=== PATIENT | male | born 1950 | race Caucasian/White ===

== ENCOUNTER 2023-07-16 09:09 | Outpatient (OUT) | payer MEDICARE, SELFPAY ==
--- NOTE | 2023-07-16 09:18 | XR_ITS ---
[address] [address] Patient Name: MOISES CRAIN MRN: [id number] date: 1950 Sex: M Assigned Patient Location: RAD Current Patient Location: [facility] Accession/Order Number: [id number] Exam Date: 07/16/2023 09:28 Report Date: 07/16/2023 09:46 At the request of: DIONISIO DUARTE Procedure: XR chest 2V EXAMINATION: XR chest 2V HISTORY: Exposure To Asbestos Z77.090 COMPARISON: 01/12/2022 TECHNIQUE: PA and lateral FINDINGS: LUNGS: No significant pulmonary parenchymal abnormalities. VASCULATURE: No increased pulmonary vasculature. PLEURA: No pneumothorax, effusion, or pleural thickening. CARDIAC: No cardiomegaly or cardiac silhouette abnormality. MEDIASTINUM: No visible mass or adenopathy. Aortic atherosclerosis BONES: No fracture or visible bone lesion. Degenerative spondylosis OTHER: Negative. XR/XR chest 2V IMPRESSION: No acute cardiopulmonary process Electronically authenticated by: ZANE HARP Date: 07/16/2023 09:46
== END 2023-07-16 09:10 | disposition home or self-care (01) ==
LOC: RAD 09:14
PROVIDERS: PCP Family Medicine; Visit Provider Internal Medicine
DX: Z77.090 Contact with and (suspected) exposure to asbestos (principal)
CPT/HCPCS: 71046

== ENCOUNTER 2024-08-10 07:06 | Outpatient (OUT) | payer MEDICARE, SELFPAY ==
--- OUTSIDE RECORDS SUMMARY | 2023-11-07 04:30 | XMS_ITS | Encounter Summary ---
Author Name [facility] Address [address] [place] [address] Care Team Providers Care Catering Server Name Role Phone MARI BOYD Primary Care Provider Unavailabl e Insurance Providers: All historical and current Section Date Range: From patient's date of to the date document was created. This section includes the names of all active insurance providers for the patient. Insurance Provider Type of Coverage Plan Name Start of Policy Coverage End of Policy Coverage Group Number Member ID Insurance Provider's Telephone Number Policy Gutierrez's Name Patient's Relationship to Policy Gutierrez [employer] [facility] ([facility]) MEDICARE ADVANTAGE [facility] ([facility]) Mar 03, 2017 [id number] HADDOX,RI CHARD PATIENT MEDICARE ([facility]) MEDICARE () PART A Dec 01, 2013 PART A [id number] HADDOX,RI CHARD PATIENT MEDICARE ([facility]) MEDICARE () PART B Dec 01, 2013 PART B [id number] [phone] HADDOX,RI CHARD PATIENT MEDICARE ([facility]) MEDICARE () PART A Dec 01, 2013 PART A [id number] [phone] HADDOX,RI CHARD PATIENT MEDICARE ([facility]) MEDICARE () PART B Dec 01, 2013 PART B [id number] HADDOX,RI CHARD PATIENT MEDICARE PART D (WNR) MEDICARE ([place]) PART D Mar 03, 2023 PART D [id number] [phone] CHARLIE CRAIN PATIENT [facility] (WNR) MEDICARE ADVANTAGE [facility] (WNR) Mar 03, 2023 [id number] [phone] CHARLIE CRAIN PATIENT Selected Encounter This section includes the information on record at [place] for the Encounter. Date/Time Encounter Type Encounter Description Reason Provider Source Nov 07, 2023 08:30 AM OFFICE O/P NEW LOW 30 MIN GENERAL INTERNAL MEDICINE ICD-10-CM E11.9 Type 2 diabetes mellitus without complications ASHLEY MYERS Jared Encounter Template Text not used by [place] Assessments - Encounter Diagnoses This section includes the primary and secondary diagnoses documented for the Encounter. Date/Time Primary/Secondary Diagnosis Diagnosis Name Provider Source Nov 07, 2023 09:10 AM PRIMARY Type 2 diabetes mellitus without complications ASHLEY MYERS [place] Plan of Treatment: Future Appointments (+ 6 months) and Future Tests (+/- 45 days) The Plan of Treatment section includes future care activities for the patient from all [place] treatmentfacilities. This section includes future appointments and future orders which are active, pending or scheduled. Future Appointments This section includes appointments that were scheduled to occur 6 months from the date of the Encounter, up to a maximum of 20 appointments. The data comes from all [place] treatment facilities. Appointment Date/Time Appointment Type Appointme nt Facility Name Nov 13, 2023 08:30 AM AMBULATORY - MEDICINE [facility] Lab Results: +/- 30 days of the encounter This section includes the Chemistry and Hematology Lab Results on record with [place] for the patient. Radiology Reports and Pathology Reports are provided separately, in subsequent sections. Lab Results This section contains the Chemistry/Hematology Results that were resulted 30 days before or 30 daysafter the date of the Encounter. Date/Time Source Result Type Result - Unit Interpretation Reference Range Specimen Type Comment Nov 11, 2023 08:05 AM [facility] HGB A1C (with eAG) BLOOD Specimen Type: BLOOD No comment entered. Ordering Provider: MARI BOYD DO Report Released Date/Time: May 14, 2023 08:31 AM Reporting Lab: [facility] [address] [facility] [place] [facility] [address] Performing Lab: [id number] [facility] [address] HGB A1C 8.1 H 4.0-6.0 ESTIMATE AVG GLUCOSE 186 mg/dL Nov 11, 2023 08:05 AM [facility] COMPREHENSIVE METABOLIC PANEL BLOOD Specimen Type: BLOOD No comment entered. Ordering Provider: MARI BOYD DO Report Released Date/Time: May 14, 2023 08:31 AM Reporting Lab: [address] [facility] [address] Performing Lab: [address] [facility] [address] CREATININE 1.2 mg/dL 0.6-1.3 UREA NITROGEN 18 mg/dL 7-25 GLUCOSE 187 mg/dL H 74-109 SODIUM 132 mmol/L L 136-145 POTASSIUM 4.4 mmol/L 3.5-5.1 CHLORIDE 96 mmol/L L 98-107 CO2 32 mmol/L H 21-31 CALCIUM 9.0 mg/dL 8.6-10.3 PROTEIN,TOTAL 6.0 g/dL L 6.4-8.9 ALBUMIN 4.1 g/dL 3.5-5.7 TOT. BILIRUBIN 0.9 mg/dL 0.3-1.0 ALKALINE PHOSPHATASE 77 U/L 34-104 SGOT(AST) 18 U/L 13-39 SGPT(ALT) 27 U/L 7-52 EGFR 63 mL/min/{1.73_m2} Nov 11, 2023 08:05 AM [facility] CBC WITH DIFFERENTIAL BLOOD Specimen Type: BLOOD No comment entered. Ordering Provider: MARI BOYD DO Report Released Date/Time: Nov 11, 2023 08:32 AM Reporting Lab: [address] [facility] [address] Performing Lab: [address] [facility] [address] WBC 9.93 10*3/uL 4.00-11.00 RBC 4.14 10*6/uL 4.10-5.80 HGB 12.9 g/dL 12.1-17.2 HCT 37.9 L 38.0-51.0 MCV 91.5 fL 80.0-100.0 MCH 31.2 pg 26.0-32.0 MCHC 34.0 g/dL 32.0-37.5 PLATELET 270 10*3/uL 130-400 MPV 9.5 fL 8.9-12.7 LYMPH, ABSOLUTE AUTOMATED 2.34 10*3/uL 1 .00-3.00 MONOS % AUTOMATED 10.6 MONOS, ABSOLUTE AUTOMATED 1.05 10*3/uL H 0 .30-0.90 LYMPH % AUTOMATED 23.6 BASO, ABSOLUTE AUTOMATED 0.08 10*3/uL 0. 00-0.20 EOSINO, ABSOLUTE AUTOMATED 0.37 10*3/uL 0.00-0.50 NEUTRO % AUTOMATED 60.5 EOSIN % AUTOMATED 3.7 BASO % AUTOMATED 0.8 NEUTROPHIL, ABSOLUTE AUTOMATED 6.01 10*3/uL 2.00-7.00 RDW-CV 12.3 11.5-14.5 IMMATURE GRANULOCYTE, PERCENT AUTOMATED 0.8 H 0.0-0.5 NRBC% 0.0 NRBC# <0.01 10*3/uL 0.000-0.012 Vital Signs: All taken on the encounter date This section contains inpatient and outpatient Vital Signs collected on the date of the Encounter. Date/Time Temperature Pulse Blood Pressure Respiratory Rate SP02 Pain Height Weight Body Mass Index Source Nov 07, 2023 08:48 AM 97.6 57 148/65 18 99 0 [place] Encounter Notes: All associated encounter notes This section contains the clinical notes associated to the Encounter. Date/Time Encounter Note(s) Provider Source Nov 07, 2023 08:56 AM PRIMARY CARE NOTE: LOCAL TITLE: PRIMARY CARE URGENT VISIT STANDARD TITLE: PRIMARY CARE NOTE DATE OF NOTE: NOV 07, 2023@08:56 ENTRY DATE: NOV 07, 2023@08:56:20 AUTHOR: ASHLEY MYERS EXP COSIGNER: URGENCY: STATUS: COMPLETED Reason for visit:73 yold male from [place] visiting family in [place] presents needing a few days of Metformin 1000mg BID until he goes home. He denies recent illnesses, pain, other cocnerns. Remote smoker. Occasional alcohol. Exercises daily. Problem List - Active - DM, HTN, CAD, COPD Active Outpatient Medications (including Supplies): Pending Outpatient Medications Status = 1) METFORMIN HCL 1000MG TAB TAKE ONE TABLET BY MOUTH PENDING TWICE A DAY DATE/TIME TEMP PULSE RESP BP PAIN WEIGHT 11/07/23 @ 0848 97.6 57 18 148/65 0 EXAM GEN:pleasant male in no distress HEENT:conj pink, no icterus HEART:RRR LUNGS:CTA EXT:neg edema NEURO:AAOx3 A/P:73 yold male travelling , hx of DM, needs Metformin until he gets home -Metformin prescribed condition-stable Return PRN OUTpatient I have compared the patient's current medications with those listed in CPRS. CPRS' Active and non-VA medication list completely and accurately reflects the patient's current medications. Were medications delivered, introduced, stopped or changed during today's visit? Yes A medication list that accurately reflects, to the best of my knowledge, what the patient is taking, and will be taking, was reviewed and discussed with the patient/caregiver; the patient/caregiver acknowledged understanding of and was provided the reconciled medication list. /edilberto/ Dr. ASHLEY MYERS [facility] Signed: 11/07/2023 09:11 ASHLEY MYERS [place] Nov 07, 2023 08:48 AM PRIMARY CARE [facility] [place] NOTE: LOCAL TITLE: [facility] SYMPTOM TRIAGE NOTE STANDARD TITLE: PRIMARY CARE TRIAGE NOTE DATE OF NOTE: NOV 07, 2023@08:48 ENTRY DATE: NOV 07, 2023@08:48:42 AUTHOR: KEM NUNEZ EXP COSIGNER: URGENCY: STATUS: COMPLETED [facility] SYMPTOM TRIAGE NOTE Confirm patients ID with and last 4: Yes Visit type: In Person Chief complaint (patients own words): I'm here visiting and I ran out of my metformin. states that he takes metformin 1000 mg bid. He will be in town until friday. VS 97.6 57 18 148/65 99% room air Physician Notified: Yes Name of Physician: Dr Myers /edilberto/ KEM NUNEZ RN, BSN Staff Nurse Signed: 11/07/2023 08:51 KEM NUNEZ
--- OUTSIDE RECORDS SUMMARY | 2023-11-13 04:30 | XMS_ITS | Encounter Summary ---
Author Name [facility] ([place] Address [address] [place] [address] Care Team Providers Care Elementary Educator Name Role Phone MARI BOYD Primary Care [...] Name Patient's Relationship to Policy Gutierrez AETNA [facility] ([facility]) MEDICARE ADVANTAGE [facility] ([facility]) Mar 03, 2017 [id number] HADDOX,RI CHARD PATIENT MEDICARE ([facility]) MEDICARE () PART A Dec 01, 2013 PART A [id number] HADDOX,RI CHARD PATIENT MEDICARE (WN) MEDICARE () PART B Dec 01, 2013 PART B [id number] [phone] HADDOX,RI CHARD PATIENT MEDICARE (WN) MEDICARE (M) PART A Dec 01, 2013 PART A [id number] HADDOX,RI CHARD PATIENT MEDICARE (WN) MEDICARE (M) PART B Dec 01, 2013 PART B [id number] HADDOX,RI CHARD PATIENT MEDICARE PART D (WNR) MEDICARE (M) PART D Mar 03, 2023 PART D [id number] [phone] CHARLIE CRAIN PATIENT [facility] (WNR) MEDICARE ADVANTAGE MCR (WNR) Mar 03, 2023 [id number] [phone] CHARLIE CRAIN PATIENT Selected Encounter This section includes the information on record at [place] for the Encounter. Date/Time Encounter Type Encounter Description Reason Provider Source Nov 13, 2023 08:30 AM OFFICE O/P EST HI 40 MIN PRIMARY CARE/MEDICINE ICD-10-CM I10 Essential (primary) hypertension SIDIQ,MARI Y DO IHE Encounter Template Text not used by [place] Assessments - Encounter Diagnoses This section includes the primary and secondary diagnoses documented for the Encounter. Date/Time Primary/Secondary Diagnosis Diagnosis Name Provider Source Nov 13, 2023 09:01 AM PRIMARY Essential (primary) hypertension SIDIQ,MARI Y DO [facility] Nov 13, 2023 09:01 AM SECONDARY Athscl heart disease of [place] coronary artery w/o ang pctrs SIDIQ,MARI Y DO [facility] Nov 13, 2023 09:01 AM SECONDARY Hyperlipidemia, unspecified SIDIQ,MARI Y DO [facility] Nov 13, 2023 09:01 AM SECONDARY Type 2 diabetes mellitus without complications SIDIQ,MARI Y DO [facility] Nov 13, 2023 09:01 AM SECONDARY Unspecified atrial fibrillation SIDIQ,MARI Y DO [facility] Lab Results: +/- 30 days of the encounter This section includes the Chemistry and Hematology Lab Results on record with [place] for the patient. Radiology Reports and Pathology Reports are provided separately, in subsequent sections. Lab Results This section contains the Chemistry/Hematology Results that were resulted 30 days before or 30 daysafter the date of the Encounter. Date/Time Source Result Type Result - Unit Interpretation Reference Range Specimen Type Comment Nov 11, 2023 08:05 AM [facility] HGB A1C (with eAG) BLOOD Specimen Type: BLOOD No comment entered. Ordering Provider: MARI BOYD DO Report Released Date/Time: May 14, 2023 08:31 AM Reporting Lab: [facility] [address] [facility] [address] Performing Lab: [address] [facility] [address] HGB A1C 8.1 H 4.0-6.0 ESTIMATE AVG GLUCOSE 186 mg/dL Nov 11, 2023 08:05 AM [facility] COMPREHENSIVE METABOLIC PANEL BLOOD Specimen Type: BLOOD No comment entered. Ordering Provider: MARI BOYD DO Report Released Date/Time: May 14, 2023 08:31 AM Reporting Lab: [address] [facility] [address] Performing Lab: [address] [facility] [address] CREATININE 1.2 mg/dL 0.6-1.3 UREA NITROGEN 18 [...] 63 mL/min/{1.73_m2} Nov 11, 2023 08:05 AM [facility] CBC WITH DIFFERENTIAL BLOOD Specimen Type: BLOOD No comment entered. Ordering Provider: MARI BOYD DO Report Released Date/Time: Nov 11, 2023 08:32 AM Reporting Lab: [address] [facility] [address] Performing Lab: [address] [facility] [address] WBC 9.93 10*3/uL 4.00-11.00 RBC 4.14 10*6/uL [...] Height Weight Body Mass Index Source Nov 13, 2023 08:36 AM 0 [facility] Nov 13, 2023 08:34 AM 97.7 61 136/61 16 97 205.25 31 [facility] Social History: Smoking Status (Most current) and Tobacco Use (All prior to encounter date) This section includes the most current, and the historical, smoking and tobacco- related health factors from the [place] facility where the Encounter took place. Current Smoking Status This section includes the most current smoking, or tobacco-related health factor, from the [place] facility where the Encounter took place. Date/Time Current Smoking Status Comment Facil ity May 14, 2023 08:00 AM VA-TOBACCO FORMER USER [facility] Tobacco Use History This section includes a history of the smoking, or tobacco-related health factors, that were collected on or before the date of the Encounter. The data comes from the [place] facility where the Encounter took place. Date/Time Smoking Status/Tobacco Use Comment F acility May 14, 2023 08:00 AM [place]-TOBACCO QUIT 15 YRS OR MORE [facility] May 07, 2022 09:00 AM VA-TOBACCO FORMER USER [facility] May 07, 2022 09:00 AM VA-TOBACCO QUIT 15 YRS OR MORE [facility] Dec 05, 2020 08:30 AM VA-TOBACCO NEVER USED [facility] Jun 16, 2018 08:31 AM VA-TOBACCO FORMER USER [facility] Jun 16, 2018 08:31 AM VA-TOBACCO QUIT 15 YRS OR MORE [facility] Sep 01, 2017 08:09 AM QUIT TOBACCO >12 MO [facility] Jun 16, 2017 09:36 AM VA-TOBACCO FORMER USER [facility] Jun 16, 2017 09:36 AM VA-TOBACCO QUIT 15 YRS OR MORE [facility] Apr 30, 2017 08:32 AM QUIT TOBACCO >12 MO [facility] Oct 28, 2016 07:51 AM QUIT TOBACCO >12 MO [facility] Apr 29, 2016 08:34 AM QUIT TOBACCO >12 MO [facility] Oct 26, 2015 09:15 AM QUIT TOBACCO >12 MO [facility] Apr 19, 2015 08:53 AM QUIT TOBACCO >12 MO [facility] Oct 31, 2014 09:41 AM QUIT TOBACCO >12 MO [facility] May 07, 2014 08:38 AM QUIT TOBACCO >12 MO [facility] Oct 07, 2013 03:05 PM QUIT TOBACCO >12 MO [facility] Dec 15, 2012 10:48 AM QUIT TOBACCO >12 MO [facility] Encounter Notes: All associated encounter notes This section contains the clinical notes associated to the Encounter. Date/Time Encounter Note(s) Provider Source Nov 13, 2023 08:35 AM PRIMARY CARE NURSI NG NOTE: LOCAL TITLE: PRIMARY CARE PREVENTIVE HEALTH STANDARD TITLE: PRIMARY CARE NURSING NOTE DATE OF NOTE: NOV 13, 2023@08:35 ENTRY DATE: NOV 13, 2023@08:35:46 AUTHOR: PATRICK SORENSON EXP COSIGNER: URGENCY: STATUS: COMPLETED S: Vet in clinic for Primary Care Appointment. O: V/S entered P: To see the Provider N-Pain Screen: Are you currently experiencing pain? No: Pain Score: 0 Suicide Screen: C-SSRS Screening [place] Suicide Severity Rating Scale (C-SSRS) screener 1. Over the past month, have you wished you were or wished you could go to sleep and not wake up? No 2. Over the past month, have you had any actual thoughts of killing yourself? No 3. Over the past month, have you been thinking about how you might do this? Response not required due to responses to other questions. 4. Over the past month, have you had these thoughts and had some intention of acting on them? Response not required due to responses to other questions. 5. Over the past month, have you started to work out or worked out the details of how to kill yourself? Response not required due to responses to other questions. 6. If yes, at any time in the past month did you intend to carry out this plan? Response not required due to responses to other questions. 7. In your lifetime, have you ever done anything, started to do anything, or prepared to do anything to end your life (for example, collected pills, obtained a gun, gave away valuables, went to the roof but didn't jump)? No 8. If YES, was this within the past 3 months? Response not required due to responses to other questions. N-MEDICATION RECONCILIATION: Review of medications and allergies at the time of this encounter included: Local and remote allergies, active and pending prescriptions dispensed from this [place] (local) and dispensed from another [place] or [facility] facility (remote) as well as local inpatient and clinic medications (IMOs), locally documented non-VA medications and local prescriptions that have or been discontinued in the past 90 days. If a category is not listed below, it means there were no known relevant local and/or remote medications and/or allergies. The patient/family member received an updated list of current medications. Local & Remote Allergies: LISINOPRIL Active Outpatient Medications (including Supplies): ALBUTEROL 90MCG (CFC-F) 200D ORAL INHL INHALE 2 PUFFS BY ACTIVE INHALATION FOUR TIMES A DAY NEEDED FOR SHORTNESS OF BREATH AMLODIPINE BESYLATE 10MG TAB TAKE ONE TABLET BY MOUTH ONCE ACTIVE (S) DAILY FOR BLOOD PRESSURE APIXABAN 5MG TAB TAKE ONE TABLET BY MOUTH TWICE A DAY FOR ACTIVE STROKE PREVENTION ATORVASTATIN CALCIUM 80MG TAB TAKE ONE TABLET BY MOUTH ACTIVE (S) EVERY DAY FOR CHOLESTEROL - CALL YOUR PROVIDER IF YOU HAVE UNEXPLAINED MUSCLE PAIN, TENDERNESS OR WEAKNESS. LOSARTAN 100MG TAB TAKE ONE TABLET BY MOUTH EVERY DAY FOR ACTIVE (S) BLOOD PRESSURE METFORMIN HCL 1000MG TAB TAKE ONE TABLET BY MOUTH TWICE ACTIVE (S) DAILY, WITH MEALS FOR DIABETES FOR DIABETES DOSE CHANGE METOPROLOL TARTRATE 50MG TAB TAKE ONE TABLET BY MOUTH ACTIVE TWICE A DAY FOR BLOOD PRESSURE Non-VA MULTIVITAMINS/MINERALS TAB MOUTH ACTIVE N-Education Assessment: Patients preferred language for discussing healthcare: Language: Senegalese READINESS TO LEARN ASSESSMENT Readiness good Level of Understanding: Good N-Advance Directive: Patient's advance directive status: Patient has an advance directive - NOT in the [place] electronic medical record. Patient was instructed to bring a copy to social work when returning to the [place]. /edilberto/ PATRICK SORENSON AVIATION SAFETY TECHNICIAN Signed: 11/13/2023 08:36 PATRICK SORENSON [facility] Nov 13, 2023 08:29 AM PRIMARY CARE OUTPA TAVIA NOTE: LOCAL TITLE: PRIMARY CARE STANDARD TITLE: PRIMARY CARE OUTPATIENT NOTE DATE OF NOTE: NOV 13, 2023@08:29 ENTRY DATE: NOV 13, 2023@08:29:56 AUTHOR: MARI BOYD DO EXP COSIGNER: URGENCY: STATUS: COMPLETED CC:Follow up HPI: 73 yo here for 6 m follow up. He completed labs and recent hga1c is back up over 8. Since last appt, he has had some changes with local pcp. He switched pcp again who left. He is going to see a new pcp in [place]. He reports main care at [place] and local pcp is a back up He reports he was doing some work on his roof and had exacerbation in his breathing/copd. He has been on oral steroid x 9 d and will finish today. It has affected his glucose which has been running 130s-150s last week He was covid negative Local pcp DR Karlos Miller, now changing to pcp in [place] [facility]. ) every 6m Pt sees DR Vang ENT at [place], [place] prn visits Pt sees optometry/optho [facility] in [facility] annually.- Due July 2023 Pt had macular surgery in [place] in apr 2022. Pt uses eye drops/ prescription. DR Espinal/DR Jacquelyn martini in [place] for copd/rohan- annually Gen surgery=- [place] for colonoscopy Pt sleeps 630pm sal with cpap and wakes 1130pm later. He goes to [employer] almost every day to work out ROS: Gen: No f/c CV: NO CP, Palpitations Pulm: No SOB, Cough, wheeze GI:No N/V/D/C, no Gerd, No black/bloody bms : No dysuria, No hematuria MSK:No new back pain Neuro:No GUILLAUME, no weakness PMH: htn dm2 copd cad sleep apnea meningioma RLS- on clonozapam PSHX: Sinus and septal surgery in mar 2022 Social HX: Currently lives with Tobacco: age [age], smoked 3-4 cig a day Alcohol use: every few mos MJ/Drug Use: Denies hx:[employer] [id number], Ao exposure Occupation:information technology director at [employer] Family HX: Mom in 57yo, unknown cause didn't se dr much Dad around age 86yo Brother esophagus cancer, his son also of esophagus cancer Allergies: Lisinopril-cough PE: VSD - Last Set Vitals Date Vital Measurement Qualifiers 11/13/2023 08:36 Pain 0 11/13/2023 08:34 Temp F (C) 97.7 (36.5) Pulse 61 Respir 16 BP 136/61 Wt lbs (kg)[BMI] 205.25 (93.10)[31*]Actual, Standing Weight POx (L/Min)(%) 97 05/14/2023 08:10 Ht in (cm) 68 (172.72) Estimated 11/10/2015 08:56 C/G in (cm) 17 (43.18) Neck Gen: NAD, A and O x 3, cooperative with interview and exam HEENT:NC/AT, PERRL CV: RRR, S1S2 Pulm: CTAB,NO wheezing, rhonchi or rales ABD:Soft, Nt/ND, no palpable organomegaly EXT: No c/c, No edema Neuro: CN II-XII grossly intact, normal gait MSK:No gross deformities of spine Skin:no rash Psych:appropriate Labs and Studies: COMPREHENSIVE METABOLIC PANEL; BLOOD Neo. Date: 11/11/23 08:05 05/05/23 08:13 Test Name Result Result Units Range GLUCOSE 187 H 153 H mg/dL 74 - 109 UREA NITROGEN 18 24 mg/dL 7 - 25 CREATININE 1.2 1.38 H mg/dL 0.57 - 1.25 SODIUM 132 L 138 mmol/L 136 - 145 POTASSIUM 4.4 4.7 mmol/L 3.5 - 5.1 CHLORIDE 96 L 102 mmol/L 98 - 107 CO2 32 H 24 mmol/L 21 - 31 CALCIUM 9.0 10.1 mg/dL 8.6 - 10.3 PROTEIN,TOTAL 6.0 L 6.7 g/dl 6.4 - 8.9 ALBUMIN 4.1 4.3 g/dL 3.5 - 5.7 TOT. BILIRUBIN 0.9 0.8 mg/dL 0.3 - 1.0 ALKALINE PHOSPH 77 86 U/L 34 - 104 SGOT(AST) 18 22 U/L 13 - 39 SGPT(ALT) 27 28 U/L 7 - 52 EGFR 63 54 - TSH: 1.8886 (05/05/23 08:13) Creatinine: 1.2 (11/11/23 08:05) Collection DT Spec HGB A1C 11/11/2023 08:05 BLOOD 8.1 H 05/05/2023 08:13 BLOOD 7.6 H Collection DT Spec calcLDL HDL CHOL TRIG 05/05/2023 08:13 BLOOD 51 52 127 118 PSA 1.111 (05/05/23 08:13) CBC WITH DIFFERENTIAL; BLOOD Neo. Date: 11/11/23 08:05 / 00:00 Test Name Result Result Units Range WBC 9.93 K/mcL 4.0 - 11.0 RBC 4.14 M/mcL 4.1 - 5.8 HGB 12.9 g/dl 12.1 - 17.2 HCT 37.9 L % 38 - 51 MCV 91.5 fl 80 - 100 MCH 31.2 pg 26 - 32 MCHC 34.0 g/dl 32.0 - 37.5 PLATELET 270 K/mcL 130 - 400 MPV 9.5 fL 8.9 - 12.7 LYMPH, ABSOLUTE 2.34 K/mcL 1.0 - 3.0 NEUTROPHIL, ABS 6.01 K/mcL 2.0 - 7.0 EOSINO, ABSOLUT 0.37 K/mcL 0.0 - 0.5 BASO, ABSOLUTE 0.08 K/mcL 0.0 - 0.2 LYMPH % AUTOMAT 23.6 % - MONOS % AUTOMAT 10.6 % - MONOS, ABSOLUTE 1.05 H K/mcL 0.3 - 0.9 NEUTRO % AUTOMA 60.5 % - EOSIN % AUTOMAT 3.7 % - BASO % AUTOMATE 0.8 % - RDW-CV 12.3 % 11.5 - 14.5 IMMATURE GRANUL 0.8 H % 0.0 - 0.5 NRBC% 0.0 % 0 - 0.2 NRBC# <0.01 K/mcL 0 - 0.012 Vitamin D: Collection DT Specimen Test Name Result Units Ref Range 05/02/2022 07:33 BLOOD Vitamin D,Total 47.8 ng/mL 30.0 - 80.0 LAbs reviewed and d/w pt. He was given a copy to share with new local pcp A/P: - CAD- Pt on statin, but off asa since jan 2022. -Afib- Stable. COnt eliquis 5mg bid and metoprolol tartrate 50mg bid. - DM2- Improvingon metformin 1000mg bid. Given higher readingfs will start jardiance 12.5mg today. Will have rncm call in 2 weeks to assess response - Htn- controlled on losartan/ metoprolol. - LE edema- Re measure for compression stockings refill - CRC screening- due 2023, last was 2018 and was reported normal. Pt to self refer to [place] in next few mo and use civilian insurance If well, rtc in 6 mo, and prn Total time spent face to face and in chart review and documentation for this visit: 40m P-MEDICATION RECONCILIATION: Review of medications with the patient at the time of this encounter included: Patient local and remote allergies, active and pending prescriptions dispensed from [facility] (local) and dispensed from another [place] or [facility] facility (remote) as well as local inpatient and clinic medications (IMOs), locally documented non-VA medications and local prescriptions that have or been discontinued in the past 90 days. With the exception of allergies, if a category is not listed below, it means there were no relevant medications for the patient. The patient /family member received an updated list of current medications. Patient verbalized understanding. Local & Remote Allergies: LISINOPRIL Active Outpatient Medications (including Supplies): ALBUTEROL 90MCG (CFC-F) 200D ORAL INHL INHALE 2 PUFFS BY ACTIVE INHALATION FOUR TIMES A DAY NEEDED FOR SHORTNESS OF BREATH AMLODIPINE BESYLATE 10MG TAB TAKE ONE TABLET BY MOUTH ONCE ACTIVE (S) DAILY FOR BLOOD PRESSURE APIXABAN 5MG TAB TAKE ONE TABLET BY MOUTH TWICE A DAY FOR ACTIVE STROKE PREVENTION ATORVASTATIN CALCIUM 80MG TAB TAKE ONE TABLET BY MOUTH ACTIVE (S) EVERY DAY FOR CHOLESTEROL - CALL YOUR PROVIDER IF YOU HAVE UNEXPLAINED MUSCLE PAIN, TENDERNESS OR WEAKNESS. EMPAGLIFLOZIN 25MG TAB TAKE ONE-HALF TABLET BY MOUTH ONCE PENDING DAILY LOSARTAN 100MG TAB TAKE ONE TABLET BY MOUTH EVERY DAY FOR ACTIVE (S) BLOOD PRESSURE METFORMIN HCL 1000MG TAB TAKE ONE TABLET BY MOUTH TWICE ACTIVE (S) DAILY, WITH MEALS FOR DIABETES FOR DIABETES DOSE CHANGE METOPROLOL TARTRATE 50MG TAB TAKE ONE TABLET BY MOUTH ACTIVE TWICE A DAY FOR BLOOD PRESSURE METOPROLOL TARTRATE 50MG TAB TAKE ONE TABLET BY MOUTH PENDING TWICE A DAY FOR BLOOD PRESSURE Non-VA MULTIVITAMINS/MINERALS TAB MOUTH ACTIVE /edilberto/ MARI Y OLIVER DO Attending PhysicianThompson-[facility] Signed: 11/13/2023 09:01 MARI BOYD DO [facility]
--- OUTSIDE RECORDS SUMMARY | 2024-02-04 08:45 | XMS_ITS ---
Author Organization [facility] in [place] Address [address] [place] [address] Care Team Providers Care Robotic Toy Inventor Name Role Phone Matti Gomez MD Primary Care Provider Unavailab romaine Norberto Espinal Unavailable [phone] REASON FOR VISIT [facility] RX Encounters Encounter Location Date Provider Diagnosis [facility] [place] [address] [place] [address] 02/04/2024 Norberto Espinal Plan Of Treatment Next Appt Details Provider Name:Norbertorebecca Nuñez, 07/12/2025 08:30:00 AM, [address] [place], [address], Progress Notes * Singh CRAIN NDOB: [birth year] (73 yo M)Acc No.[id number]:02/04/2024 Patient: Tara Singh MALDONADO :1950 A ge:73 Y S ex:Male Address:[address] [place] [address] [place] [address] * true * Date: Generated for Printi ng/Faxing/eTransmitting on: 08/10/2024 07:09 AM EDT
--- OUTSIDE RECORDS SUMMARY | 2024-05-14 04:00 | XMS_ITS | Encounter Summary ---
Author Name [facility] (ID) [facility] Address [address] [place] [address] Care Team Providers Care Hi Ranger Operator Name Role Phone BELEN BOYD Primary Care Provider Unavailabl e Insurance [...] Name Patient's Relationship to Policy Gutierrez AETNA [facility] ([place] MEDICARE ADVANTAGE [facility] [place] Mar 03, 2017 [id number] HADDOX,RI CHARD PATIENT MEDICARE ([place]) MEDICARE () PART A Dec 01, 2013 PART A [id number] HADDOX,RI CHARD PATIENT MEDICARE ([place]) MEDICARE () PART B Dec 01, 2013 PART B [id number] [phone] HADDOX,RI CHARD PATIENT MEDICARE ([place]) MEDICARE (M) PART A Dec 01, 2013 PART A [id number] HADDOX,RI CHARD PATIENT MEDICARE ([place]) MEDICARE () PART B Dec 01, 2013 PART B [id number] HADDOX,RI CHARD PATIENT MEDICARE PART D ([place]) MEDICARE ([place]) PART D Mar 03, 2023 PART D [id number] [phone] CHARLIE CRAIN PATIENT [facility] ([place]) MEDICARE ADVANTAGE [facility] ([place]) Mar 03, 2023 [id number] [phone] CHARLIE CRAIN PATIENT Selected Encounter This section includes the information on record at ID for the Encounter. Date/Time Encounter Type Encounter Description Reason Provider Source May 14, 2024 08:00 AM OFFICE O/P EST MOD 30 MIN PRIMARY CARE/MEDICINE ICD-10-CM E11.9 Type 2 diabetes mellitus without complications SIDIQ,BELEN Y DO IHE Encounter Template Text not used by ID Assessments - Encounter Diagnoses This section includes the primary and secondary diagnoses documented for the Encounter. Date/Time Primary/Secondary Diagnosis Diagnosis Name Provider Source May 14, 2024 01:40 PM PRIMARY Type 2 diabetes mellitus without complications SIDIQ,BELEN Y DO [facility] May 14, 2024 01:40 PM SECONDARY Chronic obstructive pulmonary disease, unspecified SIDIQ,BELEN Y DO [facility] May 14, 2024 01:40 PM SECONDARY jail (current) use of anticoagulants SIDIQ,BELEN Y DO [facility] May 14, 2024 01:40 PM SECONDARY Unspecified atrial fibrillation SIDIQ,BELEN Y DO [facility] Plan of Treatment: Future Appointments (+ 6 months) and Future Tests (+/- 45 days) The Plan of Treatment section includes future care activities for the patient from all ID treatmentfacilities. This section includes future appointments and future orders which are active, pending or scheduled. Future Appointments This section includes appointments that were scheduled to occur 6 months from the date of the Encounter, up to a maximum of 20 appointments. The data comes from all ID treatment facilities. Appointment Date/Time Appointment Type Appointme nt Facility Name May 31, 2024 10:30 AM AMBULATORY - NONE [facility] Jun 16, 2024 09:00 AM AMBULATORY - NONE [facility] July 05, 2024 01:30 PM AMBULATORY - NONE [facility] Nov 12, 2024 08:00 AM AMBULATORY - MEDICINE [facility] Lab Results: +/- 30 days of the encounter This section includes the Chemistry and Hematology Lab Results on record with ID for the patient. Radiology Reports and Pathology Reports are provided separately, in subsequent sections. Lab Results This section contains the Chemistry/Hematology Results that were resulted 30 days before or 30 daysafter the date of the Encounter. Date/Time Source Result Type Result - Unit Interpretation Reference Range Specimen Type Comment May 14, 2024 08:50 AM [facility] MICROALBUMIN URINE PANEL,RANDOM URINE,RA NDOM Specimen Type: URINE,RANDOM Comment: R-Unable to calculate MALB/CREA result Ordering Provider: BELEN BOYD DO Report Released Date/Time: May 13, 2024 03:59 PM Reporting Lab: [place] [id number] Performing Lab: [address] CREATININE 34 mg/dL MICROALBUMIN,RANDOM <0.7 mg/dL MICRO/CREAT RATIO comment mg/g May 14, 2024 08:44 AM [facility] TSH BLOOD Specimen Type: BLOOD No comment entered. Ordering Provider: BELEN BOYD DO Report Released Date/Time: May 13, 2024 03:59 PM Reporting Lab: [address] [address] Performing Lab: [address] TSH 1.793 u[IU]/mL 0.45-5.33 May 14, 2024 08:44 AM [facility] HGB A1C (with eAG) BLOOD Specimen Ty pe: BLOOD No comment entered. Ordering Provider: BELEN BOYD DO Report Released Date/Time: May 13, 2024 03:59 PM Reporting Lab: [facility] [address] [facility] [address] Performing Lab: [facility] [address] [facility] [address] HGB A1C 7.0 H 4.0-6.0 ESTIMATE AVG GLUCOSE 154 mg/dL May 14, 2024 08:44 AM [facility] LIPID PROFILE BLOO D Specimen Type: BLOOD No comment entered. Ordering Provider: BELEN BOYD DO Report Released Date/Time: May 13, 2024 03:59 PM Reporting Lab: [id number] [facility] [address] Performing Lab: [address] [facility] [address] CHOLESTEROL 112 mg/dL <200 TRIGLYCERIDE 110 mg/dL HDL CHOLESTEROL 53 mg/dL LDL CHOLESTEROL,calc 37 mg/dL <130 May 14, 2024 08:44 AM [facility] BASIC METABOLIC PANEL BLOOD Specimen Type: BLOOD No comment entered. Ordering Provider: BELEN BOYD DO Report Released Date/Time: May 13, 2024 03:59 PM Reporting Lab: [address] [facility] [address] Performing Lab: [address] [facility] [address] CREATININE 1.3 mg/dL 0.6-1.3 UREA NITROGEN 23 mg/dL 7-25 GLUCOSE 128 mg/dL H 74-109 SODIUM 136 mmol/L 136-145 POTASSIUM 4.4 mmol/L 3.5-5.1 CHLORIDE 103 mmol/L 98-107 CO2 27 mmol/L 21-31 CALCIUM 9.5 mg/dL 8.6-10.3 ANION GAP 6 mmol/L 4-12 EGFR 57 mL/min/{1.73_m2} May 14, 2024 08:44 AM [facility] CBC W/O DIFF. BLOO D Specimen Type: BLOOD No comment entered. Ordering Provider: BELEN BOYD DO Report Released Date/Time: May 13, 2024 03:59 PM Reporting Lab: [address] [facility] [address] Performing Lab: [address] [facility] [address] WBC 8.58 10*3/uL 4.00-11.00 RBC 4.47 10*6/uL 4.10-5.80 HGB 13.7 g/dL 12.1-17.2 HCT 41.6 38.0-51.0 MCV 93.1 fL 80.0-100.0 MCH 30.6 pg 26.0-32.0 MCHC 32.9 g/dL 32.0-37.5 PLATELET 221 10*3/uL 130-400 MPV 9.2 fL 8.9-12.7 RDW-CV 12.7 11.5-14.5 Vital Signs: All taken on the encounter date This section contains inpatient and outpatient Vital Signs collected on the date of the Encounter. Date/Time Temperature Pulse Blood Pressure Respiratory Rate SP02 Pain Height Weight Body Mass Index Source May 14, 2024 08:01 AM 97.5 52 136/63 97 68 205.03 31 [facility] May 14, 2024 07:57 AM 7 [facility] Social History: Smoking Status (Most current) and Tobacco Use (All prior to encounter date) This section includes the most current, and the historical, smoking and tobacco- related health factors from the ID facility where the Encounter took place. Current Smoking Status This section includes the most current smoking, or tobacco-related health factor, from the ID facility where the Encounter took place. Date/Time Current Smoking Status Comment Facil ity May 14, 2024 08:00 AM VA-TOBACCO USE FORMER CIGARETTES [facility] Tobacco Use History This section includes a history of the smoking, or tobacco-related health factors, that were collected on or before the date of the Encounter. The data comes from the ID facility where the Encounter took place. Date/Time Smoking Status/Tobacco Use Comment F acility May 14, 2024 08:00 AM VA-TOBACCO USE FORMER CIGARETTES [facility] May 14, 2023 08:00 AM VA-TOBACCO FORMER USER [facility] May 14, 2023 08:00 AM VA-TOBACCO QUIT 15 YRS OR MORE [facility] May 07, 2022 09:00 AM VA-TOBACCO FORMER USER [facility] May 07, 2022 09:00 AM VA-TOBACCO QUIT 15 YRS OR MORE [facility] Dec 05, 2020 08:30 AM VA-TOBACCO NEVER USED [facility] Jun 16, 2018 08:31 AM VA-TOBACCO FORMER USER [facility] Jun 16, 2018 08:31 AM VA-TOBACCO QUIT 15 YRS OR MORE [facility] Sep 01, 2017 08:09 AM QUIT TOBACCO >12 MO [facility] Jun 16, 2017 09:36 AM VA-TOBACCO FORMER USER [facility] Jun 16, 2017 09:36 AM VA-TOBACCO QUIT 15 YRS OR MORE [facility] Apr 30, 2017 08:32 AM QUIT TOBACCO >12 MO [facility] Oct 28, 2016 07:51 AM QUIT TOBACCO >12 MO [facility] Apr 29, 2016 08:34 AM QUIT TOBACCO >12 MO [facility] Oct 26, 2015 09:15 AM QUIT TOBACCO >12 MO [facility] Apr 19, 2015 08:53 AM QUIT TOBACCO >12 MO [facility] Oct 31, 2014 09:41 AM QUIT TOBACCO >12 MO [facility] May 07, 2014 08:38 AM QUIT TOBACCO >12 MO [facility] Oct 07, 2013 03:05 PM QUIT TOBACCO >12 MO [facility] Dec 15, 2012 10:48 AM QUIT TOBACCO >12 MO [facility] Encounter Notes: All associated encounter notes This section contains the clinical notes associated to the Encounter. Date/Time Encounter Note(s) Provider Source May 14, 2024 01:44 PM ADDENDUM: LOCAL TITLE: Addendum STANDARD TITLE: ADDENDUM DATE OF NOTE: MAY 14, 2024@13:44:38 ENTRY DATE: MAY 14, 2024@13:44:39 AUTHOR: BELEN BOYD DO EXP COSIGNER: URGENCY: STATUS: COMPLETED Can you let pt know his lab results. His hga1c is much better, so i would recommend keeping jardiance at same dose. I sent him lab reuslts letter. Thank you /luis BOYD DO Attending PhysicianThompson-[facility] Signed: 05/14/2024 13:45 Receipt Acknowledged By: 05/14/2024 13:56 /edilberto/ GIFTY CRUZ REGISTERED NURSE --- Original Document --- 05/14/24 PRIMARY CARE: CC:Follow up HPI: 74 yo here for 6 m follow up. He is doing well. He feels his bs are responding well to meds. His home bs are 115-130s. He [place] colog[place] [address] Gomez and due rpt in 2026. He is taking copd inhaler rx from ID pharmacy but requested by his local pulm. [facility] ) every 6m Pt sees DR Vang ENT at [place], [place] prn visits Pt sees optometry/optho SVS in [facility] annually.- Due July 2023 Pt had macular surgery in [place] in apr 2022. Pt uses eye drops/ prescription. DR Espinal/DR Valladares pulm in [place] for copd/rohan- annually Gen surgery- [place] for colonoscopy Pt sleeps 630pm sal with [...] cad sleep apnea meningioma RLS- on clonozapam ckd3a PSHX: Sinus and septal surgery in mar 2022 Social HX: Currently lives with Tobacco: age [age], smoked 3-4 cig a day Alcohol use: every few mos MJ/Drug Use: Denies hx:[employer] [id number], Ao exposure Occupation:polysomnography tech at [employer] Family HX: Mom in 57yo, unknown cause didn't se dr savi Dad around age 86yo Brother esophagus cancer, his son also of esophagus cancer Allergies: Lisinopril-cough PE: VSD - Last Set Vitals Date Vital Measurement Qualifiers 05/14/2024 08:01 Temp F (C) 97.5 (36.4) Pulse 52 BP 136/63 Ht in (cm) 68 (172.72) Estimated Wt lbs (kg)[BMI] 205.03 (93.00)[31*]Actual, Standing Weight POx (L/Min)(%) 97 Room Air 05/14/2024 07:57 Pain 7 11/13/2023 08:34 Respir 16 11/10/2015 08:56 C/G in (cm) 17 (43.18) [...] WITH DIFFERENTIAL; BLOOD Neo. Date: 11/11/23 08:05 99/99/99 00:00 Test Name Result Result Units Range [...] and metoprolol tartrate 50mg bid. - DM2- Improving on metformin 1000mg bid and jardiance 12.5mg. If hga1c still high, could increase to 25mg/d - Htn- controlled on losartan/ metoprolol. - LE edema- Cont compression stockings when traveling - CRC screening- reports did cologuard with local pcp in 2023 If well, rtc in 6 mo, and prn Total time spent face to face and in chart review and documentation for this visit: 40m P-MEDICATION RECONCILIATION: Review of medications with the patient at the time of this encounter included: Patient local and remote allergies, active and pending prescriptions dispensed from this ID (local) and dispensed from another ID or [facility] facility (remote) as well as local inpatient [...] ONE TABLET BY MOUTH TWICE A DAY ACTIVE Indication: FOR STROKE PREVENTION ATORVASTATIN CALCIUM 80MG TAB TAKE ONE TABLET BY MOUTH ACTIVE EVERY DAY FOR CHOLESTEROL - CALL YOUR PROVIDER IF YOU HAVE UNEXPLAINED MUSCLE PAIN, TENDERNESS OR WEAKNESS. LIDOCAINE 5% OINT APPLY THIN FILM TO SKIN ONCE DAILY ACTIVE NEEDED Indication: FOR PAIN LOSARTAN 100MG TAB TAKE ONE TABLET BY MOUTH EVERY DAY FOR ACTIVE (S) BLOOD PRESSURE METFORMIN HCL 1000MG TAB TAKE ONE TABLET BY MOUTH TWICE ACTIVE DAILY, WITH MEALS DOSE CHANGE Indication: FOR DIABETES METOPROLOL TARTRATE 50MG TAB TAKE ONE TABLET BY MOUTH ACTIVE TWICE A DAY FOR BLOOD PRESSURE OLODATEROL/TIOTROP 2.5MCG/ACTUAT 60D INH INHALE 2 PUFFS BY ACTIVE (S) INHALATION ONCE DAILY Indication: FOR COPD Non-VA MULTIVITAMINS/MINERALS TAB MOUTH ACTIVE 10 Total Medications Avg Risk Colorectal Cancer Screen: AVERAGE RISK colorectal cancer screening is due based on information available to this clinical reminder Patient has arranged or is choosing to arrange this care independent of and without assistance from this ID. Comment: Reports cologuard neg in 2023 /edilberto/ BELEN BOYD DO Attending PhysicianThompson-[facility] Signed: 05/14/2024 13:40 [facility] May 14, 2024 01:41 PM EDUCATION NOTE: LOCAL TITLE: PATIENT LETTER (MAILED TO PATIENT) STANDARD TITLE: EDUCATION NOTE DATE OF NOTE: MAY 14, 2024@13:41 ENTRY DATE: MAY 14, 2024@13:41:10 AUTHOR: BELEN BOYD DO EXP COSIGNER: URGENCY: STATUS: COMPLETED [facility] [address] [place], [place] [address] MAY 14, 2024 [address] [place], [place] [address] Dear Mr. Singh Crain , High cholesterol and triglycerides (lipids) are risk factors for heart disease. HDL is the good cholesterol and should ideally be greater than 40. LDL is the bad cholesterol and your level should be less than 100. CHOL: 112 (05/14/24 08:44) HDL: 53 (05/14/24 08:44) TRI (05/14/24 08:44) calcLDL: 37 (05/14/24 08:44) You have achieved the goals we set for you. ~~~~~~~~~~~~~~~~~~~~~~~~~~~ ~~~~~~~~~~~~~~~~~~~~~~~~~~~ ~~~~~~~~~~~~~~~~~ Hemoglobin A1C gives us information about your diabetes (sugar or glucose) control over the past 3 months. Your target is to keep your A1C below 7.5. HGB A1C: 7.0 (05/14/24 08:44) You have achieved the goals we set for you. I recommend we continue your current diabetic meds. ~~~~~~~~~~~~~~~~~~~~~~~~~~~ ~~~~~~~~~~~~~~~~~~~~~~~~~~~ ~~~~~~~~~~~~~~~~~ These are tests for kidney function, electrolytes, and liver health. COMPREHENSIVE METABOLIC PANEL; BLOOD Neo. Date: 05/14/24 08:44 11/11/23 08:05 Test Name Result Result Units Range GLUCOSE 128 H 187 H mg/dL 74 - 109 UREA NITROGEN 23 18 mg/dL 7 - 25 CREATININE 1.3 1.2 mg/dL 0.57 - 1.25 SODIUM 136 132 L mmol/L 136 - 145 POTASSIUM 4.4 4.4 mmol/L 3.5 - 5.1 CHLORIDE 103 96 L mmol/L 98 - 107 CO2 27 32 H mmol/L 21 - 31 CALCIUM 9.5 9.0 mg/dL 8.6 - 10.3 PROTEIN,TOTAL 6.0 L g/dl 6.4 - 8.9 ALBUMIN 4.1 g/dL 3.5 - 5.7 TOT. BILIRUBIN 0.9 mg/dL 0.3 - 1.0 ALKALINE PHOSPH 77 U/L 34 - 104 SGOT(AST) 18 U/L 13 - 39 SGPT(ALT) 27 U/L 7 - 52 EGFR 57 63 - eGFR (mL/min/1.73 m2) CKD stage Interpretation >=90 G1 Normal 60-89 G2 Mild decrease 45-59 G3A Mild to moderate decrease 30-44 G3B Moderate to severe decrease 15-29 G4 Severe decrease <15 G5 Kidney failure The lab listed above is as expected. ~~~~~~~~~~~~~~~~~~~~~~~~~~~ ~~~~~~~~~~~~~~~~~~~~~~~~~~~ ~~~~~~~~~~~~~~~~ TSH (Thyroid Stimulating Hormone) tests the function of your thyroid gland. TSH: 1.793 (05/14/24 08:44) I have reviewed the above lab results and they are normal. ~~~~~~~~~~~~~~~~~~~~~~~~~~~ ~~~~~~~~~~~~~~~~~~~~~~~~~~~ ~~~~~~~~~~~~~~~~~ A complete blood count test measures several components and features of your blood, including: - Red blood cells, which carry oxygen. - Platelets, which help with blood clotting. - White blood cells, which fight infection. - Hemoglobin, the oxygen-carrying protein in red blood cells. - Hematocrit, the proportion of red blood cells to the fluid Component, or plasma, in your blood. CBC RESULTS: CBC WITH DIFFERENTIAL; BLOOD Neo. Date: 05/14/24 08:44 11/11/23 08:05 Test Name Result Result Units Range WBC 8.58 9.93 K/mcL 4.0 - 11.0 RBC 4.47 4.14 M/mcL 4.1 - 5.8 HGB 13.7 12.9 g/dl 12.1 - 17.2 HCT 41.6 37.9 L % 38 - 51 MCV 93.1 91.5 fl 80 - 100 MCH 30.6 31.2 pg 26 - 32 MCHC 32.9 34.0 g/dl 32.0 - 37.5 PLATELET 221 270 K/mcL 130 - 400 MPV 9.2 9.5 fL 8.9 - 12.7 LYMPH, ABSOLUTE [...] BASO % AUTOMATE 0.8 % - RDW-CV 12.7 12.3 % 11.5 - 14.5 IMMATURE GRANUL 0.8 H % 0.0 - 0.5 NRBC% 0.0 % 0 - 0.2 NRBC# <0.01 K/mcL 0 - 0.012 I have reviewed the above lab results and they are normal. ~~~~~~~~~~~~~~~~~~~~~~~~~~~ ~~~~~~~~~~~~~~~~~~~~~~~~~~~ ~~~~~~~~~~~~~~~~~ A urine microalbumin test is a test to detect very small levels of a blood protein (albumin) in your urine. A microalbumin test is used to detect early signs of kidney damage in people who are at risk of developing kidney disease. Collection DT Specimen Test Name Result Units Ref Range 05/14/2024 08:50 URINE !! MICROALBUMIN,RAND <0.7 mg/dL CREATININE 34 mg/dL [506] MICROALBUMIN,RANDOM <0.7 mg/dL [506] MICRO/CREAT RATIO comment mg/g [506] I have reviewed the above lab results and they are normal. ~~~~~~~~~~~~~~~~~~~~~~~~~~~ ~~~~~~~~~~~~~~~~~~~~~~~~~~~ ~~~~~~~~~~~~~~~~~ Please contact me or my nurse if you have any questions or concerns. Sincerely, Dr. Belen BOYD DO Attending Physician, [facility]-BEL[facility] TERRELL DO [facility] May 14, 2024 08:07 AM PRIMARY CARE OUTPA TIENT NOTE: LOCAL TITLE: PRIMARY CARE STANDARD TITLE: PRIMARY CARE OUTPATIENT NOTE DATE OF NOTE: MAY 14, 2024@08:07 ENTRY DATE: MAY 14, 2024@08:07:48 AUTHOR: BELEN BOYD DO EXP COSIGNER: URGENCY: STATUS: COMPLETED PRIMARY CARE Has ADDENDA CC:Follow up HPI: 74 yo here for 6 m follow up. He is doing well. He feels his bs are responding well to meds. His home bs are 115-130s. He [place] [address] Gomez and due rpt in 2026. He is taking copd inhaler rx from [facility] pharmacy but requested by his local pulm. Local pcp Lev [facility]ahona/[facility]. ) every 6m Pt sees DR Vang ENT at [place] prn visits Pt sees optometry/optho SVS in [facility] annually.- Due July 2023 Pt had macular surgery in [place] in apr 2022. Pt uses eye drops/ prescription. 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 - DM2- Improving on metformin 1000mg bid and jardiance 12.5mg. If hga1c still high, could increase to 25mg/d - Htn- controlled on losartan/ metoprolol. - LE edema- Cont compression stockings when traveling - CRC screening- reports did cologuard with local pcp in 2023 If well, rtc in 6 mo, and prn Total time spent face to face and in chart review and documentation for this visit: 40m P-MEDICATION RECONCILIATION: Review of medications with the patient at the time of this encounter included: Patient local and remote allergies, active and pending prescriptions dispensed from this ID (local) and dispensed from another ID or [facility] facility (remote) as well as local inpatient [...] ONE TABLET BY MOUTH TWICE A DAY ACTIVE Indication: FOR STROKE PREVENTION ATORVASTATIN CALCIUM 80MG TAB TAKE ONE TABLET BY MOUTH ACTIVE EVERY DAY FOR CHOLESTEROL - CALL YOUR PROVIDER IF YOU HAVE UNEXPLAINED MUSCLE PAIN, TENDERNESS OR WEAKNESS. LIDOCAINE 5% OINT APPLY THIN FILM TO SKIN ONCE DAILY ACTIVE NEEDED Indication: FOR PAIN LOSARTAN 100MG TAB TAKE ONE TABLET BY MOUTH EVERY DAY FOR ACTIVE (S) BLOOD PRESSURE METFORMIN HCL 1000MG TAB TAKE ONE TABLET BY MOUTH TWICE ACTIVE DAILY, WITH MEALS DOSE CHANGE Indication: FOR DIABETES METOPROLOL TARTRATE 50MG TAB TAKE ONE TABLET BY MOUTH ACTIVE TWICE A DAY FOR BLOOD PRESSURE OLODATEROL/TIOTROP 2.5MCG/ACTUAT 60D INH INHALE 2 PUFFS BY ACTIVE (S) INHALATION ONCE DAILY Indication: FOR COPD Non-VA MULTIVITAMINS/MINERALS TAB MOUTH ACTIVE 10 Total Medications Avg Risk Colorectal Cancer Screen: AVERAGE RISK colorectal cancer screening is due based on information available to this clinical reminder Patient has arranged or is choosing to arrange this care independent of and without assistance from this ID. Comment: Reports cologuard neg in 2023 /luis BOYD DO Attending PhysicianTeresita Signed: 05/14/2024 13:40 05/14/2024 ADDENDUM STATUS: COMPLETED Can you let pt know his lab results. His hga1c is much better, so i would recommend keeping jardiance at same dose. I sent him lab reuslts letter. Thank you /luis BOYD DO Attending PhysicianTeresita Signed: 05/14/2024 13:45 Receipt Acknowledged By: * AWAITING SIGNATURE * GIFTY CRUZ NAZIA Y DO [facility] May 14, 2024 07:54 AM PRIMARY CARE PATTI CROOK NOTE: LOCAL TITLE: PRIMARY CARE PREVENTIVE HEALTH STANDARD TITLE: PRIMARY CARE NURSING NOTE DATE OF NOTE: MAY 14, 2024@07:54 ENTRY DATE: MAY 14, 2024@07:54:47 AUTHOR: LILA GARCIA EXP COSIGNER: URGENCY: STATUS: COMPLETED PRIMARY CARE PREVENTIVE HEALTH Has ADDENDA S: Chief Complaint/Reason for Appointment: In-person appointment with primary care provider. O: Vital Signs entered. P: To see a provider. N-Whole Health:What Matters Most: What matters most to you in your life right now? 's Response: my and kids Homelessness/Food Insecurity Screen: In the past 2 months, have you been living in stable housing that you own, rent, or stay in as part of a household? Yes - Living in stable housing. Are you worried or concerned that in the next 2 months you may NOT have stable housing that you own, rent, or stay in as part of a household? No - Not worried about housing near future The [place] reports the following: Within the past 12 months, you worried whether your food would run out before you got money to buy more. Never true Within the past 12 months, the food you bought just didn't last and you didn't have money to get more. Never true N-Pain Screen: Are you currently experiencing pain? Yes - DVPRS scale used to assess Location: knees,back,shoulders,neck Defense and Veterans Pain Rating Scale (DVPRS): Pain Score: 7 Patient's acceptable pain goal: Alcohol Use Screen (AUDIT-C): Alcohol Screen: SCREEN FOR ALCOHOL (AUDIT-C) An alcohol screening test (AUDIT-C) was negative (score=1). 1. How often did you have a drink containing alcohol in the past year? Consider a drink to be a 12 ounce can or bottle of regular beer, 8 ounces of malt liquor, a 5 ounce glass of table wine, or a 1.5 ounce shot of liquor (like scotch, gin, or vodka). Monthly or less 2. How many drinks containing alcohol did you have on a typical day when you were drinking in the past year? One or two drinks 3. How often did you have six or more drinks on one occasion in the past year? Never Depression Screening: Perform PHQ-2 A PHQ-2 screen was performed. The score was 0 which is a negative screen for depression. Over the past two weeks, how often have you been bothered by the following problems? 1. Little interest or pleasure in doing things Not at all 2. Feeling down, depressed, or hopeless Not at all N-MEDICATION RECONCILIATION: Review of medications and allergies at the time of this encounter included: Local and remote allergies, active and pending prescriptions dispensed from this ID (local) and dispensed from another ID or DoD facility (remote) as well as [...] ONE TABLET BY MOUTH TWICE A DAY ACTIVE Indication: FOR STROKE PREVENTION ATORVASTATIN CALCIUM 80MG TAB TAKE ONE TABLET BY MOUTH ACTIVE EVERY DAY FOR CHOLESTEROL - CALL YOUR PROVIDER IF YOU HAVE UNEXPLAINED MUSCLE PAIN, TENDERNESS OR WEAKNESS. LIDOCAINE 5% OINT APPLY THIN FILM TO SKIN ONCE DAILY ACTIVE NEEDED Indication: FOR PAIN LOSARTAN 100MG TAB TAKE ONE TABLET BY MOUTH EVERY DAY FOR ACTIVE (S) BLOOD PRESSURE METFORMIN HCL 1000MG TAB TAKE ONE TABLET BY MOUTH TWICE ACTIVE DAILY, WITH MEALS DOSE CHANGE Indication: FOR DIABETES METOPROLOL TARTRATE 50MG TAB TAKE ONE TABLET BY MOUTH ACTIVE TWICE A DAY FOR BLOOD PRESSURE OLODATEROL/TIOTROP 2.5MCG/ACTUAT 60D INH INHALE 2 PUFFS BY ACTIVE (S) INHALATION ONCE DAILY Indication: FOR COPD Non-VA MULTIVITAMINS/MINERALS TAB MOUTH ACTIVE 10 Total Medications N-Stress Discussed (VAAAHS): [place] DENIES experiencing substantial stress or worry in the past month. Tobacco Use Screening: The patient is a former cigarette smoker. The patient has never used other types of tobacco. N-FRAIL ELDERLY SCREEN (ACOVE): FALLS HISTORY: Has the patient fallen within the past 12 months? NO. FUNCTIONAL ASSESSMENT: Index of [place] in Activities of Daily Living ACTIVITIES: INDEPENDENCE (1 point) NO supervision, direction, or personal assistance. DEPENDENCE (0 points) WITH supervision, direction, personal assistance, OR total care. Points: 1 BATHING: (1 point) Baths self completely or needs help in bathing only a single a single part of the body such as the back, genital area or disabled extremity. (0 point) Needs help with bathing more than one part of the body, getting in or out of the tub or shower. Requires total bathing. Points: 1 DRESSING: (1 point) Gets clothes from closets and drawers and puts on clothes and outer garments complete with fasteners. May complete with fasteners. May have help tying shoes. (0 point) Needs help withdressing self or needs to be completely dressed. Points: 1 TRANSFERRING: (1 point) Moves in and out of bed or chair unassisted. Mechanical transferring aides are acceptable. (0 point) Needs help in moving from bed to chair or requires a complete transfer. Points: 1 TOILETING: (1 point) Goes to toilet, gets on and off, arranges clothes, cleans genital area without help. (0 point) Needs help transferring to the toilet, cleaning self or uses bedpan or commode. Points: 1 CONTINENCE: (1 point) Exercises complete self control over urination and defecation. (0 point) Is partially totally incontinent of bowel or bladder. Points: 1 Patient satisfied with current status FEEDING: (1 point) Gets food from plate into mouth without help Preparation of food may be done by another person. (0 point) Needs partial or total help with feeding or requires parenteral feeding. Points: 1 TOTAL POINTS: 6=High (patient independent) 0=Low (patient very dependent) 6 INSTRUMENTAL ACTIVITIES OF DAILY LIVING (IADL) SCALE (Rafaela) Ability to use telephone: 1 point - Operates telephone on own initiative; looks up and dials numbers, etc. Shoppin point - Takes care of all shopping needs independently Food preparation: 1 point - Plans, prepares, and serves adequate meals independently Housekeepin point - Maintains house alone or with occasional assistance (e.g., heavy work domestic help ) Laundry: 1 point - Does personal laundry completely Mode of transportation: 1 point - Travels independently on public transportation or drives own car Responsibility for own medications: 1 point - Is responsible for taking medication in correct dosages at correct time Ability to handle finances: 1 point - Manages financial matters independently (budgets, writes checks, pays rent and bills, goes to bank), collects and keeps track of income SCORING: The total score may range from 0 - 8. A lower score indicates a higher level of dependence. Total score: 8 points Click appropriate selection below: Patient does not require assistance. N-Education Assessment: Patients preferred language for discussing healthcare: Language: Turkish READINESS TO LEARN ASSESSMENT Readiness good Level of Understanding: Good Eye Care At-Risk Screen : Patient identified to be at risk for the following eye condition(s): DIABETIC RETINOPATHY: Diabetes Diagnosis Information: Encounter Diagnosis: 11/13/2023@08:30 E11.9 (ICD-10-CM) Type 2 Diabetes Mellitus without Complications rank: SECONDARY Prov. Narr. - Diabetes Mellitus Type 2 ([facility] [id number]) MACULAR DEGENERATION: Macular Degeneration Risk Factors Information: Reminder Term: VA-AMD RISK FACTORS Encounter Diagnosis: 11/13/2023@08:30 I25.10 (ICD-10-CM) Atherosclerotic Heart Disease of [place] Coronary Artery without Angina Pectoris rank: SECONDARY Prov. Narr. - Coronary artery disease ([facility] [id number]) Action: Patient has a future eye care appointment scheduled within the next 90 days. Date of Appointment: Upcoming appt in June and August N HEALTHY SKIN REMINDER: Do you use sunscreen when [id number]? YES. No further action. Do you check your skin regularly for new spots or changes in existing moles or lesions? YES. Do you require assistance to transfer or change position? NO. Are you confined to bed or a chair or are you a wheel-chair user? NO. Do you have any medical devices (e.g. artificial limb, braces, splint, oxygen tubing, Michael or Condom catheter, tracheostomy, feeding tube, etc)? NO. Do you have a current pressure injury or history of a pressure injury (i.e. [place]) that is NOT related to a medical assistant secretary? NO. N-Advance Directive: Patient's advance directive status: Patient has an advance directive - NOT in the ID electronic medical record. Patient was instructed to bring a copy to social work when returning to the ID. RHS Screen: RHS Screen Session Format: Face to Face Environmental Check Upon inquiry, the individual reports that the environment is safe to proceed. Informed Consent to Screen and Document The individual consents to proceed with screening. The individual consents to documentation of responses. PRIMARY SCREEN: In the past 12 months, how often did a current or former intimate partner (e.g., boyfriend, girlfriend, , , sexual partner): 1. Scream or curse at you Never 2. Insult or talk down to you Never 3. Threaten you with harm Never 4. Physically hurt you Never 5. Force or pressure you to have sexual contact against your will, or when you were unable to say no Never The HITS tool (items 1-4 above) is US copyright protected by Jorge A Bolivar MD, and the user has full rights to use it throughout the ID system. PRIMARY SCREEN RESULT: The Primary Screen is NEGATIVE. The individual answered never to all forms of IPV above (i.e., answered never to all 5 items) The individual accepts education and/or resources: No EDUCATION: The individual indicated readiness to learn. Education offered during this session as noted above. The individual indicated understanding by asking relevant questions and making appropriate comments. No barriers to learning were observed or identified. PAVE Foot Check: A complete foot check was completed at this encounter. VISUAL INSPECTION: Includes inspection for skin breaks, deformity, erythema, trauma, pallor on elevation, dependent rubor, nail deformities, extensive callus and pitting edema. Visual exam results: Normal PEDAL PULSES: Includes palpation of dorsalis and posterior tibial pulses and signs/symptoms of vascular compromise like pain, pallor, parasthesia or paralysis. Present (even if diminished) SENSORY CHECK: Includes 10 gram Monofilament ([place]-Neal) test of sensation. Intact (Greater than or equal to 80% of sites checked) Abnormal (Less than 80% of sites checked): Intact LOW-RISK: LOW RISK INFORMATION PROVIDED: 1. Advised patient not to walk barefoot. 2. Explained the importance of daily foot checks for changes. 3. Stressed the importance of daily foot hygiene, including bathing and complete drying. The patient verbalized understanding and was offered a detailed handout on diabetic foot care. /edilberto/ LILA GARCIA Licensed Practical Nurse Signed: 05/14/2024 08:04 05/14/2024 ADDENDUM STATUS: COMPLETED RSV Immunization: Record prior RSV Vaccine (historical) Patient received a prior dose of Pfizer RSV vaccine. Documented: RSV, BIVALENT, PROTEIN SUBUNIT RSVPREF, DILUENT RECONSTITUTED, 0.5 ML, PF Historical Date Administered: Nov 18, 2023 Information Source: FROM OTHER PROVIDER. MOBILITY DEVELOPER VERIFIED VACCINATION DATE WITH PHARMACIST AT [facility] IN [place], [place] /luis GARCIA Licensed Practical Nurse Signed: 05/14/2024 10:07 LILA GARCIA [facility]
--- OUTSIDE RECORDS SUMMARY | 2024-06-16 05:00 | XMS_ITS | Encounter Summary ---
Author Name [facility] Organization [facility] Address [address] [place] [address] Care Team Providers Care Prosthetic Aide Name Role Phone MARI BOYD Primary Care [...] Name Patient's Relationship to Policy Gutierrez AETNA [facility] ([facility]) MEDICARE ADVANTAGE [facility] ([facility]) Mar 03, 2017 [id number] [phone] HADDOX,RI CHARD PATIENT MEDICARE ([facility]) MEDICARE () PART A Dec 01, 2013 PART A [id number] [phone] HADDOX,RI CHARD PATIENT MEDICARE (WN) MEDICARE () PART B Dec 01, 2013 PART B [id number] HADDOX,RI CHARD PATIENT MEDICARE (WN) MEDICARE () PART A Dec 01, 2013 PART A [id number] HADDOX,RI CHARD PATIENT MEDICARE (WN) MEDICARE () PART B Dec 01, 2013 PART B [id number] [phone] HADDOX,RI CHARD PATIENT MEDICARE PART D (WNR) MEDICARE (M) PART D Mar 03, 2023 PART D [id number] [phone] CHARLIE CRAIN PATIENT [facility] (WNR) MEDICARE ADVANTAGE [facility] (WNR) Mar 03, 2023 [id number] [phone] CHARLIE CRAIN PATIENT Selected Encounter This section includes the information on record at [place] for the Encounter. Date/Time Encounter Type Encounter Description Reason Provider Source Jun 16, 2024 09:00 AM HEARING AID [facility] ICD-10-CM H90.5 Unspecified sensorineural hearing loss ISPHORDING,DELGADO URIARTE Encounter Template Text not used by [place] Assessments - Encounter Diagnoses This section includes the primary and secondary diagnoses documented for the Encounter. Date/Time Primary/Secondary Diagnosis Diagnosis Name Provider Source Jun 16, 2024 09:40 AM PRIMARY Unspecified sensorineural hearing loss NAVARRO MALIK [facility] Plan of Treatment: Future Appointments (+ 6 months) and Future Tests (+/- 45 days) The Plan of Treatment section includes future care activities for the patient from all [place] treatmentfacilities. This section includes future appointments and future orders which are active, pending or scheduled. Future Appointments This section includes appointments that were scheduled to occur 6 months from the date of the Encounter, up to a maximum of 20 appointments. The data comes from all [place] treatment facilities. Appointment Date/Time Appointment Type Appointme nt Facility Name July 05, 2024 01:30 PM AMBULATORY - NONE [facility] Nov 12, 2024 08:00 AM AMBULATORY - MEDICINE [facility] Social History: Smoking Status (Most current) and Tobacco Use (All prior to encounter date) This section includes the most current, and the historical, smoking and tobacco- related health factors from the [place] facility where the Encounter took place. Current Smoking Status This section includes the most current smoking, or tobacco-related health factor, from the [place] facility where the Encounter took place. Date/Time Current Smoking Status Comment Facil [facility] May 14, 2024 08:00 AM PR-TOBACCO USE FORMER CIGARETTES [facility] Tobacco Use History This section includes a history of the smoking, or tobacco-related health factors, that were collected on or before the date of the Encounter. The data comes from the [place] facility where the Encounter took place. Date/Time Smoking Status/Tobacco Use Comment F acility May 14, 2024 08:00 AM VA-TOBACCO USE FORMER CIGARETTES [facility] May 14, 2023 08:00 AM VA-TOBACCO FORMER USER [facility] May 14, 2023 08:00 AM VA-TOBACCO QUIT 15 YRS OR MORE [facility] May 07, 2022 09:00 AM VA-TOBACCO FORMER USER [facility] May 07, 2022 09:00 AM VA-TOBACCO QUIT 15 YRS OR MORE [facility] Dec 05, 2020 08:30 AM VA-TOBACCO NEVER USED [facility] Jun 16, 2018 08:31 AM VA-TOBACCO FORMER USER [facility] Jun 16, 2018 08:31 AM VA-TOBACCO QUIT 15 YRS OR MORE [facility] Sep 01, 2017 08:09 AM QUIT TOBACCO >12 MO [facility] Jun 16, 2017 09:36 AM VA-TOBACCO FORMER USER [facility] Jun 16, 2017 09:36 AM VA-TOBACCO QUIT 15 YRS OR MORE [facility] Apr 30, 2017 08:32 AM QUIT TOBACCO >12 MO [facility] Oct 28, 2016 07:51 AM QUIT TOBACCO >12 MO [facility] Apr 29, 2016 08:34 AM QUIT TOBACCO >12 MO [facility] Oct 26, 2015 09:15 AM QUIT TOBACCO >12 MO [facility] Apr 19, 2015 08:53 AM QUIT TOBACCO >12 MO [facility] Oct 31, 2014 09:41 AM QUIT TOBACCO >12 MO [facility] May 07, 2014 08:38 AM QUIT TOBACCO >12 MO [facility] Oct 07, 2013 03:05 PM QUIT TOBACCO >12 MO [facility] Dec 15, 2012 10:48 AM QUIT TOBACCO >12 MO [facility] Encounter Notes: All associated encounter notes This section contains the clinical notes associated to the Encounter. Date/Time Encounter Note(s) Provider Source Jun 16, 2024 08:41 AM AUDIOLOGY DIAGNOST IC STUDY NOTE: LOCAL TITLE: AUDIOLOGY ASSESSMENTS STANDARD TITLE: AUDIOLOGY DIAGNOSTIC STUDY NOTE DATE OF NOTE: JUN 16, 2024@08:41 ENTRY DATE: JUN 16, 2024@08:41:47 AUTHOR: ISPHORDING,RASTA EXP COSIGNER: URGENCY: STATUS: COMPLETED AUDIOLOGY ASSESSMENTS Has ADDENDA Audiologic Evaluation: 60 minutes Patient SC status: 100 DIABETES MELLITUS 20% SC INFLAMMATION OF EXTERNAL POPLITEAL NERVE 20% SC SCARS 0% SC LUMBOSACRAL OR CERVICAL STRAIN 40% SC INFLAMMATION OF EXTERNAL POPLITEAL NERVE 20% SC ECZEMA 0% SC IMPAIRED HEARING 10% SC PARALYSIS OF UPPER RADICULAR NERVE GROUP 40% SC 2ND DEGREE SPENCER 0% SC LIMITED MOTION OF WRIST 10% SC PARALYSIS OF UPPER RADICULAR NERVE GROUP 30% SC LUMBOSACRAL OR CERVICAL STRAIN 20% SC TINNITUS 10% SC ARTERIOSCLEROTIC HEART DISEASE 10% SC ARTHRITIS, DEGENERATIVE 40% SC Vet confirmed their identity by verifying: Last 4 of social security number Date of Hx: Mr. Singh Crain, 74 year old established patient was referred to the Audiology Clinic by [facility]. Vet's hearing was last evaluated on 12/07/2014 which revealed: AD: Severe through 6000Hz rising to moderately-severe SNHL. : Hearing within normal limits through 1500Hz sloping to moderately-severe SNHL. Vet was fit with Phonak Audeo V90 + CROS RICs on 03/07/2015. Vet reported a decrease in hearing abilities . Health is reportedly stable. Vet is interested in obtaining new hearing aids. Results: Otoscopy: Clear Canals AU. Tympanometry: CNT. Could not maintain seal. Speech testing: SRT: Word Recognition (CNC; CD): AD: 80dB 50dBEM AD: 8% @ 100dBHL 70dBEM : 25dB : 96% @ 65dBHL Pure Tone Testing indicates AD: Severe SNHL. : Hearing within normal limits through 1500Hz sloping to severe SNHL. Today's results are consistent with 12/07/2014 audiologic evaluation. Test reliability was: Good Comments: 1. IMPRESSION: AD: Severe SNHL. : Hearing within normal limits through 1500Hz sloping to severe SNHL. 2. HEARING AID RECOMMENDATIONS: The patient is a candidate for amplification. HAE completed today. Discussed appropriate styles of amplification and available devices. The is interested in rechargeable MILAN + CROS style hearing aids. Ordered Phonak Audeo I90-R () + CROS I-R (AD) RICs, 114/51, size #2 M receivers, medium open domes, champagne. Will make aids automatic at fitting. 3. PLAN: RTC for hearing aid fitting and orientation. Monitor PRN. /edilberto/ RASTA ISPHJAMES Stone Cleaner Signed: 06/16/2024 09:40 06/18/2024 ADDENDUM STATUS: COMPLETED Hearing aid order received in clinic and placed in [facility] audiologists cabinet. /edilberto/ JOSHUA OSCAR AUTOMOBILE SALES REPRESENTATIVE Signed: 06/18/2024 14:07 ISPHJAMES,RASTA VELAZQUEZ [facility]
--- OUTSIDE RECORDS SUMMARY | 2024-07-13 04:30 | XMS_ITS ---
Author Organization [facility] in [place] Address [address] [place] [address] Care Team Providers Care Kiln Cleaner Name Role Phone Jason SALEEM, Matti Primary Care Provider Jay gavin Norberto Espinal Unavailable [phone] Allergies No Known Allergies REASON FOR VISIT 1YEAR-PRAVIN Medications Medication SIG (Take, Route, Frequency, Duration) Notes Start Date End Date Status Ipratropium Edon 0.03 % 2 sprays in e ach nostril Nasally Twice a day for 90 days Active Eliquis 5 MG 1 tablet Orally Twic e a day Active Stiolto Respimat 2.5-2.5 MCG/ACT 2 puffs Inhalation Once a day for 90 days Active Atorvastatin Calcium 80 MG 1 tablet Oral ly Once a day Active amLODIPine Besylate 10 MG 1 tablet Orall y Once a day Active Albuterol Sulfate HFA 108 (90 Base) MCG/ACT 2 puffs as needed for SOB Inhalation every 4 hrs for 90 days Active Losartan Potassium 100 MG 1 tablet Orall y Once a day Active metFORMIN HCl 500 MG 1 tablet with a edwina l Orally Once a day Active Social History Tobacco Use: Social History Observation Description Date Details (start date - stop date) Former Smoker NA - NA Tobacco Control (Standard) Question Answer Notes Tobacco use: Former smoker How long has it been since y ou last smoked? Greater than 10 years Additional Findings: Tobacco non-user Ex -moderate cigarette smoker (10-19/day) Vital Signs Weight 204.4 lbs 07/13/2024 Height 67 in 07/13/2024 Blood pressure systolic 129 mm Hg 07/14/19 25 Blood pressure diastolic 72 mm Hg 025 Temperature 96.8 degrees Fahrenheit 07/14/19 25 Heart Rate 60 /min 07/13/2024 Respiratory Rate 18 /min 07/13/2024 BMI 32.01 kg/m2 07/13/2024 Oximetry 95 % 07/13/2024 Encounters Encounter Location Date Provider Diagnosis Pulmonary Medicine [place] [address] [place] [address] 07/13/2024 Norberto Espinal Chronic obstructive pulmonary disease J44.9 ; Obstructive sleep apnea G47.33 ; Allergic rhinitis J30.9 ; History of asbestos exposure Z77.090 ; RLS (restless legs syndrome) G25.81 ; Pulmonary embolism I26.99 ; Diabetes mellitus type 2, uncomplicated E11.9 and History of tobacco abuse Z87.891 Assessments Encounter Date Diagnosis (ICD Code) Assessment Notes Treatment Notes Treatment Clinical Notes Section Notes 07/13/2024 Chronic obstructive pulmonary disease (ICD-10 - J44.9) Prior treatment: Trelegy (dysphonia) > Stiolto [facility] since last visit February 2024, he states his breathing has been well-controlled without any exacerbations or any albuterol use. He denies any adverse effects. Continue Stiolto. 07/13/2024 Obstructive sleep apnea (ICD-10 - G47.33) Twop-qe-bxqs encounter performed with the patient to document continued need for PAP therapy. -Current DME: [facility] [place]; Initial AHI: 14.3 -Compliance was reviewed from 06/08/2024 - 07/07/2024 -Total days used: (100%) -Total of all days >4 hours of use: 30/ (100%) -Current model, mode, & pressure: AirCurve 10 VAuto BiPAP -Residual AHI: 1 -Air leak (95th percentile): 1.9L.min -Mask/harness fitting: Occasionally shift when sleeping, but otherwise no other complaints -Sleep quality: Occasionally gets up to cough -Daytime hypersomnolence: None -Recommendations: Continues to have superb compliance. Denies any issues with pressure. Suggested he look into his humidity and temperature settings to adjust down on both. Continue PAP @ HS & naps. -Note: This gtjb-mh-thni visit comes with my authorization that the patient's DME may request to renew, reorder, and/or replace tubing, supplies, mask, and/or PAP device (if applicable). 07/13/2024 Allergic rhinitis (ICD-10 - J30.9) Continues to state Atrovent nasal spray has controlled drainage. Denies any epistaxis. 07/13/2024 History of asbestos exposure (ICD-10 - Z77.090) Exposure to abestos wrapped pipes @ [facility]. Last CXR 07/16/2023 was unremarkable. He was supposed to get one for this year, but did not. He voiced he would like to wait until next year to get a F/U CXR. Rescheduled the CXR for July 2025. 07/13/2024 RLS (restless legs syndrome) (ICD-10 - G25.81) Controlled by drinking water. 07/13/2024 Pulmonary embolism (ICD-10 - I26.99) Diagnosed 01/31/2022, presumptive source was DVT, overall appears unprovoked. On Eliquis for afib. 07/13/2024 Diabetes mellitus type 2, uncomplicated (ICD-10 - E11.9) Steroids prescribed for this patient's underlying pulmonary disease can adversely affect blood glucose levels, inducing hyperglycemia and worsening underlying diabetes. The patient is encouraged to follow up with the primary care provider to create a plan to manage diabetes in this situation. 07/13/2024 History of tobacco abuse (ICD-10 - Z87.891) 15 pack-years, quit 1986 This patient does not meet current LDCT criteria (e.g. age, time from cessation, # pack-years). Plan Of Treatment Medication Medication Name Sig Start Date Stop Date Notes Ipratropium Edon 0.03 % 2 sprays in e ach nostril Nasally Twice a day for 90 days Stiolto Respimat 2.5-2.5 MCG/ACT 2 puffs Inhalation Once a day for 90 days Albuterol Sulfate HFA 108 (9 0 Base) MCG/ACT 2 puffs as needed for SOB Inhalation every 4 hrs for 90 days Treatment Notes Assessment Notes Chronic obstructive pulmonary disease Prior treatment: Trelegy (dysphonia) > Stiolto [facility] and since last visit February 2024, he states his breathing has been well-controlled without any exacerbations or any albuterol use. He denies any adverse effects. Continue Stiolto. Obstructive sleep apnea Gieb-xk-booo encounter performed with the patient to document continued need for PAP therapy. -Current DME: [facility] -PS11/16/2019; Initial AHI: 14.3 -Compliance was reviewed from 06/08/2024 - 07/07/2024 -Total days used: 30 (100%) -Total of all days >4 hours of use: 30/ (100%) -Current model, mode, & pressure: AirCurve 10 VAuto BiPAP -Residual AHI: 1 -Air leak (95th percentile): 1.9L.min -Mask/harness fitting: Occasionally shift when sleeping, but otherwise no other complaints -Sleep quality: Occasionally gets up to cough -Daytime hypersomnolence: None -Recommendations: Continues to have superb compliance. Denies any issues with pressure. Suggested he look into his humidity and temperature settings to adjust down on both. Continue PAP @ HS & naps. -Note: This utse-vo-wcsc visit comes with my authorization that the patient's DME may request to renew, reorder, and/or replace tubing, supplies, mask, and/or PAP device (if applicable). Allergic rhinitis Continues to state Atrovent nasal spray has controlled drainage. Denies any epistaxis. History of asbestos exposure Exposure to abestos wrapped pipes @ [facility]. Last CXR 07/16/2023 was unremarkable. He was supposed to get one for this year, but did not. He voiced he would like to wait until next year to get a F/U CXR. Rescheduled the CXR for July 2025. RLS (restless legs syndrome) Controlled by drinking water. Pulmonary embolism Diagnosed 01/31/2022, presumptive source was DVT, overall appears unprovoked. On Eliquis for afib. Diabetes mellitus type 2, uncomplicated Steroids prescribed for this patient's underlying pulmonary disease can adversely affect blood glucose levels, inducing hyperglycemia and worsening underlying diabetes. The patient is encouraged to follow up with the primary care provider to create a plan to manage diabetes in this situation. History of tobacco abuse This patient does not meet current LDCT criteria (e.g. age, time from cessation, # pack-years). Next Appt Details Follow Up: 1 Year, Reason: C OPD, PRAVIN Provider Name:Norberto Espinal, 07/12/2025 08:30:00 AM, [address] [place], [address], Procedure Notes * Category Sub-Category Detail Notes PFT Data: 03/19/2021-FEV1/F VC: 68%-FEV1: 76%-FVC: 82%-Bronchodilator response: None-RV: 105%-T%-DLCO: 59%-Flow-volume loop: Moderate rejkoqcbcrn69/21/2013-FEV1/FVC: 69%-FEV1: 70%-FVC: 76%-Bronchodilator response: Partial-RV: 103%-T%-DLCO: 50%-Flow-volume loop: Moderate obstruction Alpha-1 Antitrypsin Screening Date: 04/03/2021 Genotype: MM Progress Notes * JOESingh Haq NDOB: [birth year] (74 yo M)Acc No.[id number]:07/13/2024 Follow Up Patient: Singh GRISSOM Jeanette Provider: Jeanette Espinal DO :1950 A ge:74 Y S ex:Male Date:07/13/2024 Address:[address] [place], [place] [id number] Pcp:Matti Gomez MD Check In:08:08 AM ESTCheck O ut:08:54 AM EST Subjective: * Chief Complaints: * 1 YEAR-PRAVIN * HPI: G eneral: Patient states that his breathing has been doing great since last visit. He remains on Stiolto and voices excellent response to treatment. He has not required a nyalbuterol since last visit. He denies any adverse effects. No exacerbations of his breathing. Reviewed PAP compliance. Has superb compliance (100%) with residual AHI 1. Denies any issues with pressure. Rarely, the mask will shift on his face if his face/head moves when sleeping, but otherwise, has no issues with the mask fitting. Only issue is that he occasionally coughs during night. He also needs to refill his reservoir in the middle of the night every now and then. Suggested he check his humidity and temperature - discussed that he can manually adjust them. He said he would look into changing his settings. He states his RLS symptoms are controlled. Drinking a glass of water will resolve symptoms. MA Intake Comments:. Patient presents for a follow up for PRAVIN. DME: [facility]. Patient denies any complaints or concerns today. Patient reports great benefit from his PAP machine. Patient denies any issues with the machine or supplies. Patient is under the care of [facility] Cardiology. E pworth Sleepiness Scale: Street Sleepiness Scale C oscar of dozing while sitting and reading:?1 - Slight Chance C oscar of dozing while watching TV: 1 - Slight Chance C oscar of dozing while sitting in a public place: 0 - Never C oscar of dozing as a passenger in a car for an hour without a break: 0 - Never C oscar of dozing while lying down in the afternoon to rest: 1 - Slight Chance C oscar of dozing while sitting and talking to someone: 0 - Never C oscar of dozing while sitting quietly after lunch: 1 - Slight Chance C oscar of dozing in a stopped car for a few minutes in traffic: 0 - Never T OTAL SCORE: 4 * ROS: G eneral/Constitutional: Fever or sweats d enies. C hange of appetite d enies. C hills d enies. W eight Change d enies. H EENT: Dry mouth d enies. S ore throat d enies. N osebleed d enies. O ral Ulcers d enies. C ongestion a llergies. H oarseness r esolved. C ardiovascular: Tachycardia d enies. C hest pain d enies. P alpitations d enies. R espiratory: Pleurisy D enies. D yspnea r esolved with Stiolto. C ough r esolved with Stiolto. H emoptysis d enies. W heezing d enies. G astrointestinal: Acid Reflux/GERD/Heartburn d enies. D ysphagia d enies. M usculoskeletal: Arthralgias/joint pain D enies. S kin: Rash d enies. N eurologic: Seizures d enies. T remor d enies. H ematology: Abnormal Bleeding d enies. P sychiatric: Anxiety d enies. * Active Problem List J44.9 Chronic obstructive pulmonary disease Modified On:07/15/2022 Status:confirmed E11.9 Diabetes mellitus ty pe 2, uncomplicated Modified On:07/15/2022 Status:confirmed I26.99 Pulmonary embolism Modified On:07/16/2023 Status:confirmed I25.10 Coronary artery dise ase Modified On:07/15/2022 Status:confirmed G47.33 Obstructive sleep ap radha Modified On:07/15/2022 Status:confirmed J30.9 Allergic rhinitis Modified On:12/30/2023 Status:confirmed G25.81 RLS (restless legs s yndrome) Modified On:02/04/2024 Status:confirmed I48.91 Atrial fibrillation, unspecified Modified On:07/15/2022 Status:confirmed Z87.891 History of tobacco a buse Modified On:07/15/2022 Status:confirmed Z77.090 History of asbestos exposure Modified On:07/16/2023 Status:confirmed * Medical History: * Surgical History: t onsillectomy and adenoidectomy vasectomy rotator cuff tear repair Cardiac Catheterization 01/03/2011ethmoidectomy with turbinectomy 01/31/2022 * Hospitalization/Major Diagno stic Procedure: A [facility] [place] 01/31/2022 * Family History: N o Family History documented.. * Social History: T obacco Use: T obacco Control (Standard) T obacco use: F ormer smoker H ow long has it been since you last smoked??Greater than 10 years A dditional Findings: Tobacco non-user E x-moderate cigarette smoker (10-19/day) LM: Additional Tobacco Questions N umber of Years Pt Smoked: 1 5 ; Quit 1986 N umber of Packs per Day: 1 = 15 pack-year history When did you stop smokin. 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 Pets: dog. D rugs/Alcohol: D rugs H ave you used drugs other than those for medical reasons in the past 12 months? N o D oes the Patient have a History of Drug Abuse in the Past? N o Caffeine I ntake: n one Do you drink alcohol?: Yes, Socially. Do you smoke marijuana?: Denies. * Medications: T akingAlbuterol Sulfate HFA 108 (90 Base) MCG/ACT Aerosol Solution 2 puffs as needed for SOB Inhalation every 4 hrs amLODIPine Besylate 10 MG Tablet 1 tablet Orally Once a day Atorvastatin Calcium 80 MG Tablet 1 tablet Orally Once a day Eliquis(Apixaban) 5 MG Tablet 1 tablet Orally Twice a day Ipratropium Edon 0.03 % Solution 2 sprays in each nostril Nasally Twice a day Losartan Potassium 100 MG Tablet 1 tablet Orally Once a day metFORMIN HCl 500 MG Tablet 1 tablet with a meal Orally Once a day Stiolto Respimat(Tiotropium Edon-Olodaterol) 2.5-2.5 MCG/ACT Aerosol Solution 2 puffs Inhalation Once a day Medication List reviewed and reconciled with the patientTaking Albuterol Sulfate HFA 108 (90 Base) MCG/ACT Aerosol Solution 2 puffs as needed for SOB Inhalation every 4 hrs Taking amLODIPine Besylate 10 MG Tablet 1 tablet Orally Once a day Taking Atorvastatin Calcium 80 MG Tablet 1 tablet Orally Once a day Taking Eliquis(Apixaban) 5 MG Tablet 1 tablet Orally Twice a day Taking Ipratropium Edon 0.03 % Solution 2 sprays in each nostril Nasally Twice a day Taking Losartan Potassium 100 MG Tablet 1 tablet Orally Once a day Taking metFORMIN HCl 500 MG Tablet 1 tablet with a meal Orally Once a day Taking Stiolto Respimat(Tiotropium Edon-Olodaterol) 2.5-2.5 MCG/ACT Aerosol Solution 2 puffs Inhalation Once a day Medication List reviewed and reconciled with the patient * Allergies: N .K.D.A.no[Allergies Verified] Objective: * Vitals: W t:204.4lbs, Ht: 67 in, BP:sittin/72mm Hg, Temp:Forehead:96.8F, HR:60/min, RR:18/min, BMI:32.01Index, Oxygen sat %:Room Air:95%, Ht-cm: 170.18 cm, Wt-k.72 kg. * Examination: E xam: GENERAL APPEARANCE: A ppears stated age. Skin N ormal. Nose N iris septum straight. Mouth P ink and moist. Oropharynx/Tongue M allampati Class III. Macroglossia with tongue ridging. Trachea M idline. Chest N ormal. Respiratory B reath sounds are diminished but clear to auscultation. Auscultation N ormal breath sounds. Cardiac R egular rate and rhythm. Gastrointestinal N ormal. Vascular N o edema. Musculoskeletal N ormal posture. Neurological F ocal, intact. Psychiatric A lert and oriented x3. Mentation/Cognition N ormal. Assessment: * Assessment: 1. C hronic obstructive pulmonary disease - J44.9 (Primary) 2 . O bstructive sleep apnea - G47.33 3 . A llergic rhinitis - J30.9 4 . H istory of asbestos exposure - Z77.090 5 . R LS (restless legs syndrome) - G25.81 6. P ulmonary embolism - I26.99 7 . D iabetes mellitus type 2, uncomplicated - E11.9 8 . H istory of tobacco abuse - Z87.891 ?Notes :15 pack-years, quit 1986 Plan: * Treatment: 2. O bstructive sleep apnea Notes: Cowx-xt-wdyw encounter performed with the patient to document continued need for PAP therapy. -Current DME: [facility] -PS11/16/2019; Initial AHI: 14.3 -Compliance was reviewed from 06/08/2024 - 07/07/2024 -Total days used: 30 (100%) -Total of all days >4 hours of use: 30/30 (100%) -Current model, mode, & pressure: AirCurve 10 VAuto BiPAP -Residual AHI: 1 -Air leak (95th percentile): 1.9L.min -Mask/harness fitting: Occasionally shift when sleeping, but otherwise no other complaints -Sleep quality: Occasionally gets up to cough -Daytime hypersomnolence: None -Recommendations: Continues to have superb compliance. Denies any issues with pressure. Suggested he look into his humidity and temperature settings to adjust down on both. Continue PAP @ HS & naps. -Note: This ebxb-ap-miov visit comes with my authorization that the patient's DME may request to renew, reorder, and/or replace tubing, supplies, mask, and/or PAP device (if applicable). 3. A llergic rhinitis Refill Ipratropium Edon Solution, 0.03 %, 2 sprays in each nostril, Nasally, Twice a day, 90 days, 3 each, Refills 4. Notes: Continues to state Atrovent nasal spray has controlled drainage. Denies any epistaxis. 4. H istory of asbestos exposure Notes: Exposure to abestos wrapped pipes @ [facility]. Last CXR 07/16/2023 was unremarkable. He was supposed to get one for this year, but did not. He voiced he would like to wait until next year to get a F/U CXR. Rescheduled the CXR for July 2025. 5. R LS (restless legs syndrome) Notes: Controlled by drinking water. 6. P ulmonary embolism Notes: Diagnosed 01/31/2022, presumptive source was DVT, overall appears unprovoked. On Eliquis for afib.? 7. D iabetes mellitus type 2, uncomplicated Notes: Steroids prescribed for this patient's underlying pulmonary disease can adversely affect blood glucose levels, inducing hyperglycemia and worsening underlying diabetes. The patient is encouraged to follow up with the primary care provider to create a plan to manage diabetes in this situation. ? 8. H istory of tobacco abuse Notes: This patient does not meet current LDCT criteria (e.g. age, time from cessation, # pack-years).? * Procedures: A lpha-1 Antitrypsin: Screening Date: . Genotype: M M. P FT: Data: 03/19/2021-FEV1/FVC: 68%-FEV1: 76%-FVC: 82%-Bronchodilator response: None-RV: 105%-T%-DLCO: 59%-Flow-volume loop: Moderate obstruction 12/21/2012-FEV1/FVC: 69%-FEV1: 70%-FVC: 76%-Bronchodilator response: Partial-RV: 103%-T%-DLCO: 50%-Flow-volume loop: Moderate obstruction. ? * Procedure Codes: * Preventive Medicine: COVID Vaccination: H as patient had COVID Vaccination? COVID Vaccination Y es 05/13/2024 Immunization Status: P neumovacc 1 . I nfluenza 0 11/18/2023. Z ostivax 1 . Screenings/Counseling: F ALL RISK SCREENING Fall Risk Assessment: N o falls in the past year Are you afraid of falling? N o T OBACCO ACTION PLAN Patient counselled on the dangers of tobacco use and urged to quit. 0 07/13/2024 Former Educational materials on smoking cessation provided 0 07/13/2024 Former B IA ACTION PLAN Above Normal BMI Follow-up D ietary management education, guidance, and counseling * Follow Up: 1 Year (Reason: COPD, PRAVIN) * * Sign off status: Completed Visit Status: C HK (Check Out) true * Provider: Jeanette Espinal DO Date: 0 07/13/2024 Generated for Gabi cruz/Trini/eTransmitting on: 0 08/10/2024 07:09 AM EDT History and Physical Notes * HPI (History of Present Illness) Category Sub-Category Detail Notes Category Not es General Patient present s for a follow up for PRAVIN. DME: [facility]. Patient denies any complaints or concerns today. Patient reports great benefit from his PAP machine. Patient denies any issues with the machine or supplies. Patient is under the care of [facility] Cardiology. Street Sleepiness Scale Street Sleepiness Scale Chance of dozing while sitting and reading:: 1 - Slight Chance Chance of dozing while watching TV:: 1 - Slight Chance Chance of dozing while sitting in a publ ic place:: 0 - Never Chance of dozing as a passen elaine in a car for an hour without a break:: 0 - Never Chance of dozing while lying down in the afternoon to rest:: 1 - Slight Chance Chance of dozing while sitting and talki ng to someone:: 0 - Never Chance of dozing while sitting quietly a fter lunch:: 1 - Slight Chance Chance of dozing in a stopped car for a few minutes in traffic:: 0 - Never TOTAL SCORE:: 4 Examination Category Sub-Category Detail Notes Category Not es Exam GENERAL APPEARANCE: Appears stated age Skin Normal Nose Nasal septum straigh t Mouth [place] and moist Neck Trachea Midline Chest Normal Respiratory Breath sounds are di minished but clear to auscultation Auscultation Normal breath sounds Percussion Egophony Bronchophony Fremitus Whispered pectoriloquy Cardiac Regular rate and rhy thm Gastrointestinal Normal Vascular No edema Musculoskeletal Normal posture Neurological Focal, intact Psychiatric Alert and oriented x 3 Mentation/Cognition Normal Oropharynx/Tongue Mallampati Class III . Macroglossia with tongue ridging
--- OUTSIDE RECORDS SUMMARY | 2024-07-19 07:15 | XMS_ITS ---
Author Organization [facility] in [place] Address [address] [place] [address] Care Team Providers Care Shredding Machine Knife Changer Name Role Phone Matti Gomez MD Primary Care Provider Unavailab Norberto Ghotra Unavailable [phone] REASON FOR VISIT Appointment Encounters Encounter Location Date Provider Diagnosis Pul[facility] [address] [place] [address] 07/19/2024 Norbertorebecca Nuñez Plan Of Treatment Next Appt Details Provider Name:Norbertorebecca Nuñez, 07/12/2025 08:30:00 AM, [address] [place], [address], Progress Notes * Singh CRAIN NDOB: [birth year] (74 yo M)Acc No.[id number]:07/19/2024 Patient: Tara Singh MALDONADO :1950 A ge:74 Y S ex:Male Address:[address] [place] [address] [place] [address] * true * Date: Generated for Printi ng/Faxing/eTransmitting on: 0 08/10/2024 07:10 AM EDT
--- OUTSIDE RECORDS SUMMARY | 2024-07-29 04:00 | XMS_ITS | Encounter Summary ---
Author Name [facility] [place] Organization [facility] [place] Address [address] [place] [address] Care Team Providers Care Site Auditor Name Role Phone MARI BOYD Primary Care [...] Patient's Relationship to Policy Gutierrez AETNA [facility] ([facility]) MEDICARE ADVANTAGE [facility] ([facility]) Mar 03, 2017 [id number] [phone] HADDOX,RI CHARD PATIENT MEDICARE ([facility]) MEDICARE () PART A Dec 01, 2013 PART A [id number] [phone] HADDOX,RI CHARD PATIENT MEDICARE ([facility]) MEDICARE () PART B Dec 01, 2013 PART B [id number] [phone] HADDOX,RI CHARD PATIENT MEDICARE ([facility]) MEDICARE () PART A Dec 01, 2013 PART A [id number] HADDOX,RI CHARD PATIENT MEDICARE ([facility]) MEDICARE () PART B Dec 01, 2013 PART B [id number] HADDOX,RI CHARD PATIENT MEDICARE PART D (WNR) MEDICARE (M) PART D Mar 03, 2023 PART D [id number] [phone] CHARLIE CRAIN PATIENT [facility] (WNR) MEDICARE ADVANTAGE [facility] (WNR) Mar 03, 2023 [id number] [phone] CHARLIE CRAIN PATIENT Selected Encounter This section includes the information on record at [place] for the Encounter. Date/Time Encounter Type Encounter Description Reason Provider Source July 29, 2024 08:00 AM HEARING AID REPAIR/MODIFYIN G AUDIOLOGY ICD-10-CM Z46.1 Encounter for fitting and adjustment of hearing aid [place]O ERT IHE Encounter Template Text not used by [facility] Assessments - Encounter Diagnoses This section includes the primary and secondary diagnoses documented for the Encounter. Date/Time Primary/Secondary Diagnosis Diagnosis Name Provider Source July 29, 2024 08:16 AM PRIMARY Encounter for fitting and adjustment of hearing aid YOMI OSCAR [facility] Plan of Treatment: Future Appointments (+ 6 months) and Future Tests (+/- 45 days) The Plan of Treatment section includes future care activities for the patient from all [place] treatmentfacilities. This section includes future appointments and future orders which are active, pending or scheduled. Future Appointments This section includes appointments that were scheduled to occur 6 months from the date of the Encounter, up to a maximum of 20 appointments. The data comes from all [place] treatment facilities. Appointment Date/Time Appointment Type Appointme nt Facility Name Aug 16, 2024 08:00 AM AMBULATORY - NONE [facility] Nov 12, 2024 08:00 AM AMBULATORY - MEDICINE [facility] Social History: Smoking Status (Most current) and Tobacco Use (All prior to encounter date) This section includes the most current, and the historical, smoking and tobacco- related health factors from the [place] facility where the Encounter took place. Current Smoking Status This section includes the most current smoking, or tobacco-related health factor, from the [place] facility where the Encounter took place. Date/Time Current Smoking Status Comment Germán casianoy May 14, 2024 08:00 AM [place]-TOBACCO USE FORMER CIGARETTES [facility] Tobacco Use History This section includes a history of the smoking, or tobacco-related health factors, that were collected on or before the date of the Encounter. The data comes from the [place] facility where the Encounter took place. Date/Time Smoking Status/Tobacco Use Comment F acility May 14, 2024 08:00 AM VA-TOBACCO USE FORMER CIGARETTES [facility] May 14, 2023 08:00 AM VA-TOBACCO FORMER USER [facility] May 14, 2023 08:00 AM VA-TOBACCO QUIT 15 YRS OR MORE [facility] May 07, 2022 09:00 AM VA-TOBACCO FORMER USER [facility] May 07, 2022 09:00 AM VA-TOBACCO QUIT 15 YRS OR MORE [facility] Dec 05, 2020 08:30 AM VA-TOBACCO NEVER USED [facility] Jun 16, 2018 08:31 AM VA-TOBACCO FORMER USER [facility] Jun 16, 2018 08:31 AM VA-TOBACCO QUIT 15 YRS OR MORE [facility] Sep 01, 2017 08:09 AM QUIT TOBACCO >12 MO [facility] Jun 16, 2017 09:36 AM VA-TOBACCO FORMER USER [facility] Jun 16, 2017 09:36 AM VA-TOBACCO QUIT 15 YRS OR MORE [facility] Apr 30, 2017 08:32 AM QUIT TOBACCO >12 MO [facility] Oct 28, 2016 07:51 AM QUIT TOBACCO >12 MO [facility] Apr 29, 2016 08:34 AM QUIT TOBACCO >12 MO [facility] Oct 26, 2015 09:15 AM QUIT TOBACCO >12 MO [facility] Apr 19, 2015 08:53 AM QUIT TOBACCO >12 MO [facility] Oct 31, 2014 09:41 AM QUIT TOBACCO >12 MO [facility] May 07, 2014 08:38 AM QUIT TOBACCO >12 MO [facility] Oct 07, 2013 03:05 PM QUIT TOBACCO >12 MO [facility] Dec 15, 2012 10:48 AM QUIT TOBACCO >12 MO [facility] Encounter Notes: All associated encounter notes This section contains the clinical notes associated to the Encounter. Date/Time Encounter Note(s) Provider Source July 29, 2024 07:48 AM AUDIOLOGY DIAGNOST IC STUDY NOTE: LOCAL TITLE: AUDIOLOGY HEARING AID STANDARD TITLE: AUDIOLOGY DIAGNOSTIC STUDY NOTE DATE OF NOTE: JULY 29, 2024@07:48 ENTRY DATE: JULY 29, 2024@07:48:33 AUTHOR: JOSHUA OSCAR EXP COSIGNER: URGENCY: STATUS: COMPLETED Hearing Device Clinic Cath Lab Radiological Technologist: Phonak Model: : Audeo I90-R AD: CROS I-R Left SN: [id number] Right SN: [id number] SCHEDULED APPOINTMENT (Face to Face) Patient complaint: Director Operations worked for three days, then stopped functioning Initial visual inspection/listening check: -Chargers light in constantly red, GUILLAUME's are not charging -BOTH hearing aids are functional, listening check OK after charging Repair actions taken: -Cleaned and checked hearing aids -Replaced wax filters -Vacuumed microphone ports Comments: Gave [facility] a charging unit from clinic stock, and ordered a new one to replace it in [place] to be shipped to clinic After above actions taken: -Listening check OK, BOTH hearing aids functional -BOTH Functional hearing aids returned to the [facility] pleased with today's visit. Recommend return to clinic PRN. /edilberto/ JOSHUA OSCAR COLD REDUCTION ROLLER Signed: 07/29/2024 08:25 JOSHUA OSCAR [facility]
--- OUTSIDE RECORDS SUMMARY | 2024-07-30 12:00 | XMS_ITS | Encounter Summary ---
Author Organization [facility] Address [address] [facility] [place] [address] Care Team Providers Care Rough Rounder Name Role Phone Matti Gomez MD Primary Care Provider [phone] Reason for Visit * Reason Comments URI Encounter Details Date Type Department Care Team (Late st Contact Info) Description 07/30/2024 12:00 PM EDT Office Visit [facility] [address] [facility] [address] [place] [id number] Mel Thompson PA [address] [facility] [address] [place] [address] Acute bronchitis, unspecified organism (Primary Dx); Seasonal allergic rhinitis due to pollen Social History Tobacco Use Types Packs/Day Years Used Date Smoking Tobacco: Former Cigarettes Smokeless Tobacco: Never Alcohol Use Standard Drinks/Week Comments Yes 0 (1 standard drink = 0.6 oz pur e alcohol) caffeine: 1-2 cups per day AUDIT-C Answer Date Recorded Q1: How often do you have a drink containing alc ohol? Monthly or less 07/09/2023 Q2: How many drinks containi ng alcohol do you have on a typical day when you are drinking? 1 or 2 07/09/2023 Q3: How often do you have si x or more drinks on one occasion? Never 07/09/2023 PHQ-2 Answer Date Recorded Patient Health Questionnaire-2 Score 0 12/22/2023 Sex and Gender Information Value Date Recorded Sex Assigned at Not on file Legal Sex Male 6:36 PM EDT Gender Identity Not on file Sexual Orientation Not on file documented as of this encounter Last Filed Vital Signs Vital Sign Reading Time Taken Comments Blood Pressure 110/68 07/30/2024 11:51 AM EDT Pulse 67 07/30/2024 11:51 AM EDT Temperature 36.7 C (98.1 F) 07/30/2024 11:51 AM EDT Respiratory Rate - - Oxygen Saturation 97% 07/30/2024 11:51 AM EDT Inhaled Oxygen Concentration - - Weight 91.6 kg (202 lb) 07/30/2024 11:51 AM EDT Height 172.7 cm (5' 8 ) 07/30/2024 11:51 AM EDT Body Mass Index 30.71 07/30/2024 11:51 AM EDT documented in this encounter Progress Notes * JEREMIAH Barnes - 07/30/2024 12:00 PM EDT Images from the original note were not included. Subjective Patient ID: Singh Beryr is a 74 y.o. male who presents for URI. Last week this started when he first cut his grass Congestion, drainage, runny nose clear, coughing with occasional clear phlegm, starts in morning with a sore throat. Been using flonase, cough drops. Flonase is helping somewhat. Follows with Dr. Perales, Dr[facility] Espinal[facility] and [facility] URI This is a new problem. The current episode started 1 to 4 weeks ago. The problem has been unchanged. There has been no fever. Associated symptoms include congestion, coughing, rhinorrhea and a sore throat. Pertinent negatives include no ear pain, headaches, plugged ear sensation, sinus pain or wheezing. Current Outpatient Medications on File Prior to Visit Medication Sig Dispense Refill albuterol HFA 90 mcg/act inhaler INHALE 2 PUFFS BY INHALATION FOUR TIMES A DAY NEEDED FOR SHORTNESS OF BREATH amLODIPine (Norvasc) 10 MG tablet 1 (one) time each day at the same time. apixaban (Eliquis) 5 MG tablet Take 5 mg by mouth in the morning and 5 mg before bedtime. atorvastatin (Lipitor) 80 MG tablet 1 (one) time each day at the same time. budesonide-formoterol (Symbicort) 80-4.5 MCG/ACT inhaler Inhale 2 puffs in the morning and 2 puffs before bedtime. Rinse mouth with water after use to reduce aftertaste and incidence of candidiasis. Do not swallow.. empagliflozin (Jardiance) 25 MG Take 0.5 tablets by mouth Daily ipratropium (Atrovent) 0.03 % nasal spray 2 SPRAYS IN EACH NOSTRIL NASALLY TWICE A DAY 90 DAYS lidocaine (Xylocaine) 5 % ointment Apply topically losartan (Cozaar) 100 MG tablet 1 (one) time each day at the same time. metFORMIN, OSM, (Fortamet) 1000 MG 24 hr tablet Take 1,000 mg by mouth in the morning and 1,000 mg in the evening. Take with meals. metoprolol tartrate (Lopressor) 50 MG tablet every 12 (twelve) hours. tiotropium-olodaterol (Stiolto Respimat) 2.5-2.5 MCG/ACT aerosol solution inhaler 1 (one) time eachday at the same time No current facility-administered medications on file prior to visit. I have reviewed and reconciled the history and medication list with the patient today. Allergies Allergen Reactions Lisinopril Cough Octacosanol Unknown Social History Tobacco Use Smoking status: Former Types: Cigarettes Smokeless tobacco: Never Substance Use Topics Alcohol use: Yes Comment: caffeine: 1-2 cups per day Drug use: Never Family History Problem Relation Name Age of Onset Cancer Mother Esophageal cancer Father Cancer Sibling Past Medical History: Diagnosis Date ASHD (arteriosclerotic heart disease) ([facility]) Asthma, moderate persistent ([facility]/HCC) Atrial fibrillation ([facility]/HCC) Chronic sinusitis COPD (chronic obstructive pulmonary disease) ([facility]/HCC) Diabetes ([facility]/HCC) Disorder of prostate DNS (deviated nasal septum) Hyperlipidemia ([facility]/HCC) Hypertension ([facility]/HCC) PE (pulmonary thromboembolism) ([facility]) 01/2022 Sleep apnea Past Surgical History: Procedure Laterality Date BACK SURGERY CARDIAC CATHETERIZATION 2010 LUMBAR DISCECTOMY 2021 LUMBAR DISCECTOMY 2011 L4-5 SHOULDER ARTHROSCOPY Right 05/04/2015 DR COON SHOULDER ARTHROSCOPY Left 09/30/2019 DR COON SHOULDER SURGERY SINUS SURGERY 01/2022 Visit Vitals BP 110/68 Pulse 67 Temp 98.1 ??F Ht 5' 8 Wt 202 lb SpO2 97% BMI 30.71 kg/m?? Smoking Status Former BSA 2.1 m?? Review of Systems Constitutional: Negative for chills, fatigue and fever. HENT: Positive for congestion, rhinorrhea and sore throat. Negative for ear pain and sinus pain. Respiratory: Positive for cough. Negative for shortness of breath and wheezing. Neurological: Negative for headaches. Objective Physical Exam Constitutional: General: He is not in acute distress. Appearance: He is obese. HENT: Head: Normocephalic and atraumatic. Right Ear: Ear canal normal. Tympanic membrane is injected. Left Ear: Ear canal normal. Tympanic membrane is injected. Nose: No rhinorrhea. Right Turbinates: Not swollen. Left Turbinates: Not swollen. Comments: Turbinates mildly erythematous Mouth/Throat: Mouth: Mucous membranes are moist. Pharynx: Posterior oropharyngeal erythema (Mild) and postnasal drip (Clear) present. Eyes: General: No scleral icterus. Cardiovascular: Rate and Rhythm: Normal rate and regular rhythm. Heart sounds: No murmur heard. Pulmonary: Effort: Pulmonary effort is normal. No respiratory distress. Breath sounds: No wheezing, rhonchi or rales. Comments: Mildly harsh over upper lung amin Musculoskeletal: General: No swelling. Lymphadenopathy: Cervical: No cervical adenopathy. Skin: General: Skin is warm and dry. Neurological: General: No focal deficit present. Mental Status: He is alert and oriented to person, place, and time. Psychiatric: Mood and Affect: Mood normal. Behavior: Behavior normal. Assessment/Plan Diagnoses and all orders for this visit: Acute bronchitis, unspecified organism - predniSONE (Deltasone) 10 MG tablet; Take 1 tablet (10 mg) by mouth in the morning and 1 tablet (10 mg) at noon. Do all this for 5 days. Take with breakfast and with lunch. Start the above medications as directed. Advised of potential side effects of the steroid. May cause temporary elevation in blood glucose levels, can back down to once a day for 5 days if needed. Patient is to take the steroid with food. Increase water intake, get plenty of rest. Can take Tylenol prn for any discomfort or fever. No other anti-inflammatories while on steroid. Cough into elbow. Wash hands often. If no improvement by Friday, or symptoms worsen, pt is to contact the office and an antibiotic will be sent in for him., pt does have a h/o pneumonia so will have low threshold for adding one. Seasonal allergic rhinitis due to pollen - fluticasone (Flonase) 50 MCG/ACT nasal spray; Administer 1-2 sprays into each nostril Daily Shakegently. Before first use, prime pump. After use, clean tip and replace cap. - cetirizine (ZyrTEC) 10 MG tablet; Take 1 tablet (10 mg) by mouth Daily for 14 days Pt has h/o allergies. Restart Cetirizine for two weeks. Add Flonase at bedtime for a week or two. Continue medications prescribed by [place] and Dr. Espinal. Follow up in about 5 months (around 12/22/2024) for Medicare Wellness Visit. documented in this encounter Plan of Treatment Upcoming Encounters Date Type Department Care Team (Late st Contact Info) Description 12/24/2024 8:30 AM EDT Office Visit [facility] [address] [facility] [address] [place] [address] Mel Thompson PA [address] [facility] [address] [place] [address] documented as of this encounter Procedures Procedure Name Priority Date/Time Associated Diagnosis Comments MICROALBUMIN / CREATININE URINE RATIO Routine 05/14/2024 HEMOGLOBIN A1C Routine 05/14/2024 LIPID PANEL Routine 05/14/2024 BASIC METABOLIC PANEL Routine 05/14/2024 documented in this encounter Results * Lipid panel (05/14/2024) Pathologist [facility] CHOLESTEROL, TOTAL 112 LDL-C 37 HDL-C 53 TRIGLYCERIDES 110 CHOL/HDL RATIO 2.11 Blood Venous blood specimen / Unknown 05/14/2024 us Mel DANI[facility] BLOOD ORDERABLES Final Res ult * (ABNORMAL) Basic metabolic panel (05/14/2024) Pathologist [facility] Glucose 128(A) 65 - 99 mg/dL BUN 23(A) 4 - 21 mg/dL Creatinine 1.3 0.6 - 1.3 mg/dL Sodium 136 Potassium, Bld 4.4 Chloride 103 Carbon Dioxide 27 mmol/L Calcium 9.5 8.7 - 10.7 mg/dL External GFR Non Amer 57 Comment:Low Anion Gap 6 <=30 mmol/L Blood Venous blood specimen / Unknown 05/14/2024 Mel [facility] BLOOD ORDERABLES Final Res ult * Microalbumin / creatinine urine ratio (05/14/2024) MICROALBUMIN, URINE <0.7 ALB/CREAT RATIO N/A URINE CREAT 34 Urine Urine specimen obtained by clean catch procedure / Unknown 05/14/2024 Mel Aguiar PA - 07/30/2024 7:51 AM EDT [facility] URINE ORDERABLES Final Res ult * (ABNORMAL) Hemoglobin A1c (05/14/2024) HEMOGLOBIN A1C 7.0 Blood Venous blood specimen / Unknown 05/14/2024 Mel Aguiar PA - 07/30/2024 7:50 AM EDT [facility] BLOOD ORDERABLES Final Res ult documented in this encounter Visit Diagnoses Diagnosis Acute bronchitis, unspecified organism- Primary Seasonal allergic rhinitis due to pollen documented in this encounter Additional Health Concerns Assessment Noted Time PHQ-9 Depression Total Score: 0 12/22/19 10:00 AM EDT documented as of this encounter Care Teams Rough Rounder Relationship Specialty Start Date End Date Matti Gomez MD [address] [address] PCP - General Internal Medicine 11/21/23 documented as of this encounter
--- OUTSIDE RECORDS SUMMARY | 2024-08-10 02:08 | XMS_ITS | Continuity of Care Document ---
Author Name [facility] Organization [facility] Care Team Providers Care Supervisor Contact Lens Name Role Phone [facility] Unavailable Unavailable Problems Combined list of problems from [facility] and [facility] facilities. It does not include entries that were removed or entered in error. Problem Status Onset Date Problem Type Date of Resolution Comments Source Atrial fibrillation ([facility] [id number]) Active Condition [facility] Benign neoplasm of brain Active Condition [facility] Chronic obstructive lung disease Active Condition [facility] Coronary artery disease Active Condition [facility] Diabetes Mellitus Type 2 ([facility] [id number]) Active Condition [facility] Exposure to Potentially Hazardous Substance ([facility] [id number]) Active Condition [facility] HTN - Hypertension ([facility] [id number]) Active Condition [facility] Hyperlipidemia ([facility] [id number]) Active Condition [facility] Long-term current use of anticoagulant Active Condition [facility] Sleep Apnea ([facility] [id number]) Active Condition [facility] Diagnosis: ICD-10-CM Z46.1 Encounter for fitting and adjustment of hearing aid Active Diagnosis [facility] Diagnosis: ICD-10-CM H90.5 Unspecified sensorineural hearing loss Active Diagnosis [facility] Diagnosis: ICD-10-CM E11.9 Type 2 diabetes mellitus without complications Active Diagnosis [facility] Diagnosis: ICD-10-CM I10 Essential (primary) hypertension Active Diagnosis [facility] Medications Combined list of outpatient medications from [facility] and [facility] facilities.Medications provided include 1) outpatient medications from the last 15 months, and 2) patient-reported medications. Medication Details Route Status Patient Instructions Prescription Expires Prescription Number Last Dispense Date Ordering Provider Order Date Order Qty Source ALBUTEROL 90MCG/ACTUA T (CFC-F) INHL,ORAL,8 .5GM DOSE COUNTER INHALE 2 PUFFS BY INHALATI ON FOUR TIMES A DAY NEEDED FOR SHORTNES S OF BREATH RESPIR ATORY (INHAL ATION) 05/14/2024 [id number] SIDIQ,TERRANCE IA Y DO 2023 3 [facility] AMLODIPINE BESYLATE 10MG TAB TAKE ONE TABLET BY MOUTH ONCE DAILY FOR BLOOD PRESSURE ORAL SUSPEND ED 02/10/2025 [id number] 5 SIDIQ,TERRANCE IA Y DO 2024 90 [facility] AMLODIPINE BESYLATE 10MG TAB TAKE ONE TABLET BY MOUTH ONCE DAILY FOR BLOOD PRESSURE ORAL DISCONT INUED 05/14/2024 [id number] 4 SIDIQ,TERRANCE IA Y DO 2023 90 [facility] APIXABAN 5MG TAB TAKE ONE TABLET BY MOUTH TWICE A DAY FOR STROKE PREVENTI ON ORAL ACTIVE 02/10/2025 [id number] 5 SIDIQ,TERRANCE IA Y DO 2024 180 [facility] APIXABAN 5MG TAB TAKE ONE TABLET BY MOUTH TWICE A DAY FOR STROKE PREVENTI ON ORAL DISCONT INUED 05/14/2024 [id number] 4 SIDIQ,TERRANCE IA Y DO 2023 180 [facility] ATORVASTATI N CA 80MG TAB TAKE ONE TABLET BY MOUTH EVERY DAY FOR CHOLESTE ROL - CALL YOUR PROVIDER IF YOU HAVE UNEXPLAI LATONIA MUSCLE PAIN, TENDERNE SS OR WEAKNESS . ORAL ACTIVE 02/10/2025 [id number] 5 SIDIQ,TERRANCE IA Y DO 2023 90 [facility] ATORVASTATI N CA 80MG TAB TAKE ONE TABLET BY MOUTH EVERY DAY FOR CHOLESTE ROL - CALL YOUR PROVIDER IF YOU HAVE UNEXPLAI LATONIA MUSCLE PAIN, TENDERNE SS OR WEAKNESS . ORAL DISCONT INUED 05/14/2024 [id number] 4 SIDIQ,TERRANCE IA Y DO 2023 90 [facility] EMPAGLIFLOZ IN 25MG TAB TAKE ONE-HALF TABLET BY MOUTH ONCE DAILY FOR DIABETES ORAL ACTIVE 06/05/2025 [id number] 5 SIDIQ,TERRANCE IA Y DO 2024 45 [facility] EMPAGLIFLOZ IN 25MG TAB TAKE ONE-HALF TABLET BY MOUTH ONCE DAILY FOR DIABETES ORAL DISCONT INUED 05/10/2024 [id number] 5 OLIVER,TERRANCE IA Y DO 2024 45 [facility] EMPAGLIFLOZ IN 25MG TAB TAKE ONE-HALF TABLET BY MOUTH ONCE DAILY FOR DIABETES ORAL DISCONT INUED 03/24/2024 [id number] 4 OLIVER,TERRANCE IA Y DO 2023 45 [facility] EMPAGLIFLOZ IN 25MG TAB TAKE ONE-HALF TABLET BY MOUTH ONCE DAILY FOR DIABETES ORAL DISCONT INUED 11/13/2024 [id number] OLIVER,TERRANCE IA Y DO 2023 15 [facility] LIDOCAINE 5% OINT,TOP APPLY THIN FILM TO SKIN ONCE DAILY NEEDED FOR PAIN TOPICA L ACTIVE 03/11/2025 [id number] 5 TERRANCE BOYD IA Y DO 2024 35 [facility] LOSARTAN POTASSIUM 100MG TAB TAKE ONE TABLET BY MOUTH EVERY DAY FOR BLOOD PRESSURE ORAL SUSPEND ED 02/10/2025 [id number] 5 TERRANCE BOYD IA Y DO 2024 90 [facility] LOSARTAN POTASSIUM 100MG TAB TAKE ONE TABLET BY MOUTH EVERY DAY FOR BLOOD PRESSURE ORAL DISCONT INUED 05/14/2024 [id number] 4 TERRANCE BOYD IA Y DO 2023 90 [facility] METFORMIN HCL 1000MG TAB TAKE ONE TABLET BY MOUTH TWICE DAILY, WITH MEALS FOR DIABETES FOR DIABETES DOSE CHANGE ORAL ACTIVE 06/05/2025 [id number] 5 TERRANCE BOYD IA Y DO 2024 180 [facility] METFORMIN HCL 1000MG TAB TAKE ONE TABLET BY MOUTH TWICE DAILY, WITH MEALS FOR DIABETES FOR DIABETES DOSE CHANGE ORAL DISCONT INUED 05/14/2024 [id number] 4 TERRANCE BOYD IA Y DO 2023 180 [facility] METFORMIN HCL 1000MG TAB TAKE ONE TABLET BY MOUTH TWICE A DAY ORAL 12/07/2023 [id number] CHELITA RODRIGUEZ 2023 6 [facility] METOPROLOL TARTRATE 50MG TAB TAKE ONE TABLET BY MOUTH TWICE A DAY FOR BLOOD PRESSURE ORAL ACTIVE 02/10/2025 [id number] 5 OLIVERTERRANCE IA Y DO 2024 180 [facility] METOPROLOL TARTRATE 50MG TAB TAKE ONE TABLET BY MOUTH TWICE A DAY FOR BLOOD PRESSURE ORAL DISCONT INUED 11/13/2024 [id number] 4 OLIVERTERRANCE IA Y DO 2023 180 [facility] METOPROLOL TARTRATE 50MG TAB TAKE ONE TABLET BY MOUTH TWICE A DAY FOR BLOOD PRESSURE ORAL DISCONT INUED 05/14/2024 [id number] 4 OLIVERTERRANCE IA Y DO 2023 180 [facility] MULTIVITAMI NS/MINERALS TAB TAKE BY MOUTH ONCE DAILY ORAL ACTIVE KEVIN BOWDEN 2022 [facility] OLODATEROL 2.5MCG/TIOT ROPIUM 2.5MCG/ACTU AT INHL,ORAL,6 0D,4GM INHALE 2 PUFFS BY INHALATI ON ONCE DAILY FOR COPD RESPIR ATORY (INHAL ATION) SUSPEND ED 02/06/2025 [id number] 5 OLIVERTERRANCE IA Y DO 2023 3 [facility] Allergies, Adverse Reactions, Alerts Combined list of allergies from [facility] and [facility] facilities. It does not include entries that were removed or entered in error. Substance Category Reaction Severity Reaction type Status Date Reported Comments Source LISINOPRIL Propensity to adverse reactions to drug (finding) Cough active 12/15/2012 [facility] Immunizations Combined list of available immunizations from the Department of Defense and Veterans Affairs facilities. Immunization Series Date Given Administered By Site Reaction Lot Number CVX Code Drug Welder Explosion Status Comments Source COVID-19 (Inside Warehouse), MRNA, LNP-S, PF, ANTONIA-SUCROSE, 30 MCG/0.3 ML (AGES 12+ YEARS) 2024 309 complet ed HISTORICA L INFORMATI ON - FROM OTHER REGISTRY, [facility] COVID-19 (Inside Warehouse), MRNA, LNP-S, PF, ANTONIA-SUCROSE, 30 MCG/0.3 ML (AGES 12+ YEARS) 2023 309 complet ed HISTORICA L INFORMATI ON - FROM OTHER REGISTRY, [facility] INFLUENZA, ADJUVANTED, TRIVALENT, PF 2023 168 complet ed HISTORICA L INFORMATI ON - FROM OTHER REGISTRY, [facility] RSV, BIVALENT, PROTEIN SUBUNIT RSVPREF, DILUENT RECONSTITUTED , 0.5 ML, PF 2023 305 complet ed HISTORICA L INFORMATI ON - FROM OTHER PROVIDER, [facility] INFLUENZA, UNSPECIFIED FORMULATION 2022 88 complet ed HISTORICA L INFORMATI ON - FROM OTHER PROVIDER, [facility] COVID-19 (PFIZER), MRNA, LNP-S, BIVALENT, PF, 30 MCG/0.3 ML DOSE 5 2021 300 complet ed HISTORICA L INFORMATI ON - FROM OTHER REGISTRY, [facility] INFLUENZA, TRIVALENT, ADJUVANTED 2021 168 complet ed HISTORICA L INFORMATI ON - FROM OTHER REGISTRY, [facility] COVID-19 (PFIZER), MRNA, LNP-S, PF, 30 MCG/0.3 ML DOSE 4 2021 208 complet ed [facility] COVID-19 (PFIZER), MRNA, LNP-S, PF, 30 MCG/0.3 ML DOSE, ANTONIA-SUCROSE (AGES 12+ YEARS) 4 2021 217 complet ed HISTORICA L INFORMATI ON - FROM OTHER REGISTRY, [facility] INFLUENZA, TRIVALENT, ADJUVANTED 2020 168 complet ed HISTORICA L INFORMATI ON - FROM OTHER REGISTRY, [facility] INFLUENZA, UNSPECIFIED FORMULATION 2020 88 complet ed [facility] COVID-19 (PFIZER), MRNA, LNP-S, PF, 30 MCG/0.3 ML DOSE 3 2020 208 complet ed [facility] COVID-19 (PFIZER), MRNA, LNP-S, PF, 30 MCG/0.3 ML DOSE 2 2020 208 complet ed [facility] COVID-19 (PFIZER), MRNA, LNP-S, PF, 30 MCG/0.3 ML DOSE 2 2020 208 complet ed HISTORICA L INFORMATI ON - FROM OTHER REGISTRY, [facility] COVID-19 (PFIZER), MRNA, LNP-S, PF, 30 MCG/0.3 ML DOSE 1 2020 208 complet ed [facility] ZOSTER RECOMBINANT 2 2019 187 complet ed Called in [facility] INFLUENZA, UNSPECIFIED FORMULATION 2019 88 complet ed [facility] INFLUENZA, TRIVALENT, ADJUVANTED 8 2019 168 complet ed HISTORICA L INFORMATI ON - FROM OTHER REGISTRY, [facility] INFLUENZA, UNSPECIFIED FORMULATION 2019 88 complet ed [facility] ZOSTER RECOMBINANT 1 2019 187 complet ed Called in [facility] ZOSTER RECOMBINANT 2 2018 187 complet ed HISTORICA L INFORMATI ON - FROM OTHER REGISTRY, [facility] TDAP 2018 115 complet ed [facility] INFLUENZA (HISTORICAL) 2018 88 complet ed [facility] INFLUENZA, TRIVALENT, ADJUVANTED 7 2018 168 complet ed HISTORICA L INFORMATI ON - FROM OTHER REGISTRY, [facility] ZOSTER RECOMBINANT 1 2018 187 complet ed HISTORICA L INFORMATI ON - FROM OTHER REGISTRY, [facility] INFLUENZA, TRIVALENT, ADJUVANTED 6 2017 168 complet ed HISTORICA L INFORMATI ON - FROM OTHER REGISTRY, [facility] PNEUMOCOCCAL CONJUGATE PCV 13 2 2017 133 complet ed HISTORICA L INFORMATI ON - FROM OTHER REGISTRY, [facility] INFLUENZA (HISTORICAL) 2017 88 complet ed [facility] INFLUENZA, TRIVALENT, ADJUVANTED 5 2016 168 complet ed HISTORICA L INFORMATI ON - FROM OTHER REGISTRY, [facility] INFLUENZA (HISTORICAL) 2016 88 complet ed [facility] INFLUENZA (HISTORICAL) 2015 88 complet ed [facility] INFLUENZA, TRIVALENT, ADJUVANTED 4 2015 168 complet ed HISTORICA L INFORMATI ON - FROM OTHER REGISTRY, [facility] INFLUENZA, SEASONAL, INTRADERMAL, PRESERVATIVE FREE 2015 144 complet ed HISTORICA L INFORMATI ON - FROM OTHER REGISTRY, [facility] PNEUMOCOCCAL POLYSACCHARID E PPV23 1 2015 33 complet ed HISTORICA L INFORMATI ON - FROM OTHER REGISTRY, [facility] INFLUENZA (HISTORICAL) 2014 88 complet ed [facility] INFLUENZA, INJECTABLE, QUADRIVALENT 3 2014 158 complet ed HISTORICA L INFORMATI ON - FROM OTHER REGISTRY, [facility] PNEUMOCOCCAL CONJUGATE PCV 13 2014 133 complet ed [facility] INFLUENZA, SEASONAL, INJECTABLE, PRESERVATIVE FREE 2 2013 140 complet ed HISTORICA L INFORMATI ON - FROM OTHER REGISTRY, [facility] FLU,3 YRS (HISTORICAL) 2013 88 complet ed [facility] PNEUMOCOCCAL, UNSPECIFIED FORMULATION 2013 109 complet ed [employer]; #[id number] [facility] PNEUMOCOCCAL POLYSACCHARID E PPV23 2013 RIGHT DELTO ID 33 complet ed HISTORICA L INFORMATI ON - FROM OTHER PROVIDER, Lot#: [id number] Mfr: [employer] [facility] INFLUENZA, SEASONAL, INJECTABLE 1 2012 141 complet ed HISTORICA L INFORMATI ON - FROM OTHER REGISTRY, [facility] FLU,3 YRS (HISTORICAL) 2012 88 complet ed [facility] Results Combined list of recent chemistry, hematology and other laboratory results from [facility] Defense and [facility], ranging from 15 months to all on record, depending upon the facility. Order Name Results Value Reference Range Date Interpretation Specimen Comments Source MICROALBUM IN URINE PANEL,RAND OM CREATININE [MASS/VOLUME ] IN URINE 34 mg/dL 05/14 Specimen Type: URINE,RAND OM Comment: R-Unable to calculate MALB/CREA result Ordering Provider: MANISH BOYD DO Report Released Date/Time: May 13, 2024 03:59 PM Reporting Lab: [address] [address] Performing Lab: [address] [address] [facility] MICROALBUM IN URINE PANEL,RAND MICROALBUMIN [MASS/VOLUME ] IN URINE <0.7mg/ dL 05/14 Specimen Type: URINE,RAND OM Comment: R-Unable to calculate MALB/CREA result Ordering Provider: MANISH BOYD DO Report Released Date/Time: May 13, 2024 03:59 PM Reporting Lab: [address] [address] Performing Lab: [address] [address] [facility] MICROALBUM IN URINE PANEL,RAND OM MICROALBUMIN /CREATININE [MASS RATIO] IN URINE comment mg/g 05/14 Specimen Type: URINE,RAND OM Comment: R-Unable to calculate MALB/CREA result Ordering Provider: MANISH BOYD DO Report Released Date/Time: May 13, 2024 03:59 PM Reporting Lab: [address] [address] Performing Lab: [place] [phone] [place] [address] TSH THYROTROPIN [UNITS/VOLUM E] IN SERUM OR PLASMA 1.793 u[IU]/m L 0.45 - 5.33 05/14 Specimen Type: BLOOD No comment entered. Ordering Provider: MANISH BOYD DO Report Released Date/Time: May 13, 2024 03:59 PM Reporting Lab: [place] [phone] Performing Lab: [address] [phone] [place] [address] LIPID PROFILE CHOLESTEROL [MASS/VOLUME ] IN SERUM OR PLASMA 112 mg/dL <200 - 200 05/14 Specimen Type: BLOOD No comment entered. Ordering Provider: MANISH BOYD DO Report Released Date/Time: May 13, 2024 03:59 PM Reporting Lab: [facility] [address] [place] [address] Performing Lab: [facility] [address] [facility] [address] [place] [address] [facility] LIPID PROFILE TRIGLYCERIDE [MASS/VOLUME ] IN SERUM OR PLASMA 110 mg/dL 05/14 Specimen Type: BLOOD No comment entered. Ordering Provider: MANISH BOYD DO Report Released Date/Time: May 13, 2024 03:59 PM Reporting Lab: [facility] [address] [place] [address] Performing Lab: [facility] [address] [facility] [address] [place] [address] [facility] LIPID PROFILE CHOLESTEROL IN HDL [MASS/VOLUME ] IN SERUM OR PLASMA 53 mg/dL 05/14 Specimen Type: BLOOD No comment entered. Ordering Provider: MANISH BOYD DO Report Released Date/Time: May 13, 2024 03:59 PM Reporting Lab: [facility] [address] [facility] [address] [place] [address] Performing Lab: [facility] [address] [facility] [address] [place] [address] [facility] LIPID PROFILE CHOLESTEROL IN LDL [MASS/VOLUME ] IN SERUM OR PLASMA BY CALCULATION 37 mg/dL <130 - 130 05/14 Specimen Type: BLOOD No comment entered. Ordering Provider: MANISH BOYD DO Report Released Date/Time: May 13, 2024 03:59 PM Reporting Lab: [address] [place] [address] Performing Lab: [address] [place] [address] [facility] HGB A1C (with eAG) HEMOGLOBIN A1C/HEMOGLOB IN.TOTAL IN BLOOD BY HPLC 7.0 4.0 - 6.0 05/14 H Specimen Type: BLOOD No comment entered. Ordering Provider: MANISH BOYD DO Report Released Date/Time: May 13, 2024 03:59 PM Reporting Lab: [facility] [address] [facility] [address] [place] [address] Performing Lab: [address] [place] [address] [facility] HGB A1C (with eAG) GLUCOSE MEAN VALUE [MASS/VOLUME ] IN BLOOD ESTIMATED FROM GLYCATED HEMOGLOBIN 154 mg/dL 05/14 Specimen Type: BLOOD No comment entered. Ordering Provider: MANISH BOYD DO Report Released Date/Time: May 13, 2024 03:59 PM Reporting Lab: [facility] [address] [facility] [address] [place] [address] Performing Lab: [facility] [address] [facility] [address] [place] [address] [facility] BASIC METABOLIC PANEL CREATININE [MASS/VOLUME ] IN SERUM OR PLASMA 1.3 mg/dL 0.6 - 1.3 05/14 Specimen Type: BLOOD No comment entered. Ordering Provider: AMNISH BOYD DO Report Released Date/Time: May 13, 2024 03:59 PM Reporting Lab: [facility] [address] [facility] [address] [place] [address] Performing Lab: [facility] [address] [facility] [address] [place] [address] [facility] BASIC METABOLIC PANEL UREA NITROGEN [MASS/VOLUME ] IN SERUM OR PLASMA 23 mg/dL 7 - 25 05/14 Specimen Type: BLOOD No comment entered. Ordering Provider: MANISH BOYD DO Report Released Date/Time: May 13, 2024 03:59 PM Reporting Lab: [place] [address] [facility] [address] [place] [address] Performing Lab: [place] [address] [facility] [address] [place] [address] [facility] BASIC METABOLIC PANEL GLUCOSE [MASS/VOLUME ] IN SERUM OR PLASMA 128 mg/dL 74 - 109 05/14 H Specimen Type: BLOOD No comment entered. Ordering Provider: MANISH BOYD DO Report Released Date/Time: May 13, 2024 03:59 PM Reporting Lab: [place] [address] [facility] [address] [place] [address] Performing Lab: [place] [address] [facility] [address] [place] [address] [facility] BASIC METABOLIC PANEL SODIUM [MOLES/VOLUM E] IN SERUM OR PLASMA 136 mmol/L 136 - 145 05/14 Specimen Type: BLOOD No comment entered. Ordering Provider: MANISH BOYD DO Report Released Date/Time: May 13, 2024 03:59 PM Reporting Lab: [facility] [address] [facility] [address] [place] [address] Performing Lab: [place] [address] [facility] [address] [place] [address] [facility] BASIC METABOLIC PANEL POTASSIUM [MOLES/VOLUM E] IN SERUM OR PLASMA 4.4 mmol/L 3.5 - 5.1 05/14 Specimen Type: BLOOD No comment entered. Ordering Provider: MANISH BOYD Report Released Date/Time: May 13, 2024 03:59 PM Reporting Lab: [address] [place] [address] Performing Lab: [address] [place] [address] [facility] BASIC METABOLIC PANEL CHLORIDE [MOLES/VOLUM E] IN SERUM OR PLASMA 103 mmol/L 98 - 107 05/14 Specimen Type: BLOOD No comment entered. Ordering Provider: MANISH BOYD DO Report Released Date/Time: May 13, 2024 03:59 PM Reporting Lab: [address] [place] [address] Performing Lab: [address] [place] [address] [facility] BASIC METABOLIC PANEL CARBON DIOXIDE, TOTAL [MOLES/VOLUM E] IN SERUM OR PLASMA 27 mmol/L 21 - 31 05/14 Specimen Type: BLOOD No comment entered. Ordering Provider: MANISH BOYD DO Report Released Date/Time: May 13, 2024 03:59 PM Reporting Lab: [address] [place] [address] Performing Lab: [address] [place] [address] [facility] BASIC METABOLIC PANEL CALCIUM [MASS/VOLUME ] IN SERUM OR PLASMA 9.5 mg/dL 8.6 - 10.3 05/14 Specimen Type: BLOOD No comment entered. Ordering Provider: MANISH BOYD DO Report Released Date/Time: May 13, 2024 03:59 PM Reporting Lab: [address] [place] [address] Performing Lab: [address] [place] [address] [facility] BASIC METABOLIC PANEL ANION GAP 3 IN SERUM OR PLASMA 6 mmol/L 4 - 12 05/14 Specimen Type: BLOOD No comment entered. Ordering Provider: MANISH BOYD DO Report Released Date/Time: May 13, 2024 03:59 PM Reporting Lab: [address] [place] [address] Performing Lab: [address] [place] [address] [facility] BASIC METABOLIC PANEL GLOMERULAR FILTRATION RATE/1.73 SQ M.PREDICTED [VOLUME RATE/AREA] IN SERUM, PLASMA OR BLOOD BY CREATININE AND CYSTATIN C-BASED FORMULA (CKD-EPI 2020) 57 mL/min/ {1.73_m 2} 05/14 Specimen Type: BLOOD No comment entered. Ordering Provider: MANISH BOYD DO Report Released Date/Time: May 13, 2024 03:59 PM Reporting Lab: [address] [place] [address] Performing Lab: [address] [place] [phone] [facility] CBC W/O DIFF. LEUKOCYTES [#/VOLUME] IN BLOOD BY AUTOMATED COUNT 8.58 10*3/uL 4.00 - 11.00 05/14 Specimen Type: BLOOD No comment entered. Ordering Provider: MANISH BOYD DO Report Released Date/Time: May 13, 2024 03:59 PM Reporting Lab: [address] [place] [address] Performing Lab: [address] [place] [address] [facility] CBC W/O DIFF. ERYTHROCYTES [#/VOLUME] IN BLOOD 4.47 10*6/uL 4.10 - 5.80 05/14 Specimen Type: BLOOD No comment entered. Ordering Provider: MANISH BOYD DO Report Released Date/Time: May 13, 2024 03:59 PM Reporting Lab: [address] [place] [address] Performing Lab: [address] [place] [phone] [facility] CBC W/O DIFF. HEMOGLOBIN [MASS/VOLUME ] IN BLOOD 13.7 g/dL 12.1 - 17.2 05/14 Specimen Type: BLOOD No comment entered. Ordering Provider: MANISH BOYD DO Report Released Date/Time: May 13, 2024 03:59 PM Reporting Lab: [address] [place] [address] Performing Lab: [address] [place] [address] [facility] CBC W/O DIFF. HEMATOCRIT [VOLUME FRACTION] OF BLOOD BY AUTOMATED COUNT 41.6 38.0 - 51.0 05/14 Specimen Type: BLOOD No comment entered. Ordering Provider: MANISH BOYD DO Report Released Date/Time: May 13, 2024 03:59 PM Reporting Lab: [address] [place] [address] Performing Lab: [address] [place] [address] [facility] CBC W/O DIFF. MCV [ENTITIC VOLUME] BY AUTOMATED COUNT 93.1 fL 80.0 - 100.0 05/14 Specimen Type: BLOOD No comment entered. Ordering Provider: MANISH BOYD DO Report Released Date/Time: May 13, 2024 03:59 PM Reporting Lab: [address] [place] [address] Performing Lab: [address] [place] [address] [facility] CBC W/O DIFF. MCH [ENTITIC MASS] BY AUTOMATED COUNT 30.6 pg 26.0 - 32.0 05/14 Specimen Type: BLOOD No comment entered. Ordering Provider: MANISH BOYD DO Report Released Date/Time: May 13, 2024 03:59 PM Reporting Lab: [address] [place] [phone] Performing Lab: [address] [place] [address] [facility] CBC W/O DIFF. MCHC [MASS/VOLUME ] BY AUTOMATED COUNT 32.9 g/dL 32.0 - 37.5 05/14 Specimen Type: BLOOD No comment entered. Ordering Provider: MANISH BOYD DO Report Released Date/Time: May 13, 2024 03:59 PM Reporting Lab: [facility] [address] [facility] [address] [place] [address] Performing Lab: [facility] [address] [facility] [address] [place] [address] [facility] CBC W/O DIFF. PLATELETS [#/VOLUME] IN BLOOD BY AUTOMATED COUNT 221 10*3/uL 130 - 400 05/14 Specimen Type: BLOOD No comment entered. Ordering Provider: MANISH BOYD DO Report Released Date/Time: May 13, 2024 03:59 PM Reporting Lab: [facility] [address] [facility] [address] [place] [address] Performing Lab: [facility] [address] [facility] [address] [place] [address] [facility] CBC W/O DIFF. PLATELET MEAN VOLUME [ENTITIC VOLUME] IN BLOOD BY AUTOMATED COUNT 9.2 fL 8.9 - 12.7 05/14 Specimen Type: BLOOD No comment entered. Ordering Provider: MANISH BOYD DO Report Released Date/Time: May 13, 2024 03:59 PM Reporting Lab: [facility] [address] [facility] [address] [place] [address] Performing Lab: [address] [place] [address] [facility] CBC W/O DIFF. ERYTHROCYTE DISTRIBUTION WIDTH [RATIO] 12.7 11.5 - 14.5 05/14 Specimen Type: BLOOD No comment entered. Ordering Provider: MANISH BOYD DO Report Released Date/Time: May 13, 2024 03:59 PM Reporting Lab: [place] [address] [facility] [address] [place] [address] Performing Lab: [address] [place] [address] [facility] HGB A1C (with eAG) HEMOGLOBIN A1C/HEMOGLOB IN.TOTAL IN BLOOD BY HPLC 8.1 4.0 - 6.0 11/10 H Specimen Type: BLOOD No comment entered. Ordering Provider: MANISH BOYD DO Report Released Date/Time: May 14, 2023 08:31 AM Reporting Lab: [facility] [address] [facility] [address] [place] [address] Performing Lab: [facility] [address] [facility] [place] [address] [facility] HGB A1C (with eAG) GLUCOSE MEAN VALUE [MASS/VOLUME ] IN BLOOD ESTIMATED FROM GLYCATED HEMOGLOBIN 186 mg/dL 11/10 Specimen Type: BLOOD No comment entered. Ordering Provider: MANISH BOYD DO Report Released Date/Time: May 14, 2023 08:31 AM Reporting Lab: [facility] [address] [place] [address] Performing Lab: [facility] [address] [facility] [address] [place] [address] [facility] COMPREHENS SADI METABOLIC PANEL CREATININE [MASS/VOLUME ] IN SERUM OR PLASMA 1.2 mg/dL 0.6 - 1.3 11/10 Specimen Type: BLOOD No comment entered. Ordering Provider: MANISH BOYD DO Report Released Date/Time: May 14, 2023 08:31 AM Reporting Lab: [facility] [address] [facility] [address] [place] [address] Performing Lab: [facility] [address] [facility] [address] [place] [address] [facility] COMPREHENS SADI METABOLIC PANEL UREA NITROGEN [MASS/VOLUME ] IN SERUM OR PLASMA 18 mg/dL 7 - 25 11/10 Specimen Type: BLOOD No comment entered. Ordering Provider: MANISH BOYD DO Report Released Date/Time: May 14, 2023 08:31 AM Reporting Lab: [facility] [address] [place] [address] Performing Lab: [facility] [address] [place] [address] [facility] COMPREHENS SADI METABOLIC PANEL GLUCOSE [MASS/VOLUME ] IN SERUM OR PLASMA 187 mg/dL 74 - 109 11/10 H Specimen Type: BLOOD No comment entered. Ordering Provider: MANISH BOYD DO Report Released Date/Time: May 14, 2023 08:31 AM Reporting Lab: [facility] [address] [place] [address] Performing Lab: [facility] [address] [facility] [address] [place] [address] [facility] COMPREHENS SADI METABOLIC PANEL SODIUM [MOLES/VOLUM E] IN SERUM OR PLASMA 132 mmol/L 136 - 145 11/10 L Specimen Type: BLOOD No comment entered. Ordering Provider: MANISH BOYD DO Report Released Date/Time: May 14, 2023 08:31 AM Reporting Lab: [facility] [address] [facility] [address] [place] [address] Performing Lab: [place] [address] [facility] [address] [place] [address] [facility] COMPREHENS SADI METABOLIC PANEL POTASSIUM [MOLES/VOLUM E] IN SERUM OR PLASMA 4.4 mmol/L 3.5 - 5.1 11/10 Specimen Type: BLOOD No comment entered. Ordering Provider: MANISH BOYD DO Report Released Date/Time: May 14, 2023 08:31 AM Reporting Lab: [place] [address] [facility] [address] [place] [address] Performing Lab: [address] [place] [address] [facility] COMPREHENS SADI METABOLIC PANEL CHLORIDE [MOLES/VOLUM E] IN SERUM OR PLASMA 96 mmol/L 98 - 107 11/10 L Specimen Type: BLOOD No comment entered. Ordering Provider: MANISH BOYD DO Report Released Date/Time: May 14, 2023 08:31 AM Reporting Lab: [place] [address] [facility] [address] [place] [address] Performing Lab: [place] [address] [facility] [address] [place] [address] [facility] COMPREHENS SADI METABOLIC PANEL CARBON DIOXIDE, TOTAL [MOLES/VOLUM E] IN SERUM OR PLASMA 32 mmol/L 21 - 31 11/10 H Specimen Type: BLOOD No comment entered. Ordering Provider: MANISH BOYD DO Report Released Date/Time: May 14, 2023 08:31 AM Reporting Lab: [place] [address] [facility] [address] [place] [address] Performing Lab: [place] [address] [facility] [address] [place] [address] [facility] COMPREHENS SADI METABOLIC PANEL CALCIUM [MASS/VOLUME ] IN SERUM OR PLASMA 9.0 mg/dL 8.6 - 10.3 11/10 Specimen Type: BLOOD No comment entered. Ordering Provider: MANISH BOYD DO Report Released Date/Time: May 14, 2023 08:31 AM Reporting Lab: [facility] [address] [place] [address] Performing Lab: [facility] [address] [place] [address] [facility] COMPREHENS SADI METABOLIC PANEL PROTEIN [MASS/VOLUME ] IN SERUM OR PLASMA 6.0 g/dL 6.4 - 8.9 11/10 L Specimen Type: BLOOD No comment entered. Ordering Provider: MANISH BOYD DO Report Released Date/Time: May 14, 2023 08:31 AM Reporting Lab: [facility] [address] [place] [address] Performing Lab: [facility] [address] [place] [address] [facility] COMPREHENS SADI METABOLIC PANEL ALBUMIN [MASS/VOLUME ] IN SERUM OR PLASMA 4.1 g/dL 3.5 - 5.7 11/10 Specimen Type: BLOOD No comment entered. Ordering Provider: MANISH BOYD DO Report Released Date/Time: May 14, 2023 08:31 AM Reporting Lab: [facility] [address] [place] [address] Performing Lab: [facility] [address] [place] [address] [facility] COMPREHENS SADI METABOLIC PANEL BILIRUBIN.TO HARJEET [MASS/VOLUME ] IN SERUM OR PLASMA 0.9 mg/dL 0.3 - 1.0 11/10 Specimen Type: BLOOD No comment entered. Ordering Provider: MANISH BOYD DO Report Released Date/Time: May 14, 2023 08:31 AM Reporting Lab: [facility] [address] [place] [address] Performing Lab: [facility] [address] [facility] [address] [place] [address] [facility] COMPREHENS SADI METABOLIC PANEL ALKALINE PHOSPHATASE [ENZYMATIC ACTIVITY/VOL UME] IN SERUM OR PLASMA 77 U/L 34 - 104 11/10 Specimen Type: BLOOD No comment entered. Ordering Provider: MANISH BOYD DO Report Released Date/Time: May 14, 2023 08:31 AM Reporting Lab: [facility] [address] [place] [address] Performing Lab: [place] [address] [facility] [address] [place] [address] [facility] COMPREHENS SADI METABOLIC PANEL ASPARTATE AMINOTRANSFE RASE [ENZYMATIC ACTIVITY/VOL UME] IN SERUM OR PLASMA 18 U/L 13 - 39 11/10 Specimen Type: BLOOD No comment entered. Ordering Provider: MANISH BOYD DO Report Released Date/Time: May 14, 2023 08:31 AM Reporting Lab: [place] [address] [facility] [address] [place] [address] Performing Lab: [place] [address] [facility] [address] [place] [address] [facility] COMPREHENS SADI METABOLIC PANEL ALANINE AMINOTRANSFE RASE [ENZYMATIC ACTIVITY/VOL UME] IN SERUM OR PLASMA 27 U/L 7 - 52 11/10 Specimen Type: BLOOD No comment entered. Ordering Provider: MANISH BOYD DO Report Released Date/Time: May 14, 2023 08:31 AM Reporting Lab: [place] [address] [facility] [address] [place] [address] Performing Lab: [place] [address] [facility] [address] [place] [address] [facility] COMPREHENS SADI METABOLIC PANEL GLOMERULAR FILTRATION RATE/1.73 SQ M.PREDICTED [VOLUME RATE/AREA] IN SERUM, PLASMA OR BLOOD BY CREATININE AND CYSTATIN C-BASED FORMULA (CKD-EPI 2020) 63 mL/min/ {1.73_m 2} 11/10 Specimen Type: BLOOD No comment entered. Ordering Provider: MANISH BOYD DO Report Released Date/Time: May 14, 2023 08:31 AM Reporting Lab: [place] [address] [address] [place] [address] Performing Lab: [facility] [address] [facility] [address] [place] [address] [facility] CBC WITH DIFFERENTI AL LEUKOCYTES [#/VOLUME] IN BLOOD BY AUTOMATED COUNT 9.93 10*3/uL 4.00 - 11.00 11/10 Specimen Type: BLOOD No comment entered. Ordering Provider: MANISH BOYD DO Report Released Date/Time: Nov 11, 2023 08:32 AM Reporting Lab: [facility] [address] [facility] [address] [place] [address] Performing Lab: [address] [place] [address] [facility] CBC WITH DIFFERENTI AL ERYTHROCYTES [#/VOLUME] IN BLOOD 4.14 10*6/uL 4.10 - 5.80 11/10 Specimen Type: BLOOD No comment entered. Ordering Provider: MANISH BOYD DO Report Released Date/Time: Nov 11, 2023 08:32 AM Reporting Lab: [address] [place] [address] Performing Lab: [address] [place] [address] [facility] CBC WITH DIFFERENTI AL HEMOGLOBIN [MASS/VOLUME ] IN BLOOD 12.9 g/dL 12.1 - 17.2 11/10 Specimen Type: BLOOD No comment entered. Ordering Provider: MANISH BOYD DO Report Released Date/Time: Nov 11, 2023 08:32 AM Reporting Lab: [place] [address] [facility] [address] [place] [address] Performing Lab: [place] [address] [facility] [facility] [address] [facility] CBC WITH DIFFERENTI AL HEMATOCRIT [VOLUME FRACTION] OF BLOOD BY AUTOMATED COUNT 37.9 38.0 - 51.0 11/10 L Specimen Type: BLOOD No comment entered. Ordering Provider: MANISH BOYD DO Report Released Date/Time: Nov 11, 2023 08:32 AM Reporting Lab: [address] [place] [address] Performing Lab: [facility] [address] [facility] [address] [place] [address] [facility] CBC WITH DIFFERENTI AL MCV [ENTITIC VOLUME] BY AUTOMATED COUNT 91.5 fL 80.0 - 100.0 11/10 Specimen Type: BLOOD No comment entered. Ordering Provider: MANISH BOYD DO Report Released Date/Time: Nov 11, 2023 08:32 AM Reporting Lab: [facility] [address] [facility] [address] [place] [address] Performing Lab: [facility] [address] [facility] [address] [place] [address] [facility] CBC WITH DIFFERENTI AL MCH [ENTITIC MASS] BY AUTOMATED COUNT 31.2 pg 26.0 - 32.0 11/10 Specimen Type: BLOOD No comment entered. Ordering Provider: MANISH BOYD DO Report Released Date/Time: Nov 11, 2023 08:32 AM Reporting Lab: [facility] [address] [facility] [address] [place] [address] Performing Lab: [facility] [address] [facility] [address] [place] [address] [facility] CBC WITH DIFFERENTI AL MCHC [MASS/VOLUME ] BY AUTOMATED COUNT 34.0 g/dL 32.0 - 37.5 11/10 Specimen Type: BLOOD No comment entered. Ordering Provider: MANISH BOYD DO Report Released Date/Time: Nov 11, 2023 08:32 AM Reporting Lab: [facility] [address] [facility] [address] [place] [address] Performing Lab: [facility] [address] [facility] [address] [place] [address] [facility] CBC WITH DIFFERENTI AL PLATELETS [#/VOLUME] IN BLOOD BY AUTOMATED COUNT 270 10*3/uL 130 - 400 11/10 Specimen Type: BLOOD No comment entered. Ordering Provider: MANISH BOYD DO Report Released Date/Time: Nov 11, 2023 08:32 AM Reporting Lab: [facility] [address] [facility] [address] [place] [address] Performing Lab: [facility] [address] [facility] [address] [place] [address] [facility] CBC WITH DIFFERENTI AL PLATELET MEAN VOLUME [ENTITIC VOLUME] IN BLOOD BY AUTOMATED COUNT 9.5 fL 8.9 - 12.7 11/10 Specimen Type: BLOOD No comment entered. Ordering Provider: MANISH BOYD DO Report Released Date/Time: Nov 11, 2023 08:32 AM Reporting Lab: [facility] [address] [place] [address] Performing Lab: [facility] [address] [place] [address] [facility] CBC WITH DIFFERENTI AL LYMPHOCYTES [#/VOLUME] IN BLOOD BY AUTOMATED COUNT 2.34 10*3/uL 1.00 - 3.00 11/10 Specimen Type: BLOOD No comment entered. Ordering Provider: MANISH BOYD DO Report Released Date/Time: Nov 11, 2023 08:32 AM Reporting Lab: [facility] [address] [place] [address] Performing Lab: [facility] [address] [place] [address] [facility] CBC WITH DIFFERENTI AL MONOCYTES/10 0 LEUKOCYTES IN BLOOD BY AUTOMATED COUNT 10.6 11/10 Specimen Type: BLOOD No comment entered. Ordering Provider: MANISH BOYD DO Report Released Date/Time: Nov 11, 2023 08:32 AM Reporting Lab: [facility] [address] [place] [address] Performing Lab: [facility] [address] [place] [address] [facility] CBC WITH DIFFERENTI AL MONOCYTES [#/VOLUME] IN BLOOD BY AUTOMATED COUNT 1.05 10*3/uL 0.30 - 0.90 11/10 H Specimen Type: BLOOD No comment entered. Ordering Provider: MANISH BOYD DO Report Released Date/Time: Nov 11, 2023 08:32 AM Reporting Lab: [facility] [address] [place] [address] Performing Lab: [facility] [address] [place] [address] [facility] CBC WITH DIFFERENTI AL LYMPHOCYTES/ 100 LEUKOCYTES IN BLOOD BY AUTOMATED COUNT 23.6 11/10 Specimen Type: BLOOD No comment entered. Ordering Provider: MANISH BOYD DO Report Released Date/Time: Nov 11, 2023 08:32 AM Reporting Lab: [facility] [address] [place] [address] Performing Lab: [facility] [address] [facility] [address] [place] [address] [facility] CBC WITH DIFFERENTI AL BASOPHILS [#/VOLUME] IN BLOOD BY AUTOMATED COUNT 0.08 10*3/uL 0.00 - 0.20 11/10 Specimen Type: BLOOD No comment entered. Ordering Provider: MANISH BOYD DO Report Released Date/Time: Nov 11, 2023 08:32 AM Reporting Lab: [facility] [address] [place] [address] Performing Lab: [facility] [address] [facility] [address] [place] [address] [facility] CBC WITH DIFFERENTI AL EOSINOPHILS [#/VOLUME] IN BLOOD BY AUTOMATED COUNT 0.37 10*3/uL 0.00 - 0.50 11/10 Specimen Type: BLOOD No comment entered. Ordering Provider: MANISH BOYD DO Report Released Date/Time: Nov 11, 2023 08:32 AM Reporting Lab: [facility] [address] [place] [address] Performing Lab: [facility] [address] [facility] [address] [place] [address] [facility] CBC WITH DIFFERENTI AL NEUTROPHILS/ 100 LEUKOCYTES IN BLOOD BY AUTOMATED COUNT 60.5 11/10 Specimen Type: BLOOD No comment entered. Ordering Provider: MANISH BOYD DO Report Released Date/Time: Nov 11, 2023 08:32 AM Reporting Lab: [facility] [address] [place] [address] Performing Lab: [facility] [address] [place] [address] [facility] CBC WITH DIFFERENTI AL EOSINOPHILS/ 100 LEUKOCYTES IN BLOOD BY AUTOMATED COUNT 3.7 11/10 Specimen Type: BLOOD No comment entered. Ordering Provider: MANISH BOYD DO Report Released Date/Time: Nov 11, 2023 08:32 AM Reporting Lab: [facility] [address] [facility] [address] [place] [address] Performing Lab: [facility] [address] [facility] [address] [place] [address] [facility] CBC WITH DIFFERENTI AL BASOPHILS/10 0 LEUKOCYTES IN BLOOD BY AUTOMATED COUNT 0.8 11/10 Specimen Type: BLOOD No comment entered. Ordering Provider: MANISH BOYD DO Report Released Date/Time: Nov 11, 2023 08:32 AM Reporting Lab: [facility] [address] [facility] [address] [place] [address] Performing Lab: [facility] [address] [place] [address] [facility] CBC WITH DIFFERENTI AL NEUTROPHILS [#/VOLUME] IN BLOOD BY AUTOMATED COUNT 6.01 10*3/uL 2.00 - 7.00 11/10 Specimen Type: BLOOD No comment entered. Ordering Provider: MANISH BOYD DO Report Released Date/Time: Nov 11, 2023 08:32 AM Reporting Lab: [facility] [address] [place] [address] Performing Lab: [address] [place] [address] [facility] CBC WITH DIFFERENTI AL ERYTHROCYTE DISTRIBUTION WIDTH [RATIO] 12.3 11.5 - 14.5 11/10 Specimen Type: BLOOD No comment entered. Ordering Provider: MANISH BOYD DO Report Released Date/Time: Nov 11, 2023 08:32 AM Reporting Lab: [facility] [address] [facility] [address] [place] [address] Performing Lab: [facility] [address] [facility] [address] [place] [address] [facility] CBC WITH DIFFERENTI AL IMMATURE GRANULOCYTES /100 LEUKOCYTES IN BLOOD 0.8 0.0 - 0.5 11/10 H Specimen Type: BLOOD No comment entered. Ordering Provider: MANISH BOYD DO Report Released Date/Time: Nov 11, 2023 08:32 AM Reporting Lab: [address] [place] [address] Performing Lab: [facility] [address] [facility] [address] [facility] CBC WITH DIFFERENTI AL NUCLEATED ERYTHROCYTES /100 LEUKOCYTES [RATIO] IN BLOOD BY AUTOMATED COUNT 0.0 11/10 Specimen Type: BLOOD No comment entered. Ordering Provider: MANISH BOYD DO Report Released Date/Time: Nov 11, 2023 08:32 AM Reporting Lab: [address] [facility] [address] Performing Lab: [address] [facility] [place] [address] [facility] CBC WITH DIFFERENTI AL NUCLEATED ERYTHROCYTES [#/VOLUME] IN BLOOD <0.0110 *3/uL 0.000 - 0.012 11/10 Specimen Type: BLOOD No comment entered. Ordering Provider: MANISH BOYD DO Report Released Date/Time: Nov 11, 2023 08:32 AM Reporting Lab: [address] [facility] [phone] Performing Lab: [address] [address] [facility] MICROALBUM IN URINE PANEL,RAND OM CREATININE [MASS/VOLUME ] IN URINE 63 mg/dL 47 - 166 05/04 Specimen Type: URINE,RAND OM No comment entered. Ordering Provider: MANISH BOYD DO Report Released Date/Time: Nov 13, 2022 08:20 AM Reporting Lab: [place] [phone] Performing Lab: [place] [phone] [place] [address] MICROALBUM IN URINE PANEL,RAND OM MICROALBUMIN [MASS/VOLUME ] IN URINE <0.5mg/ dL 0.0 - 1.9 05/04 Specimen Type: URINE,RAND OM No comment entered. Ordering Provider: MANISH BOYD DO Report Released Date/Time: Nov 13, 2022 08:20 AM Reporting Lab: [address] [phone] Performing Lab: [place] [id number] [facility] [phone] [facility] MICROALBUM IN URINE PANEL,RAND OM MICROALBUMIN /CREATININE [MASS RATIO] IN URINE UNABLE TO CALCULA TEmg/g 05/04 Specimen Type: URINE,RAND OM No comment entered. Ordering Provider: MANISH BOYD DO Report Released Date/Time: Nov 13, 2022 08:20 AM Reporting Lab: [place] [id number] [facility] [phone] Performing Lab: [place] [id number] [facility] [phone] [facility] Vital Signs Combined list of inpatient and outpatient Vital Signs from Department of Defense and Veterans Affairs, ranging from 12 months to all on record, depending upon the facility. Vital Sign Value Date Comments Source PAIN 7 05/14/2024 07:57:00 [facility] SYSTOLIC BLOOD PRESSURE 136 11/13/2023 08:34:07 [facility] DIASTOLIC BLOOD PRESSURE 61 11/13/2023 08:34:07 [facility] PULSE OXIMETRY 97 11/13/2023 08:34:07 [facility] WEIGHT 205.25 11/13/2023 08:34:07 [facility] BMI 31 kg/m2 11/13/2023 08:34:07 [facility] TEMPERATURE 97.7 11/13/2023 08:34:07 [facility] PULSE 61 11/13/2023 08:34:07 [facility] RESPIRATION 16 11/13/2023 08:34:07 [facility] SYSTOLIC BLOOD PRESSURE 148 11/07/2023 08:48:00 [place] DIASTOLIC BLOOD PRESSURE 65 11/07/2023 08:48:00 [place] PULSE OXIMETRY 99 11/07/2023 08:48:00 [place] PAIN 0 11/07/2023 08:48:00 [place] TEMPERATURE 97.6 11/07/2023 08:48:00 [place] PULSE 57 11/07/2023 08:48:00 [place] RESPIRATION 18 11/07/2023 08:48:00 [place] Encounters Combined list of: 1) Encounters from Department of Veterans Affairs facilities going backup to the last 18 months, not all [place] inpatient encounters are included; 2) Encounters from the Department of Defense facilities going backup to 280 months. Location Location Details Encounter Type Encounter Number Reason For Visit Attending Provider ADM Date DC Date Status Disposition Source [facility] HEARING AID REPAIR/MOD IFYING [id number] Diagnos is: ICD-10- CM Z46.1 Encount er for fitting and adjustm ent of hearing aid RASTA MALIK 03/21 [facility] Outpatient Encounter [id number] Melly DUFFY 04/09 [facility] Outpatient Encounter [id number] 05/05 [facility] Outpatient Encounter [id number] 05/07 [facility] Outpatient Encounter [id number] 05/13 [facility] OFFICE O/P EST MOD 30 MIN [id number] Diagnos is: ICD-10- CM E11.9 Type 2 diabete s mellitu s without complic ations MANISH BOYD A Y DO 05/13 [facility] HEARING AID REPAIR/MOD IFYING [id number] Diagnos is: ICD-10- CM Z46.1 Encount er for fitting and adjustm ent of hearing aid ELLIOTT ANGUIANO 08/21 [facility] Outpatient Encounter [id number] 10/12 [facility] OFFICE O/P NEW LOW 30 MIN [id number] Diagnos is: ICD-10- CM E11.9 Type 2 diabete s mellitu s without complic ations AZUCENA RODRIGUEZ 11/06 [facility] Outpatient Encounter [id number] 11/09 [facility] OFFICE O/P EST HI 40 MIN [id number] Diagnos is: ICD-10- CM I10 Essenti al (primar y) hyperte nsion SIDERA,NAZI A Y DO 11/12 [facility] Outpatient Encounter [id number] 11/17 [facility] Outpatient Encounter [id number] 02/03 [facility] Outpatient Encounter [id number] 02/05 [facility] Outpatient Encounter [id number] 03/09 [facility] Outpatient Encounter [id number] 05/13 [facility] Outpatient Encounter [id number] 05/14 [facility] OFFICE O/P EST MOD 30 MIN [id number] Diagnos is: ICD-10- CM E11.9 Type 2 diabete s mellitu s without complic ations SIDERA,NAZI A Y DO 05/14 [facility] Outpatient Encounter [id number] 05/14 [facility] Outpatient Encounter [id number] SIDIQ,NAZI A Y DO 05/14 [facility] HEARING AID REPAIR/MOD IFYING [id number] Diagnos is: ICD-10- CM Z46.1 Encount er for fitting and adjustm ent of hearing aid Carmelita LOMELI 05/31 [facility] Outpatient Encounter [id number] 06/04 [facility] Outpatient Encounter [id number] 06/09 [facility] HEARING AID XM&SLCTN BINAURL [id number] Diagnos is: ICD-10- CM H90.5 Unspeci fied sensori neural hearing loss [place] ,RSATA 06/16 [facility] HEARING AID FITTING/CH ECKING [id number] Diagnos is: ICD-10- CM Z46.1 Encount er for fitting and adjustm ent of hearing aid [place] ,RASTA 07/05 [facility] HEARING AID REPAIR/MOD IFYING [id number] Diagnos is: ICD-10- CM Z46.1 Encount er for fitting and adjustm ent of hearing aid [place] ,RASTA 07/29 [facility] Social History Combined list of available smoking, tobacco, and other social history from Department of Defense and Veterans Affairs facilities. Social History Type Response Date Comment Sourc e Tobacco smoking status NHIS MA-TOBACCO NEVER USED OTHER TYPE 05/14/2024 [facility] History of tobacco use MA-TOBACCO USE FO RMER CIGARETTES 05/14/2024 [facility] History of tobacco use MA-TOBACCO FORMER USER 05/14/2023 [facility] History of tobacco use MA-TOBACCO FORMER USER 05/07/2022 [facility] History of tobacco use MA-TOBACCO NEVER USED 12/05/2020 [facility] History of tobacco use MA-TOBACCO QUIT 1 5 YRS OR MORE 06/16/2018 [facility] History of tobacco use QUIT TOBACCO >12 MO 09/01/2017 [facility] History of tobacco use MA-TOBACCO QUIT 1 5 YRS OR MORE 06/16/2017 [facility] History of tobacco use QUIT TOBACCO >12 MO 04/30/2017 [facility] History of tobacco use QUIT TOBACCO >12 MO 10/28/2016 [facility] History of tobacco use QUIT TOBACCO >12 MO 04/29/2016 [facility] History of tobacco use QUIT TOBACCO >12 MO 10/26/2015 [facility] History of tobacco use QUIT TOBACCO >12 MO 04/19/2015 [facility] History of tobacco use QUIT TOBACCO >12 MO 10/31/2014 [facility] History of tobacco use QUIT TOBACCO >12 MO 05/07/2014 [facility] History of tobacco use QUIT TOBACCO >12 MO 10/07/2013 [facility] History of tobacco use QUIT TOBACCO >12 MO 12/15/2012 [facility] Plan of Care List of future care activities from Department of Veterans Affairs facilities. Additional future care activities may be listed in the Assessment and Plan section. Date/Time Care Activity Care Activity Detail Facili ty 08/16/2024 AMBULATORY - NONE AMBULATORY - NONE [facility]
--- OUTSIDE RECORDS SUMMARY | 2024-08-10 07:09 | XMS_ITS | Encounter Summary ---
Author Organization [facility] Address [address] [place] [address] Care Team Providers Care Product Safety Engineer Name Role Phone Matti Gomez MD Primary Care Provider [phone] Encounter Details Date Type Department Care Team (Late Contact Info) Description 06/07/2024 Abstract [facility] [address] [facility] [address] [place] [address] Matti Gomez MD 112 [facility] 110 [place], [place] [id number] Social History Tobacco Use Types Packs/Day Years [...] on file documented as of this encounter Plan of Treatment Upcoming Encounters Date Type Department Care Team (Late Contact Info) Description 12/24/2024 8:30 AM EDT Office Visit [facility] 112 [facility] 110 [place] [address] Mel Thompson PA [address] [facility] [address] [place] [address] documented as of this encounter Visit Diagnoses Not on filedocumented in this encounter Additional Health Concerns Assessment Noted Time PHQ-9 Depression Total Score: 0 12/22/19 24 10:00 AM EDT documented as of this encounter Care Teams Product Safety Engineer Relationship Specialty Start Date End Date Matti Gomez MD [address] [facility] [address] [place] [address] PCP - General Internal Medicine 11/21/23 documented as of this encounter
--- OUTSIDE RECORDS SUMMARY | 2024-08-10 07:09 | XMS_ITS | Encounter Summary ---
Author Name [facility] [facility] Address [address] [place] [address] Care Team Providers Care Records Officer Name Role Phone MARI BOYD Primary Care Provider Unavailnilam e Insurance Providers: All historical and current [...] Name Patient's Relationship to Policy Gutierrez [employer]ETNA [facility] ([facility]) MEDICARE ADVANTAGE [facility] ([facility]) Mar 03, 2017 [id number] [phone] HADDOX,RI CHARD PATIENT MEDICARE ([facility]) MEDICARE () PART A Dec 01, 2013 PART A [id number] HADDOX,RI CHARD PATIENT MEDICARE ([place]) MEDICARE () PART B Dec 01, 2013 PART B [id number] HADDOX,RI CHARD PATIENT MEDICARE (WN) MEDICARE () PART A Dec 01, 2013 PART A [id number] [phone] HADDOX,RI CHARD PATIENT MEDICARE (WN) MEDICARE () PART B Dec 01, 2013 PART B [id number] [phone] HADDOX,RI CHARD PATIENT MEDICARE PART D ([facility]) MEDICARE (M) PART D Mar 03, 2023 PART D [id number] CHARLIE CRAIN CHARTyler PATIENT [facility] (R) MEDICARE ADVANTAGE MCR (R) Mar 03, 2023 [id number] CHARLIE CRAIN PATIENT Selected Encounter This section includes the information [facility] record at [facility] for the [facility]counter. Date/Time Encounter Type Encounter Description Reason Pro vider Source IHE Encounter Template Text not used by [facility]
--- OUTSIDE RECORDS SUMMARY | 2024-08-10 07:09 | XMS_ITS | Clinical Summary ---
Author Organization [facility] Address [address] [place] [address] Care Team Providers Care Disability Examiner Name Role Phone Matti Gomez MD Primary Care Provider [phone] Allergies Active Allergy Reactions Criticality Noted Date Comments Lisinopril Cough 12/15/2012 Octacosanol Unknown 07/10/2023 Medications amLODIPine (Norvasc) 10 MG tablet 1 (one) time each day at the same time. Active metoprolol tartrate (Lopressor) 50 MG tablet every 12 (twelve) hours. Active losartan (Cozaar) 100 MG tablet 1 (one) time each day at the same time. Active atorvastatin (Lipitor) 80 MG tablet 1 (one) time each day at the same time. Active apixaban (Eliquis) 5 MG tablet Take 5 mg by mouth in the morning and 5 mg before bedtime. Active albuterol HFA 90 mcg/act inhaler INHALE 2 PUFFS BY INHALATION FOUR TIMES A DAY NEEDED FOR SHORTNESS OF BREATH 4 Active metFORMIN, OSM, (Fortamet) 1000 MG 24 hr tablet Take 1,000 mg by mouth in the morning and 1,000 mg in the evening. Take with meals. 3 Active empagliflozin (Jardiance) 25 MG Take 0.5 tablets by mouth Daily Active tiotropium-oloda terol (Stiolto Respimat) 2.5-2.5 MCG/ACT aerosol solution inhaler 1 (one) time each day at the same time 4 Active budesonide-formo terol (Symbicort) 80-4.5 MCG/ACT inhaler Inhale 2 puffs in the morning and 2 puffs before bedtime. Rinse mouth with water after use to reduce aftertaste and incidence of candidiasis. Do not swallow.. Active ipratropium (Atrovent) 0.03 % nasal spray 2 SPRAYS IN EACH NOSTRIL NASALLY TWICE A DAY 90 DAYS 5 Active lidocaine (Xylocaine) 5 % ointment Apply topically 5 Active fluticasone (Flonase) 50 MCG/ACT nasal sprayIndications :Seasonal allergic rhinitis due to pollen Administer 1-2 sprays into each nostril Daily Shake gently. Before first use, prime pump. After use, clean tip and replace cap. 16 g 5 Active cetirizine (ZyrTEC) 10 MG tabletIndication s:Seasonal allergic rhinitis due to pollen Take 1 tablet (10 mg) by mouth Daily for 14 days 14 tablet 5 08/14/19 25 Active predniSONE (Deltasone) 10 MG tabletIndication s:Acute bronchitis, unspecified organism Take 1 tablet (10 mg) by mouth in the morning and 1 tablet (10 mg) at noon. Do all this for 5 days. Take with breakfast and with lunch. 10 tablet 5 08/05/19 25 Active Problems Problem Noted Date Diagnosed Date Type 2 diabetes mellitus with hyperglycemia 12/02 Afib 12/10/2023 Deviated nasal septum 12/10/2023 Exposure to potentially hazardous substance 11/2023 Hard to intubate 12/10/2023 Hypertrophy of nasal turbinates 12/10/2023 Internal derangement of left shoulder 12/10/2023 Benign neoplasm of brain 08/15/2023 Chronic maxillary sinusitis 08/15/2023 DDD (degenerative disc disease), lumbar 08/15/19 24 Edema of lower extremity 08/15/2023 Edema, unspecified 08/15/2023 History of asbestos exposure 08/15/2023 continuous churn buttermaker current use of anticoagulant therapy 0 08/15/2023 Pulmonary embolism 08/15/2023 Tear of rotator cuff 08/15/2023 Overview (12/10/2023): right 2016 right 2016 Thrombophlebitis 08/15/2023 Overview (12/10/2023): Mar 2009 Inadequate sleep hygiene 07/10/2023 Snoring 07/10/2023 Hypersomnia 07/09/2023 RLS (restless legs syndrome) 07/09/2023 PLMD (periodic limb movement disorder) Paresthesia 07/09/2023 Polyneuropathy 07/09/2023 History of tobacco use 06/05/2023 PRAVIN (obstructive sleep apnea) 06/02/2023 Chronic obstructive pulmonary disease, unspecifi ed 06/02/2023 HLD (hyperlipidemia) 06/02/2023 CAD (coronary artery disease) 06/02/2023 Primary hypertension 06/02/2023 Chronic back pain 06/02/2023 Hearing loss of right ear 06/02/2023 Type 2 diabetes mellitus with other specified co mplication 06/02/2023 Dyspnea on exertion 01/17/2022 Generalized osteoarthritis 08/26/2011 History of cardiovascular disorder 08/26/2011 Resolved Problems Problem Noted Date Diagnosed Date Resolved Date Complete tear of rotator cuff 12/10/2023 12/22/2023 Encounter for fitting and ad justment of hearing aid 08/15/2023 12/22/2023 Encounters Date Type Department Care Team Description 07/30/2024 12:00 PM EDT Office Visit [facility] [address] [facility] [address] [place] [address] Mel Thompson PA Acute bronchitis, unspecified organism (Primary Dx); Seasonal allergic rhinitis due to pollen 07/30/2024 Travel 07/16/2024 Abstract [facility] [address] [place] [address] [place] [address] Matti Gomez MD 06/07/2024 Telephone [facility] [address] [facility] [address] [place] [address] Matti Gomez MD 06/07/2024 Abstract [facility] [address] [facility] [address] [place] [address] Matti Gomez MD 05/25/2024 Abstract [facility] [address] [facility] [address] [place] [address] Matti Gomez MD from Last 3 Months Immunizations Immunization Administration Dates Next Due ABRYSVO - Respiratory syncyt ial virus (RSV), vaccine, bivalent, protein subunit RSV prefusion F, diluent reconstituted, 0.5 mL, PF 11/18/2023 Influenza, Unspecified 11/18/2023,2022,12/02/2019,12/01,01/02/2016,05/29/2015,01/01/2015 ,12/01/2013 Influenza, injectable, quadr ivalent, preservative free 11/02/2018 Influenza, seasonal, intrade rmal, preservative free 05/29/2015 Pfizer Purple Cap SARS-CoV-2 Vaccination 06/12/2021 Pneumococcal Conjugate PCV 13 12/03/2017, 015 Pneumococcal Polysaccharide PPSV23 05/29/2015, Pneumococcal, Unspecified 10/07/2013 SARS-COV-2 (COVID-19) vaccin e, mRNA, spike protein, LNP, PF, mayda-sucrose, 30 mcg/0.3 mL 05/13/2024,11/18/2023 Tdap 12/15/2018 Zoster, Recombinant 12/30/2019, 0,12/29/2018,10/29 Family History Medical History Relation Name Comments Esophageal cancer Father Cancer Mother Cancer Sibling Relation Name Status Comments Father Mother Sibling Social History Tobacco Use Types Packs/Day Years Used Date Smoking Tobacco: Former Cigarettes Smokeless Tobacco: Never Tobacco Cessation:Counseling Given: Not Answered Alcohol Use Standard Drinks/Week Comments Yes 0 [...] on file Sexual Orientation Not on file Last Filed Vital Signs Vital Sign Reading Time Taken Comments Blood Pressure 110/68 07/30/2024 11:51 AM EDT Pulse 67 07/30/2024 11:51 AM EDT Temperature 36.7 C (98.1 F) 07/30/2024 11:51 AM EDT Respiratory Rate 17 04/19/2024 2:03 PM EST Oxygen Saturation 97% 07/30/2024 11:51 AM EDT Inhaled Oxygen Concentration - - Weight 91.6 kg (202 lb) 07/30/2024 11:51 AM EDT Height 172.7 cm (5' 8 ) 07/30/2024 11:51 AM EDT Body Mass Index 30.71 07/30/2024 11:51 AM EDT Plan of Treatment Upcoming Encounters Date Type Department Care Team (Late st Contact Info) Description 12/24/2024 8:30 AM EDT Office Visit [facility] 112 [facility] 110 [place] [address] Mel Thompson PA 112 [facility] [address] [place] [address] Health Maintenance Due Date Last Done Comments CT Colonography 1950 Colonoscopy 1950 FIT 1950 FOBT 1950 Sigmoidoscopy 1950 Diabetes: Hemoglobin A1C 08/14/2024 025, 11/21/2023, 11/13/2023 Medicare Annual Wellness (AWV) 12/21/2024 1 , 06/02/2023, 06/02/2023 Diabetes: Urine Protein Screening 05/14/2025 025, 12/10/2023 Colorectal Cancer Screening 06/02/2026 FIT-DNA 06/02/2026 06/03/2023 Diabetes: Retinopathy Screening 06/04/2026 , 10/16/2023 Pneumococcal Vaccine: 65+ Years Completed 12/03/2017, 05/29/2015, 10/31/2014, Additional history exists Influenza Vaccine Completed 11/18/2023, , 12/02/2019, Additional history exists Procedures Procedure Name Priority Date/Time Associated Diagnosis Comments DIABETIC RETINOPATHY SCREENING - OU - BOTH EYES Routine 06/04/2024 LIPID PANEL Routine 05/14/2024 BASIC METABOLIC PANEL Routine 05/14/2024 MICROALBUMIN / CREATININE URINE RATIO Routine 05/14/2024 HEMOGLOBIN A1C Routine 05/14/2024 LAB COLOGUARD COLON CANCER SCREEN Routine 06/03/2023 from Last 3 Months or Most Recently Relevant to Health Maintenance Results * Diabetic Retinopathy Screening - OU - Both Eyes (06/04/2024) RESULTS ndr Anatomical Region Laterality Modality Head Other 06/04/2024 Matti Gomez MD OPHTH PHOTOGRAPHY Final Result * Microalbumin / creatinine urine ratio (05/14/2024) [...] PA - 07/30/2024 7:50 AM EDT From [place] Mel DANIELS LAB BLOOD ORDERABLES Final Res ult * Lipid panel (05/14/2024) CHOLESTEROL, TOTAL 112 LDL-C 37 HDL-C 53 TRIGLYCERIDES 110 CHOL/HDL RATIO 2.11 Blood Venous blood specimen / Unknown 05/14/2024 Mel DANIELS LAB BLOOD ORDERABLES Final Res ult * (ABNORMAL) Basic metabolic panel (05/14/2024) Pathologist [facility] Glucose 128(A) 65 - 99 mg/dL BUN 23(A) 4 - 21 mg/dL Creatinine 1.3 0.6 - 1.3 mg/dL Sodium 136 Potassium, Bld 4.4 Chloride 103 Carbon Dioxide 27 mmol/L Calcium 9.5 8.7 - 10.7 mg/dL External GFR Non Amer 57 Comment:Low Anion Gap 6 <=30 mmol/L Blood Venous blood specimen / Unknown 05/14/2024 Mel DANIELS LAB BLOOD ORDERABLES Final Res ult * Cologuard?? colon cancer screening (06/03/2023) Pathologist [facility] NONINV COLON CA DNA+OCC BLD SCRN STL-IMP neg NONINV COLON CA DNA+OCC BLD SCRN STL QL Negative Stool 06/03/2023 Matti Gomez MD LAB MOLECULAR DIAGNOSTICS GEOVANI JONES Final Result from Last 3 Months or Most Recently Relevant to Health Maintenance Insurance [employer] MEDICARE Care Teams Disability Examiner Relationship Specialty Start Date End Date Matti Gomez MD [address] [place] [address] PCP - General Internal Medicine 11/21/23
--- OUTSIDE RECORDS SUMMARY | 2024-08-10 07:09 | XMS_ITS | Encounter Summary ---
Author Organization [facility] Address [address] [facility] [place] [address] Care Team Providers Care Rewrite Editor Name Role Phone Matti Gomez MD Primary Care Provider [phone] Encounter Details Date Type Department Care Team (Late st Contact Info) Description 12/22/2023 Abstract [facility] [address] [facility] [address] [place] [address] Matti Gomez MD [address] [facility] [address] [place], [place] [id number] Social History Tobacco Use Types Packs/Day Years [...] on file documented as of this encounter Functional Status * Over the past 2 weeks, how often have you been bothered by any of the following problems? Question Answer Date of Assessment Author Little interest or pleasure in doing things Not at all 12/22/2023 10:00 AM EDT Stacie Fortune L PN Feeling down, depressed, or hopeless Not at all 12/22/2023 10:00 AM EDT Stacie Fortune L PN Patient Health Questionnaire -2 Score 0 12/22/2023 10:00 AM EDT Stacie Fortune L PN * Question Answer Date of Assessment Author Trouble falling or staying asleep, or sleeping too much Not at all 12/22/2023 10:00 AM EDT Carmelita Fortune LPN Feeling tired or having edgardo le energy Not at all 12/22/2023 10:00 AM EDT Stacie Fortune L PN Poor appetite or overeating Not at all 12/22/2023 10 :00 AM EDT Stacie Fortune LPN Feeling bad about yourself - or that you are a failure or have let yourself or your family down Not at all 12/22/2023 10:00 AM EDT Stacie Fortune L PN Trouble concentrating on things, such as reading the newspaper or watching television Not at all 12/22/2023 10:00 AM EDT Stacie Fortune L PN Moving or speaking so slowly that other people could have noticed? Or the opposite - being so fidgety or restless that you have been moving around a lot more than usual. Not at all 12/22/2023 10:00 AM EDT Stacie Fortune LPN Thoughts that you would be better off or hurting yourself in some way Not at all 12/22/2023 10:00 AM EDT Stacie Fortune LPN Patient Health Questionnaire -9 Score 0 12/22/2023 10:00 AM EDT Stacie Fortune L PN documented as of this encounter Plan of Treatment Upcoming Encounters Date Type Department Care Team (Late st Contact Info) Description 12/24/2024 8:30 AM EDT Office Visit [facility] 112 [facility] [address] [place] [address] Mel Thompson PA 112 [facility] [address] [place] [address] documented as of this encounter Visit Diagnoses Not on filedocumented in this encounter Additional Health Concerns Assessment Noted Time PHQ-9 Depression Total Score: 0 12/22/19 10:00 AM EDT documented as of this encounter Care Teams Rewrite Editor Relationship Specialty Start Date End Date Matti Gomez MD 112 [facility] [address] [place] [address] PCP - General Internal Medicine 11/21/23 documented as of this encounter
--- OUTSIDE RECORDS SUMMARY | 2024-08-10 07:09 | XMS_ITS | Encounter Summary ---
Author Organization [facility] Address [address] [place] [address] Care Team Providers Care Lactation Specialist Name Role Phone Stefan Saldana MD Primary Care Provider [phone] Matti Gomez MD Primary Care Provider [phone] Encounter Details Date Type Department Care Team (Late Contact Info) Description 07/16/2023 Clinisync Result Encounter [facility] External Department Unsolicited Provider, Generic External Data Social History Tobacco Use Types Packs/Day Years [...] more drinks on one occasion? Never 07/09/2023 Sex and Gender Information Value Date Recorded Sex Assigned at Not on file Legal Sex Male 6:36 PM EDT Gender Identity Not on file Sexual Orientation Not on file documented as of this encounter Plan of Treatment Upcoming Encounters Date Type Department Care Team (Late Contact Info) Description 12/24/2024 8:30 AM EDT Office Visit [facility] [address] [facility] [address] [place] [address] Mel Thompson PA [address] [facility] 110 [place], [place] [id number] documented as of this encounter Procedures Procedure Name Priority Date/Time Associated Diagnosis Comments XR CHEST 2V 07/16/2023 9:46 AM EDT documented in this encounter Results * XR CHEST 2V (07/16/2023 9:46 AM EDT) Anatomical Region Laterality Modality Other 07/16/2023 9:46 AM EDT Narrative 07/16/2023 9:[place] [address] XRay Report Signed Patient: MOISES CRAIN MR#: [id number] : 1950 Acct:[id number] Age/Sex: 73 / M ADM Date: 07/16/23 Loc: [facility] Attending Dr: Dionisio Duarte D.O. Ordering Physician: Dionisio Duarte D.O. Date of Service: 07/16/23 Procedure(s): XR chest 2V Accession Number(s): [id number] cc: Hector Philip M.D.; Dionisio Duarte D.O. [place] [address] Patient Name: MOISES CRAIN MRN: [id number] date: 1950 Sex: M Assigned Patient Location: [facility] Current Patient Location: [facility] Accession/Order Number: [id number] Exam Date: 07/16/2023 09:28 Report Date: 07/16/2023 09:46 At the request of: DIONISIO DUARTE Procedure: XR chest 2V EXAMINATION: XR chest 2V HISTORY: Exposure To Asbestos Z77.090 COMPARISON: 01/12/2022 TECHNIQUE: PA and lateral FINDINGS: LUNGS: No significant pulmonary parenchymal abnormalities. VASCULATURE: No increased pulmonary vasculature. PLEURA: No pneumothorax, effusion, or pleural thickening. CARDIAC: No cardiomegaly or cardiac silhouette abnormality. MEDIASTINUM: No visible mass or adenopathy. Aortic atherosclerosis BONES: No fracture or visible bone lesion. Degenerative spondylosis OTHER: Negative. XR/XR chest 2V IMPRESSION: No acute cardiopulmonary process Electronically authenticated by: ZANE HARP Date: 07/16/2023 09:46 Dictated By: Zane Harp M.D. Signed By: 07/16/23947 DD/ 5 TD/TT: Silo Erector: Procedure Note Radiology, Radiologist, - 07/16/2023 [place] [address] XRay Report Signed Patient: MOISES CRAIN NMR#: [id number] : 1950Acct:[id number] Age/Sex: 73 / MADM Date: 07/16/23 Loc: [facility] Attending Dr: Dionisio Duarte D.O. Ordering Physician: Dionisio Duarte D.O. Date of Service: 07/16/23 Procedure(s): XR chest 2V Accession Number(s): [id number] cc: Hector Philip M.D.; Dionisio Duarte D.O. [place] [address] Patient Name: MOISES CRAIN MRN: [id number] date: 1950 Sex: M Assigned Patient Location: [facility] Current Patient Location: [facility] Accession/Order Number: [id number] Exam Date: 07/16/2023 09:28 Report Date: 07/16/2023 09:46 At the request of: DIONISIO DUARTE Procedure: XR chest 2V EXAMINATION: XR chest 2V HISTORY: Exposure To Asbestos Z77.090 COMPARISON: 01/12/2022 TECHNIQUE: PA and lateral FINDINGS: LUNGS: No significant pulmonary parenchymal abnormalities. VASCULATURE: No increased pulmonary vasculature. PLEURA: No pneumothorax, effusion, or pleural thickening. CARDIAC: No cardiomegaly or cardiac silhouette abnormality. MEDIASTINUM: No visible mass or adenopathy. Aortic atherosclerosis BONES: No fracture or visible bone lesion. Degenerative spondylosis OTHER: Negative. XR/XR chest 2V IMPRESSION: No acute cardiopulmonary process Electronically authenticated by: ZANE HARP Date: 07/16/2023 09:46 Dictated By: Zane Harp M.D. Signed By:07/16/2348 DD/ 0946 TD/TT: Silo Erector: us Generic External Data Provider [facility] Final Result documented in this encounter Visit Diagnoses Not on filedocumented in this encounter Care Teams Lactation Specialist Relationship Specialty Start Date End Date Stefan Saldana MD PCP - General Family Medicine 08/22/22 11/20/23 Matti Gomez MD [address] [place] [address] PCP - General Internal Medicine 11/21/23 documented as of this encounter
--- OUTSIDE RECORDS SUMMARY | 2024-08-10 07:09 | XMS_ITS | Encounter Summary ---
Author Organization [facility] Address [address] [facility] [place] [address] Care Team Providers Care Seasonal Tax Preparer Name Role Phone Stefan Saldana MD Primary Care Provider [phone] Matti Gomez MD Primary Care Provider [phone] Encounter Details Date Type Department Care Team (Late st Contact Info) Description 06/13/2023 Orders Only [facility] [address] [place] [address] Lida Huynh MA Social History Tobacco Use Types Packs/Day Years Used Date Smoking Tobacco: Former Cigarettes Smokeless Tobacco: Never Alcohol Use Standard Drinks/Week Comments Yes 0 (1 standard drink = 0.6 oz pur e alcohol) Sex and Gender Information Value Date Recorded Sex Assigned at Not on file Legal Sex Male 6:36 PM EDT Gender Identity Not on file Sexual Orientation Not on file documented as of this encounter Plan of Treatment Upcoming Encounters Date Type Department Care Team (Late st Contact Info) Description 12/24/2024 8:30 AM EDT Office Visit [facility] [address] [facility] 110 [place] [address] Mel Thompson PA [address] [facility] 110 [place], [place] [id number] documented as of this encounter Visit Diagnoses Not on filedocumented in this encounter Care Teams Seasonal Tax Preparer Relationship Specialty Start Date End Date Stefan Saldana MD PCP - General Family Medicine 08/22/22 11/20/23 Matti Gomez MD [address] [place] [id number] PCP - General Internal Medicine 11/21/23 documented as of this encounter
--- OUTSIDE RECORDS SUMMARY | 2024-08-10 07:09 | XMS_ITS | Encounter Summary ---
Author Organization [facility] Address [address] [facility] [place] [address] Care Team Providers Care Assembler Final Name Role Phone Matti Gomez MD Primary Care Provider [phone] Encounter Details Date Type Department Care Team (Late Contact Info) Description 07/16/2024 Abstract [facility] [address] [facility] 110 [place] [address] Matti Gomez MD 112 [facility] 110 [place], [place] [id number] Social History Tobacco Use Types Packs/Day Years [...] EDT Office Visit [facility] [address] [facility] 110 [place] [address] Mel Thompson PA [address] [facility] 110 [place] [address] documented as of this encounter Visit Diagnoses Not on filedocumented in this encounter Additional Health Concerns Assessment Noted Time PHQ-9 Depression Total Score: 0 12/22/19 24 10:00 AM EDT documented as of this encounter Care Teams Assembler Final Relationship Specialty Start Date End Date Matti Gomez MD [address] [facility] 110 [place] [address] PCP - General Internal Medicine 11/21/23 documented as of this encounter
--- OUTSIDE RECORDS SUMMARY | 2024-08-10 07:09 | XMS_ITS | Encounter Summary ---
Author Organization [facility] Address [address] [facility] [place] [address] Care Team Providers Care Air Conditioner Installer Helper Name Role Phone Matti Gomez MD Primary Care Provider [phone] Encounter Details Date Type Department Care Team (Late Contact Info) Description 02/05/2024 Abstract [facility] [address] [facility] 110 [place] [address] Matti Gomez MD 112 [facility] 110 [place], [place] [id number] Social History Tobacco Use Types Packs/Day Years [...] EDT Office Visit [facility] [address] [facility] 110 [place] [address] Mel Thompson PA [address] [facility] 110 [place] [address] documented as of this encounter Visit Diagnoses Not on filedocumented in this encounter Additional Health Concerns Assessment Noted Time PHQ-9 Depression Total Score: 0 12/22/19 24 10:00 AM EDT documented as of this encounter Care Teams Air Conditioner Installer Helper Relationship Specialty Start Date End Date Matti Gomez MD [address] [facility] [address] [place] [address] PCP - General Internal Medicine 11/21/23 documented as of this encounter
--- OUTSIDE RECORDS SUMMARY | 2024-08-10 07:09 | XMS_ITS | CCD ---
Author Organization [facility] Care Team Providers Care Theatrical Trouper Name Role Phone NONE, XXXX Primary Care Physician Unavailab Domonique Zuniga Unavailable Unavailable ELLY, DEBORA Coleman Primary Care Physician VAUGHN, DR MARROQUIN Consulting Unavailable TIMMIS, DR MARROQUIN Attending Unavailable TIMMIRupinder, DR MARROQUIN Admitting Unavailable CASPER, DR DEBORA Coleman Primary Care Unavailable ZIGINA, DR KOJO Vazquez Consulting Unavailable ELLY, DR DEBORA Coleman Primary Care Unavailable ELVIA MONSON Attending Unavailable ERMIAS, ELVIA Costa Admitting Unavailable ELVIA MONSON Consulting Unavailable ELLY, DR DEBORA Coleman Primary Care Unavailable CARL, DR GIBSON Attending Unavailable CARL, DR GIBSON Admitting Unavailable CARL, DR GIBSON Consulting Unavailable TIMMIS, DR MARROQUIN Consulting Unavailable TIMMIS, DR MARROQUIN Attending Unavailable TIMMIS, DR MARROQUIN Admitting Unavailable CASPER, DR DEBORA Coleman Primary Care Unavailable SUTHERLIN, DR ZANE Hernandez Consulting Unavailable ELLY, DR DEBORA Coleman Primary Care Unavailable TIMMIS, DR MARROQUIN Consulting Unavailable VAUGHN, DR MARROQUIN Attending Unavailable TIMNOAHS, DR MARROQUIN Admitting Unavailable CASPER, DR DEBORA Coleman Primary Care Unavailable TIMMIS, DR MARROQUIN Attending Unavailable TIMMIS, DR MARROQUIN Admitting Unavailable CASPER, DR DEBORA Coleman Primary Care Unavailable CASPER, DR DEBORA Coleman Attending Unavailable ELLY, DR DEBORA Coleman Admitting Unavailable MARKUS, DR SUTTON Consulting Unavailable ELLY, DR DEBORA Coleman Consulting Unavailable ROXIE FREGOSO Consulting Unavailable BESSY MORRISON Consulting Unavailable LOY SHEPHERD Consulting Unavailable RASTA KIM Consulting Unavailable ELLY, DR DEBORA Coleman Consulting Unavailable ELLY, DR DEBORA Coleman Attending Unavailable ELLY, DR DEBORA Coleman Admitting Unavailable ELLY, DR DEBORA Coleman Primary Care Unavailable ZIGINA, DR KOJO Vazquez Consulting Unavailable CASPER, DR DEBORA Coleman Primary Care Unavailable ELLY, DR DEBORA Coleman Attending Unavailable ELLY, DR DEBORA Coleman Admitting Unavailable ELLY, DR DEBORA Coleman Consulting Unavailable RADHIKA, DR KOJO Vazquez Consulting Unavailable Stefan Saldana. Primary Care Physician SHIRA WATSON Primary Care Physician SHIRA WATSON Primary Care Unavailable NONE, XXXX Referring Unavailable ELIEL Dhillon Attending Unavailable SHIRA WATSON Primary Care Unavailable MD Stefan Saldana. Attending Unavailable Matti Gomez MD Primary Care Provider Stefan Saldana MD Primary Care Provider [phone] KIESHA PERALES Attending Unavailable KIESHA PERALES Attending Unavailable MATTI GOMEZ Attending Unavailable GALEN CONDON Attending Unavailable MATTI GOMEZ Referring Unavailable MATTI GOMEZ Attending Unavailable MEL CABELLO Attending Unavailable GALEN CONDON Referring Unavailable MEL CABELLO Attending Unavailable MEL CABELLO Attending Unavailable Allergies Allergy Classification Reported Allergen(s) Allergy Type Date of Onset Reaction(s) Facility (19 sources) Lisinopril; Translations: [LISINOPRIL] Propensity to adverse reactions 3 Cough [facility] (18 sources) Octacosanol Drug Allergy 4 Unknown [facility] Medications Current Medications Medication Drug Class(es) Dates Sig (Normalized) Sig (Original) acetaminophen 650 mg oral tablet (1 source) Start: 11-22-2022 take 650 mg by mouth twice daily as needed for pain Tylenol 650 mg, Oral, BID, PRN as needed for pain, Refills(s) 0 Start Date: 11/22/22 Status: Ordered [id number] 200 actuat albuterol 0.09 mg/actuat metered dose inhaler (20 sources) beta2-Adrenergic Agonist Start: 05-14-2023 take 2 puff(s) by inhalation four times daily as needed albuterol HFA 90 mcg/act inhaler INHALE 2 PUFFS BY INHALATION FOUR TIMES A DAY NEEDED FOR SHORTNESS OF BREATH 05/14/2023 Active Start: 01-31-2022 take 2 puff(s) by in halation every six hours ProAir HFA 2 puff(s), Inhalation, q6hr Shortness of breath or wheezing, COPD Start Date: 01/31/22 Status: Ordered amLODIPine 10 mg oral tablet (20 sources) Dihydropyridine Calcium Channel Stephen Start: 01-28-2022 take 10 mg by mouth once daily Amlodipine Active 10 MG PO Daily November 04, 2023 12:00am amoxicillin 875 mg / clavulanate 125 mg oral tablet (2 sources) Penicillin-class Antibacterial Start: 11-21-2023 End: 12-01-2023 take 1 tablet by mouth in the morning amoxicillin-clavu lanate (Augmentin) 875-125 MG tablet Indications: Acute maxillary sinusitis, recurrence not specified Take 1 tablet (875 mg) by mouth in the morning and 1 tablet (875 mg) before bedtime. Do all this for 10 days. 20 tablet 11/21/2023 12/01/2023 Active apixaban 5 mg oral tablet (20 sources) Factor Xa Inhibitor Start: 02-03-2022 take 1 tablet by mouth twice daily Apixaban (Eliquis) 5 mg tablet Active 5 MG PO Twice daily November 04, 2023 12:00am atorvastatin 80 mg oral tablet (20 sources) HMG-CoA Reductase Inhibitor Start: 01-28-2022 take 1 tablet by mouth once daily atorvastatin 80 mg Tab 80 mg = 1 tab(s), Oral, Daily, Refills(s) 0, High cholesterol Start Date: 01/28/22 Status: Ordered 60 actuat budesonide 0.08 mg/actuat / formoterol fumarate 0.0045 mg/actuat metered dose inhaler (4 sources) Corticosteroid, beta2-Adrenergic Agonist take 2 puff(s) by inhalation in the morning budesonide-formot graham (Symbicort) 80-4.5 MCG/ACT inhaler Inhale 2 puffs in the morning and 2 puffs before bedtime. Rinse mouth with water after use to reduce aftertaste and incidence of candidiasis. Do not swallow.. Active cefdinir 300 mg oral capsule (9 sources) Cephalosporin Antibacterial Start: 04-19-2024 End: 04-26-2024 take 1 capsule by mouth in the morning cefdinir (Omnicef) 300 MG capsule Indications: Acute non-recurrent sinusitis, unspecified location Take 1 capsule (300 mg) by mouth in the morning and 1 capsule (300 mg) before bedtime. Do all this for 7 days. 14 capsule 04/19/2024 04/26/2024 Active Start: 12-10-2023 End: 12-22-2023 take 1 capsule by mouth in the morning cefdinir (Omnicef) 300 MG capsule Indications: Right acute otitis media Take 1 capsule (300 mg) by mouth in the morning and 1 capsule (300 mg) before bedtime. Do all this for 10 days. 20 capsule 12/10/2023 12/22/2023 Discontinued (Therapy completed) cetirizine hydrochloride 10 mg oral tablet (2 sources) Histamine-1 Receptor Antagonist Start: 07-30-2024 End: 08-13-2024 take 1 tablet by mouth once daily cetirizine (ZyrTEC) 10 MG tablet Indications: Seasonal allergic rhinitis due to pollen Take 1 tablet (10 mg) by mouth Daily for 14 days 14 tablet 07/30/2024 08/13/2024 Active clonazePAM 0.5 mg oral tablet (4 sources) Benzodiazepine End: 11-21-2023 take 1 tablet by mouth in the morning clonazePAM (KlonoPIN) 0.5 MG tablet Take 0.5 mg by mouth in the morning and 0.5 mg before bedtime. 11/21/2023 Discontinued doxycycline hyclate 100 mg oral capsule (1 source) Tetracycline-class Drug Start: 11-04-2023 take 100 mg by mouth twice daily Doxycycline Hyclate Active 100 MG PO Twice daily 20 12November 04, 2023 12:00am empagliflozin 25 mg oral tablet (16 sources) Sodium-Glucose Cotransporter 2 Inhibitor take 0.5 tablet by mouth once daily empagliflozin (Jardiance) 25 MG Take 0.5 tablets by mouth Daily Active 1 ml enoxaparin sodium 100 mg/ml prefilled syringe (1 source) Low Molecular Weight Heparin Start: 02-03-2022 End: 02-10-2022 inject 90 mg by subcutaneous injection every twelve hours Lovenox 100 mg/mL SC Nicole 90 mg, SubCutaneous, q12hr, 9AM and 9PM till 02/07/22 morning, X 7 day(s), # 14 EA, Refills(s) 0, Pharmacy: [id number], 174.9, cm, 01/31/22 9:19:00 EST, Height/Length Dosing, 93.2, kg, 01/31/22 9:19:00 EST, Weight Dosing Start Date: 02/03/22 Stop Date: 02/10/22 Status: Ordered fluticasone propionate 0.05 mg/actuat metered dose nasal spray (6 sources) Corticosteroid Start: 07-30-2024 take 1-2 spray(s) nasal route once daily fluticasone (Flonase) 50 MCG/ACT nasal spray Indications: Seasonal allergic rhinitis due to pollen Administer 1-2 sprays into each nostril Daily Shake gently. Before first use, prime pump. After use, clean tip and replace cap. 16 g 07/30/2024 Active Start: 07-30-2024 take 1-2 spray(s) na kelton route once daily fluticasone (Flonase) 50 MCG/ACT nasal spray Indications: Seasonal allergic rhinitis due to pollen Administer 1-2 sprays into each nostril Daily Shake gently. Before first use, prime pump. After use, clean tip and replace cap. 16 g 07/30/2024 Active Start: 06-24-2023 End: 11-21-2023 take 2 spray(s) nasal route once daily fluticasone (Flonase) 50 MCG/ACT nasal spray Indications: Acute maxillary sinusitis, recurrence not specified Administer 2 sprays into each nostril Daily Shake gently. Before first use, prime pump. After use, clean tip and replace cap. 16 g 1 06/24/2023 11/21/2023 Discontinued Handicap Placard, 5 years. (1 source) Start: 01-30-2023 Handicap Placard, 5 years. Handicap Placard, 5 years., See Instructions, 1 EA, 0, Handicap Placard, 5 years., Supply, 174, cm, 11/22/22 9:15:00 EDT, Height/Length Dosing, 96.3, kg, 11/22/22 9:15:00 EDT, Weight Dosing Start Date: 01/30/23 Status: Ordered ipratropium bromide 0.021 mg/actuat metered dose nasal spray (2 sources) Anticholinergic Start: 07-13-2024 take 2 spray(s) nasal route twice daily ipratropium (Atrovent) 0.03 % nasal spray 2 SPRAYS IN EACH NOSTRIL NASALLY TWICE A DAY 90 DAYS 07/13/2024 Active lidocaine 0.05 mg/mg topical ointment (2 sources) Antiarrhythmic, Amide Local Anesthetic Start: 03-10-2024 lidocaine (Xylocaine) 5 % ointment Apply topically 03/10/2024 Active losartan potassium 100 mg oral tablet (20 sources) Angiotensin 2 Receptor Stephen Start: 01-28-2022 take 100 mg by mouth once daily Losartan Active 100 MG PO Daily November 04, 2023 12:00am osmotic 24 hr metFORMIN hydrochloride 1000 mg extended release oral tablet (20 sources) Biguanide Start: 11-22-2022 take 1 tablet by mouth in the morning, then take 1 tablet by mouth every twenty-four hours at mealtime metFORMIN, OSM, (Fortamet) 1000 MG 24 hr tablet Take 1,000 mg by mouth in the morning and 1,000 mg in the evening. Take with meals. 11/22/2022 Active Start: 11-22-2022 take 1000 mg by mout h twice daily metformin 1,000 mg, Oral, BID, Refills(s) 0 Start Date: 11/22/22 Status: Ordered Start: 01-28-2022 End: 11-21-2023 take 500 mg by mouth three times daily Metformin Active 500 MG PO Three times daily November 04, 2023 12:00am metoprolol tartrate 25 mg oral tablet (20 sources) beta-Adrenergic Stephen Start: 11-04-2023 take 25 mg by mouth twice daily Metoprolol Tartrate Active 25 MG PO Twice daily November 04, 2023 12:00am Start: 11-22-2022 metoprolol 50 mg, BID, Refills(s) 0 Start Date: 11/22/22 Status: Ordered Start: 01-28-2022 End: 02-03-2022 take 1 tablet by mouth twice daily metoprolol 50 mg ER Tab 50 mg = 1 tab(s), Oral, BID, Refills(s) 0, High blood pressure Start Date: 01/28/22 Status: Ordered metoprolol tartr ate (Lopressor) 50 MG tablet every 12 (twelve) hours. Active 10 actuat olodaterol 0.0025 mg/actuat / tiotropium 0.0025 mg/actuat inhalation spray (13 sources) Anticholinergic, beta2-Adrenergic Agonist Start: 12-09-2023 tiotropium-olodaterol (Stiolto Respimat) 2.5-2.5 MCG/ACT aerosol solution inhaler 1 (one) time each day at the same time 12/09/2023 Active predniSONE 10 mg oral tablet (3 sources) Start: 07-30-2024 End: 08-04-2024 take 1 tablet by mouth in the morning predniSONE (Deltasone) 10 MG tablet Indications: Acute bronchitis, unspecified organism Take 1 tablet (10 mg) by mouth in the morning and 1 tablet (10 mg) at noon. Do all this for 5 days. Take with breakfast and with lunch. 10 tablet 07/30/2024 08/04/2024 Active Start: 11-04-2023 take 20 mg by mouth twice vasyl y Prednisone Active 20 MG PO Twice daily 10 November 04, 2023 12:00am Completed/Discontinued Medications Medication Drug Class(es) Dates Sig (Normalized) Sig (Original) Insulin Lispro (2 sources) Insulin Analog Start: 02-02-2022 End: 02-02-2022 Insulin Lispro Sliding Scale 0-10 Units, Injection-Insulin, SubCutaneous, Start date 02/02/22 21:00:00 EST Start Date: 02/02/22 Stop Date: 02/02/22 Status: Completed Start: 02-02-2022 End: 02-02-2022 Insulin Lispro Sliding Scale 0-10 Units, Injection-Insulin, SubCutaneous, Start date 02/02/22 16:30:00 EST Start Date: 02/02/22 Stop Date: 02/02/22 Status: Completed Problems Active Problems Problem Classification Problem Date Documented Date Episodic/Chronic Acute bronchitis (2 sources) Acute bronchitis; Translations: [Acute bronchitis, unspecified] 07-30-2024 Episodic Administrative/social admission (2 sources) Patient encounter status; Translations: [Other specified counseling] 12-22-2023 Episodic Asthma (7 sources) Asthma; Translations: [Unspecified asthma, uncomplicated] Onset: 01-31-2022 Chronic Cardiac dysrhythmias (20 sources) Unspecified atrial fibrillation; Translations: [Paroxysmal atrial fibrillation] Onset: 01-31-2022 Chronic Chronic obstructive pulmonary disease and bronchiectasis (20 sources) Chronic obstructive lung disease; Translations: [Chronic obstructive pulmonary disease, unspecified] Onset: 01-31-2022 Chronic Coronary atherosclerosis and other heart disease (20 sources) Atherosclerotic heart disease of [place] coronary artery without angina pectoris; Translations: [Coronary arteriosclerosis] Onset: 01-17-2022 Chronic Deficiency and other anemia (1 source) Iron deficiency anemia, unspecified; Translations: [IRON DEFICIENCY ANEMIA UNSPECIFIED] Onset: 02-04-2022 Episodic Diabetes mellitus with complications (20 sources) Type 2 diabetes mellitus with hyperglycemia; Translations: [Type 2 diabetes mellitus] Onset: 02-04-2022 11-21-2023 Chronic Diabetes mellitus without complication (9 sources) Type 2 diabetes mellitus without complication; Translations: [Type 2 diabetes mellitus without complications] Onset: 01-31-2022 Chronic Disorders of lipid metabolism (20 sources) Hyperlipidemia; Translations: [Hyperlipidemia, unspecified] Onset: 01-31-2022 Chronic Essential hypertension (20 sources) Essential hypertension; Translations: [Essential (primary) hypertension] Onset: 01-31-2022 Chronic Fluid and electrolyte disorders (1 source) Hypo-osmolality and hyponatremia; Translations: [HYPO-OSMOLALITY AND HYPONATREMIA] Onset: 02-04-2022 Episodic Osteoarthritis (15 sources) Degenerative joint disease involving multiple joints; Translations: [Polyosteoarthritis, unspecified] Onset: 08-26-2011 12-10-2023 Chronic Other aftercare (1 source) terminal operator (current) use of aspirin; Translations: [PV INSTALLER TECH CURRENT USE OF ASPIRIN] Onset: 02-04-2022 Episodic Other aftercare (1 source) custodial (current) use of oral hypoglycemic drugs; Translations: [DETENTION USE ORAL HYPOGLYCEMIC DX] Onset: 02-04-2022 Episodic Other aftercare (1 source) Other custodial (current) drug therapy; Translations: [OTH PV INSTALLER TECH CURRENT DRUG THERAPY] Onset: 02-04-2022 Episodic Other and unspecified benign neoplasm (15 sources) Benign neoplasm of brain; 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, unspecified] Onset: 08-15-2023 12-10-2023 Chronic Other diseases of bladder and urethra (4 sources) Bladder-neck obstruction; Translations: [BLADDER-NECK OBSTRUCTION] Onset: 11-28-2021 Chronic Other ear and sense organ disorders (6 sources) Hearing loss 01-31-2022 Chronic Other ear and sense organ disorders (1 source) Unspecified hearing loss, unspecified ear; Translations: [UNS HEARING LOSS UNSPECIFIED EAR] Onset: 02-04-2022 Chronic Other ear and sense organ disorders (20 sources) Hearing loss of right ear; Translations: [Unspecified hearing loss, right ear] Onset: 06-02-2023 06-02-2023 Chronic Other hereditary and degenerative nervous system conditions (4 sources) Restless legs syndrome; Translations: [RESTLESS LEGS SYNDROME] Onset: 10-04-2021 Chronic Other hereditary and degenerative nervous system conditions (20 sources) Restless legs; Translations: [Restless legs syndrome] Onset: 07-09-2023 07-09-2023 Chronic Other nervous system disorders (20 sources) Polyneuropathy; Translations: [Polyneuropathy, unspecified] Onset: 07-09-2023 07-09-2023 Chronic Other non-traumatic joint disorders (15 sources) Derangement of left shoulder joint; Translations: [Other specific joint derangements of left shoulder, not elsewhere classified] Onset: 12-10-2023 12-10-2023 Chronic Other non-traumatic joint disorders (4 sources) Effusion of joint of left knee; Translations: [Effusion, left knee] 04-19-2024 Episodic Other non-traumatic joint disorders (2 sources) Pain in left knee; Translations: [Pain in joint, lower leg] 04-21-2024 Episodic Other screening for suspected conditions (not mental disorders or infectious disease) (3 sources) Other specified abnormal findings of blood chemistry; Translations: [Patient encounter status] Onset: 02-04-2022 12-22-2023 Episodic Other upper respiratory disease (2 sources) Allergic rhinitis due to pollen; Translations: [Allergic rhinitis due to pollen] 07-30-2024 Chronic Other upper respiratory disease (1 source) Deviated nasal septum; Translations: [DEVIATED NASAL SEPTUM] Onset: 02-04-2022 Episodic Other upper respiratory disease (1 source) Hypertrophy of nasal turbinates; Translations: [HYPERTROPHY OF NASAL TURBINATES] Onset: 12-30-2021 Episodic Other upper respiratory infections (20 sources) Chronic sinusitis; Translations: [Chronic sinusitis, unspecified] Onset: 10-25-2021 Chronic Other upper respiratory infections (4 sources) Acute maxillary sinusitis; Translations: [Acute maxillary sinusitis, unspecified] 11-21-2023 Episodic Otitis media and related conditions (2 sources) Acute right otitis media; Translations: [Otitis media, unspecified, right ear] 12-10-2023 Episodic Peripheral and visceral atherosclerosis (1 source) Arteriosclerotic vascular disease 10-10-2022 Chronic Pneumonia (except that caused by tuberculosis or sexually transmitted disease) (1 source) Pneumonia, unspecified organism; Translations: [PNEUMONIA UNSPECIFIED ORGANISM] Onset: 02-04-2022 Episodic Pulmonary heart disease (2 sources) Chronic pulmonary embolism; Translations: [Chronic pulmonary embolism] 12-22-2023 Chronic Residual codes; unclassified (7 sources) Sleep apnea; Translations: [Sleep apnea, unspecified] Onset: 01-31-2022 Chronic Comment on above: uses CPAP Residual codes; unclassified (1 source) Sleep apnea, unspecified; Translations: [SLEEP APNEA UNSPECIFIED] Onset: 02-04-2022 Chronic Residual codes; unclassified (20 sources) Obstructive sleep apnea syndrome; Translations: [Obstructive sleep apnea (adult) (pediatric)] Onset: 06-02-2023 10-10-2022 Chronic Residual codes; unclassified (20 sources) Hypersomnia; Translations: [Hypersomnia, unspecified] Onset: 07-09-2023 07-09-2023 Chronic Residual codes; unclassified (18 sources) Periodic limb movement disorder; Translations: [Periodic limb movement disorder] Onset: 07-09-2023 07-09-2023 Chronic Residual codes; unclassified (2 sources) Periodic leg movements of sleep ; Translations: [Periodic limb movement disorder] Onset: 07-09-2023 07-09-2023 Chronic Residual codes; unclassified (2 sources) Other problems related to lifestyle; Translations: [Other problems related to lifestyle] 12-22-2023 Episodic Residual codes; unclassified (2 sources) Localized edema; Translations: [Localized edema] 12-22-2023 Episodic Respiratory failure; insufficiency; arrest (adult) (1 source) Acute respiratory failure with hypoxia; Translations: [ACUTE RESPIRATORY FAIL W/HYPOXIA] Onset: 02-04-2022 Episodic Septicemia (except in labor) (2 sources) Sepsis, unspecified organism; Translations: [SEPSIS UNSPECIFIED ORGANISM] Onset: 01-12-2022 Episodic Spondylosis; intervertebral disc disorders; other back problems (16 sources) Degeneration of lumbar intervertebral disc; Translations: [DDD (degenerative disc disease), lumbar] Onset: 08-15-2023 10-10-2022 Chronic Unclassified (6 sources) Difficult intubation 01-31-2022 Unclassified (1 source) ACIDOSIS UNSPECIFIED; Translations: [ACIDOSIS UNSPECIFIED] Onset: 02-04-2022 Unclassified (1 source) LOW BACK PAIN, UNSPECIFIED; Translations: [LOW BACK PAIN, UNSPECIFIED] Onset: 02-04-2022 Unclassified (1 source) CONTACT W/AND (SUSP) EXPOS COVID-19; Translations: [CONTACT W/AND (SUSP) EXPOS COVID-19] Onset: 02-04-2022 Unclassified (1 source) Rupture of rotator cuff of shoulder 10-10-2022 Comment on above: right 2015 Past or Other Problems Problem Classification Problem Date Documented Da te Episodic/Chronic Complications of surgical procedures or medical care (15 sources) Difficult intubation; Translations: [Failed or difficult intubation, initial encounter] Onset: 4 12-10-2023 Episodic Mood disorders (10 sources) Mood disorders Onset: 4 12-22-2023 Other aftercare (15 sources) Long-term current use of anticoagulant; Translations: [terminal operator (current) use of anticoagulants] Onset: 4 12-10-2023 Episodic Other circulatory disease (15 sources) H/O: cardiovascular disease; Translations: [Personal history of other diseases of the circulatory system] Onset: 2 12-10-2023 Episodic Other connective tissue disease (15 sources) Full thickness rotator cuff tear; Translations: [Complete rotator cuff tear or rupture of unspecified shoulder, not specified as traumatic] Onset: 4 Resolved: 4 12-10-2023 Episodic Other connective tissue disease (13 sources) Unspecified rotator cuff tear or rupture of unspecified shoulder, not specified as traumatic; Translations: [Rotator cuff (capsule) sprain] Onset: 4 12-10-2023 Episodic Other ear and sense organ disorders (13 sources) Device status; Translations: [Encounter for fitting and adjustment of hearing aid] Onset: 4 Resolved: 4 12-10-2023 Episodic Other lower respiratory disease (20 sources) Snoring; Translations: [Snoring] Onset: 4 07-10-2023 Episodic Other lower respiratory disease (15 sources) Dyspnea on exertion; Translations: [Other forms of dyspnea] Onset: 2 12-10-2023 Episodic Other nervous system disorders (20 sources) Paresthesia; Translations: [Paresthesia of skin] Onset: 4 07-09-2023 Episodic Other upper respiratory disease (16 sources) Deviated nasal septum; Translations: [Deviated nasal septum] Onset: 2 Episodic Other upper respiratory disease (15 sources) Hypertrophy of nasal turbinates; Translations: [Hypertrophy of nasal turbinates] Onset: 4 12-10-2023 Episodic Phlebitis; thrombophlebitis and thromboembolism (16 sources) Thrombophlebitis; Translations: [Phlebitis and thrombophlebitis of unspecified site] Onset: 4 10-10-2022 Episodic Comment on above: Mar 2009 Pulmonary heart disease (16 sources) Other pulmonary embolism without acute cor pulmonale; Translations: [Pulmonary embolism] Onset: Episodic Residual codes; unclassified (20 sources) Inadequate sleep hygiene; Translations: [Inadequate sleep hygiene] Onset: 4 07-10-2023 Episodic Residual codes; unclassified (15 sources) Edema of lower extremity; Translations: [Localized edema] Onset: 4 12-10-2023 Episodic Residual codes; unclassified (13 sources) Edema; Translations: [Edema, unspecified] Onset: 4 12-10-2023 Episodic Residual codes; unclassified (15 sources) Contact with and (suspected) exposure to other hazardous substances; Translations: [Contact with and (suspected) exposure to other potentially hazardous substances] Onset: 4 12-10-2023 Episodic Residual codes; unclassified (15 sources) H/O: asbestos exposure; Translations: [Contact with and (suspected) exposure to asbestos] Onset: 4 12-10-2023 Episodic Screening and history of mental health and substance abuse codes (20 sources) Personal history of nicotine dependence; Translations: [Tobacco use and exposure - finding] Onset: 2 06-05-2023 Episodic Spondylosis; intervertebral disc disorders; other back problems (20 sources) Chronic back pain ; Translations: [Dorsalgia, unspecified] Onset: 4 06-02-2023 Episodic Unclassified (2 sources) Effusion of joint of left knee 04-19-2024 Urinary tract infections (2 sources) Other urethritis; Translations: [Urethral syndrome, unspecified] Onset: 2 Episodic Results Test Name Value Interpretation Reference Range Facility Basic metabolic 1998 panelon 07-30-2024 Anion gap [Moles/Vol] 6 mmol/L - 30 mmol/L NO [facility] Calcium [Mass/Vol] 9.5 mg/dL 8.7 - 10. 7 mg/dL [facility] Chloride [Moles/Vol] 103 mmol/L [facility] CO2 [Moles/Vol] 27 mmol/L [facility] Creatine [Mass/Vol] 1.3 mg/dL 0.6 - 1. 3 mg/dL [facility] External GFR Non Amer 57 [facility] Comment on above: Low Glucose [Mass/Vol] 128 mg/dL Abnormal 65 - 99 mg/dL [facility] Interpretation and review of laboratory results Abnormal [facility] Potassium [Moles/Vol] 4.4 mmol/L [facility] Sodium [Moles/Vol] 136 mmol/L [facility] Urea nitrogen [Mass/Vol] 23 mg/dL Abnormal 4 - 21 mg/dL [facility] HbA1c (Bld) [Mass fraction]o n 07-30-2024 Interpretation and review of laboratory results Abnormal [facility] From [facility] - Hematology and Cell countson 07-30-2024 HbA1c (Bld) [Mass fraction] 7 % [facility] Lipid 1996 panelon 5 Cholesterol [Mass/Vol] 112 mg/dL NO [facility] Cholesterol.total/Chol esterol in HDL [Mass ratio] 2.11 {ratio} [facility] HDL-C 53 [facility] Interpretation and review of laboratory results Normal [facility] LDL-C 37 [facility] Triglyceride [Mass/Vol] 110 mg/dL [facility] Microalbumin/Creatinine rati o panel (U)on 07-30-2024 Albumin DL <= 20 mg/L (U) [Mass/Vol] [facility] Albumin/Creatinine DL <= 1.0 mg/L (U) [Ratio] N/A [facility] Creatinine (U) [Mass/Vol] 34 mg/dL [facility] Interpretation and review of laboratory results Normal [facility] From [facility] No Panel Informationon 07-30 [facility] Healthcare Office Visiton 07-19-2024 Follow-up visit [id number] Singh Berry N 1950 M Date Provider Department Center 07/19/2024 KIESHA SIMEON JEFFRY Caballero Family History Problem Relation Age of Onset No Known Problems Mother No Known Problems Father Family Status - Relation Status Age at Mother Father Level of Service:73985 [place] OFFICE/OUTPATIENT ESTABLISHED MOD MDM 30 MIN Normal [facility] XR Knee - left 1 or 2 Viewso n 04-26-2024 Imaging Result: Weight Bearing AP and Lateral: No acute fracture or dislocation Medial joint line narrowing Moderate patellofemoral degenerative changes. Mild effusion Impression: Mild tricompartmental arthritis left knee. [facility] Radiology Study observation (narrative) [facility] - Hematology and Cell countson 11-21-2023 HbA1c (Bld) [Mass fraction] 8.3 % [facility] No Panel Informationon 11-20 [facility] Office Visiton 08-15-2023 Follow-up visit [id number] Singh Berry N 1950 M Date Provider Department Center 08/15/2023 KIESHA SIMEON JEFFRY Caballero Family History Problem Relation Age of Onset No Known Problems Mother No Known Problems Father Family Status - Relation Status Age at Mother Father Level of Service:78045 [place] OFFICE/OUTPATIENT ESTABLISHED MOD MDM 30 MIN Normal [facility] Consent for Treatmenton 050 Consent for Treatment [id number] #1.00TIFF Normal [facility] Heart and Vascular Office/Cl inic Noteon 07-10-2023 Heart and Vascular Office/Clinic Note Chief Complaint 6 month f/u HTN History of Present Illness Pt is a 73 year old male with past medical history of asthma, COPD, diabetes, hyperlipidemia, hypertension, sleep apnea. Patient comes in today for 6-month follow-up. Patient last saw Dr. Moscoso and at that visit he had patient continue with amlodipine, Eliquis, losartan and metoprolol. Patient reports that he has not had any issues related to his knowledge since last visit. States that he is exercising 7 days a week and not having any issues during exercise. Patient denies chest pain, heart palpitations, dizziness/lightheade dness, swelling in lower extremities, shortness of breath. Overall patient doing well Review of Systems ROS - Provider Constitutional: no fever, no chills, no sweats, no weakness Respiratory: no shortness of breath, no cough Cardiovascular: no chest pain Neuro: no dizziness. no loss of consciousness Physical Exam Vitals & Measurements HR: 55(Peripheral) BP: 122/62 SpO2: 98% HT: 69 in HT: 174 cm WT: 97.8 kg WT: 215.16 lb BMI: 32.3 General: alert, no acute distress Cardiovascular: regular rate and rhythm, no murmur normal peripheral perfusion Respiratory: Lungs CTAB, respirations non labored Extremities: no edema left lower extremity. no edema right lower extremity Neurological: oriented x 4, LOC appropriate for age, speech normal Skin: Warm, dry, intact- no rash or concerning lesions Cardiac Diagnostics (03/15/2022 11:57 EST NM Myocardial Spect Rest/Stress 1 Day) CONCLUSIONS: Overall negative Lexiscan nuclear stress test. Of note, the ejection fraction listed at 48%. Clinical correlation suggested. [1] (01/31/2022 15:44 EST Echo Transthoracic Complete) Interpretation Summary No comparison study is available. moderate left ventricular hypertrophy. Ejection Fraction = 60-65%. Unable to quantify diastolic dysfunction due to atrial fibrillation. The left atrium is mildly dilated. There is mild tricuspid regurgitation. There is moderate pulmonary hypertension. Right ventricular systolic pressure is 47 mmHg. The IVC is mildly dilated with an abnormal respiratory collapse, suggestive of increased right atrial pressure. [2] (01/31/2022 20:13 EST CTA Chest) IMPRESSION: MULTIPLE PULMONARY EMBOLISM IN THE MULTIPLE SEGMENTAL OR SUBSEGMENTAL PULMONARY ARTERIES OF THE RIGHT MIDDLE AND BILATERAL LOWER LOBES WELL PROBABLY IN THE BILATERAL UPPER LOBES. NO RIGHT VENTRICULAR STRAIN [3] Assessment/Plan 1. Paroxysmal atrial fibrillation (I48.0: Paroxysmal atrial fibrillation) Patient has history of A-fib. And PE shortly after diagnosis he is taking Eliquis 5 mg twice daily and metoprolol 50 mg twice daily at this time. Patient is doing well without complaints. Continue with current medication 2. Hypertension (I10: Essential (primary) hypertension) Blood pressure well-controlled the office today. Patient currently taking amlodipine 10 mg, losartan 100 mg, metoprolol 50 mg twice daily. Continue current medication Follow-up in [address] Renteria as his is also seeing Dr. Renteria. Portions of this record may have been created with voice recognition artificial intelligence software, specifically [employer], [employer] and or [employer]. Substitutions may have occurred due to the inherent limitations of voice recognition and artificial intelligence software. Follow-up No qualifying data available Problem List/Past Medical History Ongoing ASCVD (arteriosclerotic cardiovascular disease) Asthma Chronic sinusitis COPD (chronic obstructive pulmonary disease) DDD (degenerative disc disease), lumbar Diabetes Difficult intubation - required smaller ETT Hard of hearing Hyperlipidemia Hypertension Obstructive sleep apnea Paroxysmal atrial fibrillation Sleep apnea Thrombophlebitis Torn rotator cuff Historical No qualifying data Procedure/Surgical History Endoscopic ethmoidectomy with turbinectomy (01/31/2022), Back, Cardiac catheterization, Cataract extraction, Colonoscopy, Discectomy, History of vasectomy, Repair of rotator cuff of shoulder, Sinus, Varicose vein stripping. Medications amLODIPine 10 mg Tab, 10 mg= 1 tab(s), Oral, Daily apixaban 5 mg oral tablet, 5 mg= 1 tab(s), Oral, BID, 3 refills atorvastatin 80 mg Tab, 80 mg= 1 tab(s), Oral, Daily Handicap Sachinard, 5 years., See Instructions losartan 100 mg Tab, 100 mg= 1 tab(s), Oral, Daily metformin, 1000 mg, Oral, BID metoprolol, 50 mg, BID ProAir HFA, 2 puff(s), Inhalation, q6hr, PRN Tylenol, 650 mg, Oral, BID, PRN Allergies No Known Allergies Social History Alcohol 1-2 times per month, Household alcohol concerns: No., 11/22/2022 Exercise Exercise duration: 50. Exercise frequency: Daily., 10/03/2022 Substance Abuse - Denies Substance Abuse, 01/31/2022 Tobacco - Low Risk, 01/28/2022 Former smoker, quit more than 30 days ago Tobacco Use:. Cigarettes, Household tobacco concerns: No. (more content not included)... [facility] Comment on above: Result Comment: Elec tronically Signed By: Alejo JULIAN, Gaetano Sommers\juana\Date and Time Signed: 07/10/23 15:02 EDT Physician Orderon 07-10-2023 Physician Order [id number] 0#1.00TIFF [facility] Lab Reportson 06-23-2023 Lab Reports [id number] #1.00TIFF [facility] Retail - Clinical Noteon Retail - Clinical Note [id number] #1.00TIFF [facility] Retail - Clinical Noteon Retail - Clinical Note [id number] #1.00TIFF [facility] Auth for Release of Medical Recordson 06-04-2023 Auth for Release of Medical Records [id number] #1.00TIFF [facility] Laboratory - Molecular patho logyon 06-03-2023 Noninvasive colorectal cancer DNA and occult blood screening Ql (Stl) Negative [facility] Noninvasive colorectal cance r DNA and occult blood screening Ql (Stl)on 06-03-2023 Interpretation and review of laboratory results Normal [facility] Noninvasive colorectal cancer DNA and occult blood screening Lamont (Stl) [Interp] Negative [facility] Healthcare Formson 05-26-2023 Forms [id number] #1.00TIFF [facility] Consultation Noteon 05-01-19 Consultation Note [id number] #1.00TIFF [facility] Insurance Correspondence Off iceon 03-06-2023 Insurance Correspondence Office [id number]#1.00TIFF [facility] Consultation Noteon 01-30-20 23 Consultation Note [id number]#1.00TIFF Normal [facility] Patient Correspondenceon Patient Correspondence [id number]# 1.00TIFF Normal [facility] CHEMISTRYOrdered By: Lab ROP User on 02-03-2022 Glucose [Mass/Vol] 145 mg/dL High 55 - 99 mg/dL [facility] Comment on above: Result Comment: Geraldo valencia RN/ POC Device SN [id number] Invalid Interpretation Code [facility] POC Subsection POC User ID [id number] Invalid Interpretation Code [facility] Subsection POC Username MALINDA HOU Invalid Interpretation Code [facility] Subsection Glucose [Mass/Vol] 221 mg/dL High 55 - 99 mg/dL [facility] Subsection Comment on above: Result Comment: Geraldo valencia RN/ POC Device SN [id number] Invalid Interpretation Code [facility] POC Subsection POC User ID [id number] Invalid Interpretation Code [facility] Subsection POC Username BRADLEY ODELL Invalid Interpretation Code [facility] Subsection CHEMISTRYOrdered By: Lab ROP User on 02-02-2022 Glucose [Mass/Vol] 284 mg/dL High 55 - 99 mg/dL [facility] Subsection Comment on above: Result Comment: Geraldo valencia RN/ POC Device SN [id number] Invalid Interpretation Code [facility] POC Subsection POC User ID [id number] Invalid Interpretation Code [facility] Subsection POC Username CELINE COBOS Invalid Interpretation Code [facility] POC Subsection CHEMISTRYOrdered By: SYSTEM SYSTEM on 02-02-2022 Anion gap [Moles/Vol] 11 mmol/L Normal 6 - 16 mEq/L [facility] Calcium [Mass/Vol] 8.9 mg/dL Normal 8.9 - 11. 1 mg/dL [facility] Chloride [Moles/Vol] 101 mmol/L Normal 101 - 1 11 mmol/L [facility] CO2 [Moles/Vol] 29 mmol/L Normal 21 - 31 mmol/L [facility] Creatinine [Mass/Vol] 1.0 mg/dL Normal 0.5 - 1.3 mg/dL [facility] GFR/1.73 sq M.predicted among blacks MDRD (S/P/Bld) [Vol rate/Area] mL/min/1.73 m2 Normal >=59mL/min/1 .73 m2 [facility] Chem S GFR/1.73 sq M.predicted among non-blacks MDRD (S/P/Bld) [Vol rate/Area] mL/min/1.73 m2 Normal >=59mL/min/1 .73 m2 [facility] S Glucose [Mass/Vol] 195 mg/dL Normal 55 - 199 mg/dL [facility] Magnesium [Mass/Vol] 2.2 mg/dL Normal 1.3 - 2 .4 mg/dL [facility] Potassium [Moles/Vol] 3.8 mmol/L Normal 3.5 - 5.3 mmol/L [facility] Sodium [Moles/Vol] 137 mmol/L Normal 135 - 145 mmol/L [facility] Urea nitrogen [Mass/Vol] 17 mg/dL Normal 5 - 21 mg/dL [facility] Urea nitrogen/Creatinine [Mass ratio] 17 mg/mg Normal 10 - 20 [facility] COAGULATIONOrdered By: Marisel Montenegro on 02-02-2022 aPTT Coag (PPP) [Time] 76.8 s High 25.1 - 36.5 second(s) [facility] Auto Coag COAGULATIONOrdered By: Titus Lockett on 02-02-2022 aPTT Coag (PPP) [Time] 90.0 s Invalid Interpretation Code 25.1 - 36.5 second(s) [facility] Comment on above: Result Comment: Resu lts Called To Georgia Pinon By tiana And Read Back For Confirmation On 02/02/2022 02:01:34 EST Results Verified By Repeat Analysis HEMATOLOGYOrdered By: SYSTEM SYSTEM on 02-02-2022 Basophils/100 WBC (Bld) 0.5 % Normal 0.0 - 2.0 % [facility] HemeAutoSS Basophils/Leukocytes Auto (Bld) [Pure # fraction] 0.1 E9/L Normal 0.0 - 0.2 E9/L [facility] Eosinophils/100 WBC (Bld) 0.8 % Normal 0.0 - 8.0 % [facility]eAuto[facility] Eosinophils/Leukocytes Auto (Bld) [Pure # fraction] 0.1 E9/L Normal 0.0 - 0.5 E9/L [facility] Lymphocytes/100 WBC (Bld) 26.4 % Normal 14.0 - 50.0 % [facility]eAutoSS Lymphocytes/Leukocytes Auto (Bld) [Pure # fraction] 3.1 E9/L Normal 1.0 - 4.0 E9/L [facility] Monocytes/100 WBC (Bld) 9.1 % Normal 4.0 - 14.0 % [facility] Monocytes/Leukocytes Auto (Bld) [Pure # fraction] 1.1 E9/L High 0.2 - 1.0 E9/L [facility] Neutrophils/100 WBC (Bld) 63.2 % Normal 36.0 - 75.0 % [facility] Neutrophils/Leukocytes Auto (Bld) [Pure # fraction] 7.4 E9/L Normal 2.0 - 7.5 E9/L [facility] HEMATOLOGYOrdered By: Sarai Min on 02-02-2022 Erythrocyte distribution width (RBC) [Ratio] 14.3 % High 10.9 - 14.2 % [facility] Hematocrit (Bld) [Volume fraction] 35.9 % Low 37.7 - 49.0 % [facility] Hemoglobin (Bld) [Mass/Vol] 12.1 g/dL Low 13.5 - 17.5 gm/dL [facility] MCH (RBC) [Entitic mass] 30.1 pg Normal 27.0 - 34.0 pg [facility] MCHC (RBC) [Mass/Vol] 33.6 g/dL Normal 31.4 - 36.0 gm/dL [facility] MCV (RBC) [Entitic vol] 89.6 fL Normal 80.0 - 100.0 fL [facility] Platelet mean volume (Bld) [Entitic vol] 8.4 fL Normal 6.4 - 10.8 fL [facility] Platelets (Bld) [#/Vol] 212.0 E9/L Normal 150.0 - 500.0 E9/L [facility] RBC (Bld) [#/Vol] 4.0 E12/L Low 4.3 - 5.9 E12/L [facility] WBC corrected for nucl RBC Auto (Bld) [#/Vol] 11.7 E9/L High 4.0 - 11.0 E9/L [facility] COAGULATIONOrdered By: Lucina Kay on 02-01-2022 aPTT Coag (PPP) [Time] 63.0 s High 25.1 - 36.5 second(s) [facility]ag INR Coag (PPP) [Relative time] 1.0 {INR} Invalid Interpretation Code [facility] Auto Coag PT Coag (PPP) [Time] 11.4 s Normal 9.4 - 1 2.5 second(s) [facility] Auto Coag COAGULATIONOrdered By: Shaquille Min on 02-01-2022 INR Coag (PPP) [Relative time] 1.1 {INR} Invalid Interpretation Code [facility] Auto Coag PT Coag (PPP) [Time] 12.2 s Normal 9.4 - 1 2.5 second(s) [facility] Auto Coag HEMATOLOGYOrdered By: Pranay Villegas on 02-01-2022 Hemoglobin (Bld) [Mass/Vol] 11.4 g/dL Low 13.5 - 17.5 gm/dL [facility] Platelets (Bld) [#/Vol] 197.0 E9/L Normal 150.0 - 500.0 E9/L [facility] CHEMISTRYOrdered By: SYSTEM SYSTEM on 01-31-2022 Troponin I.cardiac [Mass/Vol] 3.90 pg/mL Low 15.90 - 38.40 pg/mL [facility] Anion gap [Moles/Vol] 19 mmol/L High 6 - 16 mEq/L [facility] Calcium [Mass/Vol] 9.4 mg/dL Normal 8.9 - 11. 1 mg/dL [facility] Chloride [Moles/Vol] 97 mmol/L Low 101 - 1 11 mmol/L [facility] CO2 [Moles/Vol] 27 mmol/L Normal 21 - 31 mmol/L [facility] Creatinine [Mass/Vol] 1.0 mg/dL Normal 0.5 - 1.3 mg/dL [facility] GFR/1.73 sq M.predicted among blacks MDRD (S/P/Bld) [Vol rate/Area] mL/min/1.73 m2 Normal >=59mL/min/1 .73 m2 [facility] Chem S GFR/1.73 sq M.predicted among non-blacks MDRD (S/P/Bld) [Vol rate/Area] mL/min/1.73 m2 Normal >=59mL/min/1 .73 m2 [facility] Chem S Glucose [Mass/Vol] 222 mg/dL High 55 - 199 mg/dL [facility] Magnesium [Mass/Vol] 1.9 mg/dL Normal 1.3 - 2 .4 mg/dL [facility] Potassium [Moles/Vol] 4.6 mmol/L Normal 3.5 - 5.3 mmol/L [facility] Sodium [Moles/Vol] 138 mmol/L Normal 135 - 145 mmol/L [facility] Troponin I.cardiac [Mass/Vol] 3.90 pg/mL Low 15.90 - 38.40 pg/mL [facility] TSH Qn 1.17 m[IU]/L Normal 0.34 - 5.60 mcIU/mL [facility] Urea nitrogen [Mass/Vol] 16 mg/dL Normal 5 - 21 mg/dL [facility] Urea nitrogen/Creatinine [Mass ratio] 16 mg/mg Normal 10 - 20 [facility] Troponin I.cardiac [Mass/Vol] 3.70 pg/mL Low 15.90 - 38.40 pg/mL [facility] COAGULATIONOrdered By: Tavon Bauman on 01-31-2022 Fibrin D-dimer FEU (PPP) [Mass/Vol] 3749 ng/mL FEU Invalid Interpretation Code 215 - 500 ng/mL FEU [facility] Comment on above: Result Comment: Resu lts Called To JOSE ANTONIO OLIVA By TAVON BAUMAN And Read Back For Confirmation On 01/31/2022 18:05:53 EST Results Verified By Repeat Analysis INR Coag (PPP) [Relative time] 1.0 {INR} Invalid Interpretation Code [facility] Auto Coag PT Coag (PPP) [Time] 10.6 s Normal 9.4 - 1 2.5 second(s) [facility] Auto Coag HEMATOLOGYOrdered By: SYSTEM SYSTEM on 01-31-2022 Basophils/100 WBC (Bld) 0.7 % Normal 0.0 - 2.0 % [facility] Basophils/Leukocytes Auto (Bld) [Pure # fraction] 0.1 E9/L Normal 0.0 - 0.2 E9/L [facility] Eosinophils/100 WBC (Bld) 0.0 % Normal 0.0 - 8.0 % [facility] Eosinophils/Leukocytes Auto (Bld) [Pure # fraction] 0.0 E9/L Normal 0.0 - 0.5 E9/L [facility] Lymphocytes/100 WBC (Bld) 3.5 % Low 14.0 - 50.0 % [facility] Lymphocytes/Leukocytes Auto (Bld) [Pure # fraction] 0.4 E9/L Low 1.0 - 4.0 E9/L [facility] Monocytes/100 WBC (Bld) 1.1 % Low 4.0 - 14.0 % [facility] Monocytes/Leukocytes Auto (Bld) [Pure # fraction] 0.1 E9/L Low 0.2 - 1.0 E9/L [facility] Neutrophils/100 WBC (Bld) 94.7 % High 36.0 - 75.0 % [facility] Neutrophils/Leukocytes Auto (Bld) [Pure # fraction] 9.7 E9/L High 2.0 - 7.5 E9/L [facility] HEMATOLOGYOrdered By: Cely Kay on 01-31-2022 Erythrocyte distribution width (RBC) [Ratio] 14.3 % High 10.9 - 14.2 % [facility] Hematocrit (Bld) [Volume fraction] 38.5 % Normal 37.7 - 49.0 % [facility] Hemoglobin (Bld) [Mass/Vol] 13.2 g/dL Low 13.5 - 17.5 gm/dL [facility] MCH (RBC) [Entitic mass] 30.6 pg Normal 27.0 - 34.0 pg [facility] MCHC (RBC) [Mass/Vol] 34.4 g/dL Normal 31.4 - 36.0 gm/dL [facility] MCV (RBC) [Entitic vol] 88.9 fL Normal 80.0 - 100.0 fL [facility] Platelet mean volume (Bld) [Entitic vol] 8.0 fL Normal 6.4 - 10.8 fL [facility] Platelets (Bld) [#/Vol] 186.0 E9/L Normal 150.0 - 500.0 E9/L [facility] RBC (Bld) [#/Vol] 4.3 E12/L Normal 4.3 - 5.9 E12/L [facility] WBC corrected for nucl RBC Auto (Bld) [#/Vol] 10.2 E9/L Normal 4.0 - 11.0 E9/L [facility] LIPID PROFILEon 01-18-2022 CHOL-HDL RATIO NORM SEE BELOW Normal [facility] Comment on above: Result Comment: 3.3 - 4.4 LOW RISK 4.4 - 7.1 AVERAGE RISK 7.1 - 11.0 MODERATE RISK >11.0 HIGH RISK Performed By: #### P OCGLUC #### [facility] [address] [address] [address] Brittany Bell Cholesterol [Mass/Vol] 131 mg/dL Normal <=200 Th [facility] Comment on above: Performed By: #### P OCGLUC #### [facility] [address] [address] [address] Brittany Bell Cholesterol in HDL [Mass/Vol] 80 mg/dL Critically high 40-60 [facility] Comment on above: Performed By: #### P OCGLUC #### [facility] [address] [address] [address] Brittany Bell Cholesterol in LDL [Mass/Vol] 38.0 mg/dL Normal [facility] Comment on above: Performed By: #### P OCGLUC #### [facility] [address] [address] [address] Brittany Bell Cholesterol.total/Chol esterol in HDL [Mass ratio] 1.6 {ratio} Normal [facility] Comment on above: Performed By: #### P OCGLUC #### [facility] [address] [address] [address] Brittany Bell HDL NORMAL > or = 60 mg/dl - LOW CARDIOVASCULAR RISK <40 mg/dl - HIGH CARDIOVASCULAR RISK Normal [facility] Comment on above: Performed By: #### P OCGLUC #### [facility] [address] [address] [address] Brittany Bell LDL CALC NORMAL SEE BELOW Normal [facility] Comment on above: Result Comment: <100 mg/dl OPTIMAL 100 - 129 mg/dl NEAR OR ABOVE OPTIMAL 130 - 159 mg/dl BORDERLINE HIGH 160 - 189 mg/dl HIGH >190 mg/dl VERY HIGH Performed By: #### P OCGLUC #### [facility] [address] [address] [address] Brittany Bell Triglyceride [Mass/Vol] 65 mg/dL Normal <=150 [facility] Comment on above: Performed By: #### P OCGLUC #### [facility] [address] [address] [address] Brittany Bell VLDL CALC 13.0 mg/dL Normal [facility] Comment on above: Performed By: #### P OCGLUC #### [facility] [address] [address] [address] Brittany Bell CBC W MANUAL DIFFon 01-15-20 22 ATYPICAL LYMPH # Normal [facility] Comment on above: Performed By: #### C BCMAN ####[facility] [address] [address]Dr. Brittany Bell ATYPICAL LYMPH % Normal [facility] Comment on above: Performed By: #### C BCMAN ####[facility] [address] [address]DrJulian Bell BAND # 0.0 103/ul Normal 0.0-0.3 [facility] Comment on above: Performed By: #### C BCMAN ####[facility] [address] [address]Dr. Brittany Bell BAND % 0 % Normal 0-5 [facility] Comment on above: Performed By: #### C BCMAN ####[facility] [address] [address]DrJulian Bell BASOM # 0.00 103/ul Normal 0.00-0.10 [facility] Comment on above: Performed By: #### C BCMAN ####[facility] [address] [address]DrJulian Bell BASOM % 0.0 % Critically low 0.2-2.0 [facility] Comment on above: Performed By: #### C BCMAN ####[facility] [address] [address]Dr. Brittany Bell BLAST # Normal [facility] Comment on above: Performed By: #### C BCJUAN PABLO ####[facility] [address] [id number][address] Brittany Bell BLAST % Normal [facility] Comment on above: Performed By: #### C BCJUAN PABLO ####[facility] [address] [address]Dr. Brittany Bell CORRECTED WBC Normal 4.0-11.0 [facility] Comment on above: Performed By: #### C DENILSON ####[facility] [address] [place], [place] [address]Dr. Brittany Bell EOS # 0.00 103/ul Normal 0.00-0.70 [facility] Comment on above: Performed By: #### C DENILSON ####[facility] [address] [place], [place] [address]Dr. Brittany Bell EOS% 0.0 % Critically low 0.9-7.0 [facility] Comment on above: Performed By: #### C DENILSON ####[facility] [address] [place], [place] [address]Dr. Brittany Bell HCT 34.6 % Critically low 42.0-54.0 [facility] Comment on above: Performed By: #### C DENILSON ####[facility] [address] [place], [place] [address]Dr. Brittany Bell HGB 11.5 g/dl Critically low 14.0-18.0 [facility] Comment on above: Performed By: #### C DENILSON ####[facility] [address] [place], [place] [address]Dr. Brittany Bell LYMPHM # 0.17 103/ul Critically low 1.20-3.80 [facility] Comment on above: Performed By: #### C DENILSON ####[facility] [address] [place], [place] [address]Dr. Brittany Bell LYMPHM% 1.0 % Critically low 20.5-60.0 [facility] Comment on above: Performed By: #### C DENILSON ####[facility] [address] [id number]. Brittany Bell MCH 30.3 pg Normal 25.9-34.0 [facility] Comment on above: Performed By: #### C DENILSON ####[facility] [address]xbm[address] [place] [id number]. Brittany Bell MCHC 33.2 g/dl Normal 29.9-35.2 [facility] Comment on above: Performed By: #### C DENILSON ####[facility] [address] [place] [address]Dr. Brittany Bell MCV 91.3 fL Normal 80.0-94.0 [facility] Comment on above: Performed By: #### C DENILSON ####[facility] [address] [place], [place] [address]Dr. Brittany Bell METAMYELOCYTE # Normal [facility] Comment on above: Performed By: #### C DENILSON ####[facility] [address]eed[address]uits[address] [place] [address]Dr. Brittany Bell METAMYELOCYTE % Normal [facility] Comment on above: Performed By: #### C DENILSON ####[facility] [address]qminbas[address] [place] [address]Dr. Brittany Bell MONOM# 0.50 103/ul Normal 0.30-0.80 [facility] Comment on above: Performed By: #### C DENILSON ####[facility] [address]ovxqyegtk8[address] [place] [id number]. Brittany Bell MONOM% 3.0 % Normal 1.7-12.0 [facility] Comment on above: Performed By: #### C DENILSON ####[facility] Nckofygcks[address] [place] [id number]. Brittany Bell MPV 9.8 fL Normal 9.5-13.5 [facility] Comment on above: Performed By: #### C DENILSON ####[facility] [address]bxuqdzmt[address]34[address] [place], [place] [address]Of. Brittany Bell MYELOCYTE # Normal [facility] Comment on above: Performed By: #### C DENILSON ####[facility] Spzxvsrhtu1403 [place], [place] [address]Nk. Brittany Bell MYELOCYTE % Normal [facility] Comment on above: Performed By: #### C DENILSON ####[facility] [address]xiqpxqihu[address] [place], [place] [address]Ym. Brittany Bell NRBC Normal [facility] Comment on above: Performed By: #### C DENILSON ####[facility] Ifwqaqpekt75[address] [place], [place] [address]Uu. Brittany Bell PLT 229 103/ul Normal 150-450 [facility] Comment on above: Performed By: #### C DENILSON ####[facility] Ougetebglr5516 [place], [place] [address]Qs. Brittany Bell RBC 3.79 106/ul Critically low 4.70-6.10 [facility] Comment on above: Performed By: #### C DENILSON ####[facility] [address]cofdzkmfm[address] [place] [id number]. Brittany Bell RDW 13.2 % Normal 11.0-15.0 [facility] Comment on above: Performed By: #### C DENILSON ####[facility] Rmasrudxfl[address] [place] [id number]. Brittany Bell SEG # 16.03 103/ul Critically high 1.40-6.50 [facility] Comment on above: Performed By: #### C DENILSON ####[facility] Fqjtbqlctd6096 [place], [place] [address]Zq. Brittany Bell SEG % 96.0 % Critically high 43.0-75.0 [facility] Comment on above: Performed By: #### C DENILSON ####[facility] Rlhoagpwbi6683 [place], [place] [address]Zz. Brittany Bell WBC 16.7 103/ul Critically high 4.0-11.0 [facility] Comment on above: Performed By: #### C EMEKAMAN ####[facility] Aphuuaccea7704 [place], [place] [address]CqDr. Brittany GOMEZ BLD IMMUNO SCREENon 01-01 OCCULT BLOOD Negative Normal NEGATIVE [facility] Comment on above: Performed By: #### O BSCRN ####[facility] Bvrrhbzzfy7758 [place], [place] [address]DcDr. Brittany Bell PROF 14(COMP METB)on 022 Albumin [Mass/Vol] 3.5 g/dL Normal 3.4-5.0 [facility] Comment on above: Performed By: #### P OCGLUC #### [facility] [address] [address] [address] Brittany Bell Albumin/Globulin [Mass ratio] 1.5 {ratio} Normal [facility] Comment on above: Performed By: #### P OCGLUC #### [facility] [address] [address] [address] Brittany Bell ALP [Catalytic activity/Vol] 72 U/L Normal 46-116 [facility] Comment on above: Performed By: #### P OCGLUC #### [facility] [address] [address] [address] Brittany Bell ALT [Catalytic activity/Vol] 28 U/L Normal 16-63 [facility] Comment on above: Performed By: #### P OCGLUC #### [facility] [address] [address] [address] Brittany Bell Anion gap [Moles/Vol] 12.7 mmol/L Normal [facility] Comment on above: Performed By: #### P OCGLUC #### [facility] [address] [address] [address] Brittany Bell AST [Catalytic activity/Vol] 18 U/L Normal 15-37 [facility] Comment on above: Performed By: #### P OCGLUC #### [facility] [address] [address] [address] Brittany Bell Bilirubin [Mass/Vol] 0.3 mg/dL Normal 0.2-1.0 [facility] Comment on above: Performed By: #### P OCGLUC #### [facility] [address] [address] [address] Brittany Bell Calcium [Mass/Vol] 9.0 mg/dL Normal 8.5-10.1 [facility] Comment on above: Performed By: #### P OCGLUC #### [facility] [address] [address] [address] Brittany Bell Chloride [Moles/Vol] 101 mmol/L Normal 98-107 [facility] Comment on above: Performed By: #### P OCGLUC #### [facility] [address] [address] [address] Brittany Bell CO2 [Moles/Vol] 23.2 mmol/L Normal 21.0-32.0 [facility] Comment on above: Performed By: #### P OCGLUC #### [facility] [address] [address] [address] Brittany Bell Creatinine [Mass/Vol] 1.24 mg/dL Normal 0.70-1.30 [facility] Comment on above: Performed By: #### P OCGLUC #### [facility] [address] [address] [address] Brittany Bell EGFR-AF SERBIAN >60 Normal >=60 [facility] Comment on above: Performed By: #### P OCGLUC #### [facility] [address] [address] [address] Brittany Bell EGFR-NON AF SERBIAN 57 mL/min/1.73m2 Critically low >=60 [facility] Comment on above: Performed By: #### P OCGLUC #### [facility] [address] [address] [address] Brittany Bell Globulin (S) [Mass/Vol] 2.4 g/dL Normal [facility] Comment on above: Performed By: #### P OCGLUC #### [facility] [address] [address] [address] Brittany Bell Glucose [Mass/Vol] 228 mg/dL Critically high 74-106 T [facility] Comment on above: Performed By: #### P OCGLUC #### [facility] [address] [address] [address] Brittany Bell Potassium [Moles/Vol] 3.9 mmol/L Normal 3.5-5.1 [facility] Comment on above: Performed By: #### P OCGLUC #### [facility] [address] [place] [address] Dr. Brittany Bell Protein [Mass/Vol] 5.9 g/dL Critically low 6.4-8.2 [facility] Comment on above: Performed By: #### P OCGLUC #### [facility] [address] [place] [address] Dr. Brittany Bell Sodium [Moles/Vol] 133 mmol/L Critically low 136-145 [facility] Comment on above: Performed By: #### P OCGLUC #### [facility] [address] [place] [address] Dr. Brittany Bell Urea nitrogen [Mass/Vol] 23.0 mg/dL Critically high 7.0-18.0 [facility] Comment on above: Performed By: #### P OCGLUC #### [facility] [address] [place] [address] Dr. Brittany Bell Urea nitrogen/Creatinine [Mass ratio] 18.5 mg/mg Normal [facility] Comment on above: Performed By: #### P OCGLUC #### [facility] [address] [place] [address] Dr. Brittany Bell CBC AUTO DIFFon 01-13-2022 BASO # 0.0 103/ul Normal 0.0-0.1 [facility] Comment on above: Performed By: #### C BC #### [facility] [address] [place] [address] Dr. Brittany Bell Basophils/100 WBC (Bld) 0.1 % Critically low 0.2-2.0 [facility] Comment on above: Performed By: #### C BC #### [facility] [address] [place] [address] Dr. Brittany Bell EO # 0.0 103/ul Normal 0.0-0.7 [facility] Comment on above: Performed By: #### C BC #### [facility] [address] [address] [address] Brittany Bell Eosinophils/100 WBC (Bld) 0.0 % Critically low 0.9-7.0 [facility] Comment on above: Performed By: #### C BC #### [facility] [address] [place] [address] Dr. Brittany Bell Erythrocyte distribution width (RBC) [Ratio] 12.7 % Normal 11.0-15.0 [facility] Comment on above: Performed By: #### C BC #### [facility] [address] [place] [address] Dr. Brittany Bell Hematocrit (Bld) [Volume fraction] 36.8 % Critically low 42.0-54.0 [facility] Comment on above: Performed By: #### C BC #### [facility] [address] [place] [address] Dr. Brittany Bell Hemoglobin (Bld) [Mass/Vol] 12.4 g/dL Critically low 14.0-18.0 [facility] Comment on above: Performed By: #### C BC #### [facility] [address] [place] [address] Dr. Brittany Bell IG # 0.11 10e3/ul Critically high 0.00-0.03 [facility] Comment on above: Performed By: #### C BC #### [facility] [address] [place] [address] Dr. Brittany Bell IG % 0.7 % Critically high 0.0-0.5 [facility] Comment on above: Performed By: #### C BC #### [facility] [address] [place] [address] Dr. Brittany Bell LYMPH # 0.8 103/ul Critically low 1.2-3.8 [facility] Comment on above: Performed By: #### C BC #### [facility] [address] [place] [address] Dr. Brittany Bell Lymphocytes/100 WBC (Bld) 4.7 % Critically low 20.5-60.0 [facility] Comment on above: Performed By: #### C BC #### [facility] [address] [place] [address] Dr. Brittany Bell MANUAL DIFF REQ NO Normal [facility] Comment on above: Performed By: #### C BC #### [facility] [address] [place] [address] Dr. Brittany Bell MCH (RBC) [Entitic mass] 30.6 pg Normal 25.9-34.0 [facility] Comment on above: Performed By: #### C BC #### [facility] [address] [place] [address] Dr. Brittany Bell MCHC (RBC) [Mass/Vol] 33.7 g/dL Normal 29.9-35.2 [facility] Comment on above: Performed By: #### C BC #### [facility] [address] [place] [address] Dr. Brittany Bell MCV (RBC) [Entitic vol] 90.9 fL Normal 80.0-94.0 [facility] Comment on above: Performed By: #### C BC #### [facility] [address] [place] [address] Dr. Brittany Bell MONO # 0.5 103/ul Normal 0.3-0.8 [facility] Comment on above: Performed By: #### C BC #### [facility] [address] [place] [address] Dr. Brittany Bell Monocytes/100 WBC (Bld) 3.3 % Normal 1.7-12.0 [facility] Comment on above: Performed By: #### C BC #### [facility] [address] [place] [address] Dr. Brittany Bell NEUT # 15.2 103/ul Critically high 1.4-6.5 [facility] Comment on above: Performed By: #### C BC #### [facility] [address] [place] [address] Dr. Brittany Bell Neutrophils/100 WBC (Bld) 91.2 % Critically high 43.0-75.0 [facility] Comment on above: Performed By: #### C BC #### [facility] [address] [place], [place] [address] Dr. Brittany Bell Platelet mean volume (Bld) [Entitic vol] 10.1 fL Normal 9.5-13.5 [facility] Comment on above: Performed By: #### C BC #### [facility] [address] [address] [address] Brittany Bell PLT 251 103/ul Normal 150-450 [facility] Comment on above: Performed By: #### C BC #### [facility] [address] [address] [address] Brittany Bell RBC 4.05 106/ul Critically low 4.70-6.10 [facility] Comment on above: Performed By: #### C BC #### [facility] [address] [address] [address] Brittany Bell WBC 16.6 103/ul Critically high 4.0-11.0 [facility] Comment on above: Performed By: #### C BC #### [facility] [address] [address] [address] Brittany Bell IRON AND TIBCon 01-13-2022 % SATURATION 13.0 % Normal [facility] Comment on above: Performed By: #### F ETIBC, B12FOL ####[facility] [address] [place] [id number] Bell Iron [Mass/Vol] 36.0 ug/dL Critically low 65.0-175.0 [facility] Comment on above: Performed By: #### F ETIBC, B12FOL ####[facility] [address] [place] [phone] Bell TIBC DIRECT 276.0 ug/dL Normal 250.0-450.0 [facility] Comment on above: Performed By: #### F ETIBC, B12FOL ####[facility] [address]dh[address] [place] [phone]. Brittany Bell POINT OF CARE GLUCOSEon 11- Glucose [Mass/Vol] 256 mg/dL Critically high 74-106 T [facility] Comment on above: Performed By: #### P OCGLUC ####[facility] [address] [place], [place] [address]GgDr. Brittany Bell Glucose [Mass/Vol] 167 mg/dL Critically high [address] [place] [address] Comment on above: Performed By: #### P OCGLUC #### [facility] [address] [id number] [address] Brittany Bell Glucose [Mass/Vol] 343 mg/dL Critically high [address] [place] [address] Comment on above: Performed By: #### P OCGLUC #### [facility] [address] [place], [place] [address] Dr. Brittany Bell Glucose [Mass/Vol] 274 mg/dL Critically high [address] [place] [address] Comment on above: Performed By: #### P OCGLUC #### [facility] [address] [address] [address] Brittany Bell Glucose [Mass/Vol] 280 mg/dL Critically high [address] [place] [address] Comment on above: Performed By: #### P OCGLUC ####[facility] [address]ab[address] [place] [phone]. Brittany Bell PROF 14(COMP METB)on 022 Albumin [Mass/Vol] 3.8 g/dL Normal 3.4-5.0 [facility] Comment on above: Performed By: #### C MP ####[facility] [address] [place] [phone]. Brittany Bell Albumin/Globulin [Mass ratio] 1.4 {ratio} Normal [facility] Comment on above: Performed By: #### C MP ####[facility] Fgcxenxqld[address] [place], [place] [address]YbDr. Brittany Bell ALP [Catalytic activity/Vol] 88 U/L Normal 46-116 [facility] Comment on above: Performed By: #### C MP ####[facility] [address]pm[address] [place] [id number] Bell ALT [Catalytic activity/Vol] 25 U/L Normal 16-63 [facility] Comment on above: Performed By: #### C MP ####[facility] [address]fw[address]qtltf[address] [place] [phone]. Brittany Bell Anion gap [Moles/Vol] 15.5 mmol/L Normal [facility] Comment on above: Performed By: #### C MP ####[facility] [address]sh[address]fuyr[address] [place] [phone]. Brittany Ray AST [Catalytic activity/Vol] 13 U/L Critically low 15-37 [facility] Comment on above: Performed By: #### C MP ####[facility] Ub[address]loabybd[address] [place] [phone]. Brittany Ray Bilirubin [Mass/Vol] 0.4 mg/dL Normal 0.2-1.0 [facility] Comment on above: Performed By: #### C MP ####[facility] [address] [place] [phone]. Brittany Bell Calcium [Mass/Vol] 9.1 mg/dL Normal 8.5-10.1 [facility] Comment on above: Performed By: #### C MP ####[facility] [address] [place] [phone]. Dorotaleslee Bell Chloride [Moles/Vol] 98 mmol/L Normal 98-107 [facility] Comment on above: Performed By: #### C MP ####[facility] Hbkrckrgik[address] [place] [id number]. Dorotaleslee Ray CO2 [Moles/Vol] 22.8 mmol/L Normal 21.0-32.0 [facility] Comment on above: Performed By: #### C MP ####[facility] [address]ayf[address] [place] [phone]. Brittany Ray Creatinine [Mass/Vol] 1.43 mg/dL Critically high 0.70-1.30 [facility] Comment on above: Performed By: #### C MP ####[facility] S[address]chxi[address] [place] [phone]. Dorotaleslee Ray EGFR-AF SERBIAN 59 mL/min/1.73m2 Critically low >=60 [facility] Comment on above: Performed By: #### C MP ####[facility] Qehjzxrcwu[address] [place] [phone]. Brittany Bell EGFR-NON AF SERBIAN 49 mL/min/1.73m2 Critically low >=60 [facility] Comment on above: Performed By: #### C MP ####[facility] Owncyacumz[address] [place] [phone]. Brittany Bell Globulin (S) [Mass/Vol] 2.7 g/dL Normal [facility] Comment on above: Performed By: #### C MP ####[facility] [address]ysqxlndt[address] [place] [phone]. Brittany Bell Glucose [Mass/Vol] 270 mg/dL Critically high 74-106 T [facility] Comment on above: Performed By: #### C MP ####[facility] Lwrdrfazyq[address] [place] [phone]. Brittany Ray Potassium [Moles/Vol] 3.3 mmol/L Critically low 3.5-5.1 [facility] Comment on above: Performed By: #### C MP ####[facility] [address]zgczvxb[address] [place] [phone]. Brittany Bell Protein [Mass/Vol] 6.5 g/dL Normal 6.4-8.2 [facility] Comment on above: Performed By: #### C MP ####[facility] [address]fpjpfsjvc[address] [place] [phone]. Brittany Bell Sodium [Moles/Vol] 133 mmol/L Critically low 136-145 Th [facility] Comment on above: Performed By: #### C MP ####[facility] Qgbxhtsmrj[address] [place] [phone]. Brittany Bell Urea nitrogen [Mass/Vol] 19.0 mg/dL Critically high 7.0-18.0 [facility] Comment on above: Performed By: #### C MP ####[facility] [address]feprhzu[address] [place] [phone]. Brittany Ray Urea nitrogen/Creatinine [Mass ratio] 13.3 mg/mg Normal [facility] Comment on above: Performed By: #### C MP ####[facility] [address] [place] [address]Dr. Brittany Bell VIT B12 AND FOLATEon 022 Cobalamin (Vitamin B12) [Mass/Vol] 1831.0 pg/mL Critically high 193.0-986.0 [facility] Comment on above: Performed By: #### F ETIBC, B12FOL ####[facility] [address] [place] [address]DrJulian Bell FOLATE 19.60 ng/mL Normal 8.60-58.90 [facility] Comment on above: Performed By: #### F ETIBC, B12FOL ####[facility] [address]dpae[address] [place] [address]DrJulian Bell BLOOD GASES BTYon 01-12-2022 02 MODE NASAL CANNULA Normal [facility] Comment on above: Performed By: #### P OCGLUC #### [facility] [address] [address] [address] Brittany Bell ALLENS TEST Positive [facility] Comment on above: Performed By: #### P OCGLUC #### [facility] [address] [address] [address] Brittany Bell Base excess Calc (Bld) [Moles/Vol] 1.1 mmol/L Normal -2.0-2.0 [facility] Comment on above: Performed By: #### P OCGLUC #### [facility] [address] [address] [address] Brittany Bell BIPAP PRESSURE Normal [facility] Comment on above: Performed By: #### P OCGLUC #### [facility] [address] [address] [address] Brittany Bell CPAP [facility] Comment on above: Performed By: #### P OCGLUC #### [facility] [address] [address] [address] Brittany Bell FIO2 Normal [facility] Comment on above: Performed By: #### P OCGLUC #### [facility] [address] [address] [address] Brittany Bell HCO3 (Bld) [Moles/Vol] 25.4 mmol/L Normal 22.0-26.0 [facility] Comment on above: Performed By: #### P OCGLUC #### [facility] [address] [address] [address] Brittany Bell LPM [address] [facility] Comment on above: Performed By: #### P OCGLUC #### [facility] [address] [address] [address] Brittany Bell MINUTE VOLUME Normal [facility] Comment on above: Performed By: #### P OCGLUC #### [facility] [address] [place] [address] Dr. Brittany Bell Oxygen (Bld) [Partial pressure] 72.9 mm[Hg] Critically low 80.0-100.0 [facility] Comment on above: Performed By: #### P OCGLUC #### [facility] [address] [place] [address] Dr. Brittany Bell Oxygen saturation in Blood 95.5 % Normal 95.0-100.0 [facility] Comment on above: Performed By: #### P OCGLUC #### [facility] [address] [place] [address] Dr. Brittany Bell PCO2 38.4 mmHg Normal 35.0-45.0 [facility] Comment on above: Performed By: #### P OCGLUC #### [facility] [address] [address] [address] Brittany Bell PEEP [facility] Comment on above: Performed By: #### P OCGLUC #### [facility] [address] [address] [address] Brittany Bell pH (Bld) 7.429 [pH] Normal 7.350-7.450 [facility] Comment on above: Performed By: #### P OCGLUC #### [facility] [address] [place] [address] Dr. Brittany Bell PIP [facility] Comment on above: Performed By: #### P OCGLUC #### [facility] [address] [address] [address] Brittany Bell [facility] Comment on above: Performed By: #### P OCGLUC #### [facility] [address] [address] [address] Brittany Bell PUNCTURE SITE LR [facility] Comment on above: Performed By: #### P OCGLUC #### [facility] [address] [address] [address] Brittany Bell [facility] Comment on above: Performed By: #### P OCGLUC #### [facility] [address] [address] [address] Brittany [facility] Comment on above: Performed By: #### P OCGLUC #### [facility] [address] [place] [address] Dr. Brittany Bell [facility] Comment on above: Performed By: #### P OCGLUC #### [facility] [address] [place] [address] Dr. Brittany Bell BNPon 01-12-2022 Natriuretic peptide B (Bld) [Mass/Vol] 170.0 pg/mL Normal <=900.0 [facility] Comment on above: Performed By: #### P OCGLUC #### [facility] [address] [place] [address] Dr. Brittany Bell CARDIAC KELLY 3-6on 2 CK [Catalytic activity/Vol] 76 U/L Normal 39-308 [facility] Comment on above: Performed By: #### P OCGLUC #### [facility] [address] [place] [address] Dr. Brittany Bell CK.MB [Mass/Vol] 2.29 ng/mL Normal <=3.60 [facility] Comment on above: Performed By: #### P OCGLUC #### [facility] [address] [place] [address] Dr. Brittany Bell HSTROP 14.3 pg/mL Normal 4.0-76.1 [facility] Comment on above: Result Comment: CUT- OFF POINTS HAVE BEEN ESTABLISHED BASED ON THE FOURTH UNIVERSAL DEFINITIONS OF MYOCARDIAL INFARCTION. THE UPPER REFERENCE LIMIT (URL) OF TROPONIN, DEFINED THE 99TH PERCENTILE OF cTnI DISTRIBUTION IN A REFERENCE POPULATION, HAS BEEN CONFIRMED THE DECISION THRESHOLD FOR MA DIAGNOSIS. Performed By: #### P OCGLUC #### [facility] [address] [address] Dr. Brittany Bell CK [Catalytic activity/Vol] 83 U/L Normal 39-308 [facility] Comment on above: Performed By: #### P OCGLUC #### [facility] [address] [address] [address] Brittany Bell CK.MB [Mass/Vol] 2.34 ng/mL Normal <=3.60 [facility] Comment on above: Performed By: #### P OCGLUC #### [facility] [address] [address] [address] Brittany Bell HSTROP 16.8 pg/mL Normal 4.0-76.1 [facility] Comment on above: Result Comment: CUT- OFF POINTS HAVE BEEN ESTABLISHED BASED ON THE FOURTH UNIVERSAL DEFINITIONS OF MYOCARDIAL INFARCTION. THE UPPER REFERENCE LIMIT (URL) OF TROPONIN, DEFINED THE 99TH PERCENTILE OF cTnI DISTRIBUTION IN A REFERENCE POPULATION, HAS BEEN CONFIRMED THE DECISION THRESHOLD FOR MA DIAGNOSIS. Performed By: #### P OCGLUC #### [facility] [address] [address] [address] Brittany Bell CARDIAC KELLY ADMITon 022 CK [Catalytic activity/Vol] 101 U/L Normal 39-308 [facility] Comment on above: Performed By: #### C MADM, BMP, BNP ####[facility] [address] [place], [place] [address]BqDr. Brittany Bell CK.MB [Mass/Vol] 2.89 ng/mL Normal <=3.60 [facility] Comment on above: Performed By: #### C MADM, BMP, BNP ####[facility] [address] [place], [place] [address]SiDr. Brittany Bell HSTROP 8.1 pg/mL Normal 4.0-76.1 [facility] Comment on above: Result Comment: CUT- OFF POINTS HAVE BEEN ESTABLISHED BASED ON THE FOURTH UNIVERSAL DEFINITIONS OF MYOCARDIAL INFARCTION. THE UPPER REFERENCE LIMIT (URL) OF TROPONIN, DEFINED THE 99TH PERCENTILE OF cTnI DISTRIBUTION IN A REFERENCE POPULATION, HAS BEEN CONFIRMED THE DECISION THRESHOLD FOR MA DIAGNOSIS. Performed By: #### C MADM, BMP, BNP ####[facility] [id number] [id number]. Brittany Bell ALLIE 53 ng/mL Normal 16-96 [facility] Comment on above: Performed By: #### C MADM, BMP, BNP ####[facility] [address] [id number]. Brittany Bell CBC AUTO DIFFon 01-12-2022 BASO # 0.1 103/ul Normal 0.0-0.1 [facility] Comment on above: Performed By: #### C BC #### [facility] [address] [address] [address] Brittany Bell Basophils/100 WBC (Bld) 1.5 % Normal 0.2-2.0 [facility] Comment on above: Performed By: #### C BC #### [facility] [address] [address] [address] Brittany Bell EO # 1.2 103/ul Critically high 0.0-0.7 [facility] Comment on above: Performed By: #### C BC #### [facility] [address] [address] [address] Brittany Bell Eosinophils/100 WBC (Bld) 14.5 % Critically high 0.9-7.0 [facility] Comment on above: Performed By: #### C BC #### [facility] [address] [address] [address] Brittany Bell Erythrocyte distribution width (RBC) [Ratio] 12.6 % Normal 11.0-15.0 [facility] Comment on above: Performed By: #### C BC #### [facility] [address] [address] [address] Brittany Bell Hematocrit (Bld) [Volume fraction] 40.8 % Critically low 42.0-54.0 [facility] Comment on above: Performed By: #### C BC #### [facility] [address] [place] [address] Dr. Brittany Bell Hemoglobin (Bld) [Mass/Vol] 13.8 g/dL Critically low 14.0-18.0 [facility] Comment on above: Performed By: #### C BC #### [facility] [address] [place] [address] Dr. Brittany Bell IG # 0.02 10e3/ul Normal 0.00-0.03 [facility] Comment on above: Performed By: #### C BC #### [facility] [address] [place] [address] Dr. Brittany Bell IG % 0.2 % Normal 0.0-0.5 [facility] Comment on above: Performed By: #### C BC #### [facility] [address] [place] [address] Dr. Brittany Bell LYMPH # 2.8 103/ul Normal 1.2-3.8 [facility] Comment on above: Performed By: #### C BC #### [facility] [address] [place] [address] Dr. Brittany Bell Lymphocytes/100 WBC (Bld) 32.4 % Normal 20.5-60.0 [facility] Comment on above: Performed By: #### C BC #### [facility] [address] [place] [address] Dr. Brittany Bell MANUAL DIFF REQ NO Normal [facility] Comment on above: Performed By: #### C BC #### [facility] [address] [place] [address] Dr. Brittany Bell MCH (RBC) [Entitic mass] 30.7 pg Normal 25.9-34.0 [facility] Comment on above: Performed By: #### C BC #### [facility] [address] [place] [address] Dr. Brittany Bell MCHC (RBC) [Mass/Vol] 33.8 g/dL Normal 29.9-35.2 [facility] Comment on above: Performed By: #### C BC #### [facility] [address] [address] [address] Brittany Bell MCV (RBC) [Entitic vol] 90.7 fL Normal 80.0-94.0 [facility] Comment on above: Performed By: #### C BC #### [facility] [address] [address] [address] Brittany Bell MONO # 0.9 103/ul Critically high 0.3-0.8 [facility] Comment on above: Performed By: #### C BC #### [facility] [address] [address] [address] Brittany Bell Monocytes/100 WBC (Bld) 10.9 % Normal 1.7-12.0 [facility] Comment on above: Performed By: #### C BC #### [facility] [address] [place] [address] Dr. Brittany Bell NEUT # 3.5 103/ul Normal 1.4-6.5 [facility] Comment on above: Performed By: #### C BC #### [facility] [address] [address] [address] Brittany Bell Neutrophils/100 WBC (Bld) 40.5 % Critically low 43.0-75.0 [facility] Comment on above: Performed By: #### C BC #### [facility] [address] [place] [address] Dr. Brittany Bell Platelet mean volume (Bld) [Entitic vol] 9.5 fL Normal 9.5-13.5 [facility] Comment on above: Performed By: #### C BC #### [facility] [address] [place] [address] Dr. Brittany Bell PLT 261 103/ul Normal 150-450 [facility] Comment on above: Performed By: #### C BC #### [facility] [address] [place] [address] Dr. Brittany Bell RBC 4.50 106/ul Critically low 4.70-6.10 [facility] Comment on above: Performed By: #### C BC #### [facility] [address] [place], [place] [address] Dr. Brittany Bell WBC 8.6 103/ul Normal 4.0-11.0 [facility] Comment on above: Performed By: #### C BC #### [facility] [address] [place], [place] [address] Dr. Brittany Bell CTA CHEST WO W CONon 022 CTA CHEST WO W CON EXAMINATION: CTA CHEST WO W CON HISTORY: SHORTNESS OF BREATH. COMPARISON: Chest radiograph, today at 3:39 AM. TECHNIQUE: CT angiography of the pulmonary arteries following the administration of intravenous contrast. Coronal and sagittal MIP (maximum intensity projection) images were performed. Dose reduction techniques were achieved by using automated exposure control and/or adjustment of mA and/or kV according to patient size and/or use of iterative reconstruction technique. FINDINGS: There is adequate opacification of the pulmonary arteries. No filling defects. No axillary or mediastinal thoracic lymphadenopathy. Normal heart size. Dense aortic atherosclerosis without aneurysm. No pulmonary consolidation or pleural effusion. Minimal groundglass densities are present in the posterior lung bases bilaterally. Central airways are patent. No suspicious pulmonary nodule. No acute findings in the upper abdomen to the extent of limited visualization. Adrenal glands are normal. IMPRESSION: 1. No evidence of pulmonary embolism. 2. Aortic atherosclerosis. 3. Faint bibasilar groundglass densities may reflect atelectasis/underaer ation versus pneumonia depending on clinical scenario. Electronically authenticated by: BESSY MORRISON Date: 2022-01-12 05:52 Normal [facility] CULTURE SPUTUMon 01-12-2022 CULTURE SPUTUM Culture Observations: NORMAL RESPIRATORY HOWARD. Normal [facility] Comment on above: Performed By: #### S PUTCX ####[facility] [address] [place], [place] [address]BtDr. Brittany Bell Covid-19 PCR [facility]on 01-01 SARS-CoV-2 (COVID-19) RNA TITO+probe Ql (Unsp spec) Not detected Normal NOT DETECTED [facility] Comment on above: Result Comment: When diagnostic testing is negative, the possibility of a false negative should be considered in the context of a patient's recent exposures and the presence of clinical signs and symptoms consistent with SARS-CoV-2. This test is not yet approved or cleared by the [place] FDA. When there are no FDA-approved or cleared tests available, and other criteria are met, FDA can make tests available under an emergency access mechanism called an Emergency Use Authorization (EUA). The EUA for this test is supported by the Manager Operating of Health and Human Service's declaration that circumstances exist to justify the emergency use of in vitro diagnostics for the detection and/or diagnosis of the virus that causes COVID-19. This EUA will remain in effect for the duration of the COVID-19 declaration justifying emergency of IVDs, unless it is terminated or revoked by the FDA (after which the test may no longer be used). Performed By: #### C VDTBH ####[facility] [address] [address]Dr. Brittany Bell D-DIMERon 01-12-2022 D-DIMER 1.25 mg/L FEU Critically high <=0.59 [facility] Comment on above: Performed By: #### P OCGLUC #### [facility] [address] [address] [address] Brittany Bell D-DIMER COMMENTS SEE BELOW Normal [facility] Comment on above: Result Comment: Incr eases in D-Dimer concentration observed with thromboembolic events can be variable due to localization, size, and age of the thrombus. Therefore, a thromboembolic event cannot be diagnosed with certainty on the basis of the reference range. D-Dimers may also be elevated for a variety of disorders including: advanced age, , coronary disease, cancer, liver disease, infection, inflammation, hematoma, DIC, trauma, post-surgery, diabetes, thrombolytic or anticoagulant therapy, stress, and generalized hospitalization. Performed By: #### P OCGLUC #### [facility] [address] [address] [address] Brittany Bell INFLUENZA A AND B AGon 01-12 INFLUENZA A AG Negative Normal NEGATIVE SEE COMMENT [facility] Comment on above: Performed By: #### P OCGLUC #### [facility] [address] [address] [address] Brittany Bell INFLUENZA B AG Negative Normal NEGATIVE SEE COMMENT [facility] Comment on above: Performed By: #### P OCGLUC #### [facility] [address] [address] [address] Brittany Bell INTERNAL CONTROLS Within Normal Limits Normal Wi thin Normal Limits [facility] Comment on above: Performed By: #### P OCGLUC #### [facility] [address] [address] [address] Brittany Bell LACTATE/LACTIC ACIDon 2021 Lactate [Moles/Vol] 4.0 mmol/L Critically high 0.4-1.9 [facility] Comment on above: Performed By: #### L ACT ####[facility] [address] [address]Dr. Brittany Bell Lactate [Moles/Vol] 2.7 mmol/L Critically high 0.4-1.9 [facility] Comment on above: Performed By: #### L ACT ####[facility] [address] [place] [address]Dr. Brittany Bell POINT OF CARE GLUCOSEon 01-01 Glucose [Mass/Vol] 326 mg/dL Critically high [address] [place] [address] Comment on above: Performed By: #### P OCGLUC #### [facility] [address] [address] [address] Brittany Bell Glucose [Mass/Vol] 154 mg/dL Critically high [address] [place] [address] Comment on above: Performed By: #### P OCGLUC #### [facility] [address] [address] [address] Brittany Bell Glucose [Mass/Vol] 122 mg/dL Critically high [address] [place] [address] Comment on above: Performed By: #### P OCGLUC ####[facility] [address] [place] [address]Dr. Brittany Bell Glucose [Mass/Vol] 384 mg/dL Critically high [address] [place] [address] Comment on above: Performed By: #### P OCGLUC #### [facility] [address] [address] [address] Brittany Bell Glucose [Mass/Vol] 318 mg/dL Critically high [address] [place] [address] Comment on above: Performed By: #### P OCGLUC #### [facility] [address] [address] [address] Brittany Bell PROF CHEM 8 (BAS METB)on Anion gap [Moles/Vol] 8.6 mmol/L Normal [facility] Comment on above: Performed By: #### P OCGLUC #### [facility] [address] [address] [address] Brittany Bell Calcium [Mass/Vol] 9.0 mg/dL Normal 8.5-10.1 [facility] Comment on above: Performed By: #### P OCGLUC #### [facility] [address] [address] [address] Brittany Bell Chloride [Moles/Vol] 100 mmol/L Normal 98-107 [facility] Comment on above: Performed By: #### P OCGLUC #### [facility] [address] [place] [address] Dr. Brittany Bell CO2 [Moles/Vol] 29.2 mmol/L Normal 21.0-32.0 [facility] Comment on above: Performed By: #### P OCGLUC #### [facility] [address] [place] [address] Dr. Brittany Bell Creatinine [Mass/Vol] 1.17 mg/dL Normal 0.70-1.30 [facility] Comment on above: Performed By: #### P OCGLUC #### [facility] [address] [place] [address] Dr. Brittany Bell EGFR-AF SERBIAN >60 Normal >=60 [facility] Comment on above: Performed By: #### P OCGLUC #### [facility] [address] [address] [address] Brittany Bell EGFR-NON AF SERBIAN >60 Normal >=60 [facility] Comment on above: Performed By: #### P OCGLUC #### [facility] [address] [address] [address] Brittany Bell Glucose [Mass/Vol] 176 mg/dL Critically high 74-106 [facility] Comment on above: Performed By: #### P OCGLUC #### [facility] [address] [address] [address] Brittany Bell Potassium [Moles/Vol] 3.8 mmol/L Normal 3.5-5.1 [facility] Comment on above: Performed By: #### P OCGLUC #### [facility] [address] [address] [address] Brittany Bell Sodium [Moles/Vol] 134 mmol/L Critically low 136-145 [facility] Comment on above: Performed By: #### P OCGLUC #### [facility] [address] [address] [address] Brittany Bell Urea nitrogen [Mass/Vol] 13.0 mg/dL Normal 7.0-18.0 [facility] Comment on above: Performed By: #### P OCGLUC #### [facility] [address] [address] [address] Brittany Bell Urea nitrogen/Creatinine [Mass ratio] 11.1 mg/mg Normal [facility] Comment on above: Performed By: #### P OCGLUC #### [facility] [address] [address] [address] Brittany Bell SPUTUM GRAM STAINon 01-13-20 COMMENTS Normal [facility] Comment on above: Performed By: #### S PUTGS ####[facility] [address] [address]Dr. Brittany Bell DIPHTHEROIDS Normal [facility] Comment on above: Performed By: #### S PUTGS ####[facility] [address] [place] [address]Dr. Brittany Bell EPITHELIALS <25 Normal [facility] Comment on above: Performed By: #### S PUTGS ####[facility] [address] [place] [address]Dr. Brittany Bell FUNGAL ELEMENTS Normal [facility] Comment on above: Performed By: #### S PUTGS ####[facility] [address] [place] [address]Dr. Brittany Bell GRAM NEG BACILLI Normal [facility] Comment on above: Performed By: #### S PUTGS ####[facility] [address] [place] [address]Dr. Brittany Bell GRAM NEG DIPPLOCOCCI Normal [facility] Comment on above: Performed By: #### S PUTGS ####[facility] [address] [place] [address]Dr. Brittany Bell GRAM POS BACILLI MODERATE Normal [facility] Comment on above: Performed By: #### S PUTGS ####[facility] [address] [place] [address]Dr. Brittany Bell GRAM POSITIVE COCCI MODERATE Normal [facility] Comment on above: Performed By: #### S PUTGS ####[facility] [address] [place] [address]Dr. Brittany Bell WBC (Bld) [#/Vol] 10*3/uL Normal [facility] Comment on above: Performed By: #### S PUTGS ####[facility] [address] [place] [address]Dr. Brittany Bell XR CHEST 1 Von 01-12-2022 XR CHEST 1 V EXAM: XR CHEST 1 V HISTORY: SHORTNESS OF BREATH COMPARISON: Chest x-ray 12/28/2021 TECHNIQUE: Single frontal view chest x-ray FINDINGS: No lobar consolidation, large pleural effusions, pneumothorax, or acute bony abnormality. Cardiac size is unremarkable. Calcified plaque thoracic aortic knob. IMPRESSION: No radiographic evidence for acute chest abnormality. Electronically authenticated by: RASTA KIM Date: 2022-01-12 04:42 Normal [facility] CBC AUTO DIFFon 12-28-2021 BASO # 0.1 103/ul Normal 0.0-0.1 [facility] Comment on above: Performed By: #### P OCGLUC #### [facility] [address] [address] [address] Brittany Bell Basophils/100 WBC (Bld) 1.5 % Normal 0.2-2.0 [facility] Comment on above: Performed By: #### P OCGLUC #### [facility] [address] [address] [address] Brittany Bell EO # 0.9 103/ul Critically high 0.0-0.7 [facility] Comment on above: Performed By: #### P OCGLUC #### [facility] [address] [place] [address] Dr. Brittany Bell Eosinophils/100 WBC (Bld) 11.1 % Critically high 0.9-7.0 [facility] Comment on above: Performed By: #### P OCGLUC #### [facility] [address] [place] [address] Dr. Brittany Bell Erythrocyte distribution width (RBC) [Ratio] 12.8 % Normal 11.0-15.0 [facility] Comment on above: Performed By: #### P OCGLUC #### [facility] [address] [place] [address] Dr. Brittany Bell Hematocrit (Bld) [Volume fraction] 36.6 % Critically low 42.0-54.0 [facility] Comment on above: Performed By: #### P OCGLUC #### [facility] [address] [place] [address] Dr. Brittany Bell Hemoglobin (Bld) [Mass/Vol] 12.6 g/dL Critically low 14.0-18.0 [facility] Comment on above: Performed By: #### P OCGLUC #### [facility] [address] [place] [address] Dr. Brittany Bell IG # 0.03 10e3/ul Normal 0.00-0.03 [facility] Comment on above: Performed By: #### P OCGLUC #### [facility] [address] [place] [address] Dr. Brittany Bell IG % 0.4 % Normal 0.0-0.5 [facility] Comment on above: Performed By: #### P OCGLUC #### [facility] [address] [place] [address] Dr. Brittany Bell LYMPH # 1.8 103/ul Normal 1.2-3.8 [facility] Comment on above: Performed By: #### P OCGLUC #### [facility] [address] [place] [address] Dr. Brittany Bell Lymphocytes/100 WBC (Bld) 22.7 % Normal 20.5-60.0 [facility] Comment on above: Performed By: #### P OCGLUC #### [facility] [address] [place] [address] Dr. Brittany Bell MANUAL DIFF REQ NO Normal [facility] Comment on above: Performed By: #### P OCGLUC #### [facility] [address] [place] [address] Dr. Brittany Bell MCH (RBC) [Entitic mass] 31.0 pg Normal 25.9-34.0 [facility] Comment on above: Performed By: #### P OCGLUC #### [facility] [address] [place] [address] Dr. Brittany Bell MCHC (RBC) [Mass/Vol] 34.4 g/dL Normal 29.9-35.2 [facility] Comment on above: Performed By: #### P OCGLUC #### [facility] [address] [place] [address] Dr. Brittany Bell MCV (RBC) [Entitic vol] 89.9 fL Normal 80.0-94.0 [facility] Comment on above: Performed By: #### P OCGLUC #### [facility] [address] [place] [address] Dr. Brittany Bell MONO # 0.8 103/ul Normal 0.3-0.8 [facility] Comment on above: Performed By: #### P OCGLUC #### [facility] [address] [place] [address] Dr. Brittany Bell Monocytes/100 WBC (Bld) 9.7 % Normal 1.7-12.0 [facility] Comment on above: Performed By: #### P OCGLUC #### [facility] [address] [place] [address] Dr. Brittany Bell NEUT # 4.4 103/ul Normal 1.4-6.5 [facility] Comment on above: Performed By: #### P OCGLUC #### [facility] [address] [place] [address] Dr. Brittany Bell Neutrophils/100 WBC (Bld) 54.6 % Normal 43.0-75.0 [facility] Comment on above: Performed By: #### P OCGLUC #### [facility] [address] [address] [address] Brittany Bell Platelet mean volume (Bld) [Entitic vol] 9.8 fL Normal 9.5-13.5 [facility] Comment on above: Performed By: #### P OCGLUC #### [facility] [address] [address] [address] Brittany Bell PLT 228 103/ul Normal 150-450 [facility] Comment on above: Performed By: #### P OCGLUC #### [facility] [address] [address] [address] Brittany Bell RBC 4.07 106/ul Critically low 4.70-6.10 [facility] Comment on above: Performed By: #### P OCGLUC #### [facility] [address] [address] [address] Brittany Bell WBC 8.0 103/ul Normal 4.0-11.0 [facility] Comment on above: Performed By: #### P OCGLUC #### [facility] [address] [address] [address] Brittany Bell PROF CHEM 8 (BAS METB)on Anion gap [Moles/Vol] 9.2 mmol/L Normal [facility] Comment on above: Performed By: #### B MP ####[facility] [address] [place] [address]Dr. Brittany Bell Calcium [Mass/Vol] 8.9 mg/dL Normal 8.5-10.1 [facility] Comment on above: Performed By: #### B MP ####[facility] [address] [place] [address]Dr. Brittany Bell Chloride [Moles/Vol] 102 mmol/L Normal 98-107 [facility] Comment on above: Performed By: #### B MP ####[facility] [address] [place] [address]Dr. Brittany Bell CO2 [Moles/Vol] 28.8 mmol/L Normal 21.0-32.0 [facility] Comment on above: Performed By: #### B MP ####[facility] [address] [place] [address]Dr. Brittany Bell Creatinine [Mass/Vol] 1.07 mg/dL Normal 0.70-1.30 [facility] Comment on above: Performed By: #### B MP ####[facility] [address] [place] [address]Dr. Brittany Ray EGFR-AF SERBIAN >60 Normal >=60 [facility] Comment on above: Performed By: #### B MP ####[facility] [address] [place] [address]Dr. Dorotaleslee Ray EGFR-NON AF SERBIAN >60 Normal >=60 [facility] [facility] Comment on above: Performed By: #### B MP ####[facility] [address] [place], [place] [address]Dr. Brittany Bell Glucose [Mass/Vol] 146 mg/dL Critically high 74-106 [facility] Comment on above: Performed By: #### B MP ####[facility] [address] [place], [place] [address]Dr. Brittany Bell Potassium [Moles/Vol] 4.0 mmol/L Normal 3.5-5.1 [facility] Comment on above: Performed By: #### B MP ####[facility] [address] [address]Dr. Brittany Bell Sodium [Moles/Vol] 136 mmol/L Normal 136-145 [facility] Comment on above: Performed By: #### B MP ####[facility] [address] [place], [place] [address]Dr. Brittany Bell Urea nitrogen [Mass/Vol] 19.0 mg/dL Critically high 7.0-18.0 [facility] Comment on above: Performed By: #### B MP ####[facility] [address] [place], [place] [address]Dr. Brittany Bell Urea nitrogen/Creatinine [Mass ratio] 17.8 mg/mg Normal [facility] Comment on above: Performed By: #### B MP ####[facility] [address] [place], [place] [address]PvDr. Birttany Bell PROTIMEon 12-28-2021 INR Coag (PPP) [Relative time] 0.95 {INR} Normal [facility] Comment on above: Performed By: #### P OCGLUC #### [facility] [address] [address] [address] Brittany Bell INR GUIDELINES SEE BELOW Normal [facility] Comment on above: Result Comment: SILAS RED INR: 2.0 - 3.0 CONDITIONS NOT LISTED BELOW 2.5 - 3.5 FOR PROSTHETIC HEART VALVE REPLACEMENT 2.5 - 3.5 RECURRENT THROMBOSIS Performed By: #### P OCGLUC #### [facility] [address] [address] [address] Brittany Bell PT Coag (PPP) [Time] 10.3 s Normal 9.0-11.6 [facility] Comment on above: Performed By: #### P OCGLUC #### [facility] [address] [place] [address] Dr. Brittany Bell PTTon 12-28-2021 aPTT Coag (Bld) [Time] 25.6 s Normal 22.3-36.2 [facility] Comment on above: Performed By: #### P OCGLUC #### [facility] [address] [place] [address] SINUSES WO CONon 11-29-19 CT SINUSES WO CON EXAMINATION: CT SINUSES WO CON HISTORY: Chronic maxillary sinusitis COMPARISON: CT sinuses 10/25/2021 TECHNIQUE: Axial and Coronal CT images were created without IV contrast. Dose reduction techniques were achieved by using automated exposure control and/or adjustment of mA and/or kV according to patient size and/or use of iterative reconstruction technique. FINDINGS: MAXILLARY SINUSES: Stable small amount of scattered mucosal thickening bilaterally, and stable mucocele/retention cysts within left maxillary sinus. Prominent Jon cell on left. ETHMOID SINUSES: No significant mucosal thickening or fluid. Fovea ethmoidali and lamina papyracea are symmetric and intact. SPHENOID SINUSES: No significant mucosal thickening or fluid. Sphenoethmoidal recesses are patent. No bony dehiscence. FRONTAL SINUSES: Small right frontal sinus; no developed left frontal sinus. NASAL FOSSA: Minimal rightward deviation of the nasal septum. No alla bullosa or paradoxical turbinates are identified. OTHER: Negative. Limited views of the skull base and orbits are unremarkable. IMPRESSION: 1. Stable mild chronic sinusitis involving the maxillary sinuses. Electronically authenticated by: KOJO GARRIDO Date: 2021-11-28 09:28 Normal [facility] CT SINUSES WO CONon 10-26-[address] SINUSES WO CON EXAMINATION: CT SINUSES WO CON HISTORY: Chronic maxillary sinusitis , congestion COMPARISON: XR sinuses 10/17/2021 TECHNIQUE: Axial and Coronal CT images were created without IV contrast. Dose reduction techniques were achieved by using automated exposure control and/or adjustment of mA and/or kV according to patient size and/or use of iterative reconstruction technique. FINDINGS: MAXILLARY SINUSES: Mild mucosal thickening within base of right maxillary sinus. Left maxillary sinus contains a 1.8 cm mucocele/retention cyst. Patent ostiomeatal complex bilaterally. Prominent Jon cell on the left. ETHMOID SINUSES: No significant mucosal thickening or fluid. Fovea ethmoidali and lamina papyracea are symmetric and intact. SPHENOID SINUSES: No significant mucosal thickening or fluid. Sphenoethmoidal recesses are patent. No bony dehiscence. FRONTAL SINUSES: Small right frontal sinus without mucosal thickening or obstruction. No developed left frontal sinuses. NASAL FOSSA: Minimal rightward deviation of the nasal septum. No alla bullosa or paradoxical turbinates are identified. OTHER: Negative. Limited views of the skull base and orbits are unremarkable. IMPRESSION: 1. Mild chronic sinusitis of the maxillary sinuses. Electronically authenticated by: KOJO GARRIDO Date: 2021-10-25 14:29 Normal [facility] XR SINUSES 3 VIEWS OR GREATE Josias 10-18-2021 XR SINUSES 3 VIEWS OR GREATER EXAMINATION: XR SINUSES 3 VIEWS OR GREATER HISTORY: Chronic maxillary sinusitis , drainage, cough COMPARISON: XR sinuses 01/30/2021 FINDINGS: MAXILLARY: Suspect mild bilateral mucosal thickening. No fluid levels. ETHMOID: No visible mucosal thickening or fluid level. FRONTAL: Small right frontal sinus. No developed a left frontal sinuses. SPHENOID: No visible mucosal thickening or fluid level. OTHER: Negative. IMPRESSION: 1. Suspect mild chronic sinusitis of the maxillary sinuses; less than previously seen. 2. No fluid levels to suggest acute sinusitis. Electronically authenticated by: KOJO GARRIDO Date: 2021-10-18 15:24 Normal [facility] PROTEIN ELECTROPHERESISon Albumin [Mass/Vol] 3.9 g/dL Normal 2.9-4.4 [facility] Comment on above: Performed By: #### P OCGLUC #### [facility] [address] [address] [address] Brittany Bell Albumin/Globulin [Mass ratio] 1.5 {ratio} Normal 0.7-1.7 [facility] Comment on above: Performed By: #### P OCGLUC #### [facility] [address] [address] [address] Brittany Bell Gjpcn-3-Lkkramzg 0.3 g/dL Normal 0.0-0.4 [facility] Comment on above: Performed By: #### P OCGLUC #### [facility] [address] [address] [address] Brittany Bell Lsbwd-4-Fjqileox 0.6 g/dL Normal 0.4-1.0 [facility] Comment on above: Performed By: #### P OCGLUC #### [facility] [address] [address] [address] Brittany Bell Beta Globulin 1.0 g/dL Normal 0.7-1.3 [facility] Comment on above: Performed By: #### P OCGLUC #### [facility] [address] [address] [address] Brittany Bell Gamma Globulin 0.7 g/dL Normal 0.4-1.8 [facility] Comment on above: Performed By: #### P OCGLUC #### [facility] [address] [address] [address] Brittany Bell Globulin (S) [Mass/Vol] 2.6 g/dL Normal 2.2-3.9 [facility] Comment on above: Performed By: #### P OCGLUC #### [facility] [address] [address] [address] Brittany Bell M-Pierre Not Observed Normal Not Observed [facility] Comment on above: Performed By: #### P OCGLUC #### [facility] [address] [address] [address] Brittany Bell PDF . Normal [facility] Comment on above: Performed By: #### P OCGLUC #### [facility] [address] [address] [address] Brittany Bell Please note: Comment Normal [facility] Comment on above: Result Comment: Prot ein electrophoresis scan will follow via computer, mail, or prison guard supervisor delivery. Performed By: #### P OCGLUC #### [facility] [address] [place] [address] Dr. Brittany Bell Protein [Mass/Vol] 6.5 g/dL Normal 6.0-8.5 [facility] Comment on above: Performed By: #### P OCGLUC #### [facility] [address] [address] [address] Brittany Bell FERRITINon 10-04-2021 Ferritin [Mass/Vol] 160.0 ng/mL Normal 26.0-388.0 [facility] Comment on above: Performed By: #### F ERR, B12FOL #### [facility] [address] [address] [address] Brittany Bell MAGNESIUMon 10-04-2021 Magnesium [Mass/Vol] 2.2 mg/dL Normal 1.8-2.4 [facility] Comment on above: Performed By: #### P HOS, MG, TSH ####[facility] [address] [address]Dr. Brittany Bell PHOSPHORUSon 10-04-2021 Phosphate [Mass/Vol] 3.7 mg/dL Normal 2.6-4.7 [facility] Comment on above: Performed By: #### P HOS, MG, TSH ####[facility] [address] [address]Dr. Brittany Bell TSHon 10-04-2021 TSH 1.519 uIU/mL Normal 0.358-3.740 [facility] Comment on above: Performed By: #### P HOS, MG, TSH ####[facility] [address] [place], [place] [address]LlDr. Brittany Bell VIT B12 AND FOLATEon 022 Cobalamin (Vitamin B12) [Mass/Vol] 2604.0 pg/mL Critically high 193.0-986.0 [facility] Comment on above: Performed By: #### F ERR, B12FOL #### [facility] [address] [place], [place] [address] Dr. Brittany Bell FOLATE 20.50 ng/mL Normal 8.60-58.90 [facility] Comment on above: Performed By: #### F ERR, B12FOL #### [facility] [address] [place], [place] [address] Dr. Brittany Bell Vital Signs Date Time Vital Sign Value Performing Clinician Facility 07-30-2024 11:51-0400 Body height 172.7 cm Mel Cabello PA Work Phone: [facility] 07-30-2024 11:51-0400 Body mass index (BMI) [Ratio] 30.71 kg/m2 Mel Cabello PA Work Phone: [facility] 07-30-2024 11:51-0400 Body temperature 98.1 [degF] Mel Cabello PA Work Phone: [facility] 07-30-2024 11:51-0400 Body weight 91.63 kg Mel Hemmer PA Work Phone: [facility] 07-30-2024 11:51-0400 Diastolic blood pressure 68 mm[Hg] Mel Hemmer PA Work Phone: [facility] 07-30-2024 11:51-0400 Heart rate 67 /min Mel Hemdrake PA Work Phone: [facility] 07-30-2024 11:51-0400 SaO2% (BldA) [Mass fraction] 97 % Mel Hemdrake PA Work Phone: [facility] 07-30-2024 11:51-0400 Systolic blood pressure 110 mm[Hg] Mel Hemmer PA Work Phone: [facility] 04-19-2024 14:03-0500 Body mass index (BMI) [Ratio] 31.44 kg/m2 Matti Gomez MD Work Phone: [facility] 04-19-2024 14:03-0500 Body weight 93.8 kg Matti Gomez MD Work Phone: [facility] 04-19-2024 14:03-0500 Diastolic blood pressure 65 mm[Hg] Matti Gomez MD Work Phone: [facility] 04-19-2024 14:03-0500 Heart rate 64 /min Matti Gomez MD Work Phone: [facility] 04-19-2024 14:03-0500 Respiratory rate 17 /min Matti Gomez MD Work Phone: [facility] 04-19-2024 14:03-0500 SaO2% (BldA) [Mass fraction] 98 % Matti Gomez MD Work Phone: [facility] 04-19-2024 14:03-0500 Systolic blood pressure 138 mm[Hg] Matti Gomez MD Work Phone: [facility] 12-22-2023 10:36-0400 Body height 172.7 cm Mel Hemmer PA Work Phone: [facility] 12-22-2023 10:36-0400 Body mass index (BMI) [Ratio] 30.93 kg/m2 Mel Hemmer PA Work Phone: [facility] 12-22-2023 10:36-0400 Body weight 92.26 kg Mel Hemmer PA Work Phone: [facility] 12-22-2023 10:36-0400 Diastolic blood pressure 70 mm[Hg] Mel Hemmer PA Work Phone: [facility] 12-22-2023 10:36-0400 Heart rate 54 /min Mel Hemmer PA Work Phone: [facility] 12-22-2023 10:36-0400 Respiratory rate 16 /min Mel Hemmer PA Work Phone: [facility] 12-22-2023 10:36-0400 SaO2% (BldA) [Mass fraction] 96 % Mel Hemmer PA Work Phone: [facility] 12-22-2023 10:36-0400 Systolic blood pressure 128 mm[Hg] Mel Hemmer PA Work Phone: [facility] 12-10-2023 09:34-0400 Body height 172.7 cm Mel Hemmer PA Work Phone: [facility] 12-10-2023 09:34-0400 Body mass index (BMI) [Ratio] 30.96 kg/m2 Mel Hemmer PA Work Phone: [facility] 12-10-2023 09:34-0400 Body temperature 97.11 [degF] Mel Hemmer PA Work Phone: [facility] 12-10-2023 09:34-0400 Body weight 92.35 kg Mel Hemmer PA Work Phone: [facility] 12-10-2023 09:34-0400 Diastolic blood pressure 70 mm[Hg] Mel Hemmer PA Work Phone: [facility] 12-10-2023 09:34-0400 Heart rate 58 /min Mel Hemmer PA Work Phone: [facility] 12-10-2023 09:34-0400 Respiratory rate 16 /min Mel Hemmer PA Work Phone: [facility] 12-10-2023 09:34-0400 SaO2% (BldA) [Mass fraction] 97 % Mel Hemmer PA Work Phone: [facility] 12-10-2023 09:34-0400 Systolic blood pressure 132 mm[Hg] Mel Hemmer PA Work Phone: [facility] 11-21-2023 08:46-0400 Body height 172.7 cm Matti Gomez MD Work Phone: [facility] 11-21-2023 08:46-0400 Body mass index (BMI) [Ratio] 30.87 kg/m2 Matti Gomez MD Work Phone: [facility] 11-21-2023 08:46-0400 Body weight 92.08 kg Matti Gomez MD Work Phone: [facility] 11-21-2023 08:46-0400 Diastolic blood pressure 64 mm[Hg] Matti Gomez MD Work Phone: [facility] 11-21-2023 08:46-0400 Heart rate 68 /min Matti Gomez MD Work Phone: [facility] 11-21-2023 08:46-0400 SaO2% (BldA) [Mass fraction] 95 % Matti Gomez MD Work Phone: [facility] 11-21-2023 08:46-0400 Systolic blood pressure 134 mm[Hg] Matti Gomez MD Work Phone: [facility] 11-04-2023 14:56-0400 Body height 175.26 cm [facility] 11-04-2023 14:56-0400 Body mass index (BMI) [Ratio] 31.3 kg/m2 [facility] 11-04-2023 14:56-0400 Body temperature 99 [degF] [facility] 11-04-2023 14:56-0400 Body weight 96.16 kg [facility] 11-04-2023 14:56-0400 Heart rate 65 /min [facility] 11-04-2023 14:56-0400 Respiratory rate 18 /min [facility] 11-04-2023 14:56-0400 SaO2% (BldA) [Mass fraction] 97 % [facility] 07-10-2023 14:04-0400 Diastolic blood pressure 62 mm[Hg] Gaetano Dhillon [facility] 07-10-2023 14:04-0400 Heart rate 55 /min Gaetano Dhillon [facility] 07-10-2023 14:04-0400 SaO2% (BldA) [Mass fraction] 98 % Gaetano Dhillon [facility] 07-10-2023 14:04-0400 Systolic blood pressure 122 mm[Hg] Gaetano Dhillon [facility] 10-03-2022 13:15-0400 Diastolic blood pressure 63 mm[Hg] Matti MOSCOSO [facility] 10-03-2022 13:15-0400 Mean blood pressure 91 mm[Hg] Matti MOSCOSO [facility] 10-03-2022 13:15-0400 Systolic blood pressure 147 mm[Hg] Matti MOSCOSO [facility] 10-03-2022 13:02-0400 Blood Pressure Location Matti MOSCOSO [facility] 10-03-2022 13:02-0400 Diastolic blood pressure 69 mm[Hg] Matti MOSCOSO [facility] 10-03-2022 13:02-0400 Heart rate 51 /min Matti MOSCOSO [facility] 10-03-2022 13:02-0400 SaO2% (BldA) [Mass fraction] 97 % Matti MOSCOSO [facility] 10-03-2022 13:02-0400 Systolic blood pressure 143 mm[Hg] Matti MOSCOSO [facility] 03-19-2022 15:20-0500 Blood Pressure Location Matti Moscoso [facility] 03-19-2022 15:20-0500 Diastolic blood pressure 71 mm[Hg] Matti Moscoso [facility] 03-19-2022 15:20-0500 Heart rate 67 /min Matti Moscoso [facility] 03-19-2022 15:20-0500 Respiratory rate 18 /min Matti Moscoso [facility] 03-19-2022 15:20-0500 SaO2% (BldA) [Mass fraction] 98 % Matti Moscoso [facility] 03-19-2022 15:20-0500 Systolic blood pressure 164 mm[Hg] Matti Moscoso [facility] 03-05-2022 15:07-0500 Blood Pressure Location Matti Moscoso [facility] 03-05-2022 15:07-0500 Diastolic blood pressure 63 mm[Hg] Matti Moscoso [facility] 03-05-2022 15:07-0500 Heart rate 85 /min Matti Moscoso [facility] 03-05-2022 15:07-0500 Respiratory rate 18 /min Matti Moscoso [facility] 03-05-2022 15:07-0500 SaO2% (BldA) [Mass fraction] 98 % Matti Moscoso [facility] 03-05-2022 15:07-0500 Systolic blood pressure 132 mm[Hg] Matti Moscoso [facility] 02-03-2022 17:04-0500 Hourly Rounding Lopez Timmis [facility] 02-03-2022 17:04-0500 Promise to Return Lopez Timmis [facility] 02-03-2022 16:00-0500 Hourly Rounding Lopez Timmis [facility] 02-03-2022 16:00-0500 Promise to Return Lopez Timmis [facility] 02-03-2022 15:00-0500 Hourly Rounding Lopez Timmis [facility] 02-03-2022 15:00-0500 Promise to Return Lopez Timmis [facility] 02-03-2022 12:33-0500 Body temperature 97.7 [degF] Lopez Timmis [facility] 02-03-2022 12:33-0500 Diastolic blood pressure 97 mm[Hg] Lopez Timmis [facility] 02-03-2022 12:33-0500 Heart rate 63 /min Lopez Timmis [facility] 02-03-2022 12:33-0500 Mean blood pressure 117 mm[Hg] Lopez Timmis [facility] 02-03-2022 12:33-0500 Respiratory rate 18 /min Lopez Timmis [facility] 02-03-2022 12:33-0500 SaO2% (BldA) [Mass fraction] 98 % Lopez Timmis [facility] 02-03-2022 12:33-0500 Systolic blood pressure 158 mm[Hg] Lopez Timmis [facility] 02-03-2022 09:01-0500 Diastolic blood pressure 74 mm[Hg] Lopez Timmis [facility] 02-03-2022 09:01-0500 Heart rate 78 /min Lopez Timmis [facility] 02-03-2022 09:01-0500 Systolic blood pressure 147 mm[Hg] Lopez Timmis [facility] 02-03-2022 08:49-0500 Blood Pressure Location Lopez Timmis [facility] 02-03-2022 08:49-0500 Body temperature 98.06 [degF] Lopez Timmis [facility] 02-03-2022 08:49-0500 Diastolic blood pressure 74 mm[Hg] Lopez Timmis [facility] 02-03-2022 08:49-0500 Heart rate 78 /min Lopez Timmis [facility] 02-03-2022 08:49-0500 Mean blood pressure 98 mm[Hg] Lopez Timmis [facility] 02-03-2022 08:49-0500 Respiratory rate 18 /min Lopez Timmis [facility] 02-03-2022 08:49-0500 SaO2% (BldA) [Mass fraction] 97 % Lopez Timmis [facility] 02-03-2022 08:49-0500 Systolic blood pressure 147 mm[Hg] Lopez Timmis [facility] 02-03-2022 04:00-0500 Body temperature 97.88 [degF] Lopez Timmis [facility] 02-03-2022 04:00-0500 Heart rate 71 /min Lopez Timmis [facility] 02-03-2022 04:00-0500 SaO2% (BldA) [Mass fraction] 93 % Lopez Timmis [facility] 02-02-2022 22:17-0500 Heart rate 72 /min Lopez Timmis [facility] 02-02-2022 22:16-0500 gluc 284 mg/dL Lopez Timmis [facility] 02-02-2022 19:45-0500 Mean blood pressure 94 mm[Hg] Lopez Timmis [facility] 02-02-2022 17:02-0500 Blood Pressure Location Lopez Timmis [facility] 02-02-2022 17:02-0500 gluc 162 mg/dL Lopez Timmis [facility] 02-02-2022 17:02-0500 Heart rate 60 /min Lopez Timmis [facility] 02-02-2022 17:02-0500 Mean blood pressure 96 mm[Hg] Lopez Timmis [facility] 02-02-2022 12:33-0500 Blood Pressure Location Lopez Timmis [facility] 02-02-2022 12:33-0500 Heart rate 80 /min Lopez Timmis [facility] 02-02-2022 12:33-0500 Mean blood pressure 95 mm[Hg] Lopez Timmis [facility] 02-02-2022 09:14-0500 Heart rate 74 /min Lopez Timmis [facility] 02-02-2022 08:26-0500 Mean blood pressure 91 mm[Hg] Lopez Timmis [facility] 02-01-2022 11:37-0500 BP/Pulse Patient Position Lopez Timmis [facility] 02-01-2022 08:19-0500 BP/Pulse Patient Position Lopez Timmis [facility] 01-31-2022 16:55-0500 Body temperature 96.62 [degF] Lopez Timmis [facility] 01-31-2022 16:55-0500 BP/Pulse Patient Position Lopez Timmis [facility] 01-31-2022 14:40-0500 Body temperature 97.7 [degF] Lopez Timmis [facility] 01-31-2022 14:40-0500 FIO2 35 % Lopez Timmis [facility] 01-31-2022 14:40-0500 Respiratory rate 10 /min Lopez Timmis [facility] 01-31-2022 14:30-0500 FIO2 35 % Lopez Timmis [facility] 01-31-2022 14:30-0500 Respiratory rate 18 /min Lopez Timmis [facility] 01-31-2022 14:15-0500 FIO2 35 % Lopez Timmis [facility] 01-31-2022 14:15-0500 Respiratory rate 10 /min Lopez Timmis [facility] 01-31-2022 13:02-0500 Body temperature 97.34 [degF] Lopez Timmis [facility] 01-31-2022 09:19-0500 gluc 151 mg/dL Lopez Timmis [facility] Encounters Encounter Date Encounter Type Care Provider Facility Start: 07-30-2024 End: 07-30-2024 Office outpatient visit 15 minutes Mel DANIELS Work Phone: [facility] Comment on above: Acute bronchitis, un specified organism (Primary Dx); Seasonal allergic rhinitis due to pollen Start: 07-30-2024 End: 07-30-2024 ambulatory MEL CABELLO Not Available Start: 07-19-2024 End: 07-19-2024 ambulatory [facility] Start: 04-26-2024 End: 04-26-2024 Bamboo flowsheet Galen Condon PA Work Phone: [facility] Start: 04-26-2024 End: 04-26-2024 Bamboo flowsheet Galen Condon PA Work Phone: [facility] Start: 04-26-2024 End: 04-26-2024 Office outpatient visit 15 minutes Galen Condon PA Work Phone: [facility] Comment on above: Acute pain of left k nee; Effusion of left knee Start: 04-26-2024 End: 04-26-2024 ambulatory GALEN CONDON Not Available Start: 04-19-2024 End: 04-19-2024 Office outpatient visit 25 minutes Matti Gomez MD Work Phone: [facility] Comment on above: Type 2 diabetes aashish itus with other specified complication, without long-term current use of insulin (CMS/HCC) (Primary Dx); Acute non-recurrent sinusitis, unspecified location; Effusion of left knee; Chronic obstructive pulmonary disease, unspecified (CMS/HCC); Unspecified atrial fibrillation (CMS/HCC) Start: 04-19-2024 End: 04-19-2024 Bamboo flowsheet Matti Gomez MD Work Phone: [facility] Start: 04-19-2024 End: 04-19-2024 Bamboo flowsheet Matti Gomez MD Work Phone: [facility] Start: 04-19-2024 End: 04-19-2024 ambulatory MATTI GOMEZ Not Available Start: 12-22-2023 End: 12-22-2023 Bamboo flowsheet Mel Cabello PA Work Phone: [facility] Start: 12-22-2023 End: 12-22-2023 Bamboo flowsheet Mel Cabello PA Work Phone: [facility] Start: 12-22-2023 End: 12-22-2023 Patient encounter procedure Mel DANIELS Work Phone: [facility] Comment on above: Medicare annual [facility], subsequent (Primary Dx); ACP (advance care planning); Type 2 diabetes mellitus with other specified complication, without long-term current use of insulin ([facility]); Mixed hyperlipidemia ([facility]); Screening for malignant neoplasm of prostate; Other problems related to lifestyle; Benign neoplasm of brain, unspecified brain region ([facility]); Hypersomnia; Inadequate sleep hygiene; PRAVIN (obstructive sleep apnea); Paresthesia; PLMD (periodic limb movement disorder); Polyneuropathy; RLS (restless legs syndrome); Chronic obstructive pulmonary disease, unspecified COPD type ([facility]); Dyspnea on exertion; Hard to intubate, sequela; Snoring; Atrial fibrillation, unspecified type ([facility]); Coronary artery disease involving [place] heart without angina pectoris, unspecified vessel or lesion type ([facility]); Primary hypertension ([facility] 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 ([facility] [facility]); Degeneration of intervertebral disc of lumbar region with discogenic back pain; Edema of lower extremity; Generalized osteoarthritis; Internal derangement of left shoulder; Complete tear of left rotator cuff, unspecified whether traumatic; Chronic maxillary sinusitis; Thrombophlebitis; Chronic bilateral low back pain without sciatica; Deviated nasal septum; Localized edema; Exposure to potentially hazardous substance; History of asbestos exposure; Hearing loss of right ear, unspecified hearing loss type; History of cardiovascular disorder; History of tobacco use; Hypertrophy of nasal turbinates; custodial current use of anticoagulant therapy; Type 2 diabetes mellitus with hyperglycemia ([facility]) Start: 12-22-2023 End: 12-22-2023 ambulatory MEL CABELLO Not Available Start: 12-10-2023 End: 12-10-2023 Bamboo syed DANIELS Work Phone: [facility] Start: 12-10-2023 End: 12-10-2023 Amberly DANIELS Work Phone: [facility] Start: 12-10-2023 End: 12-10-2023 Office outpatient visit 15 minutes Mel DANIELS Work Phone: [facility] Comment on above: Right acute otitis m edia (Primary Dx); Type 2 diabetes mellitus with other specified complication, without long-term current use of insulin (CMS/HCC); Chronic obstructive pulmonary disease, unspecified (CMS/HCC) Start: 12-10-2023 End: 12-10-2023 ambulatory MEL CABELLO Not Available Start: 11-25-2023 End: 11-25-2023 [facility] Facility[facility] Start: 11-21-2023 End: 11-21-2023 Bamboo flowsheet Matti Gomez MD Work Phone: [facility] Start: 11-21-2023 End: 11-21-2023 Bamboo flowsheet Matti Gomez MD Work Phone: [facility] Start: 11-21-2023 End: 11-21-2023 Office outpatient visit 25 minutes Matti Gomez MD Work Phone: [facility] Comment on above: Acute maxillary sinu sitis, recurrence not specified (Primary Dx); Type 2 diabetes mellitus with other specified complication, without long-term current use of insulin (CMS/HCC); Mixed hyperlipidemia (CMS/HCC) Start: 11-21-2023 End: 11-21-2023 ambulatory MATTI GOMEZ Not Available Start: 11-10-2023 End: 11-12-2023 Telephone encounter Matti Gomez MD Work Phone: [facility] Start: 11-04-2023 End: 11-04-2023 ambulatory [facility] Work Phone: Start: 11-04-2023 End: 11-04-2023 Patient encounter procedure [facility] [place] Work Phone: Start: 08-15-2023 End: 08-15-2023 ambulatory [facility] Start: 07-10-2023 End: 07-10-2023 [facility] Start: 07-10-2023 End: 07-10-2023 Patient encounter procedure Gaetano Dhillon [facility] Start: 10-03-2022 End: 10-03-2022 Patient encounter procedure Matti Pickard MOSCOSO [facility] Start: 03-19-2022 End: 03-19-2022 Patient encounter procedure Matti Moscoso [facility] Start: 03-15-2022 End: 03-15-2022 Patient encounter procedure Matti Moscoso [facility] Start: 03-05-2022 End: 03-05-2022 Patient encounter procedure Matti Moscoso [facility] Start: 01-31-2022 ambulatory Facility:1 [id number] Start: 01-31-2022 End: 02-03-2022 Evaluation and management of inpatient Lopez Mendes [facility] Start: 01-22-[address] DEBORA CASPER Facilit y:[facility]1 Start: 01-19-[address] DEBORA CASPER Facilit y:[facility]1 Start: 01-18-2022 End: 01-19-[address] DEBORA CASPER Facility:[facility] Start: 01-12-2022 End: 01-14-2022 Evaluation and management of inpatient DR DEBORA CASPER Facility:[facility] Start: 12-30-2021 Encounter for preprocedural cardiovascular examination DR LOPEZ MENDES [facility] Start: 12-30-2021 Encounter for preprocedural laboratory examination DR LOPEZ MENDES [facility] Start: 12-30-2021 Encounter for preprocedural respiratory examination DR LOPEZ MENDES [facility] Start: 12-28-2021 End: 12-29-[address] LOPEZ MENDES Facility:[facility]1 Start: 12-28-2021 End: 12-29-2021 Encounter for preprocedural laboratory examination DR LOPEZ MENDES Facility:[facility] Start: 11-28-2021 End: 11-29-[address] LOPEZ MENDES Facility:[facility] Start: 10-25-2021 End: 10-26-[address] DEBORA CASPER Facility:[facility] Start: 10-17-2021 End: 10-18-[address] DEBORA CASPER Facility:[facility] Start: 10-04-2021 End: 10-05-[address] DEBORA CASPER Facility:[facility] Procedures Date Procedure Procedure Detail Performing Clinician Start: 05-14-2024 Basic metabolic pane l calcium total Mel Cabello PA Work Phone: Start: 05-14-2024 Lipid panel Mel triana PA Work Phone: Start: 05-14-2024 Urine albumin quantitative Mel Cabello PA Work Phone: Start: 04-26-2024 Radiologic examinati on knee 1/2 views Galen DANIELS Work Phone: Start: 11-21-2023 Hemoglobin glycosylated a1c Matti Goemz MD Work Phone: Start: 06-03-2023 Noninvasive colorect al cancer DNA and occult blood screening [Presence] in Stool Matti Gomez MD Work Phone: Start: 01-31-2022 Endoscopic ethmoidec froylan with turbinectomy Matti Moscoso Back structure, excl uding neck (body structure) Lpoez Timmis Comment on above: back surgery x 2 Cardiac catheterization Almaz ry Timmis Comment on above: 2009 Colonoscopy Gaetano Dhillon Comment on above: 2013 Discectomy of spine Gaetano dia Comment on above: lumbar 2002,, L4L5 S ept 2010 Extraction of cataract Hilar y Timmis H/O: vasectomy Gaetano Dhillon Comment on above: 1979 Repair of musculoten dinous cuff of shoulder Lopez Ricardomis Sinus (morphologic abnormality) Matti MOSCOSO Varicose vein stripping Almaz Mendes Comment on above: 1989 Plan of Treatment Date Care Activity Detail Author Start: 06-04-2026 Glaucoma screening Diabetes: R etinopathy Screening [facility] Start: 06-02-2026 Screening for malignant neoplasm of colon [facility] Start: 10-15-2025 Glaucoma screening Diabetes: R etinopathy Screening [facility] Start: 05-14-2025 Urine screening for protein Diabetes: Urine Protein Screening [facility] Start: 12-30-2024 End: 12-30-2024 Patient encounter procedure 12/30/2024 10:00 AM EDT Office Visit [facility] [address] [place] [address] Matti Gomez MD [address] [place] [address] [facility] Start: 12-24-2024 End: 12-24-2024 Patient encounter procedure 12/24/2024 8:30 AM EDT Office Visit [facility] [address] [place] [address] Mel Cabello PA [address] [place] [address] [facility] Start: 12-21-2024 Medicare Annual Wellness (AWV) Medicare Annual Wellness (AWV) [facility] Start: 12-09-2024 Urine screening for protein Diabetes: Urine Protein Screening [facility] Start: 08-14-2024 Hemoglobin A1c measurement Diabetes: Hemoglobin A1C [facility] Start: 06-01-2024 Medicare Annual Wellness (AWV) Medicare Annual Wellness (AWV) [facility] Start: 04-26-2024 End: 04-26-2024 Patient encounter procedure 04/26/2024 11:00 AM EST Office Visit [facility] [address] [place] [address] Galen Condon PA [address] [place] [address] Acute pain of left knee; Effusion of left knee [facility] Comment on above: Acute pain of left k nee; Effusion of left knee Start: 04-19-2024 End: 04-19-2024 Patient encounter procedure 04/19/2024 2:15 PM EST Office Visit [facility] [address] [facility] [address] [place] [id number] Matti Gomez MD [address] [facility] [address] [place] [address] Arrived [facility] Comment on above: Arrived Start: 02-20-2024 Hemoglobin A1c measurement Diabetes: Hemoglobin A1C [facility] Start: 12-22-2023 End: 12-21-2024 HEPATITIS C AB W/RFL RNS, PCR W/RFL GENOTYPE,LIPA HEPATITIS C AB W/RFL RNS, PCR W/RFL GENOTYPE,LIPA Lab Routine Medicare annual wellness visit, subsequent Other problems related to lifestyle Expected: 12/22/2023 (Approximate), Expires: 12/21/2024 [facility] Comment on above: Expected: 12/22/2023 (Approximate), Expires: 12/21/2024 Start: 12-22-2023 End: 12-21-2024 Lipid 1996 panel - Serum or Plasma Lipid panel Lab Routine Medicare annual wellness visit, subsequent Type 2 diabetes mellitus with other specified complication, without long-term current use of insulin (CMS/HCC) Mixed hyperlipidemia (CMS/HCC) Expected: 12/22/2023 (Approximate), Expires: 12/21/2024 [facility] Work Phone: Comment on above: Expected: 12/22/2023 (Approximate), Expires: 12/21/2024 Start: 12-22-2023 End: 12-21-2024 Prostate specific Ag [Mass/volume] in Serum or Plasma PSA Lab Routine Medicare annual wellness visit, subsequent Screening for malignant neoplasm of prostate Expected: 12/22/2023 (Approximate), Expires: 12/21/2024 [facility] Comment on above: Expected: 12/22/2023 (Approximate), Expires: 12/21/2024 Start: 12-22-2023 End: 12-22-2023 Patient encounter procedure [facility] Comment on above: Arrived Start: 12-10-2023 End: 12-09-2024 Microalbumin/Creatinin e panel in random Urine Microalbumin / creatinine, urine ratio Lab Routine Type 2 diabetes mellitus with other specified complication, without long-term current use of insulin ([facility]) Expected: 12/10/2023 (Approximate), Expires: 12/09/2024 [facility] Work Phone: Comment on above: Expected: 12/10/2023 (Approximate), Expires: 12/09/2024 Start: 12-10-2023 End: 12-10-2023 Patient encounter procedure 12/10/2023 9:30 AM EDT Office Visit [facility] [address] [place] [address] Mel Cabello PA [address] [place] [address] Arrived [facility] Comment on above: Arrived Start: 11-21-2023 End: 11-21-2023 Patient encounter procedure 11/21/2023 9:30 AM EDT Office Visit [facility] [address] [place] [address] Matti Gomez MD [address] [place] [address] Arrived [facility] Comment on above: Arrived Start: 11-20-2023 End: 11-20-2023 Patient encounter procedure 11/20/2023 2:15 PM EDT Office Visit [facility] [address] [place] [address] Matti Gomez MD [address] [place] [address] [facility] Start: 11-02-2023 Influenza vaccination Influenza Vacc ine (#1) [facility] Start: 12-28-2022 Urine screening for protein Diabetes: Urine Protein Screening [facility] Start: 1960 Glaucoma screening Diabetes: R etinopathy Screening [facility] Start: 1950 Screening for malignant neoplasm of colon [facility] Immunizations Immunization Date Immunization Notes Care Provider Delma burleson 05-13-2024 SARS-COV-2 (COVID-19 ) vaccine, mRNA, spike protein, LNP, PF, mayda-sucrose, 30 mcg/0.3 mL Mel Olocitymer PA Work Phone: [facility] 11-18-2023 ABRYSVO - Respirator y syncytial virus (RSV), vaccine, bivalent, protein subunit RSV prefusion F, diluent reconstituted, 0.5 mL, PF Mel Olocitydrake PA Work Phone: [facility] 11-18-2023 influenza virus vacc ine, unspecified formulation Mel Cabello PA Work Phone: [facility] 11-18-2023 SARS-COV-2 (COVID-19 ) vaccine, mRNA, spike protein, LNP, PF, mayda-sucrose, 30 mcg/0.3 mL Mel Olocitydrake PA Work Phone: [facility] 12-01-2022 influenza virus vacc ine, unspecified formulation Matti Gomez MD Work Phone: [facility] 12-10-2021 influenza virus vacc ine, unspecified formulation Gaetano Dhillon [facility] 12-10-2021 SARS-CoV-2 (COVID-19 ) [id number] Gaetano Dhillon [facility] Comment on above: Result Comment: 2022: [id number] 06-12-2021 Pfizer Purple Cap SARS-CoV-2 Vaccination Matti Gomez MD Work Phone: [facility] 06-12-2021 SARS-CoV-2 mRNA (ibtgdviasge-yjip-npjlcl e) vaccine Gaetano Dhillon [facility] 12-04-2020 influenza virus vacc ine, unspecified formulation Gaetano Dhillon [facility] 11-25-2020 SARS-CoV-2 (COVID-19 ) mRNA BNT-162b2 vax Gaetano Dhillon [facility] Comment on above: Result Comment: 2022: [id number] 05-05-2020 SARS-CoV-2 (COVID-19 ) mRNA BNT-162b2 vax Gaetano Dhillon [facility] Comment on above: Result Comment: 2022: [id number] 04-14-2020 SARS-CoV-2 (COVID-19 ) mRNA BNT-162b2 vax Gaetano Dhillon [facility] Comment on above: Result Comment: 2022: [id number] 12-30-2019 zoster vaccine recombinant Matti Gomez MD Work Phone: [facility] 12-02-2019 influenza virus vacc ine, unspecified formulation Matti Gomez MD Work Phone: [facility] 11-17-2019 influenza virus vacc ine, unspecified formulation Gaetano Dhillon [facility] 10-30-2019 zoster vaccine recombinant Matti Gomez MD Work Phone: [facility] 12-29-2018 zoster vaccine recombinant Gaetano Dhillon [facility] 12-15-2018 tetanus toxoid, redu kerri diphtheria toxoid, and acellular pertussis vaccine, adsorbed Matti Gomez MD Work Phone: [facility] 11-23-2018 influenza virus vacc ine, unspecified formulation Gaetano Dhillon [facility] 11-02-2018 influenza, injectabl e, quadrivalent, preservative free Matti Gomez MD Work Phone: [facility] 10-29-2018 zoster vaccine recombinant Gaetano Dhillon [facility] 12-03-2017 influenza virus vacc ine, unspecified formulation Gaetano Dhillon [facility] 12-03-2017 pneumococcal conjuga te vaccine, 13 valent Gaeatno Dhillon [facility] 12-05-2016 influenza virus vacc ine, unspecified formulation Gaetano Dhillon [facility] 12-01-2016 influenza virus vacc ine, unspecified formulation Matti Gomez MD Work Phone: [facility] 01-02-2016 influenza virus vacc ine, unspecified formulation Matti Gomez MD Work Phone: [facility] 12-11-2015 influenza virus vacc ine, unspecified formulation Gaetano Dhillon [facility] 05-29-2015 influenza virus vacc ine, unspecified formulation Gaetano Dhillon [facility] 05-29-2015 pneumococcal polysaccharide vaccine, 23 valent Gaetano Dhillon [facility] 05-29-2015 seasonal influenza, intradermal, preservative free Matti Gomez MD Work Phone: [facility] 01-01-2015 influenza virus vacc ine, unspecified formulation Matti Gomez MD Work Phone: [facility] 12-07-2014 influenza virus vacc ine, unspecified formulation Gaetano Dhillon [facility] 10-31-2014 pneumococcal conjuga te vaccine, 13 valent Matti Gomez MD Work Phone: [facility] 12-27-2013 influenza virus vacc ine, unspecified formulation Gaetano Dhillon [facility] 12-01-2013 influenza virus vacc ine, unspecified formulation Matti Gomez MD Work Phone: [facility] 10-07-2013 pneumococcal polysaccharide vaccine, 23 valinge Gomez MD Work Phone: [facility] 10-07-2013 pneumococcal vaccine , unspecified formulation Matti Gomez MD Work Phone: [facility] 12-09-2012 influenza virus vacc ine, unspecified formulation Gaetano Dhillon [facility] Payers Date Payer Category Payer Medicare [employer] UHC MEDICARE ADVANTAGE [id number] 2022-Present [address] [address] [place] [address] [id number] 2022 Medicare (Managed Care) [id number]. [id number] 2022 Private Health Insurance [id number] 1959 Medicare [id number] 1950 Unknown [id number] 2.16.840.1.320661.3.579.2. 593 1949 Unknown [id number] 2.16.840.1.541123.3.579.2. 593 1949 Unknown [id number] 2.16.840.1.366927.3.579.2. 593 1949 Unknown [id number] 2.16.840.1.747495.3.579.2. 593 1949 Unknown [id number] 2.16.840.1.378235.3.579.2. 593 1949 Unknown [id number] 2.16.840.1.304688.3.579.2. 593 1949 Unknown [id number] 2.16.840.1.159558.3.579.2. 593 1949 Unknown [id number] 2.16.840.1.817994.3.579.2. 593 1949 Unknown [id number] 2.16.840.1.444010.3.579.2. 593 1949 Unknown [id number] 2.16.840.1.806645.3.579.2. 356 1949 Unknown [id number] 2.16.840.1.556851.3.579.2. 727 1949 Unknown [id number] 2.16.840.1.645157.3.579.2. 727 1949 Unknown [id number] 2.16.840.1.263109.3.579.2. 1259 1949 Unknown [id number] 2.16.840.1.065154.3.579.2. 1259 1949 Unknown [id number] 2.16.840.1.453888.3.579.2. 1259 1949 Unknown [id number] 2.16.840.1.530061.3.579.2. 1259 1949 Unknown [id number] 2.16.840.1.614658.3.579.2. 1259 1949 Unknown [id number] 2.16.840.1.743907.3.579.2. 1259 1949 Unknown [id number] 2.16.840.1.947840.3.579.2. 1259 Private Health Insurance [facility] [id number] Private Health Insurance [facility] [id number] Self-pay Self Pay [id number] Social History Date Type Detail Facility Start: 01-28-2022 End: 08-20-2022 Tobacco smoking status Ex-smoker (finding) [facility] Comment on above: Quit in the Start: 07-09-2023 End: 12-22-2023 Sex Assigned At Male [facility] Start: 1950 Sex Assigned At Male F [facility] History of tobacco use Current smoker [facility] History of tobacco use Cigarette Smoker [facility] Start: 08-20-2022 Tobacco use and exposure Smokeless tobacco non-user [facility] Start: 11-21-2023 End: 07-30-2024 Alcoholic beverage intake Current drinker of alcohol (finding) [facility] Start: 07-09-2023 End: 12-22-2023 History of Social function [facility] How often to you hav e a drink containing alcohol? Monthly or less [facility] How many standard drinks containing alcohol do you have on a typical day? 1 or 2 [facility] How often do you hav e 6 or more drinks on 1 occasion? Never [facility] Start: 07-09-2023 Alcohol Comment caffeine: 1-2 cups per day [facility] Start: 1950 Sex assigned at Not on file [facility] Functional Status Date Assessment Result Facility 07-10-2023 Functional Status N/A [facility] 10-03-2022 Functional Status No [facility] 03-19-2022 Functional Status N/A [facility] 03-05-2022 Functional Status N/A [facility] 01-31-2022 Functional Status No [facility] 01-28-2022 Functional Status Hx of Positive TB Skin Test No [facility] 01-17-2022 Functional Status N/A [facility] Clinical Notes 12-28-2021 to 07-30-2024 JEREMIAH Barnes - 07/30/2024 12:00 PM JEREMIAH Bonilla - 04/26/2024 11:00 AM Zia Gomez MD - 04/19/2024 2:15 PM JEREMIAH Whalen - 12/22/2023 11:00 AM EDTLaboratory[facility]iology Note Date & Type Note Facility 07-30-2024 History of Presen t illness Narrative Images from the original note were not included. Subjective Patient ID: Singh Berry is a 74 y.o. male who presents [...] time each day at the same time No current facility-administered [...] History: Diagnosis Date ASHD (arteriosclerotic heart disease) ([facility]) Asthma, moderate persistent (CMS/HCC) Atrial fibrillation (CMS/HCC) Chronic sinusitis COPD (chronic obstructive pulmonary disease) (CMS/HCC) Diabetes (CMS/HCC) Disorder of prostate DNS (deviated nasal septum) Hyperlipidemia (CMS/HCC) Hypertension (CMS/HCC) PE (pulmonary thromboembolism) ([facility]) 01/2022 Sleep apnea Past Surgical History: Procedure Laterality Date BACK SURGERY CARDIAC CATHETERIZATION 2010 LUMBAR DISCECTOMY 2021 LUMBAR DISCECTOMY 2010 L4-5 SHOULDER ARTHROSCOPY Right 05/04/2015 DR LUTZ SHOULDER ARTHROSCOPY Left 09/30/2019 DR LUTZ SHOULDER SURGERY SINUS SURGERY 01/2022 Visit Vitals BP 110/68 Pulse 67 Temp 98.1 F Ht 5' 8 Wt 202 lb SpO2 97% BMI 30.71 kg/m Smoking Status Former BSA 2.1 m Review of Systems Constitutional: Negative for chills, [...] week or two. Continue medications prescribed by OR and Dr. Espinal. Follow up in about 5 months (around 12/22/2024) for Medicare Wellness Visit. documented in this encounter [facility] 07-19-2024 Note [place] [facility] Subjective Singh Berry is a 74 y.o. year old male patient being seen for a 1 year follow up. Patient states he feels good. Patient denies any cardiac complaints at this time. 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 Asthma Paresthesia Polyneuropathy Pulmonary embolism (CMS/HCC) PLMD (periodic limb movement disorder) Snoring Tear of rotator cuff Thrombophlebitis Diabetes (CMS/HCC) Unspecified atrial fibrillation (CMS/HCC) Deviated nasal septum Exposure to potentially hazardous substance Generalized osteoarthritis Hypertrophy of nasal turbinates Internal derangement of left shoulder RLS (restless legs syndrome) Type 2 diabetes mellitus with hyperglycemia (CMS/HCC) Family History Problem Relation Name Age of Onset No Known Problems Mother No Known Problems Father Social History Tobacco Use Smoking status: Former Types: Cigarettes Smokeless tobacco: Never Substance Use Topics Alcohol use: Yes Comment: occasional Drug use: Never HPI Singh is seen in follow-up. He is a 74-year-old man well-known to me. In the past 1-1/2 years he was following with another cardiology group but he is back to reestablish care with us. He has history of coronary artery disease, hypertension and hyperlipidemia. Cardiac catheterization in 2010 showed 50% circumflex stenosis. He has COPD and follows with pulmonary. In January 2022 and following ENT surgery he had pulmonary embolism and was started on anticoagulation with Eliquis. In addition he went into atrial fibrillation at that time. Currently he reports that he has been doing well. He denies chest pain, palpitations, leg edema. He has good exercise tolerance. He has shortness of breath occasionally with heavy exertion. Review of Systems Musculoskeletal: Positive for arthritis, back pain, joint pain and myalgias. Objective Visit Vitals BP 128/68 (BP Location: Right arm, Patient Position: Sitting) Pulse 61 Ht 1.753 m (5' 9 ) Wt 92.1 kg (203 lb) SpO2 99% BMI 29.98 kg/m??? Smoking Status Former BSA 2.12 m??? Physical Exam Constitutional: Appearance: He is well-developed. He is obese. He is not ill-appearing. HENT: Head: Normocephalic and atraumatic. Nose: Nose normal. Eyes: General: No scleral icterus. Pupils: Pupils are equal, round, and reactive to light. Neck: Thyroid: No thyromegaly. Vascular: No JVD. Cardiovascular: Rate and Rhythm: Normal rate and regular rhythm. Pulses: Radial pulses are 2+ on the right side and 2+ on the left side. Heart sounds: Normal heart sounds. No murmur heard. No friction rub. No gallop. Pulmonary: Effort: Pulmonary effort is normal. No respiratory distress. Breath sounds: Normal breath sounds. No wheezing or rales. Chest: Chest wall: No tenderness. Abdominal: General: Bowel sounds are normal. There is no distension. Palpations: Abdomen is soft. Tenderness: There is no abdominal tenderness. Musculoskeletal: General: No swelling. Cervical back: Neck supple. Skin: General: Skin is warm and dry. Neurological: General: No focal deficit present. Mental Status: He is alert and oriented to person, place, and time. Psychiatric: Mood and Affect: Mood normal. Behavior: Behavior is cooperative. Judgment: Judgment normal. Allergies Allergies Allergen Reactions Lisinopril Cough Medications Current Outpatient Medications: albuterol 90 mcg/actuation inhaler, Inhale 1 puff in the morning, afternoon, and at bedtime., Disp: , Rfl: amLODIPine (Norvasc) 10 mg tablet, Take 1 tablet every day by oral route., Disp: , Rfl: apixaban (Eliquis) 5 mg tablet, Take 5 mg by mouth in the morning and at bedtime., Disp: , Rfl: atorvastatin (Lipitor) 80 mg tablet, Take 80 mg by mouth at bedtime., Disp: , Rfl: budesonide-formoteroL (Symbicort) 160-4.5 mcg/actuation inhaler, Inhale 2 puffs twice a day by inhalation route., Disp: , Rfl: empagliflozin (Jardiance) 25 mg, Take 12.5 mg by mouth in the morning., Disp: , Rfl: losartan (Cozaar) 100 mg tablet, Take 1 tablet every day by oral route for 90 days., Disp: , Rfl: metFORMIN (Glucophage) 500 mg tablet, Take 1,000 mg by mouth with breakfast and with evening meal., Disp: , Rfl: metoprolol tartrate (Lopressor) 50 mg tablet, Take 1 tablet twice a day by oral route., Disp: , Rfl: Recent Labs None available. Imaging (more content not included)... [facility] 04-26-2024 History of Presen t illness Narrative Images from the original note were not included. HISTORY OF PRESENT ILLNESS: EST PT Singh Berry is an 74 y.o. @ male. (EST PT) (NEW PROBLEM) (DR. GOMEZ REFERRAL) - (L) KNEE PAIN 1-2 MTHS. WAS PICKING UP AND MOVING A TOILET. COULD BARELY WALK THE NEXT DAY. XRAY TODAY, 04/26/24 IN EPIC PAIN DIFFUSE IN KNEE, STATES IT SEEMS TO BE GETTING BETTER. NOTES HE DID HAVE A BLOOD CLOT IN LT LEG IN 2022 THAT HAD TRAVELLED TO HIS LUNGS. WAS TAKING IBU, NOT TAKING ANYTHING NOW. USED ICE INITIALLY. HAS BEEN GOING TO THE GYM AND WALKING A MILE DAILY. HAD SWELLING AND BRUISING MEDIAL. SWELLING HAS GONE DOWN SOME. DENIES POPPING/GRINDING. DENIES GIVING OUT. ALLERGIES: Allergies Allergen Reactions Lisinopril Cough Octacosanol Unknown HOME MEDICATIONS: Current Outpatient Medications Medication Instructions albuterol HFA 90 mcg/act inhaler INHALE 2 PUFFS BY INHALATION FOUR TIMES A DAY NEEDED FOR SHORTNESS OF BREATH amLODIPine (Norvasc) 10 MG tablet Every 24 hours apixaban (ELIQUIS) 5 mg, 2 times daily atorvastatin (Lipitor) 80 MG tablet Every 24 hours cefdinir (OMNICEF) 300 mg, Oral, 2 times daily empagliflozin (Jardiance) 25 MG 0.5 tablets, Daily losartan (Cozaar) 100 MG tablet Every 24 hours metFORMIN (OSM) (FORTAMET) 1,000 mg, 2 times daily with meals metoprolol tartrate (Lopressor) 50 MG tablet Every 12 hours tiotropium-olodaterol (Stiolto Respimat) 2.5-2.5 MCG/ACT aerosol solution inhaler Every 24 hours PHYSICAL EXAM: Knee Musculoskeletal Exam Gait Gait is normal. Inspection Leg length disparity: no discrepancy Left Erythema: none Effusion: mild Edema: none Ecchymosis: none Deformity: none Alignment: normal Palpation Left Left knee palpation is unremarkable. Increased warmth: none Masses: none Tenderness: present Pes anserinus: mild Range of Motion Left Left knee range of motion is normal and full. Active extension: 0 Passive extension: 0 Active flexion: 120 Passive flexion: 120 Strength Left Left knee strength is normal. Extension: 5/5. Flexion: 5/5. Instability Left Instability signs: none - stable Varus stress grade: normal Valgus stress grade: normal Anterior drawer: normal Medial Chana test: negative Lateral Chana test: negative Neurovascular Left Left knee neurovascular exam is normal. Pulses - PT: normal Posterior tibial: 2+ Capillary refill: warm and well-perfused Special Signs Left Left knee special signs are normal. Straight leg raise: normal Patellar compression: mild Patellar apprehension: none General Constitutional: appears stated age Labored breathing: no Psychiatric: normal mood and affect Neurological: alert Skin: intact Lymphadenopathy: none Vitals: There is no height or weight on file to calculate BMI. Tobacco Use: Medium Risk (04/19/2024) Patient History Smoking Tobacco Use: Former Smokeless Tobacco Use: Never Passive Exposure: Not on file Alcohol Use: Not At Risk (07/09/2023) AUDIT-C Frequency of Alcohol Consumption: Monthly or less Average Number of Drinks: 1 or 2 Frequency of Binge Drinking: Never IMAGING: Procedures No orders of the defined types were placed in this encounter. ASSESSMENT: ICD-10-CM 1. Acute pain of left knee M25.562 Assessment & Plan 1. Left medial knee pain. The x-ray was discussed at bedside, revealing some joint line narrowing but more significant patellofemoral arthritis. He may have had a chondral contusion, but he is over a month out from symptoms and mild pes anserine bursa pain is noted. He is currently able to work out without too much discomfort. The option of injection versus oral steroid was discussed. Given his current level of functioning, he will continue with ice and try topical Voltaren gel, with risks and benefits discussed. If symptoms do not improve, he will contact the office for reevaluation. We discussed AAOS guidlines for initial treatment of symptomatic osteoarthritis: We have recommended Self-Management programs for strengthening, low-impact aerobic exercises, and physical activity maintenance and modifications to symptom tolerance. Questions answered in laymen terms at the bedside. The diagnosis, home exercise plan and any ongoing restrictions/ recommendations reviewed. If unable to be reached in office, I recommend evaluation at nearest Emergency Room if any symptoms worsened or new symptoms develop for requiring urgent evaluation. documented in this encounter [facility] 04-19-2024 History of Presen t illness Narrative Images from the original note were not included. Subjective Patient ID: Singh Berry is a 74 y.o. male who presents for left knee pain Singh is in today for left knee pain, states its been going on for a month, states he was lifting up his toilet and the following day he could hardly walk. States he's been stretching his knee at the gym by walking and says it helps some but he still feels a lump in his knee. Has tried ibuprofen for it and states it helped. Current Outpatient Medications on File Prior to [...] time each day at the same time. empagliflozin (Jardiance) 25 MG Take 0.5 tablets by mouth Daily losartan (Cozaar) 100 MG tablet 1 (one) [...] time each day at the same time No current facility-administered [...] History: Diagnosis Date ASHD (arteriosclerotic heart disease) ([facility]/HCC) Asthma, moderate persistent (CMS/HCC) Atrial fibrillation (CMS/HCC) Chronic sinusitis COPD (chronic obstructive pulmonary disease) (CMS/HCC) Diabetes (CMS/HCC) Disorder of prostate DNS (deviated nasal septum) Hyperlipidemia (CMS/HCC) Hypertension (CMS/HCC) PE (pulmonary thromboembolism) ([facility]) 01/2022 Sleep apnea Past Surgical History: Procedure Laterality Date BACK SURGERY CARDIAC CATHETERIZATION 2010 LUMBAR DISCECTOMY 2021 LUMBAR DISCECTOMY 2010 L4-5 SHOULDER ARTHROSCOPY Right 05/04/2015 DR LUTZ SHOULDER ARTHROSCOPY Left 09/30/2019 DR LUTZ SHOULDER SURGERY SINUS SURGERY 01/2022 Visit Vitals BP 138/65 Pulse 64 Resp 17 Wt 206 lb 12.8 oz SpO2 98% BMI 31.44 kg/m Smoking Status Former BSA 2.12 m Review of Systems Objective Physical Exam Constitutional: General: He is not in acute distress. Appearance: He is normal weight. He is not ill-appearing. HENT: Head: Normocephalic. Nose: Congestion present. Mouth/Throat: Pharynx: Oropharyngeal exudate and posterior oropharyngeal erythema present. Cardiovascular: Rate and Rhythm: Normal rate and regular rhythm. Heart sounds: Normal heart sounds. No murmur heard. Pulmonary: Effort: Pulmonary effort is normal. Breath sounds: Normal breath sounds. Musculoskeletal: Left knee: Swelling and effusion present. Tenderness present. Right lower leg: No edema. Left lower leg: No edema. Neurological: Mental Status: He is alert. Psychiatric: Mood and Affect: Mood normal. Thought Content: Thought content normal. Judgment: Judgment normal. Assessment/Plan Diagnoses and all orders for this visit: Type 2 diabetes mellitus with other specified complication, without long-term current use of insulin ([facility]) Acute non-recurrent sinusitis, unspecified location - cefdinir (Omnicef) 300 MG capsule; Take 1 capsule (300 mg) by mouth in the morning and 1 capsule (300 mg) before bedtime. Do all this for 7 days. Effusion of left knee - Ambulatory referral to Orthopaedic Surgery; Future - Concern for hemarthrosis given history provided and OAC, Follow up in about 4 weeks (around 05/17/2024) for Wellness. documented in this encounter [facility] 12-22-2023 History of Presen t illness Narrative Images from the original note were not included. Subjective : Chief Complaint: Singh Berry is an 73 y.o. male here for an annual wellness visit. Still feels like he has mucus in his throat. I have reviewed and reconciled the history and medication list with the patient today. Current Outpatient Medications on File Prior to [...] time each day at the same time. empagliflozin (Jardiance) 25 MG Take 0.5 tablets by mouth Daily losartan (Cozaar) 100 MG tablet 1 (one) [...] time each day at the same time [DISCONTINUED] cefdinir (Omnicef) 300 MG capsule Take 1 capsule (300 mg) by mouth in the morning and 1 capsule (300 mg) before bedtime. Do all this for 10 days. 20 capsule 0 No current facility-administered medications on file prior to visit. Allergies Allergen Reactions Lisinopril Cough Octacosanol Unknown Social History Tobacco Use Smoking status: Former Types: Cigarettes Smokeless tobacco: Never Substance Use Topics Alcohol use: Yes Comment: caffeine: 1-2 cups per day Drug use: Never Family History Problem Relation Name Age of Onset Cancer Mother Esophageal cancer Father Cancer Sibling Past Medical History: Diagnosis Date ASHD (arteriosclerotic heart disease) (CMS/HCC) Asthma, moderate persistent ([facility]) Atrial fibrillation ([facility]) Chronic sinusitis COPD (chronic obstructive pulmonary disease) ([facility]) Diabetes ([facility]) Disorder of prostate DNS (deviated nasal septum) Hyperlipidemia ([facility]) Hypertension ([facility]) PE (pulmonary thromboembolism) ([facility]) 01/2022 Sleep apnea Past Surgical History: Procedure Laterality Date BACK SURGERY CARDIAC CATHETERIZATION 2010 LUMBAR DISCECTOMY 2021 LUMBAR DISCECTOMY 2010 L4-5 SHOULDER ARTHROSCOPY Right 05/04/2015 DR LUTZ SHOULDER ARTHROSCOPY Left 09/30/2019 DR LUTZ SHOULDER SURGERY SINUS SURGERY 01/2022 Review of Systems Constitutional: Negative for chills, fatigue and fever. HENT: Negative for congestion, ear pain, rhinorrhea, sinus pressure and sore throat. Eyes: Negative for pain, discharge and redness. Respiratory: Negative for cough, shortness of breath and wheezing. Cardiovascular: Negative for chest pain, palpitations and leg swelling. Gastrointestinal: Negative for abdominal pain, constipation, diarrhea, nausea and vomiting. Genitourinary: Negative for dysuria, frequency and urgency. Musculoskeletal: Negative for arthralgias and back pain. Skin: Negative for rash. Neurological: Negative for dizziness, numbness and headaches. Psychiatric/Behavioral: Negative for confusion, dysphoric mood and sleep disturbance. List of current healthcare providers: Patient Care Team: Matti Gomez MD as PCP - General (Internal Medicine) Medicare Annual Visit Over the past 2 weeks, how often have you been bothered by any of the following problems? Little interest or pleasure in doing things: Not at all Feeling down, depressed, or hopeless: Not at all Patient Health Questionnaire-2 Score: 0 Over the past 2 weeks, how often have you been bothered by any of the following problems? Trouble falling or staying asleep, or sleeping too much: Not at all Feeling tired or having little energy: Not at all Poor appetite or overeating: Not at all Feeling bad about yourself - or that you are a failure or have let yourself or your family down: Not at all Trouble concentrating on things, such as reading the newspaper or watching television: Not at all Moving or speaking so slowly that other people could have noticed? Or the opposite - being so fidgety or restless that you have been moving around a lot more than usual.: Not at all Thoughts that you would be better off or hurting yourself in some way: Not at all Patient Health Questionnaire-9 Score: 0 Florez Fall Risk History of Falling, Immediate or Within 3 Months: No Health Risk Assessment Form Do you need help eating, bathing, using the toilet, dressing, or getting around your home?: No Can you prepare your own meals?: Yes Can you do your own housework without help?: Yes Can you shop for groceries or clothes without help?: Yes Do you exercise for about 20 minutes 3 or more days a week?: Yes How confident are you that you can control and manage most of your health problems?: Very confident Can you mange your money, credit cards and accounts, pay bills and taxes?: Yes Vision Screening: Yes, no gross abnormalities Hearing Screening: Yes, no gross abnormalities Cognitive Screening Self Assessment: No overt cognitive deficiency is apparent by direct observation Three Word Registration: Apple, Watch, [place] Clock Drawing: Normal Clock - 2 Three Word Recall: 2/3 words correct - 2 Total Score (0-5 Points): 4 Pain Assessment Pain Score: 7 Advance Care Planning Do you have a living will?: Yes Do you have a medical power of criminal attorney?: Yes Objective : BP 128/70 Pulse 54 Resp 16 Ht 5' 8 Wt 203 lb 6.4 oz SpO2 96% BMI 30.93 kg/m No results found. Physical Exam Constitutional: General: He is not in acute distress. Appearance: Normal appearance. HENT: Head: Normocephalic and atraumatic. Right Ear: Tympanic membrane and ear canal normal. Decreased hearing noted. Left Ear: Ear canal normal. Tympanic membrane is scarred. Ears: Comments: Wears hearing aids bilaterally Nose: Nose normal. Mouth/Throat: Mouth: Mucous membranes are moist. Pharynx: Oropharynx is clear. Eyes: General: No scleral icterus. Extraocular Movements: Extraocular movements intact. Conjunctiva/sclera: Conjunctivae normal. Pupils: Pupils are equal, round, and reactive to light. Neck: Vascular: No carotid bruit. Cardiovascular: Rate and Rhythm: Normal rate and regular rhythm. Pulses: Normal pulses. Pulmonary: Effort: Pulmonary effort is normal. Breath sounds: Normal breath sounds. No wheezing, rhonchi or rales. Abdominal: General: Bowel sounds are normal. There is no distension. Palpations: Abdomen is soft. Tenderness: There is no abdominal tenderness. There is no guarding. Musculoskeletal: General: No swelling, tenderness, deformity or signs of injury. Normal range of motion. Cervical back: Normal range of motion. No tenderness. Right lower leg: Edema present. Left lower leg: Edema present. Lymphadenopathy: Cervical: No cervical adenopathy. Skin: General: Skin is warm and dry. Findings: No erythema. Neurological: General: No focal deficit present. Mental Status: He is alert and oriented to person, place, and time. Cranial Nerves: No cranial nerve deficit. Sensory: No sensory deficit. Motor: No weakness. Coordination: Coordination normal. Gait: Gait normal. Psychiatric: Mood and Affect: Mood normal. Behavior: Behavior normal. Thought Content: Thought content normal. Judgment: Judgment normal. Assessment/Plan : The following health maintenance schedule was reviewed with the patient and provided in printed form in the after visit summary: Health Maintenance Topic Date Due Diabetes: Hemoglobin A1C 02/20/2024 Medicare Annual Wellness (AWV) 06/01/2024 Diabetes: Urine Protein Screening 12/09/2024 Diabetes: Retinopathy Screening 10/15/2025 Colorectal Cancer Screening 06/02/2026 Influenza Vaccine Completed Pneumococcal Vaccine: 65+ Years Completed Advance Care Planning Has ACP in place. 1. Medicare annual wellness visit, subsequent (Primary) Reviewed all relevant preventative screenings with the patient in detail. Medicare Wellness form completed and will be scanned into patient's chart. All needed testing was ordered. Will continue with yearly Medicare Wellness exams. - Lipid panel - PSA - HEPATITIS C AB W/RFL RNS, PCR W/RFL GENOTYPE,LIPA 2. ACP (advance care planning) Patient willing to discuss ACP. Pt has Living Will and DPOA in place. 3. Type 2 diabetes mellitus with other specified complication, without long-term current use of insulin (CMS/HCC) Last HgbA1c was elevated at 8.1. Discussed diet modification today. [facility] - Lipid panel 4. Mixed hyperlipidemia (CMS/HCC) This is a chronic medical condition that is stable since last assessment. No changes in treatment are suggested at this time. Will continue to monitor with routine labs. - Lipid panel 5. Screening for malignant neoplasm of prostate Will check PSA with today's labs. Continue routine monitoring. - PSA 6. Other problems related to lifestyle Patient was born in 1951. He is agreeable to Hep C screening. - HEPATITIS C AB W/RFL RNS, PCR W/RFL GENOTYPE,LIPA 7. Benign neoplasm of brain, unspecified brain region (CMS/HCC) This is a chronic medical condition that is stable since last assessment. No changes in treatment are suggested at this time. 8. Hypersomnia This is a chronic medical condition that is stable since last assessment. No changes in treatment are suggested at this time. 9. Inadequate sleep hygiene This is a chronic medical condition that is stable since last assessment. No changes in treatment are suggested at this time. 10. PRAVIN (obstructive sleep apnea) The patient is seeing a medical claims assistant for this condition, treatment is deferred to that specialist. Correspondence from that specialist and any available testing were reviewed during today's visit. 11. Paresthesia This is a chronic medical condition that is stable since last assessment. No changes in treatment are suggested at this time. 12. PLMD (periodic limb movement disorder) This is a chronic medical condition that is stable since last assessment. No changes in treatment are suggested at this time. 13. Polyneuropathy This is a chronic medical condition that is stable since last assessment. No changes in treatment are suggested at this time. 14. RLS (restless legs syndrome) This is a chronic medical condition that is stable since last assessment. No changes in treatment are suggested at this time. 15. Chronic obstructive pulmonary disease, unspecified COPD type (CMS/HCC) The patient is seeing a medical claims assistant for this condition, treatment is deferred to that specialist. Correspondence from that specialist and any available testing were reviewed during today's visit. 16. Dyspnea on exertion The patient is seeing a medical claims assistant for this condition, treatment is deferred to that specialist. Correspondence from that specialist and any available testing were reviewed during today's visit. 17. Hard to intubate, sequela The patient is seeing a medical claims assistant for this condition, treatment is deferred to that specialist. Correspondence from that specialist and any available testing were reviewed during today's visit. 18. Snoring The patient is seeing a medical claims assistant for this condition, treatment is deferred to that specialist. Correspondence from that specialist and any available testing were reviewed during today's visit. 19. Atrial fibrillation, unspecified type (CMS/HCC) This is a chronic medical condition that is stable since last assessment. No changes in treatment are suggested at this time. 20. Coronary artery disease involving [place] heart without angina pectoris, unspecified vessel or lesion type (CMS/HCC) This is a chronic medical condition that is stable since last assessment. No changes in treatment are suggested at this time. 21. Primary hypertension (CMS/HCC) Patient's blood pressure is currently well controlled. Continue with current medications and I will continue to monitor. Goal BP remains less than 130/80. 22. 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 Correspondence from that specialist and any available testing were reviewed during today's visit. 23. Degeneration of intervertebral disc of lumbar region with discogenic back pain This is a chronic medical condition that is stable since last assessment. No changes in treatment are suggested at this time. 24. Edema of lower extremity This is a chronic medical condition that is stable since last assessment. No changes in treatment are suggested at this time. 25. Generalized osteoarthritis This is a chronic medical condition that is stable since last assessment. No changes in treatment are suggested at this time. 26. Internal derangement of left shoulder This is a chronic medical condition that is stable since last assessment. No changes in treatment are suggested at this time. 27. Complete tear of left rotator cuff, unspecified whether traumatic This is a chronic medical condition that is stable since last assessment. No changes in treatment are suggested at this time. 28. Chronic maxillary sinusitis This is a chronic medical condition that is stable since last assessment. No changes in treatment are suggested at this time. 29. Thrombophlebitis This is a chronic medical condition that is stable since last assessment. No changes in treatment are suggested at this time. 30. Chronic bilateral low back pain without sciatica This is a chronic medical condition that is stable since last assessment. No changes in treatment are suggested at this time. 31. Deviated nasal septum This is a chronic medical condition that is stable since last assessment. No changes in treatment are suggested at this time. 32. Localized edema This is a chronic medical condition that is stable since last assessment. No changes in treatment are suggested at this time. 33. Exposure to potentially hazardous substance This is a chronic medical condition that is stable since last assessment. No changes in treatment are suggested at this time. 34. History of asbestos exposure This is a chronic medical condition that is stable since last assessment. No changes in treatment are suggested at this time. 35. Hearing loss of right ear, unspecified hearing loss type This is a chronic medical condition that is stable since last assessment. No changes in treatment are suggested at this time. 36. History of cardiovascular disorder This is a chronic medical condition that is stable since last assessment. No changes in treatment are suggested at this time. 37. History of tobacco use This is a chronic medical condition that is stable since last assessment. No changes in treatment are suggested at this time. 38. Hypertrophy of nasal turbinates This is a chronic medical condition that is stable since last assessment. No changes in treatment are suggested at this time. 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 No changes in treatment are suggested at this time. 40. Type 2 diabetes mellitus with hyperglycemia ([facility]/HCC) Last HgbA1c was elevated at 8.1. Discussed diet modification today. He has this monitored through the OR. Follow up in about 6 months (around 06/21/2024) for Diabetes, Hypertension. Electronically signed by Mel Cabello PA-C on December 22, 2023 documented in this encounter [facility] 12-10-2023 History of Presen t illness Narrative Images from the original note were not included. Subjective Patient ID: Singh Berry is a 73 y.o. male who presents for sinusitis. Singh is present today for follow up sinusitis. He was seen in office 11/21/23 Dx. Sinusitis, Rx Augmentin. States he has had this since August and just can't seem to get over it. He saw Dr. Espinal yesterday and he diagnosed him with COPD and rx'd Stiloto. Does feel that the Stiloto has helped with the SOB. ATB helped then symptoms came back again. Admits post sinus drainage, headaches off/on, cough with clear phlegm, SOB, wheezing (improved some). Went to [place] in July and the pollen count was high. Came back and mowed the lawn and symptoms have lingered since then. Current Outpatient Medications on File Prior to Visit Medication Sig Dispense Refill tiotropium-olodaterol (Stiolto Respimat) 2.5-2.5 MCG/ACT aerosol solution inhaler 1 (one) time each day at the same time albuterol HFA 90 mcg/act inhaler INHALE 2 [...] time each day at the same time. empagliflozin (Jardiance) 25 MG Take 0.5 tablets by mouth Daily losartan (Cozaar) 100 MG tablet 1 (one) time each day at the same time. metFORMIN, OSM, (Fortamet) 1000 MG 24 hr tablet Take 1,000 mg by mouth in the morning and 1,000 mg in the evening. Take with meals. metoprolol tartrate (Lopressor) 50 MG tablet every 12 (twelve) hours. No current facility-administered medications on file prior [...] History: Diagnosis Date ASHD (arteriosclerotic heart disease) (CMS/HCC) Asthma, moderate persistent (CMS/HCC) Atrial fibrillation (CMS/HCC) Chronic sinusitis COPD (chronic obstructive pulmonary disease) ([facility]/HCC) Diabetes (CMS/HCC) Disorder of prostate DNS (deviated nasal septum) Hyperlipidemia (CMS/HCC) Hypertension (CMS/HCC) PE (pulmonary thromboembolism) ([facility]/HCC) 01/2022 Sleep apnea Past Surgical History: Procedure Laterality Date BACK SURGERY CARDIAC CATHETERIZATION 2010 LUMBAR DISCECTOMY 2021 LUMBAR DISCECTOMY 2010 L4-5 SHOULDER ARTHROSCOPY Right 05/04/2015 DR LUTZ SHOULDER ARTHROSCOPY Left 09/30/2019 DR LUTZ SHOULDER SURGERY SINUS SURGERY 01/2022 Visit Vitals BP 132/70 Pulse 58 Temp 97.1 F Resp 16 Ht 5' 8 Wt 203 lb 9.6 oz SpO2 97% BMI 30.96 kg/m Smoking Status Former BSA 2.11 m Review of Systems Constitutional: Negative for chills, fatigue and fever. HENT: Positive for rhinorrhea. Respiratory: Positive for cough, shortness of breath and wheezing. Cardiovascular: Negative for chest pain, palpitations and leg swelling. Gastrointestinal: Negative for abdominal pain, constipation, diarrhea, nausea and vomiting. Skin: Negative for rash. Neurological: Positive for headaches. Objective Physical Exam Constitutional: General: He is not in acute distress. Appearance: Normal appearance. HENT: Head: Normocephalic and atraumatic. Right Ear: Tympanic membrane and ear canal normal. Decreased hearing noted. Left Ear: Ear canal normal. Tympanic membrane is erythematous. Ears: Comments: Wears hearing aids. Nose: Congestion present. Right Turbinates: Swollen. Left Turbinates: Not swollen. Right Sinus: No maxillary sinus tenderness or frontal sinus tenderness. Left Sinus: No maxillary sinus tenderness or frontal sinus tenderness. Comments: Turbinates erythematous on the right. Mouth/Throat: Mouth: Mucous membranes are moist. Pharynx: No posterior oropharyngeal erythema. Eyes: General: No scleral icterus. Cardiovascular: Rate and Rhythm: Normal rate and regular rhythm. Heart sounds: No murmur heard. Pulmonary: Effort: Pulmonary effort is normal. No respiratory distress. Breath sounds: Normal breath sounds. No wheezing, rhonchi or rales. Musculoskeletal: Right lower leg: Edema present. Left lower leg: Edema present. Lymphadenopathy: Cervical: No cervical adenopathy. Skin: General: Skin is warm and dry. Neurological: General: No focal deficit present. Mental Status: He is alert and oriented to person, place, and time. Psychiatric: Mood and Affect: Mood normal. Behavior: Behavior normal. Assessment/Plan Diagnoses and all orders for this visit: Right acute otitis media - cefdinir (Omnicef) 300 MG capsule; Take 1 capsule (300 mg) by mouth in the morning and 1 capsule (300 mg) before bedtime. Do all this for 10 days. Start the above as directed. Reviewed potential s/e with patient. Encouraged probiotic while on antibiotic. Increase water intake, get plenty of rest. Can continue to use Flonase for symptomatic relief. Tylenol prn. Follow up if no improvement in one week. Type 2 diabetes mellitus with other specified complication, without long-term current use of insulin ([facility]) - Microalbumin / creatinine, urine ratio; Future Urine sample obtained today for Microalbumin. COPD Continue Stiolto as prescribed by Pulmonology. Is perceiving benefit. Follow up for Appointment As Scheduled. documented in this encounter [facility] 11-21-2023 History of Presen t illness Narrative Images from the original note were not included. HPI Establish Care Additional comments: Sees dr cali-cardiology Goes to OR--gets meds through OR Dr brush Last edited by Herminia Hammond LPN on 11/21/2023 9:04 AM. Subjective Patient ID: Singh Berry is a 73 y.o. male who presents for Establish Care (Sees dr cali-cardiology/Goes to [facility]-gets meds through OR/Dr brush/), Diabetes, Hypertension, and Cough. Diabetes Mellitus Patient presents for follow up of diabetes. Current symptoms include: paresthesia of the feet. Symptoms have stabilized. Patient denies foot ulcerations, hypoglycemia , polydipsia, polyuria, visual disturbances, and vomiting. Evaluation to date has included: fasting blood sugar, fasting lipid panel, hemoglobin A1C, and microalbuminuria. Home sugars: BGs range between 120 and 150. Hypertension Patient is here for follow-up of elevated blood pressure. Blood pressure is well controlled at home. Cardiac symptoms: none Patient denies chest pain, claudication, near-syncope, orthopnea, palpitations, syncope, and tachypnea. Cardiovascular risk factors: advanced age (older than 55 for men, 65 for women), diabetes mellitus, hypertension, male gender, and obesity (BMI >= 30 kg/m2) . Cough Patient complains of productive cough and post nasal drainage. Symptoms began 3 months ago. Symptoms have been unchanged since that time.The cough is productive and is aggravated by post nasal drainage. Diabetes Hypertension Cough Current Outpatient Medications on File Prior to [...] time each day at the same time. empagliflozin (Jardiance) 25 MG Take 0.5 tablets by mouth Daily losartan (Cozaar) 100 MG tablet 1 (one) time each day at the same time. metFORMIN, OSM, (Fortamet) 1000 MG 24 hr tablet Take 1,000 mg by mouth in the morning and 1,000 mg in the evening. Take with meals. metoprolol tartrate (Lopressor) 50 MG tablet every 12 (twelve) hours. [DISCONTINUED] clonazePAM (KlonoPIN) 0.5 MG tablet Take 0.5 mg by mouth in the morning and 0.5 mg before bedtime. [DISCONTINUED] fluticasone (Flonase) 50 MCG/ACT nasal spray Administer 2 sprays into each nostril Daily Shake gently. Before first use, prime pump. After use, clean tip and replace cap. (Patient not taking: Reported on 07/10/2023) 16 g 1 [DISCONTINUED] metFORMIN (Glucophage) 500 MG tablet Take 500 mg by mouth in the morning and 500 mg in the evening and 500 mg before bedtime. No current facility-administered medications on file prior [...] History: Diagnosis Date ASHD (arteriosclerotic heart disease) (CMS/HCC) Asthma, moderate persistent (CMS/HCC) Atrial fibrillation (CMS/HCC) Chronic sinusitis COPD (chronic obstructive pulmonary disease) (CMS/HCC) Diabetes (CMS/HCC) Disorder of prostate DNS (deviated nasal septum) Hyperlipidemia (CMS/HCC) Hypertension (CMS/HCC) PE (pulmonary thromboembolism) (CMS/HCC) 01/2022 Sleep apnea Past Surgical History: Procedure Laterality Date BACK SURGERY CARDIAC CATHETERIZATION 2010 LUMBAR DISCECTOMY 2021 LUMBAR DISCECTOMY 2010 L4-5 SHOULDER ARTHROSCOPY Right 05/04/2015 DR LUTZ SHOULDER ARTHROSCOPY Left 09/30/2019 DR LUTZ SHOULDER SURGERY SINUS SURGERY 01/2022 Visit Vitals BP 134/64 Pulse 68 Ht 5' 8 Wt 203 lb SpO2 95% BMI 30.87 kg/m Smoking Status Former BSA 2.1 m Review of Systems Respiratory: Positive for cough. Objective Physical Exam Constitutional: Appearance: Normal appearance. HENT: Nose: Comments: Tenderness over bilateral maxillary sinuses. Nasal mucosa swollen on the left, no purulence noted. Mouth/Throat: Mouth: Mucous membranes are moist. Pharynx: Oropharynx is clear. No oropharyngeal exudate or posterior oropharyngeal erythema. Cardiovascular: Rate and Rhythm: Normal rate. Pulmonary: Effort: Pulmonary effort is normal. Breath sounds: Normal breath sounds. Musculoskeletal: Right lower leg: Edema present. Left lower leg: Edema present. Skin: General: Skin is warm and dry. Neurological: Mental Status: He is alert and oriented to person, place, and time. Psychiatric: Mood and Affect: Mood normal. Behavior: Behavior normal. Office Visit on 11/21/2023 Component Date Value Ref Range Status Hemoglobin A1C 11/21/2023 8.3 Final NONINV COLON CA DNA+OCC BLD SCRN S* 06/03/2023 neg Final NONINV COLON CA DNA+OCC BLD SCRN S* 06/03/2023 Negative Final Assessment/Plan Diagnoses and all orders for this visit: Acute maxillary sinusitis, recurrence not specified - amoxicillin-clavulanate (Augmentin) 875-125 MG tablet; Take 1 tablet (875 mg) by mouth in the morning and 1 tablet (875 mg) before bedtime. Do all this for 10 days. Type 2 diabetes mellitus with other specified complication, without long-term current use of insulin ([facility]) - POCT Glycated hemoglobin, total Mixed hyperlipidemia ([facility]) Follow up in about 4 weeks (around 12/19/2023) for Wellness. documented in this encounter [facility] 11-10-2023 Telephone encounter Note Would like to become a new patient. Doctor Grayson was the previous doctor in the [facility] system [facility] 11-10-2023 Miscellaneous Notes Would like to become a new patient. Doctor Grayson was the previous doctor in the [facility] system documented in this encounter [facility] 08-15-2023 Note [facility] Subjective Singh Berry is a 73 y.o. year old male patient being seen to re-establish care. He has been seeing [facility] for the past 1.5 years. Says he had ENT surgery with Dr. Mendes at [facility] in Jan 2022. Says they discovered DVT that traveled to his lungs. Also says he went into afib at that time. He was started on Eliquis. He denies chest pain, SOB, and palpitations. Denies bleeding on Eliquis. Wonders if he needs to continue Eliquis since he's asymptomatic. He follows with Dr. Espinal of pulmonology. 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 He is a 73-year-old man well-known to me. In the past 1-1/2 years he was following with another cardiology group but he is back to reestablish care with us. He has history of coronary artery disease, hypertension and hyperlipidemia. Cardiac catheterization in 2010 showed 50% circumflex stenosis. In January 2022 and following ENT surgery he had pulmonary embolism and was started on anticoagulation with Eliquis. In addition he went into atrial fibrillation at that time. Currently he reports that he has been doing well. He denies chest pain, palpitations, leg edema. He has good exercise tolerance. He has shortness of breath occasionally with heavy exertion. He has COPD and follows with pulmonary. Review of Systems Respiratory: Positive for cough. Musculoskeletal: Positive for arthritis, back pain, joint pain and myalgias. Objective Visit Vitals BP 130/72 (BP Location: Left arm, Patient Position: Sitting) Pulse 60 Ht 1.753 m (5' 9 ) Wt 95.3 kg (210 lb) SpO2 96% BMI 31.01 kg/m??? Smoking Status Former BSA 2.15 m??? Physical Exam Constitutional: Appearance: He is well-developed. He is obese. He is not ill-appearing. HENT: Head: Normocephalic and atraumatic. Nose: Nose normal. Eyes: General: No scleral icterus. Pupils: Pupils are equal, round, and reactive to light. Neck: Thyroid: No thyromegaly. Vascular: No JVD. Cardiovascular: Rate and Rhythm: Normal rate and regular rhythm. Pulses: Radial pulses are 2+ on the right side and 2+ on the left side. Heart sounds: Normal heart sounds. No murmur heard. No friction rub. No gallop. Pulmonary: Effort: Pulmonary effort is normal. No respiratory distress. Breath sounds: Normal breath sounds. No wheezing or rales. Chest: Chest wall: No tenderness. Abdominal: General: Bowel sounds are normal. There is no distension. Palpations: Abdomen is soft. Tenderness: There is no abdominal tenderness. Musculoskeletal: General: No swelling. Cervical back: Neck supple. Skin: General: Skin is warm and dry. Neurological: General: No focal deficit present. Mental Status: He is alert and oriented to person, place, and time. Psychiatric: Mood and Affect: Mood normal. Behavior: Behavior is cooperative. Judgment: Judgment normal. Allergies Allergies Allergen Reactions Lisinopril Cough Medications Current Outpatient Medications: amLODIPine (Norvasc) 10 mg tablet, Take 1 tablet every day by oral route., Disp: , Rfl: apixaban (Eliquis) 5 mg tablet, Take 5 mg by mouth in the morning and at bedtime., Disp: , Rfl: atorvastatin (Lipitor) 80 mg tablet, Take 80 mg by mouth at bedtime., Disp: , Rfl: losartan (Cozaar) 100 mg tablet, Take 1 tablet every day by oral route for 90 days., Disp: , Rfl: metFORMIN (Glucophage) 500 mg tablet, Take 1,000 mg by mouth with breakfast and with evening meal., Disp: , Rfl: metoprolol tartrate (Lopressor) 50 mg tablet, Take 1 tablet twice a day by oral route., Disp: , Rfl: budesonide-formoteroL (Symbicort) 160-4.5 mcg/actuation inhaler, Inhale 2 puffs twice a day by inhalation route., Disp: , Rfl: Recent Labs None available. Imaging and other tests Echocardiogram 01/31/2022: Moderate left ventricular hypertrophy, ejection fraction (more content not included)... [facility] 03-05-2022 Evaluation + Plan note Future Scheduled TestsLipid Panel 03/05/22NM Myocardial Spect Rest/Stress 1 Day 03/05/22 [facility] 03-05-2022 Evaluation + Plan note Future Scheduled TestsLipid Panel 03/05/22 [facility] 02-03-2022 Evaluation + Plan note Extrac dl from: Title:Clinical Document Author:Vaughn SALEEM, Lopez Pacheco Date:02/03/22 ENT POD 3 Pt comfortable. Tolerating lovenox. 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 OKK for d/c from my standpoint. Pt to hold his Hilda PM and Fri AM shots in anticipation of splint removal and sinus debridement Friday Extracted from: Title:Discharge Note Author:Sena SALEEM, Ramo Bucio Date:02/03/22 Discharge To, Anticipated II - Home independently Discharge Diet(s): Calorie Controlled- 1800 Calorie Diet, Regular (02/02/22 11:46:00) Discharge Diet(s): Regular (01/31/22 13:27:00) Prescriptions Lovenox 100 mg/mL SC Nicole, 90 mg, SubCutaneous, q12hr Home amLODIPine 10 mg Tab, 10 mg= 1 tab(s), Oral, Daily atorvastatin 80 mg Tab, 80 mg= 1 tab(s), Oral, Daily losartan 100 mg Tab, 100 mg= 1 tab(s), Oral, Daily metformin 500 mg ER Tab, 500 mg= 1 tab(s), Oral, TID metoprolol 50 mg ER Tab, 50 mg= 1 tab(s), Oral, BID ProAir HFA, 2 puff(s), Inhalation, q6hr, PRN With When Contact Information Lopez Mendes In 8 days 02/08/2022 EST [address] [place] [address]- Business (1) Additional Instructions: Matti Moscoso MD Within 2 weeks [address] [place] [address]- [phone] Additional Instructions: Post Op Patient Instructions - FT (CUSTOM) Septoplasty, Care After Extracted from: Title:Progress/SOAP Note Author:Shar Moscoso MD Date:02/03/22 1. Bilateral pulmonary embol ism (I26.99: Other pulmonary embolism without acute cor pulmonale) Patient has transitioned nicely from IV heparin to IV Lovenox and thus far has had no further bleeding issues from his nose. Would recommend continuing Lovenox 1 mg/kg SQ twice daily for his DVT and pulmonary embolism until his packing will be removed this upcoming Friday. Once his packing is removed and he has demonstrated no further bleeding he will then transition to Eliquis 5 mg p.o. twice daily. He has had no further atrial fibrillation since 2 days ago. He will continue his metoprolol therapy. Patient will continue anticoagulation therapy for 3 months time at which time we will repeat his echocardiogram to see if his pulmonary pressures have normalized. Patient reports that he is up-to-date on his cancer screening. Patient to be discharged home from a cardiac standpoint and follow-up with Dr. Moscoso going forward. We will sign off, please call with any questions. 2. Atrial fibrillation (I48.91: Unspecified atrial fibrillation) 3. Chronic sinusitis (J32.9: Chronic sinusitis, unspecified) 4. DNS (deviated nasal septum) (J34.2: Deviated nasal septum) 5. COPD (chronic obstructive pulmonary disease) (J44.9: Chronic obstructive pulmonary disease, unspecified) 6. Asthma (J45.909: Unspecified asthma, uncomplicated) 7. Sleep apnea (G47.30: Sleep apnea, unspecified) 8. Diabetes (E11.9: Type 2 diabetes mellitus without complications) 9. Hypertension (I10: Essential (primary) hypertension) 10. Hyperlipidemia (E78.5: Hyperlipidemia, unspecified) Extracted from: Title:Clinical Document Author:Vaughn SALEEM, Lopez Pacheco Date:02/02/22 ENT POD [address] Moscoso note noted PTT therapeutic No sig ant nasal bleeding and no active bleeding or clot in the post OP So far pt tolerating heparin very well without any sig bleeding. Appreciate efforts on Mr Berry's behalf. I will continue to follow and be available. Extracted from: Title:Progress/SOAP Note Author:Mikey SALEEM, Shar Pickard Date:02/02/22 1. Bilateral pulmonary embol ism (I26.99: Other pulmonary embolism without acute cor pulmonale) Patient initially presented with chest pain and atrial fibrillation and was found to have bilateral pulmonary embolism as well as lower extremity DVTs. Patient has been tolerating IV heparin drip with out a bolus rather well, without any evidence of overt bleeding at this time. We will continue IV heparin drip until consultation with Dr. Mcgill has determine whether he will require DVT filter or not. We continue IV heparin drip 1 more day to keep PTT around 50 so as to avoid nasal bleeding. If there are no plans for DVT filter, we can consider transitioning him to subcu Lovenox for discharge home followed by danny Zamora once his wound has completely healed. The patient has converted back to normal sinus rhythm but has had some breakthrough with PACs and occasional self terminating SVT. He will continue his metoprolol therapy. At some point once he is recovered from his pulmonary embolism he may require a stress test to evaluate for possible coronary ischemia given his newly discovered atrial fibrillation and abnormal troponin. His abnormal troponin may have been from acute right ventricular strain due to his pulmonary embolism. We will hold on baby aspirin at the request of ENT. Will follow with you until discharge. Patient may follow-up with Dr. Moscoso going forward as an outpatient. 2. Atrial fibrillation (I48.91: Unspecified atrial fibrillation) 3. Chronic sinusitis (J32.9: Chronic sinusitis, unspecified) 4. DNS (deviated nasal septum) (J34.2: Deviated nasal septum) 5. COPD (chronic obstructive pulmonary disease) (J44.9: Chronic obstructive pulmonary disease, unspecified) 6. Asthma (J45.909: Unspecified asthma, uncomplicated) 7. Sleep apnea (G47.30: Sleep apnea, unspecified) 8. Diabetes (E11.9: Type 2 diabetes mellitus without complications) 9. Hypertension (I10: Essential (primary) hypertension) 10. Hyperlipidemia (E78.5: Hyperlipidemia, unspecified) Extracted from: Title:Clinical Document Author:Lopez Mendes MD Date:02/01/22 ENT POD 1 Pt resting comfortably in bed. Discussed with both Drs. Moscoso and Sena. Greatly appreciate their care of Mr. Berry. Findings of PE and DVT noted. Pt now almost 5 hours into heparin drip without bolus. So far no significant increase in expected post op bleeding noted. Addendum by Ab Mendes MD on February 01, 2022 16:58 EST Pt notified the LE doppler showed some blood clots, primarily of the left LE. He reports that he had left LE swelling prior to his recent discharge from [facility]. Extracted from: Title:Clinical Document Author:Lopez Mendes MD Date:02/01/22 ENT POD 1 Pt resting comfortably. No SOB or pain. LE doppler and CTA completed, but results not on chart. Tentative dx of a PE noted. Mr Berry has a moderate, but expected amount of bleeding post op, and this would not be of concern if not for the possible need for anticoagulation. This amount of drainage would normally be expected to last 3-4 days, and anticoagulant meds would be held until pt's post op debridement and splint removal one week from today. I will coordinate management with cardiology and IM once testing completed. Extracted from: Title:Progress/SOAP Note Author:Shar Moscoso MD Date:02/01/22 1. Atrial fibrillation (I48. 91: Unspecified atrial fibrillation) Patient presented with postop chest pain and atrial fibrillation of new onset. He has subsequently cardioverted to normal sinus rhythm last evening. Patient reports that he had a CT scan and reportedly had a pulmonary embolism although those results are not yet in the computer. Lower extremity Dopplers are pending per the patient. If the patient truly has a pulmonary embolism we will need to decide about anticoagulation therapy and my suggestion would be for IV heparin so that we can titrate his PTT, but if this is not an option the patient may require a DVT filter in lieu of anticoagulation. We will need to discuss this with the patient's nasal surgeon. In the meantime the patient will continue his antihypertensive medications of amlodipine, losartan and metoprolol. 2D echo has described above showed intact LV function and moderate pulm hypertension with an RVSP of 47 mmHg which may be acutely elevated if indeed the patient had a pulmonary embolism. We do not have any comparative studies. Patient's troponins were negative, so no plans for stress test or cardiac catheterization at this time. Will follow with you. Please call with any questions. Patient may follow-up with his primary electronics system mechanic in [place] or with Dr. Moscoso if he so prefers. 2. Chronic sinusitis (J32.9: Chronic sinusitis, unspecified) 3. DNS (deviated nasal septum) (J34.2: Deviated nasal septum) 4. COPD (chronic obstructive pulmonary disease) (J44.9: Chronic obstructive pulmonary disease, unspecified) 5. Asthma (J45.909: Unspecified asthma, uncomplicated) 6. Sleep apnea (G47.30: Sleep apnea, unspecified) 7. Diabetes (E11.9: Type 2 diabetes mellitus without complications) 8. Hypertension (I10: Essential (primary) hypertension) 9. Hyperlipidemia (E78.5: Hyperlipidemia, unspecified) Orders: metoprolol, 5 mg = 5 mL, Injection, IV Push, Once PRN Chest pain, NOW, Start date 01/31/22 13:54:00 EST, 01/31/22 13:54:00 EST metoprolol, Injection, Misc, Once, Stop date 01/31/22 13:53:58 EST, Physician Stop, 01/31/22 13:53:58 EST Echo Transthoracic Complete Extracted from: Title:Admission H & P Author:Ramo Shetty MD S Date:01/31/22 71-year-old male with past m edical history of hypertension, hyperlipidemia, diabetes, COPD, asthma, prior smoker, PRAVIN on CPAP, chronic sinusitis, deviated nasal septum, obesity presented for bilateral maxillary antrostomy, bilateral inferior turbinate submucosal resection and septoplasty. New onset A. fib No history of A. fib, CAD Echocardiogram today with EF 60 to 65%, unable to quantify diastolic dysfunction due to atrial fibrillation, mild TR, moderate pulmonary hypertension, increased right atrial pressure Given echocardiogram findings we will check stat BMP, D-dimer. Will order CTA chest after BMP Trend troponin. Check TSH, potassium, magnesium Telemetry Consult cardiology Restart home metoprolol. Patient did not take home medications today No antiplatelet therapy, anticoagulation for 1 week then next Friday per ENT. Discussed with / Mikey Chronic sinusitis Deviated nasal septum For surgery. LR at 150 cc/h COPD/asthma Not in acute exacerbation PRAVIN Complaint with CPAP Diabetes On metformin Hypertension On metoprolol, losartan, amlodipine Hyperlipidemia On atorvastatin Obesity BMI around 30. Lifestyle modifications Diet: diabetic Code: Full code DVT prophylaxis: SCDs Dispo: observation; anticipated hosp stay <2 midnights This report was transcribed using voice recognition software. Every effort was made to ensure accuracy, however, inadvertently computerized batch unit treater mistakes may be present. Dr. Ramo Shetty Hospitalist Extracted from: Title:Consult Note Author:Matti Moscoso MD te:01/31/22 1. Atrial fibrillation: The patient presents with new onset atrial fibrillation postoperatively after sinus surgery. My hope is that the patient will revert back to normal sinus rhythm. We will hold off on anticoagulation for period of 7 days to allow his sinus surgery to heal. Recommend giving the patient baby aspirin, losartan, metoprolol and amlodipine. If he did not receive his metoprolol today we will give it to him by mouth postoperatively. We will start with Lopressor 5 mg IV every 6 hours as needed for heart rate greater than 100. Patient will be admitted to the hospitalist service and we will follow in consultation. In addition would recommend obtaining a 2D echo with Doppler to document his LV function, pulmonary pressures. The patient has elevated pulmonary pressures would consider possibility of perioperative pulmonary embolism. I have given the patient the option of following up with me in the office going forward. If the patient's atrial fibrillation persists he require anticoagulation for least 3 weeks time followed by DC cardioversion if he does not convert on his own. Thank you very much for the opportunity to participate in the cardiac care of your patient. Consultation time took place between 130 and 2 PM. Discussed with anesthesia. Chronic maxillary sinusitis (J32.0: Chronic maxillary sinusitis) DNS (deviated nasal septum) (J34.2: Deviated nasal septum) Hypertrophy of both inferior nasal turbinates (J34.3: Hypertrophy of nasal turbinates) Orders: metoprolol, 5 mg = 5 mL, Injection, IV Push, Once PRN Chest pain, NOW, Start date 12/01/22 13:54:00 EST, 01/31/22 13:54:00 EST metoprolol, Injection, Misc, Once, Stop date 01/31/22 13:53:58 EST, Physician Stop, 01/31/22 13:53:58 EST Echo Transthoracic Complete Extracted from: Title:DEEPA POSTOP Author:Gaetano Heredia DO Date: 01/31/22 Plan Transfer/ Discharge: To nursing unit, Patient can be discharged from PACU when criteria met, Patient can be discharged from anesthesia care. Condition stable, and transfer to hospitalist/cardiology service.. Extracted from: Title:DEEPA PREOP Author:Gaetano Heredia DO Date:04/03/21 Plan [place] [employer]esthesi[employer] (ASA) physical status classification: Class III. Anesthetic Preoperative Plan Anesthesia: General. . Anesthetic plan, risks, benefits, and alternatives discussed with the patient and/or family. Patient verbalized understanding. Anesthesia risks, benefits, alternatives discussed with patient and/or family/guardians. Risks discussed including but not limited to risks of nerve damage, injury, bleeding requiring transfusion, postop pulmonary complications, nausea, vomiting, sore throat, dental/oral injury, increase/decrease in HR or blood pressure, hoarseness, muscle or joint pain, heart complications discussed. Pt aware and desires to proceed. [facility]12-01-2022 Hospital Discharge instructions Patient Education 01/31/2022 13:06:40 Post Op Patient Instructions - FT (CUSTOM) 01/31/2022 13:06:40 Septoplasty, Care After Septoplasty, Care After This sheet gives you information about how to care for yourself after your procedure. Your health care provider may also give you more specific instructions. If you have problems or questions, contact your health care provider. What can I expect after the procedure? After the procedure, it is common to have: A mild headache. A stuffy nose. A feeling of fullness in your ears. Bloody fluid coming from your nose. Follow these instructions at home: Medicines Take osew-yaq-onhblib and prescription medicines only as told by your health care provider. If you were prescribed an antibiotic medicine, use it as told by your health care provider. Do not stop using the antibiotic even if you start to feel better. If you are taking prescription pain medicine, take actions to prevent or treat constipation. Your health care provider may recommend that you: ?Drink enough fluid to keep your urine pale yellow. ?Eat foods that are high in fiber, such as fresh fruits and vegetables, whole grains, and beans. ?Limit foods that are high in fat and processed sugars, such as fried or sweet foods. ?Take an pvbx-lkr-gxzvyay or prescription medicine for constipation. What to avoid Avoid eating hot and spicy foods for several days after surgery or as told by your health care provider. Do not blow your nose for 2 weeks after surgery or as told by your health care provider. Avoid strenuous activities for 2 weeks. These include activities such as running or playing sports.These activities can cause nosebleeds. Avoid straining when having a bowel movement. Straining can cause a nosebleed. Avoid very hot or steamy showers for several days after surgery or as told by your health care provider. Do not lift anything that is heavier than 10 lb (4.5 kg), or the limit that you are told, until your health care provider says that it is safe. General instructions You may be asked to clean your nostrils with an lulb-lhh-ycnkyry saline nasal spray. This will helpto clear the crusts and blood clots in your nose. Use it as told by your health care provider. Raise (elevate) your head while you are lying down. If you have nasal splints, follow your health care provider's instructions about removal. If your nose was packed with gauze, follow your health care provider's instructions about removal. Keep all follow-up visits as told by your health care provider. This is important. Contact a health care provider if you: Develop swelling or increased pain in your nose. Have yellowish-white fluid (pus) coming from your nose. Have a fever. Have severe diarrhea. Have nausea that does not go away. Cannot breathe through your nose. Get help right away if you: Are short of breath. Feel dizzy or you faint. Have vision changes. Are bleeding heavily from your nose. Are vomiting. Have a severe headache or a stiff neck. Summary After the procedure, it is common to have a mild headache, stuffy nose, feeling of fullness in yourears, and bloody fluid coming from your nose. Follow instructions from your health care provider about food and fluids that you should avoid. Do not blow your nose for 2 weeks after the surgery. Do not lift anything that is heavier than 10 lb (4.5 kg), or the limit that you are told, until your health care provider says that it is safe. This information is not intended to replace advice given to you by your health care provider. Make sure you discuss any questions you have with your health care provider. Document Released: 02/17/2006 Document Revised: 12/04/2018 Document Reviewed: 03/27/2018 [employer] Patient Education 2020 [employer]. Follow Up Care 01/16/2022 12:57:23 With:Matti Moscoso MD Address: [address] [place] [phone] When:2 weeks With:Lopez Mendes Address: [address] [place] [address], [address] [place] [address] Business (1) When:02/08/2022 [facility]10-28-2022 NoteEXAMINATION: XR CHEST 2 V HISTORY: Pre-surgery evaluation COMPARISON: 01/30/2021 TECHNIQUE: PA and lateral FINDINGS: LUNGS: No significant pulmonary parenchymal abnormalities. VASCULATURE: No increased pulmonary vasculature. PLEURA: No pneumothorax, effusion, or pleural thickening. CARDIAC: No cardiomegaly or cardiac silhouette abnormality. MEDIASTINUM: No visible mass or adenopathy. BONES: Moderate degenerative disc disease and spondylosis without visible acute abnormalities. OTHER: Negative. IMPRESSION: No acute disease. Electronically authenticated by: ZANE HARP Date: 2021-12-28 17:57[facility] Future Appointments Appointment Date:03/19/2022 03:30:00 PM Scheduled Provider:Matti Moscoso MD Location[facility] Appointment Type:Cardiology Follow Up (FT) Future Scheduled Tests Laboratory* Lipid [facility] 03/05/22 [facility] Future Appointments Appointment Date:10/17/2022 09:40:00 AM Scheduled Provider:Stefan Saldana MD Location:[facility] Appointment Type:FM New Patient - Adult Future Scheduled Tests Laboratory* Lipid Panel [facility]05[facility]22 [facility] Future Appointments Appointment Date:11/25/2023 08:00:00 AM Scheduled Provider: Location:[facility] Appointment Type: Medicare Wellness Subsequent Appointment Date:01/09/2024 01:45:00 PM Scheduled Provider:Martin Rneteria MD Location:.[facility] Appointment Type:Cardiology Follow Up (FT) [facility] assessment information available [facility] Work Phone: Evaluation note* Diagnosis Right acute otitis media- Primary Unspecified otitis media Type 2 diabetes mellitus with other specified complication, without long-term current use of insulin (CMS/HCC) Chronic obstructive pulmonary disease, unspecified (CMS/HCC) documented in this encounter [facility]* Diagnosis Medicare annual wellness visit, subsequent- Primary ACP (advance care planning) Other specified counseling Type 2 diabetes mellitus with other specified complication, without long-term current use of insulin (CMS/HCC) Mixed hyperlipidemia (CMS/HCC) Mixed hyperlipidemia Screening for malignant neoplasm of prostate Other problems related to lifestyle Benign neoplasm of brain, unspecified brain region (CMS/HCC) Hypersomnia Hypersomnia, unspecified Inadequate sleep hygiene Other specific disorder of sleep of nonorganic origin PRAVIN (obstructive sleep apnea) Obstructive sleep apnea (adult) (pediatric) Paresthesia Disturbance of skin sensation PLMD (periodic limb movement disorder) Periodic limb movement disorder Polyneuropathy Unspecified hereditary and idiopathic peripheral neuropathy RLS (restless legs syndrome) Restless legs syndrome (RLS) Chronic obstructive pulmonary disease, unspecified COPD type (CMS/HCC) Dyspnea on exertion Other dyspnea and respiratory abnormality Hard to intubate, sequela Snoring Other dyspnea and respiratory abnormality Atrial fibrillation, unspecified type (CMS/HCC) Coronary artery disease involving [place] heart without angina pectoris, unspecified vessel or lesion type (CMS/HCC) Primary hypertension (CMS/HCC) Unspecified essential hypertension 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 (CMS/HCC) Degeneration of intervertebral disc of lumbar region with discogenic back pain Edema of lower extremity Generalized osteoarthritis Generalized osteoarthrosis, involving multiple sites Internal derangement of left shoulder Complete tear of left rotator cuff, unspecified whether traumatic Chronic maxillary sinusitis Thrombophlebitis Phlebitis and thrombophlebitis of unspecified site Chronic bilateral low back pain without sciatica Deviated nasal septum Localized edema Edema Exposure to potentially hazardous substance History of asbestos exposure Personal history of contact with and (suspected) exposure to asbestos Hearing loss of right ear, unspecified hearing loss type History of cardiovascular disorder Personal history of unspecified circulatory disease History of tobacco use Personal history of tobacco use, presenting hazards to health Hypertrophy of nasal 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 Type 2 diabetes mellitus with hyperglycemia ([facility]) documented in this encounter [facility] Healthcare[facility] note* Diagnosis Acute maxillary sinusitis, recurrence not specified- Primary Type 2 diabetes mellitus with other specified complication, without long-term current use of insulin ([facility]) Mixed hyperlipidemia ([facility]) Mixed hyperlipidemia documented in this encounter [facility] Healthcare[facility] note* Diagnosis Type 2 diabetes mellitus with other specified complication, without long-term current use of insulin ([facility])- Primary Acute non-recurrent sinusitis, unspecified location Effusion of left knee Chronic obstructive pulmonary disease, unspecified ([facility]) Unspecified atrial fibrillation ([facility]) documented in this encounter [facility] HealthcareEvaluation note* Diagnosis Acute pain of left knee Effusion of left knee documented in this encounter [facility] HealthcareEvaluation note* Diagnosis Acute bronchitis, unspecified organism- Primary Seasonal allergic rhinitis due to pollen documented in this encounter [facility] HealthcareHospital course Narrative No data available for this section [facility] No data available for this section [facility] No data available for this section [facility] Summary Purpose Family History No Family History Records Found Relationship Condition Age at Onset Recorded Date/T edy Not Specified No pertinent family history Unknown Advance Directives No Advanced Directives Records Found Advance Directive Response Recorded Date/ Time Advance Directives No September 17 10:37am Chief Complaint and Reason for Visit Chief Complaint Congestion, drainage Additional Source Comments Patient Care team informatio n (unrecognized section and content) Theatrical Trouper Relationship Specialty Start Date End Date Stefan Saldana MD PCP - General Family Medicine 08/22/22 Theatrical Trouper Relationship Specialty Start Date End Date Matti Gomez MD 112 [facility] 110 [place] [address] PCP - General Internal Medicine 11/21/23 Team Status: Active Member Role Status Dates Debora Casper MD Primary Care Provider Active Team Status: Inactive Member Role Status Dates Debora Casper MD Primary Care Provider Active S tart: November 04, 2023 End: November 04, 2023 Yeni Oakley APRN Attending Provider Active Start: November 04, 2023 End: November 04, 2023 Personnel Name: SHIRA WATSON MD Address: Address: [address] [place] [id number] Name: Domonique Caceres LPN Personnel Name: Stefan Saldana MD Address: Address: [address] [place] [id number] Name: Domonique Caceres LPN Personnel Name: DEBORA CASPER MD Address: Address: [address] [place] [address] Name: Domonique Caceres LPN (unrecognized sect ion and content) No Status Records FoundNo Status Records FoundNo Status Records FoundNo Status Records FoundNo Status Records Found INFORMATION SOURCE (unrecogn ized section and content) DATE CREATED AUTHOR 03/27/2022 [facility] DATE CREATED AUTHOR AUTHOR'S ORGANIZ ATION 07/07/2022 [facility] DATE CREATED AUTHOR AUTHOR'S ORGANIZ ATION 11/26/2023 [facility] DATE CREATED AUTHOR AUTHOR'S ORGANIZ ATION 07/19/2024 [facility] DATE CREATED AUTHOR AUTHOR'S ORGANIZ ATION 08/01/2024 [facility] dical Specialists EPIC Goals (unrecognized section and content) Goals may be documented in a n alternate section Reason for Visit (unrecogniz ed section and content) Reason Comments LAB RESULTS Would like results o f microalbumin urine. Reason Comments Establish Care [facility]-pulmonolgy Diabetes Hypertension Cough Reason Comments Pain Specialty Diagnoses / Procedures Referred By Rye t Referred To Contact Orthopaedic Surgery Diagnoses Effusion of left knee Matti Gomez MD [address] [place] [address] Phone: tel: fax: Jr. Kiesha Lutz, [address] [address] Phone: tel: fax: Referral ID Status Reason Start Date Expiration Date V isits Requested Visits Authorized [id number] Closed Specialty Services Required 04/19/2024 10/16/2024 1 1 Reason Comments URI FOR RECORDS PERTAINING TO PATIENTS WHO ARE OR HAVE BEEN ENROLLED IN A CHEMICAL DEPENDENCY/SUBSTANCEABUSE PROGRAM, SOME INFORMATION MAY BE OMITTED. This clinical summary was aggregated from multiple sources. Caution should be exercised in using it in the provision of clinical care. This summary normalizes information from multiple sources, and as a consequence, information in this document may materially change the coding, format and clinical context of patient data. In addition, data may be omitted in some cases. CLINICAL DECISIONS SHOULD BE BASED ON THE PRIMARY CLINICAL RECORDS. [employer] provides no warranty or guarantee of the accuracy or completeness of information in this document.
--- OUTSIDE RECORDS SUMMARY | 2024-08-10 07:09 | XMS_ITS | Encounter Summary ---
Author Organization [facility] Address [address] [facility] [place] [address] Care Team Providers Care Consulting Project Director Name Role Phone Matti Gomez MD Primary Care Provider [phone] Encounter Details Date Type Department Care Team (Latest Contact Info) Description 07/30/2024 Travel Social History Tobacco Use Types Packs/Day Years [...] Office Visit [facility] [address] [facility] 110 [place] [id number] Mel Thompson PA [address] [facility] 110 [place], [place] [phone] documented as of this encounter Visit Diagnoses Not on filedocumented in this encounter Additional Health Concerns Assessment Noted Time PHQ-9 Depression Total Score: 0 12/22/19 10:00 AM EDT documented as of this encounter Care Teams Consulting Project Director Relationship Specialty Start Date End Date Matti Gomez MD [address] [address] PCP - General Internal Medicine 11/21/23 documented as of this encounter
--- OUTSIDE RECORDS SUMMARY | 2024-08-10 07:09 | XMS_ITS | Encounter Summary ---
Author Organization [facility] Address [address] [facility] [place] [address] Care Team Providers Care Director Of Hospitality Name Role Phone Matti Gomez MD Primary Care Provider [phone] Encounter Details Date Type Department Care Team (Late Contact Info) Description 05/25/2024 Abstract [facility] [address] [facility] 110 [place] [address] Matti Gomez MD 112 [facility] 110 [place], [place] [phone] Social History Tobacco Use Types Packs/Day Years [...] EDT Office Visit [facility] 112 [facility] 110 [place] [address] Mel Thompson PA [address] [facility] 110 [place] [address] documented as of this encounter Visit Diagnoses Not on filedocumented in this encounter Additional Health Concerns Assessment Noted Time PHQ-9 Depression Total Score: 0 12/22/19 24 10:00 AM EDT documented as of this encounter Care Teams Director Of Hospitality Relationship Specialty Start Date End Date Matti Gomez MD [address] [facility] 110 [place] [address] PCP - General Internal Medicine 11/21/23 documented as of this encounter
--- OUTSIDE RECORDS SUMMARY | 2024-08-10 07:09 | XMS_ITS | Encounter Summary ---
Author Organization [facility] Address [address] [facility] [place] [address] Care Team Providers Care Patient Svcs Mgr Name Role Phone Matti Gomez MD Primary Care Provider [phone] Encounter Details Date Type Department Care Team (Late Contact Info) Description 01/01/2024 Abstract [facility] 112 [facility] 110 [place] [address] Matti Gomez MD 112 [facility] 110 [place], [place] [id number] Social History Tobacco Use Types Packs/Day Years [...] EDT Office Visit [facility] 112 [facility] 110 [place] [address] Mel Thompson PA [address] [place] [facility] 110 [place] [address] documented as of this encounter Visit Diagnoses Not on filedocumented in this encounter Additional Health Concerns Assessment Noted Time PHQ-9 Depression Total Score: 0 12/22/19 24 10:00 AM EDT documented as of this encounter Care Teams Patient Svcs Mgr Relationship Specialty Start Date End Date Matti Gomez MD [address] [place] [facility] 110 [place] [address] PCP - General Internal Medicine 11/21/23 documented as of this encounter
--- OUTSIDE RECORDS SUMMARY | 2024-08-10 07:10 | XMS_ITS | Encounter Summary ---
Author Organization [facility] Address [address] [facility] [place] [address] Care Team Providers Care Help Desk Representative Name Role Phone Matti Gomez MD Primary Care Provider [phone] Encounter Details Date Type Department Care Team (Late Contact Info) Description 12/10/2023 Abstract [facility] [address] [facility] 110 [place] [phone] Matti Gomez MD [address] [facility] 110 [place] [address] Social History Tobacco Use Types Packs/Day Years [...] Office Visit [facility] [address] [facility] 110 [place] [phone] Mel Thompson PA [address] [address] documented as of this encounter Visit Diagnoses Not on filedocumented in this encounter Care Teams Help Desk Representative Relationship Specialty Start Date End Date Matti Gomez MD [address] [address] PCP - General Internal Medicine 11/21/23 documented as of this encounter
--- OUTSIDE RECORDS SUMMARY | 2024-08-10 07:10 | XMS_ITS | Clinical Summary ---
Author Organization [facility] Address [address] [place] [address] Care Team Providers Care Day Habilitation Supervisor Name Role Phone Matti Gomez MD Primary Care Provider Allergies Active Allergy Reactions Criticality Noted Date Comments Lisinopril Cough 12/15/2012 Medications Medication Sig Dispensed Refills Start Date End Date Status amLODIPine (Norvasc) 10 mg tablet Take 1 tablet every day by oral route. Active atorvastatin (Lipitor) 80 mg tablet Take 80 mg by mouth at bedtime. Active losartan (Cozaar) 100 mg tablet Take 1 tablet every day by oral route for 90 days. Active metFORMIN (Glucophage) 500 mg tablet Take 1,000 mg by mouth with breakfast and with evening meal. Active metoprolol tartrate (Lopressor) 50 mg tablet Take 1 tablet twice a day by oral route. Active budesonide-formotero L (Symbicort) 160-4.5 mcg/actuation inhaler Inhale 2 puffs twice a day by inhalation route. Active apixaban (Eliquis) 5 mg tablet Take 5 mg by mouth in the morning and at bedtime. 02/03/2022 Active empagliflozin (Jardiance) 25 mg Take 12.5 mg by mouth in the morning. 06/04/2024 Active albuterol 90 mcg/actuation inhaler Inhale 1 puff in the morning, afternoon, and at bedtime. Active Active Problems Problem Noted Date Diagnosed Date Type 2 diabetes mellitus with hyperglycemia 12/02 Deviated nasal septum 12/10/2023 Exposure to potentially hazardous substance 11/2023 Hypertrophy of nasal turbinates 12/10/2023 Internal derangement of left shoulder 12/10/2023 Benign neoplasm of brain 08/15/2023 Chronic sinusitis 08/15/2023 DDD (degenerative disc disease), lumbar 08/15/19 Edema of lower extremity 08/15/2023 Edema, unspecified 08/15/2023 Encounter for fitting and adjustment of hearing aid 08/15/2023 Hard of hearing 08/15/2023 Hard to intubate 08/15/2023 History of asbestos exposure 08/15/2023 High blood pressure 08/15/2023 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 0 08/15/2023 Asthma 08/15/2023 Pulmonary embolism 08/15/2023 Tear of rotator cuff 08/15/2023 Overview (08/15/2023): right 2016 Thrombophlebitis 08/15/2023 Overview (08/15/2023): Mar 2009 Diabetes 08/15/2023 Unspecified atrial fibrillation 08/15/2023 Inadequate sleep hygiene 07/10/2023 Snoring 07/10/2023 Hypersomnia 07/09/2023 Paresthesia 07/09/2023 Polyneuropathy 07/09/2023 PLMD (periodic limb movement disorder) RLS (restless legs syndrome) 07/09/2023 History of tobacco use 06/05/2023 Chronic back pain 06/02/2023 Coronary artery disease 01/17/2022 Dyspnea on exertion 01/17/2022 HLD (hyperlipidemia) 09/02/2011 Backache 08/26/2011 History of cardiovascular disorder 08/26/2011 Generalized osteoarthritis 08/26/2011 Encounters Date Type Department Care Team Description 07/19/2024 11:00 AM EDT Office Visit [facility] [place] [address] [place] [address] Miguel Perales MD Coronary artery disease involving [place] coronary artery of [place] heart without angina pectoris (Primary Dx); Paroxysmal atrial fibrillation (CMS/HCC); Primary hypertension; Mixed hyperlipidemia; History of pulmonary embolism from Last 3 Months Family History Medical History Relation Name Comments No Known Problems Father No Known Problems Mother Relation Name Status Comments Father Mother Social History Tobacco Use Types Packs/Day Years Used Date Smoking Tobacco: Former Cigarettes Smokeless Tobacco: Never Tobacco Cessation:Counseling Given: Not Answered Alcohol Use Standard Drinks/Week Comments Yes 0 (1 standard drink = 0.6 oz pur e alcohol) occasional [place] Safety & Environment Answer Date Rec orded Fear of Current or Ex-Partner Not on file Emotionally Abused Not on file 04/24/2023 Physically Abused Not on file 04/24/2023 Sexually Abused Not on file 04/24/2023 Physically or Sexually Abused Not on file Sex and Gender Information Value Date Recorded Sex Assigned at Not on file Gender Identity Not on file Sexual Orientation Not on file Last Filed Vital Signs Vital Sign Reading Time Taken Comments Blood Pressure 128/68 07/19/2024 11:41 AM EDT Pulse 61 07/19/2024 11:41 AM EDT Temperature 36.4 C (97.5 F) 09/01/2019 9:58 AM EDT Respiratory Rate - - Oxygen Saturation 99% 07/19/2024 11:41 AM EDT Inhaled Oxygen Concentration - - Weight 92.1 kg (203 lb) 07/19/2024 11:41 AM EDT Height 175.3 cm (5' 9 ) 07/19/2024 11:41 AM EDT Body Mass Index 29.98 07/19/2024 11:41 AM EDT Plan of Treatment Health Maintenance Due Date Last Done Comments CT Colonography 1950 Colonoscopy 1950 Colorectal Cancer Screening 1950 Diabetes: Hemoglobin A1C 1950 FIT-DNA 1950 FIT 1950 FOBT 1950 Medicare Annual Wellness (AWV) 1950 Sigmoidoscopy 1950 Diabetes: Retinopathy Screening 1959 Depression Screening 1961 Fall Risk Screening 2014 COVID-19 Vaccine ( season) 2024 05/13/2024, 11/18/2023, 12/10/2021, Additional history exists Diabetes: Urine Protein Screening 12/09/2024 12/10/2023 Adult Tetanus 12/15/2028 12/15/2018 Pneumococcal Vaccine: 65+ Years Completed 12/03/2017, 05/29/2015, 10/31/2014, Additional history exists Zoster Vaccines Completed 12/30/2019, 10/02, 12/29/2018, Additional history exists Influenza Vaccine Completed 11/18/2023, , 12/10/2021, Additional history exists HIB Vaccines Aged Out No longer eligi ble based on patient's age to complete this topic HPV Vaccines Aged Out No longer eligi ble based on patient's age to complete this topic IPV Vaccines Aged Out No longer eligi ble based on patient's age to complete this topic Meningococcal B Vaccine Aged Out No l onger eligible based on patient's age to complete this topic Meningococcal Vaccine Aged Out No melissa elaine eligible based on patient's age to complete this topic Rotavirus Vaccines Aged Out No longer eligible based on patient's age to complete this topic Care Teams Day Habilitation Supervisor Relationship Specialty Start Date End Date Matti Gomez MD [address] [facility] [address] [place] [address] PCP - General Internal Medicine 07/15/24
--- OUTSIDE RECORDS SUMMARY | 2024-08-10 07:10 | XMS_ITS | Clinical Summary ---
Author Organization [facility] Address [address] [place] [address] Phone Care Team Providers Care Commercial Collections Driver Name Role Phone Unavailable Primary Care Provider Unavailabl e Social History Tobacco Use Types Packs/Day Years Used Date Smoking Tobacco: Never Assessed Sex and Gender Information Value Date Recorded Sex Assigned at Not on file Legal Sex Male 8:53 AM EST Gender Identity Not on file Sexual Orientation Not on file Plan of Treatment Health Maintenance Due Date Last Done Comments CT Colonography 1950 Colonoscopy 1950 Colorectal Cancer Screening 1950 FIT-DNA (Cologuard) 1950 FIT 1950 Lipid Panel 1950 Sigmoidoscopy 1950 Yearly Adult Physical 1950 Hepatitis C Screening 1967 DTaP/Tdap/Td Vaccines (1 - Tdap) 1971 Pneumococcal Vaccine (1 of 1 - PCV) 1999 Zoster Vaccines (1 of 2) 1999 COVID-19 Vaccine (1 - 2023-2 5 season) 2023 RSV High Risk: (Elderly (60+ ) or Population) (1 - 1-dose 75+ series) 2024 Influenza Vaccine (Season Ended) 2024 HIB Vaccines Aged Out No longer eligi ble based on patient's age to complete this topic HPV Vaccines Aged Out No longer eligi ble based on patient's age to complete this topic Hepatitis A Vaccines Aged Out No long er eligible based on patient's age to complete this topic Hepatitis B Vaccines Aged Out No long er eligible based on patient's age to complete this topic IPV Vaccines Aged Out No longer eligi ble based on patient's age to complete this topic Meningococcal Vaccine Aged Out No melissa elaine eligible based on patient's age to complete this topic Rotavirus Vaccines Aged Out No longer eligible based on patient's age to complete this topic
--- OUTSIDE RECORDS SUMMARY | 2024-08-10 07:10 | XMS_ITS | Encounter Summary ---
Author Organization [facility] Address [address] [place] [address] Care Team Providers Care Family Psychologist Name Role Phone Matti Gomez MD Primary Care Provider [phone] Encounter Details Date Type Department Care Team (Late Contact Info) Description 12/09/2023 Abstract [facility] [address] [facility] 110 [place] [phone] Matti Gomez MD [address] [place] [facility] 110 [place] [address] Social History Tobacco Use Types Packs/Day Years [...] Office Visit [facility] [address] [facility] [address] [place] [phone] Mel Thompson PA [address] [address] documented as of this encounter Visit Diagnoses Not on filedocumented in this encounter Care Teams Family Psychologist Relationship Specialty Start Date End Date Matti Gomez MD [address] [address] PCP - General Internal Medicine 11/21/23 documented as of this encounter
--- OUTSIDE RECORDS SUMMARY | 2024-08-10 07:10 | XMS_ITS | Encounter Summary ---
Author Organization [facility] Address [address] [facility] [place] [address] Care Team Providers Care Riveter Name Role Phone Matti Gomez MD Primary Care Provider [phone] Encounter Details Date Type Department Care Team (Late Contact Info) Description 12/15/2023 Abstract [facility] [address] [facility] 110 [place] [phone] Matti Gomez MD [address] [facility] 110 [place] [address] Social History Tobacco Use Types Packs/Day Years [...] Office Visit [facility] [address] [facility] [address] [place] [phone] Mel Thompson PA [address] [address] documented as of this encounter Visit Diagnoses Not on filedocumented in this encounter Care Teams Riveter Relationship Specialty Start Date End Date Matti Gomez MD [address] [address] PCP - General Internal Medicine 11/21/23 documented as of this encounter
--- OUTSIDE RECORDS SUMMARY | 2024-08-10 07:10 | XMS_ITS | Encounter Summary ---
Author Organization [facility] Address [address] [facility] [place] [address] Care Team Providers Care Movie Shot Camera Operator Name Role Phone Matti Gomez MD Primary Care Provider [phone] Encounter Details Date Type Department Care Team (Late Contact Info) Description 12/09/2023 Abstract [facility] [address] [facility] 110 [place] [phone] Matti Gomez MD [address] [place] [facility] 110 [place] [address] Social History Tobacco Use Types Packs/Day Years [...] Office Visit [facility] [address] [facility] [address] [place] [phone] Mel Thompson PA [address] [place] [address] [address] documented as of this encounter Visit Diagnoses Not on filedocumented in this encounter Care Teams Movie Shot Camera Operator Relationship Specialty Start Date End Date Matti Gomez MD [address] [place] [address] [address] PCP - General Internal Medicine 11/21/23 documented as of this encounter
--- OUTSIDE RECORDS SUMMARY | 2024-08-10 07:10 | XMS_ITS | Encounter Summary ---
Author Organization [facility] Address [address] [facility] [place] [address] Care Team Providers Care Flight Information Expediter Name Role Phone Matti Gomez MD Primary Care Provider [phone] Encounter Details Date Type Department Care Team (Late Contact Info) Description 12/10/2023 Abstract [facility] [address] [facility] 110 [place] [phone] Matti Gomez MD [address] [place] [facility] 110 [place] [address] Social History Tobacco Use Types Packs/Day Years [...] Office Visit [facility] [address] [facility] 110 [place] [phone] Mel Thompson PA [address] [address] [address] documented as of this encounter Visit Diagnoses Not on filedocumented in this encounter Care Teams Flight Information Expediter Relationship Specialty Start Date End Date Matti Gomez MD [address] [address] PCP - General Internal Medicine 11/21/23 documented as of this encounter
--- OUTSIDE RECORDS SUMMARY | 2024-08-10 07:10 | XMS_ITS | Referral Summary ---
Author Organization [facility] Address [address] [place] [address] Care Team Providers Care Red Hat Linux Engineer Name Role Phone Matti Gomez MD Primary Care Provider Encounters Date Type Department Care Team Description 07/19/2024 11:00 AM EDT Office Visit [facility] at [facility] [address] [place] [address] Miguel Perales MD Coronary artery disease involving [place] coronary artery of [place] heart without angina pectoris (Primary Dx); Paroxysmal atrial fibrillation (CMS/HCC); Primary hypertension; Mixed hyperlipidemia; History of pulmonary embolism from Last 3 Months Allergies Active Allergy Reactions Criticality Noted Date [...] asbestos exposure 08/15/2023 High blood pressure 08/15/2023 director long term care current use of anticoagulant therapy 0 08/15/2023 [...] of cardiovascular disorder 08/26/2011 Generalized osteoarthritis 08/26/2011 Social History Tobacco Use Types Packs/Day Years [...] 07/19/2024 11:41 AM EDT Plan of Treatment Not on file Care Teams Red Hat Linux Engineer Relationship Specialty Start Date End Date Matti Gomez MD [address] [facility] 110 [place] [address] PCP - General Internal Medicine 07/15/24
--- NOTE | 2024-08-10 07:30 | CA_ITS ---
Patient Name: MOISES CRAIN MR#: [id number] : 1950 Exam Date: 08/10/2024 Ordering Doctor: DR KIESHA PERALES M.D. ECHOCARDIOGRAM REPORT PROCEDURE: CA ECHO DOPPLER COMPLETE INDICATIONS: Paroxysmal atrial fibrillation, hypertension, diabetes, COPD COMPARISON: None. DESCRIPTION: COMPLETE ECHOCARDIOGRAM Real-time transthoracic echocardiography with 2D, M-mode, spectral and color flow Doppler performed. QUALITY: Technical quality was good. LEFT VENTRICLE: Normal chamber size. Mild concentric left ventricular hypertrophy. Systolic function is at the lower limits of normal. LV EF: Lower limits of normal left ventricular ejection fraction, (50-55%). DIASTOLIC: Diastolic function is indeterminate. ATRIAL SEPTUM: Visually appears intact. LEFT ATRIUM: Normal chamber size. RIGHT ATRIUM: Mild dilatation. RIGHT VENTRICLE: Normal chamber size. Normal right ventricular systolic function. TRICUSPID VALVE: Normal mobility and thickness. No stenosis with no regurgitation. Unable to assess right-sided pressures due to lack of measurable tricuspid regurgitation. MITRAL VALVE: Normal mobility and thickness. No evidence of mitral valve stenosis. Mild mitral annular calcification. Trivial mitral regurgitation. AORTIC VALVE: Normal trileaflet appearance. Mildly calcified aortic valve. Normal leaflet mobility. No evidence of aortic valve stenosis. Trivial aortic regurgitation. AORTIC ROOT: Normal diameter and appearance, measuring 3.8 cm. Ascending aorta is normal in size (3.7 cm). PULMONIC VALVE: Normal thickness and mobility. No stenosis. Trivial regurgitation. PERICARDIUM: No evidence of pericardial effusion. IVC: Collapses with inspiration. PLEURA: CONCLUSION: 1. Mild concentric left ventricular hypertrophy with low normal systolic function. Estimated LVEF is 50 to 55%. 2. Normal right ventricular size and systolic function. 3. No significant valvular dysfunction. 4. Unable to assess right-sided pressures due to lack of measurable tricuspid regurgitation. Adult Echocardiography Procedure Report Left Ventricle LVEDD (3.7 - 5.6 cm): 4.93 cm LVESD (2.2 - 4.0 cm): 3.16 cm LVIVS thickness (0.6 - 1.2 cm): 1.34 cm LVPW thickness (0.5 - 1.0 cm): 1.16 cm e': 0.10 m/s E - e': 6.50 LVOT Max Gradient: 2.00 mm[Hg] LVOT Area (cm2): 0.71 m/s Peak Velocity (LVOT): 0.71 m/s LVOT Diameter 2.39 cm Left Atrium LA Volume Index (2D A2C): 34.58 ml/m2 Left Atrium Systolic Dimension: 4.20 cm Mitral Valve MV E to A Ratio: 0.89 Mitral Valve A-Wave Peak Velocity: 0.73 m/s Mitral Valve E-Wave Peak Velocity: 0.64 m/s Right Ventricle Aorta AO Root Diam: 3.79 cm Ascending Ao Diam: 3.50 cm Aortic Valve AoV Area (Peak Sunny): 3.48 cm2, 3.48 cm2 Peak Velocity(Antegrade Flow): 0.91 m/s Peak Gradient(Antegrade Flow): 3.33 mm[Hg] Tricuspid Valve Pulmonic Valve Peak Gradient: 2.92 mm[Hg], 2.77 mm[Hg] Right Atrium Right Atrium Systolic Pressure: 53.05 ml, 53.05 ml Dictated by: Kiesha Perales M.D. on 08/10/2024 at 10:27 Approved by: Kiesha Perales M.D. on 08/10/2024 at 10:31
== END 2024-08-10 07:07 | disposition home or self-care (01) ==
LOC: CARD 07:07
PROVIDERS: PCP Internal Medicine; Visit Provider Internal Medicine Interventional Cardiology
DX: I48.0 Paroxysmal atrial fibrillation (principal); Z86.711 Personal history of pulmonary embolism
CPT/HCPCS: 93306

== ENCOUNTER 2024-12-24 09:17 | Outpatient (OUT) | payer MEDICARE, SELFPAY ==
--- OUTSIDE RECORDS SUMMARY | 2024-12-24 09:24 | XMS_ITS | CCD ---
Author Organization [facility] Care Team Providers Care Process Development Engineer Name Role Phone NONE, XXXX Primary Care Physician Unavailab Domonique Zuniga Unavailable Unavailable ELLY, DEBORA Coleman Primary Care Physician [phone] VAUGHN, DR MARROQUIN Consulting Unavailable TIMMIS, DR MARROQUIN Attending Unavailable TIMMIRupinder, DR MARROQUIN Admitting Unavailable CASPER, DR DEBORA Coleman Primary Care Unavailable ZIGINA, DR KOJO Vazquez Consulting Unavailable ELLY, DR DEBORA Coleman Primary Care Unavailable LEVIA MONSON Attending Unavailable ERMIAS, ELVIA Costa Admitting Unavailable ELVIA MONSON Consulting Unavailable ELLY, DR DEBORA Coleman Primary Care Unavailable CARL, DR GIBSON Attending Unavailable CARL, DR GIBSON Admitting Unavailable CARL, DR GIBSON Consulting Unavailable TIMMIS, DR MARROQUIN Consulting Unavailable TIMMIS, DR MARROQUIN Attending Unavailable TIMMIS, DR MARROQUIN Admitting Unavailable CASPER, DR DEBORA Coleman Primary Care Unavailable ISOLA, DR ZANE Hernandez Consulting Unavailable ELLY, DR DEBORA Coleman Primary Care Unavailable TIMMIS, DR MARROQUIN Consulting Unavailable VAUGHN, DR MARROQUIN Attending Unavailable TIMALEC, DR MARROQUIN Admitting Unavailable CASPER, DR DEBORA [...] Consulting Unavailable Stefan Saldana. Primary Care Physician [phone] SHIRA WATSON Primary Care Physician SHIRA WATSON Primary Care Unavailable NONE, XXXX Referring Unavailable ELIEL Dhillon Attending Unavailable SHIRA WATSON Primary Care Unavailable MD Stefan Saldana. Attending Unavailable Matti Gomez MD Primary Care Provider Stefan Saldana MD Primary Care Provider [phone] MATTI GOMEZ Attending Unavailable GALEN CONDON Attending Unavailable MATTI GOMEZ Referring Unavailable MATTI GOMEZ Attending Unavailable MEL CABELLO Attending Unavailable GALEN CONDON Referring Unavailable MEL CABELLO Attending Unavailable MEL CABELLO Attending Unavailable KIESHA PERALES Attending Unavailable Allergies Allergy ClassificationReported Allergen(s)Allergy TypeDate of OnsetReaction(s) Facility (20 sources)Lisinopril; Translations: [LISINOPRIL]Propensity to adverse cmcofgybp94-27-8536QdnnwDGZA Healthcare (20 sources)OctacosanolDrug Rnwspyz87-16-1276BmscacaVAAO Healthcare Medications Current Medications MedicationDrug Class(es)DatesSig (Normalized)Sig (Original)acetaminophen 650 mg oral tablet (1 source)Start: 41-94-7493dgfi 650 mg by mouth twice daily as needed for pain Tylenol 650 mg, Oral, BID, PRN as needed for pain, Refills(s) 0 Start Date: 11/22/22 Status: [id number] 200 actuat albuterol 0.09 mg/actuat metered dose inhaler (20 sources)beta2-Adrenergic AgonistStart: 72-10-2447jdak 2 puff(s) by inhalation four times daily as neededalbuterol HFA 90 mcg/act inhaler INHALE 2 PUFFS BY INHALATION FOUR TIMES A DAY NEEDED FOR SHORTNESS OF BREATH 05/14/2023 ActiveStart: 57-05-9592gfzt 2 puff(s) by inhalation every six hours ProAir HFA 2 puff(s), Inhalation, q6hr Shortness of breath or wheezing, COPD Start Date: 01/31/22 Status: OrderedamLODIPine 10 mg oral tablet (20 sources)Dihydropyridine Calcium Channel BlockerStart: 46-18-7967fvdj 10 mg by mouth once dailyAmlodipine Active 10 MG PO Daily November 04, 2023 12:00am amoxicillin 875 mg / clavulanate 125 mg oral tablet (3 sources)Penicillin-class AntibacterialStart: 11-22-2024 End: 45-74-5872dazy 1 tablet by mouth in the morningamoxicillin-clavulanate (Augmentin) 875-125 MG tablet Indications: Acute sinusitis, recurrence not s pecified, unspecified location Take 1 tablet (875 mg) by mouth in the morning and 1 tablet (875 mg)before bedtime. Do all this for 10 days. 20 tablet 11/22/2024 12/02/2024 ActiveStart: 11-21-2023 End: 93-75-6993djyp 1 tablet by mouth in the morningamoxicillin-clavulanate (Augmentin) 875-125 MG tablet Indications: Acute maxillary sinusitis, recurrence not specified Take 1 tablet (875 mg) by mouth in the morning and 1 tablet (875 mg) before bedtime. Do all this for 10 days. 20 tablet 11/21/2023 12/01/2023 Activeapixaban 5 mg oral tablet (20 sources)Factor Xa InhibitorStart: 88-29-3780jkdh 1 tablet by mouth twice dailyApixaban (Eliquis) 5 mg tablet Active 5 MG PO Twice daily November 04, 2023 12:00amatorvastatin 80 mg oral tablet (20 sources)HMG-CoA Reductase InhibitorStart: 48-84-2029kzrp 1 tablet by mouth once dailyatorvastatin 80 mg Tab 80 mg = 1 tab(s), Oral, Daily, Refills(s) 0, High cholesterol Start Date: 01/28/22 Status: Ekwmbqe97 actuat budesonide 0.08 mg/actuat / formoterol fumarate 0.0045 mg/actuat metered dose inhaler (6 sources)Corticosteroid, beta2-Adrenergic Agonisttake 2 puff(s) by inhalation in the morningbudesonide-formoterol (Symbicort) 80-4.5 MCG/ACT inhaler Inhale 2 puffs in the morning and 2 puffs before bedtime. Rinse mouth with water after use to reduce aftertaste and incidence of candidiasis. Do not swallow.. Active cefdinir 300 mg oral capsule (9 sources)Cephalosporin AntibacterialStart: 04-19-2024 End: 60-93-5893rzkf 1 capsule by mouth in the morningcefdinir (Omnicef) 300 MG capsule Indications: Acute non-recurrent sinusitis, unspecified location Take 1 capsule (300 mg) by mouth in the morning and 1 capsule (300 mg) before bedtime. Do all this for 7 days. 14 capsule 04/19/2024 04/26/2024 ActiveStart: 12-10-2023 End: 32-38-3802bwkq 1 capsule by mouth in the morningcefdinir (Omnicef) 300 MG capsule Indications: Right acute otitis media Take 1 capsule (300 mg) by mouth in the morning and 1 capsule (300 mg) before bedtime. Do all this for 10 days. 20 capsule 12/10/2023 12/22/2023 Discontinued (Therapy completed)cetirizine hydrochloride 10 mg oral tablet (4 sources)Histamine-1 Receptor AntagonistStart: 07-30-2024 End: 36-65-2442wvza 1 tablet by mouth once dailycetirizine (ZyrTEC) 10 MG tablet Indications: Seasonal allergic rhinitis due to pollen Take 1 tablet (10 mg) by mouth Daily for 14 days 14 tablet 07/30/2024 ActiveclonazePAM 0.5 mg oral tablet (4 sources)Benzodiazepine End: 74-37-5634dpci 1 tablet by mouth in the morningclonazePAM (KlonoPIN) 0.5 MG tablet Take 0.5 mg by mouth in the morning and 0.5 mg before bedtime. 0 11/21/2023 Discontinueddoxycycline hyclate 100 mg oral capsule (1 source)Tetracycline-class DrugStart: 47-93-4965agwx 100 mg by mouth twice dailyDoxycycline Hyclate Active 100 MG PO Twice daily 20 12November 04, 2023 12:00amempagliflozin 25 mg oral tablet (18 sources)Sodium-Glucose Cotransporter 2 Inhibitortake 0.5 tablet by mouth once dailyempagliflozin (Jardiance) 25 MG Take 0.5 tablets by mouth Daily Active 1 ml enoxaparin sodium 100 mg/ml prefilled syringe (1 source)Low Molecular Weight HeparinStart: 02-03-2022 End: 77-18-2337bdqflk 90 mg by subcutaneous injection every twelve hoursLovenox 100 mg/mL SC Nicole 90 mg, SubCutaneous, q12hr, 9AM and 9PM till 02/07/22 morning, X 7 day(s),# 14 EA, Refills(s) 0, Pharmacy: [facility], 174.9, cm, 01/31/22 9:19:00 EST, Height/Length Dosing, 93.2, kg, 01/31/22 9:19:00 EST, Weight Dosing Start Date: 02/03/22 Stop Date: 02/10/22 Status: Orderedfluticasone propionate 0.05 mg/actuat metered dose nasal spray (8 sources)CorticosteroidStart: 73-94-8539zbyu 1-2 spray(s) nasal route once dailyfluticasone (Flonase) 50 MCG/ACT nasal spray Indications: Seasonal allergic rhinitis due to pollen Administer 1-2 sprays into each nostril Daily Shake gently. Before first use, prime pump. After use,clean tip and replace cap. 16 g 07/30/2024 ActiveStart: 06-24-2023 End: 34-51-1755esps 2 spray(s) nasal route once dailyfluticasone (Flonase) 50 MCG/ACT nasal spray Indications: Acute maxillary sinusitis, recurrence not specified Administer 2 sprays into each nostril Daily Shake gently. Before first use, prime pump. After use, clean tip and replace cap. 16 g 1 06/24/2023 11/21/2023 DiscontinuedHandicap Placard, 5 years. (1 source)Start: 81-12-8167Hocdzcuz Placard, 5 years. Handicap Placard, 5 years., See Instructions, 1 EA, 0, Handicap Placard,5 years., Supply, 174, cm, 11/22/22 9:15:00 EDT, Height/Length Dosing, 96.3, kg, 11/22/22 9:15:00 EDT, Weight Dosing Start Date: 01/30/23 Status: Orderedipratropium bromide 0.021 mg/actuat metered dose nasal spray (4 sources)AnticholinergicStart: 06-29-9422bwra 2 spray(s) nasal route twice dailyipratropium (Atrovent) 0.03 % nasal spray 2 SPRAYS IN EACH NOSTRIL NASALLY TWICE A DAY 90 DAYS 07/13/2024 Activelidocaine 0.05 mg/mg topical ointment (4 sources)Antiarrhythmic, Amide Local AnestheticStart: 50-84-9484vsxejxxnb (Xylocaine) 5 % ointment Apply topically 03/10/2024 Activelosartan potassium 100 mg oral tablet (20 sources)Angiotensin 2 Receptor BlockerStart: 07-04-2933qipj 100 mg by mouth once dailyLosartan Active 100 MG PO Daily November 04, 2023 12:00amosmotic 24 hr metFORMIN hydrochloride 1000 mg extended release oral tablet (20 sources)BiguanideStart: 99-73-0623tsnz 1 tablet by mouth in the morning, then take 1 tablet by mouth every twenty-four hours at mealtimemetFORMIN, OSM, (Fortamet) 1000 MG 24 hr tablet Take 1,000 mg by mouth in the morning and 1,000 mg in the evening. Take with meals. 11/22/2022 ActiveStart: 64-46-2548zytv 1000 mg by mouth twice dailymetformin 1,000 mg, Oral, BID, Refills(s) 0 Start Date: 11/22/22 Status: OrderedStart: 01-28-2022 End: 65-47-9879xplw 500 mg by mouth three times dailyMetformin Active 500 MG PO Three times daily November 04, 2023 12:00ammetoprolol tartrate 25 mg oral tablet (20 sources)beta-Adrenergic BlockerStart: 22-34-1784qxvs 25 mg by mouth twice dailyMetoprolol Tartrate Active 25 MG PO Twice daily November 04, 2023 12:00am Start: 83-14-5450scyxrrcszo 50 mg, BID, Refills(s) 0 Start Date: 11/22/22 Status: OrderedStart: 01-28-2022 End: 26-32-5063fdwd 1 tablet by mouth twice dailymetoprolol 50 mg ER Tab 50 mg = 1 tab(s), Oral, BID, Refills(s) 0, High blood pressure Start Date: 01/28/22 Status: Orderedmetoprolol tartrate (Lopressor) 50 MG tablet every 12 (twelve) hours. Rwjkzb94 actuat olodaterol 0.0025 mg/actuat / tiotropium 0.0025 mg/actuat inhalation spray (15 sources)Anticholinergic, beta2-Adrenergic AgonistStart: 12-09-2023 tiotropium-olodaterol (Stiolto Respimat) 2.5-2.5 MCG/ACT aerosol solution inhaler 1 (one) time eachday at the same time 12/09/2023 ActivepredniSONE 10 mg oral tablet (3 sources)Start: 07-30-2024 End: 48-43-5604ctkl 1 tablet by mouth in the morningpredniSONE (Deltasone) 10 MG tablet Indications: Acute bronchitis, unspecified organism Take 1 tablet (10 mg) by mouth in the morning and 1 tablet (10 mg) at noon. Do all this for 5 days. Take with breakfast and with lunch. 10 tablet 07/30/2024 08/04/2024 Active Start: 72-79-0770udcy 20 mg by mouth twice dailyPrednisone Active 20 MG PO Twice daily 10 November 04, 2023 12:00am Completed/Discontinued Medications MedicationDrug Class(es)DatesSig (Normalized)Sig (Original)Insulin Lispro (2 sources)Insulin AnalogStart: 02-02-2022 End: 33-98-1748Kqhvdzc Lispro Sliding Scale 0-10 Units, Injection-Insulin, SubCutaneous, Start date 02/02/22 21:00:00 EST Start Date: 02/02/22 Stop Date: 02/02/22 Status: CompletedStart: 02-02-2022 End: 40-95-6880Rrwlsuz Lispro Sliding Scale 0-10 Units, Injection-Insulin, SubCutaneous, Start date 02/02/22 16:30:00 EST Start Date: 02/02/22 Stop Date: 02/02/22 Status: Completed Problems Active Problems Problem ClassificationProblemDateDocumented DateEpisodic/ChronicAcute bronchitis (2 sources)Acute bronchitis; Translations: [Acute bronchitis, unspecified] 79-65-6482UahfxaqoWgmjmmitquvctt/social admission (2 sources)Patient encounter status; Translations: [Other specified counseling] 96-49-4016YnffcbnrIgpbvy (7 sources)Asthma; Translations: [Unspecified asthma, uncomplicated]Onset: 09-64-9989CzmjwshDdnokqp dysrhythmias (20 sources)Unspecified atrial fibrillation; Translations: [Paroxysmal atrial fibrillation]Onset: 12-39-5619PcafiwoYbkqrbe obstructive pulmonary disease and bronchiectasis (20 sources)Chronic obstructive lung disease; Translations: [Chronic obstructive pulmonary disease, unspecified]Onset: 38-43-7660HmvnztyIsgkvfmu atherosclerosis and other heart disease (20 sources)Atherosclerotic heart disease of [place] coronary artery without angina pectoris; Translations: [Coronary arteriosclerosis]Onset: 01-17-2022 ChronicDeficiency and other anemia (1 source)Iron deficiency anemia, unspecified; Translations: [IRON DEFICIENCY ANEMIA UNSPECIFIED]Onset: 84-61-7767KzxfhojaAgmlxzbk mellitus with complications (20 sources)Type 2 diabetes mellitus with hyperglycemia; Translations: [Type 2 diabetes mellitus]Onset: 775556-47-7688VbmeibmMvmwjvkg mellitus without complication (9 sources)Type 2 diabetes mellitus without complication; Translations: [Type 2 diabetes mellitus without complications]Onset: 16-38-6187DrfdgqxUxypppldn of lipid metabolism (20 sources)Hyperlipidemia; Translations: [Hyperlipidemia, unspecified]Onset: 42-63-8815PqkfoovBhaomgbnt hypertension (20 sources)Essential hypertension; Translations: [Essential (primary) hypertension]Onset: 63-46-6149MjtojktYrmjv and electrolyte disorders (1 source)Hypo-osmolality and hyponatremia; Translations: [HYPO-OSMOLALITY AND HYPONATREMIA]Onset: 07-67-2407IcawsmzqMlkudzhwhfcvck (17 sources)Degenerative joint disease involving multiple joints; Translations: [Polyosteoarthritis, unspecified]Onset: 771860-65-0224DhpoihjYchag aftercare (1 source)termite control technician (current) use of aspirin; Translations: [ALF CURRENT USE OF ASPIRIN]Onset: 00-59-4973OmfhiejnSuusf aftercare (1 source)residential (current) use of oral hypoglycemic drugs; Translations: [ALF USE ORAL HYPOGLYCEMIC DX]Onset: 42-30-7454EkczsybxWusjs aftercare (1 source)Other terminal supervisor (current) drug therapy; Translations: [OTH PRICE ECONOMIST CURRENT DRUG THERAPY]Onset: 30-35-6454IxypiovbCzetx and unspecified benign neoplasm (17 sources)Benign neoplasm of brain; 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, unspecified]Onset: 696230-83-7580LncvqgnHxhav diseases of bladder and urethra (4 sources)Bladder-neck obstruction; Translations: [BLADDER-NECK OBSTRUCTION] Onset: 71-71-7404GnyxhzhGhdzr ear and sense organ disorders (6 sources)Hearing srqn28-01-8621DobwgtlOsnoc ear and sense organ disorders (1 source)Unspecified hearing loss, unspecified ear; Translations: [UNS HEARING LOSS UNSPECIFIED EAR]Onset: 64-34-4024NzytszbVynbk ear and sense organ disorders (20 sources)Hearing loss of right ear; Translations: [Unspecified hearing loss, right ear]Onset: 822273-27-9826OfzrolgSxkyu hereditary and degenerative nervous system conditions (4 sources)Restless legs syndrome; Translations: [RESTLESS LEGS SYNDROME]Onset: 05-43-8316CiywwoqQyhnx hereditary and degenerative nervous system conditions (20 sources)Restless legs; Translations: [Restless legs syndrome]Onset: 860127-41-3153ZlzvjscVjgzu nervous system disorders (20 sources)Polyneuropathy; Translations: [Polyneuropathy, unspecified]Onset: 985735-53-4023CzkdmwdLvgkh non-traumatic joint disorders (17 sources)Derangement of left shoulder joint; Translations: [Other specific joint derangements of left shoulder, not elsewhere classified]Onset: 12-10-2023 84-08-0855FtwewwqToyts non-traumatic joint disorders (4 sources)Effusion of joint of left knee; Translations: [Effusion, left knee] 90-88-2277IvzibisfPofsz non-traumatic joint disorders (2 sources)Pain in left knee; Translations: [Pain in joint, lower leg]04-21-2024 EpisodicOther screening for suspected conditions (not mental disorders or infectious disease) (3 sources)Other specified abnormal findings of blood chemistry; Translations: [Patient encounter status]Onset: 782321-01-0767DossvhvpQbyre upper respiratory disease (2 sources)Allergic rhinitis due to pollen; Translations: [Allergic rhinitis due to pollen]07-18-8520BheiormLqqaf upper respiratory disease (1 source)Deviated nasal septum; Translations: [DEVIATED NASAL SEPTUM]Onset: 41-29-9353VwonnzzqGnzco upper respiratory disease (1 source)Hypertrophy of nasal turbinates; Translations: [HYPERTROPHY OF NASAL TURBINATES]Onset: 75-05-4695NnkbliewVrxjq upper respiratory infections (20 sources)Chronic sinusitis; Translations: [Chronic sinusitis, unspecified] Onset: 36-37-3712VimpwdrKldht upper respiratory infections (5 sources)Acute maxillary sinusitis; Translations: [Acute maxillary sinusitis, unspecified]94-58-1864OdqoiuokFeujdf media and related conditions (2 sources)Acute right otitis media; Translations: [Otitis media, unspecified, right ear]03-33-6852BvmnvoovFdnrfdaycs and visceral atherosclerosis (1 source)Arteriosclerotic vascular zutdbiw26-14-4807RirolvrIxphqdkqj (except that caused by tuberculosis or sexually transmitted disease) (1 source)Pneumonia, unspecified organism; Translations: [PNEUMONIA UNSPECIFIED ORGANISM]Onset: 90-85-8964HyklanndDfumkzpfk heart disease (2 sources)Chronic pulmonary embolism; Translations: [Chronic pulmonary embolism]19-23-8106NvnkpdoYrhswapj codes; unclassified (7 sources)Sleep apnea; Translations: [Sleep apnea, unspecified]Onset: 84-24-0171CkeptfoNudomhe on above:uses CPAPResidual codes; unclassified (1 source)Sleep apnea, unspecified; Translations: [SLEEP APNEA UNSPECIFIED] Onset: 44-79-1102KkhpdjhQyiehfhu codes; unclassified (20 sources)Obstructive sleep apnea syndrome; Translations: [Obstructive sleep apnea (adult) (pediatric)]Onset: 320991-67-8130ZqzdbwoPbagtolv codes; unclassified (20 sources)Hypersomnia; Translations: [Hypersomnia, unspecified]Onset: 672168-24-6185ByhsnxsAtwinpgo codes; unclassified (18 sources)Periodic limb movement disorder; Translations: [Periodic limb movement disorder]Onset: 834461-15-3473NrhbktlEfqbdvcs codes; unclassified (4 sources)Periodic leg movements of sleep ; Translations: [Periodic limb movement disorder]Onset: 800866-44-1450IufmzjzIialwoau codes; unclassified (2 sources)Other problems related to lifestyle; Translations: [Other problems related to lifestyle]05-38-5017HqgmsmlmVyhzxyqs codes; unclassified (2 sources)Localized edema; Translations: [Localized edema]12-72-7940Hbcvamyv Respiratory failure; insufficiency; arrest (adult) (1 source)Acute respiratory failure with hypoxia; Translations: [ACUTE RESPIRATORY FAIL W/HYPOXIA]Onset: 03-17-8511YvcikwjqMqqtdcjoko (except in labor) (2 sources)Sepsis, unspecified organism; Translations: [SEPSIS UNSPECIFIED ORGANISM]Onset: 00-94-7844MkobbdmnTdjjedlshlx; intervertebral disc disorders; other back problems (18 sources)Degeneration of lumbar intervertebral disc; Translations: [DDD (degenerative disc disease), lumbar]Onset: hronic Unclassified (6 sources)Difficult mmixinsaeq42-87-9003Lewbzhsbvhrx (1 source)ACIDOSIS UNSPECIFIED; Translations: [ACIDOSIS UNSPECIFIED]Onset: 69-59-1450Dhkkhrgyojtr (1 source)LOW BACK PAIN, UNSPECIFIED; Translations: [LOW BACK PAIN, UNSPECIFIED] Onset: 84-30-1866Bwxzvqlaedbn (1 source)CONTACT W/AND (SUSP) EXPOS COVID-19; Translations: [CONTACT W/AND (SUSP) EXPOS COVID-19]Onset: 27-00-7526Eeowjfhjdyzo (1 source)Rupture of rotator cuff of ffkfumjy72-66-4900Uxujdsc on above:right 2015 Past or Other Problems Problem ClassificationProblemDateDocumented DateEpisodic/ChronicComplications of surgical procedures or medical care (17 sources)Difficult intubation; Translations: [Failed or difficult intubation, initial encounter]Onset: 520593-80-7097MchgbhgjEfbu disorders (12 sources)Mood disordersOnset: Other aftercare (17 sources)Long-term current use of anticoagulant; Translations: [residential (current) use of anticoagulants]Onset: 593641-00-8888FqasacliFpdkl circulatory disease (17 sources)H/O: cardiovascular disease; Translations: [Personal history of other diseases of the circulatory system]Onset: 800041-60-1721Pcqpmmdm Other connective tissue disease (17 sources)Full thickness rotator cuff tear; Translations: [Complete rotator cuff tear or rupture of unspecified shoulder, not specified as traumatic]Onset: 12-10-2023 Resolved: 567900-31-8242XmadfsjmOffdv connective tissue disease (15 sources)Unspecified rotator cuff tear or rupture of unspecified shoulder, not specified as traumatic; Translations: [Rotator cuff (capsule) sprain]Onset: 957669-52-5578FxtebfuiRxkhx ear and sense organ disorders (15 sources)Device status; Translations: [Encounter for fitting and adjustment of hearing aid]Onset: 08-15-2023 Resolved: 212319-45-4955SumfgoutNozto lower respiratory disease (20 sources)Snoring; Translations: [Snoring]Onset: 043475-99-5903Kloccoqv Other lower respiratory disease (17 sources)Dyspnea on exertion; Translations: [Other forms of dyspnea]Onset: 994434-60-7653YiawufthDkewk nervous system disorders (20 sources)Paresthesia; Translations: [Paresthesia of skin]Onset: 07-09-2023 65-34-7549SgxuzcumQeqnz upper respiratory disease (18 sources)Deviated nasal septum; Translations: [Deviated nasal septum]Onset: 53-77-4897LgfisrnmNgbuy upper respiratory disease (17 sources)Hypertrophy of nasal turbinates; Translations: [Hypertrophy of nasal turbinates]Onset: 951293-28-5802SkyiwefyWcplylpyn; thrombophlebitis and thromboembolism (18 sources)Thrombophlebitis; Translations: [Phlebitis and thrombophlebitis of unspecified site]Onset: 274911-10-3625MbmyabxdQolipgo on above:Mar 2009 Pulmonary heart disease (18 sources)Other pulmonary embolism without acute cor pulmonale; Translations: [Pulmonary embolism]Onset: 01-08-8443TafacdfyDxvnfauw codes; unclassified (20 sources)Inadequate sleep hygiene; Translations: [Inadequate sleep hygiene] Onset: 635746-14-8611SkkiuqjeWmkmvuvo codes; unclassified (17 sources)Edema of lower extremity; Translations: [Localized edema]Onset: 936243-13-7636OgxobjqgIfrcdnws codes; unclassified (15 sources)Edema; Translations: [Edema, unspecified]Onset: EpisodicResidual codes; unclassified (17 sources)Contact with and (suspected) exposure to other hazardous substances; Translations: [Contact with and (suspected) exposure to other potentially hazardous substances]Onset: 934348-26-8159XljlrbapJommmtsx codes; unclassified (17 sources)H/O: asbestos exposure; Translations: [Contact with and (suspected) exposure to asbestos]Onset: 388332-41-0353FtdjokxwCidefkmza and history of mental health and substance abuse codes (20 sources)Personal history of nicotine dependence; Translations: [Tobacco use and exposure - finding]Onset: 257659-88-3979ThkyjngyWfjvhqmtaus; intervertebral disc disorders; other back problems (20 sources)Chronic back pain ; Translations: [Dorsalgia, unspecified]Onset: 700586-27-9407HhxcaqtcPccqgxbtjdmk (2 sources)Effusion of joint of left bsfx07-95-8350Bhgpgzz tract infections (2 sources)Other urethritis; 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 Follow-up in 1 year as planned.[facility]Telephone[facility] [id number] Moises Berry 1950 M Date Provider Department Center 08/13/2024 928-TAYE ESPINAL [facility] Family History Problem Relation Age of Onset No Known Problems Mother No Known Problems Father Family Status - Relation Status Age at Mother Father DeceasedNormalUniOhioHealth [facility] E[facility] DOPPLER COMPLETE on 06-29-[address] [address] Cardiology Report Signed Patient: MOISES BERRY MR#: [id number] : 1950 Acct:[id number] Age/Sex: 74 / M ADM Date: 08/10/24 Loc: CARD Attending Dr: KIESHA PERALES Ordering Physician: KIESHA PERALES Date of Service: 08/10/24 Procedure(s): CA echo doppler complete Accession Number(s): [id number] cc: MATTI GOMEZ ; KIESHA PERALES Patient Name: MOISES BERRY MR#: [id number] : 1950 Exam Date: 08/10/2024 Ordering Doctor: DR KIESHA PERALES M.D. ECHOCARDIOGRAM REPORT PROCEDURE: CA ECHO DOPPLER COMPLETE INDICATIONS: Paroxysmal atrial fibrillation, hypertension, diabetes, COPD COMPARISON: None. DESCRIPTION: COMPLETE ECHOCARDIOGRAM Real-time transthoracic echocardiography with 2D, M-mode, spectral and color flow Doppler performed. QUALITY: Technical quality was good. LEFT VENTRICLE: Normal chamber size. Mild concentric left ventricular hypertrophy. Systolic function is at the lower limits of normal. LV EF: Lower limits of normal left ventricular ejection fraction, (50-55%). DIASTOLIC: Diastolic function is indeterminate. ATRIAL SEPTUM: Visually appears intact. LEFT ATRIUM: Normal chamber size. RIGHT ATRIUM: Mild dilatation. RIGHT VENTRICLE: Normal chamber size. Normal right ventricular systolic function. TRICUSPID VALVE: Normal mobility and thickness. No stenosis with no regurgitation. Unable to assess right-sided pressures due to lack of measurable tricuspid regurgitation. MITRAL VALVE: Normal mobility and thickness. No evidence of mitral valve stenosis. Mild mitral annular calcification. Trivial mitral regurgitation. AORTIC VALVE: Normal trileaflet appearance. Mildly calcified aortic valve. Normal leaflet mobility. No evidence of aortic valve stenosis. Trivial aortic regurgitation. AORTIC ROOT: Normal diameter and appearance, measuring 3.8 cm. Ascending aorta is normal in size (3.7 cm). PULMONIC VALVE: Normal thickness and mobility. No stenosis. Trivial regurgitation. PERICARDIUM: No evidence of pericardial effusion. IVC: Collapses with inspiration. PLEURA: CONCLUSION: 1. Mild concentric left ventricular hypertrophy with low normal systolic function. Estimated LVEF is 50 to 55%. 2. Normal right ventricular size and systolic function. 3. No significant valvular dysfunction. 4. Unable to assess right-sided pressures due to lack of measurable tricuspid regurgitation. Adult Echocardiography Procedure Report Left Ventricle LVEDD (3.7 - 5.6 cm): 4.93 cm LVESD (2.2 - 4.0 cm): 3.16 cm LVIVS thickness (0.6 - 1.2 cm): 1.34 cm LVPW thickness (0.5 - 1.0 cm): 1.16 cm e': 0.10 m/s E - e': 6.50 LVOT Max Gradient: 2.00 mm[Hg] LVOT Area (cm2): 0.71 m/s Peak Velocity (LVOT): 0.71 m/s LVOT Diameter 2.39 cm Left Atrium LA Volume Index (2D A2C): 34.58 ml/m2 Left Atrium Systolic Dimension: 4.20 cm Mitral Valve MV E to A Ratio: 0.89 Mitral Valve A-Wave Peak Velocity: 0.73 m/s Mitral Valve E-Wave Peak Velocity: 0.64 m/s Right Ventricle Aorta AO Root Diam: 3.79 cm Ascending Ao Diam: 3.50 cm Aortic Valve AoV Area (Peak Sunny): 3.48 cm2, 3.48 cm2 Peak Velocity(Antegrade Flow): 0.91 m/s Peak Gradient(Antegrade Flow): 3.33 mm[Hg] Tricuspid Valve Pulmonic Valve Peak Gradient: 2.92 mm[Hg], 2.77 mm[Hg] Right Atrium Right Atrium Systolic Pressure: 53.05 ml, 53.05 ml Dictated by: Kiesha Perales M.D. on 08/10/2024 at 10:27 Approved by: Kiesha Perales M.D. on 08/10/2024 at 10:31 Dictated By: KIESHA PERALES Signed By: 08/10/24 1032 (more content not included)...TBHRadiology, Radiologist, - 08/10/2024 [facility] [place] [id number] Cardiology Report Signed Patient: MOISES BERRY MR#: [id number] : 1950 Acct:[id number] Age/Sex: 74 / M ADM Date: 08/10/24 Loc: CARD Attending Dr: KIESHA PERALES Ordering Physician: KIESHA PERALES Date of Service: 08/10/24 Procedure(s): CA echo doppler complete Accession Number(s): [id number] cc: MATTI GOMEZ ; KIESHA PERALES Patient Name: MOISES BERRY MR#: [id number] : 1950 Exam Date: 08/10/2024 Ordering Doctor: DR KIESHA PERALES M.D. ECHOCARDIOGRAM REPORT PROCEDURE: CA ECHO DOPPLER COMPLETE INDICATIONS: Paroxysmal atrial fibrillation, hypertension, diabetes, COPD COMPARISON: None. DESCRIPTION: COMPLETE ECHOCARDIOGRAM Real-time transthoracic echocardiography with 2D, M-mode, spectral and color flow Doppler performed. QUALITY: Technical quality was good. LEFT VENTRICLE: Normal chamber size. Mild concentric left ventricular hypertrophy. Systolic function is at the lower limits of normal. LV EF: Lower limits of normal left ventricular ejection fraction, (50-55%). DIASTOLIC: Diastolic function is indeterminate. ATRIAL SEPTUM: Visually appears intact. LEFT ATRIUM: Normal chamber size. RIGHT ATRIUM: Mild dilatation. RIGHT VENTRICLE: Normal chamber size. Normal right ventricular systolic function. TRICUSPID VALVE: Normal mobility and thickness. No stenosis with no regurgitation. Unable to assess right-sided pressures due to lack of measurable tricuspid regurgitation. MITRAL VALVE: Normal mobility and thickness. No evidence of mitral valve stenosis. Mild mitral annular calcification. Trivial mitral regurgitation. AORTIC VALVE: Normal trileaflet appearance. Mildly calcified aortic valve. Normal leaflet mobility. No evidence of aortic valve stenosis. Trivial aortic regurgitation. AORTIC ROOT: Normal diameter and appearance, measuring 3.8 cm. Ascending aorta is normal in size (3.7 cm). PULMONIC VALVE: Normal thickness and mobility. No stenosis. Trivial regurgitation. PERICARDIUM: No evidence of pericardial effusion. IVC: Collapses with inspiration. PLEURA: CONCLUSION: 1. Mild concentric left ventricular hypertrophy with low normal systolic function. Estimated LVEF is 50 to 55%. 2. Normal right ventricular size and systolic function. 3. No significant valvular dysfunction. 4. Unable to assess right-sided pressures due to lack of measurable tricuspid regurgitation. Adult Echocardiography Procedure Report Left Ventricle LVEDD (3.7 - 5.6 cm): 4.93 cm LVESD (2.2 - 4.0 cm): 3.16 cm LVIVS thickness (0.6 - 1.2 cm): 1.34 cm LVPW thickness (0.5 - 1.0 cm): 1.16 cm e': 0.10 m/s E - e': 6.50 LVOT Max Gradient: 2.00 mm[Hg] LVOT Area (cm2): 0.71 m/s Peak Velocity (LVOT): 0.71 m/s LVOT Diameter 2.39 cm Left Atrium LA Volume Index (2D A2C): 34.58 ml/m2 Left Atrium Systolic Dimension: 4.20 cm Mitral Valve MV E to A Ratio: 0.89 Mitral Valve A-Wave Peak Velocity: 0.73 m/s Mitral Valve E-Wave Peak Velocity: 0.64 m/s Right Ventricle Aorta AO Root Diam: 3.79 cm Ascending Ao Diam: 3.50 cm Aortic Valve AoV Area (Peak Sunny): 3.48 cm2, 3.48 cm2 Peak Velocity(Antegrade Flow): 0.91 m/s Peak Gradient(Antegrade Flow): 3.33 mm[Hg] Tricuspid Valve Pulmonic Valve Peak Gradient: 2.92 mm[Hg], 2.77 mm[Hg] Right Atrium Right Atrium Systolic Pressure: 53.05 ml, 53.05 ml Dictated by: Kiesha Perales M.D. on 08/10/2024 at 10:27 Approved by: Kiesha Perales M.D. on 08/10/2024 at 10:31 Dictated By: KIESHA PERALES Signed By: 08/10/24 1032 DD/ 1031 TD/TT: [employer]: ALEXEI HealthcareRadiology Study observation (narrative)[facility] CenterCA ECHO DOPPLER COMPLETEOrdered By: Radiologist Radiology on 65-44-2279EPIG Healthcare Work Phone: Orders Onlyon 80-26-1026Enfwuu [id number] Moises Berry 1950 M Date Provider Department [place] 08/10/2024 [id number], HISTORICAL CARD [facility] Family History Problem Relation Age of Onset No Known Problems Mother No Known Problems Father Family Status - Relation Status Age at Mother Father DeceasedNormalUniversity of [facility] metabolic 1998 panelon 13-19-1240Yxvnq gap [Moles/Vol]6 mmol/L- 30 mmol/LNOMS HealthcareCalcium [Mass/Vol]9.5 mg/dL8.7 - 10.7 mg/dLNOUT HealthcareChloride [Moles/Vol]103 mmol/LNOMS HealthcareCO2 [Moles/Vol]27 mmol/LNOMS HealthcareCreatine [Mass/Vol] 1.3 mg/dL0.6 - 1.3 mg/dLNOUT HealthcareExternal GFR Non Aqbc66LUXF HealthcareComment on above:LowGlucose [Mass/Vol]128 mg/qIIjccebgj60 - 99 mg/dL [facility] HealthcareInterpretation and review of laboratory resultsAbnormalKansas City VA Medical CenterPotassium [Moles/Vol]4.4 mmol/LNOMS HealthcareSodium [Moles/Vol]136 mmol/LNOMS HealthcareUrea nitrogen [Mass/Vol]23 mg/dLAbnormal4 - 21 mg/dLNOFreeman Health SystemYfsuerojyxUoH4e (Bld) [Mass fraction]on 79-84-4487Cauwotvpajfhzh and review of laboratory resultsAbnormalKansas City VA Medical CenterFrUNC Health [facility] - Hematology and Cell countson 52-98-7894MzX6j (Bld) [Mass fraction]7 %[facility] CenterLipid 1995 panelon 28-38-6525Ndmyshdrqyv [Mass/Vol]112 mg/dLNOFreeman Health SystemCholesterol.total/Cholesterol in HDL [Mass ratio]2.11 {ratio}[facility] CenterHDL-G20NVZK HealthcareInterpretation and review of laboratory results NormalNOFreeman Health SystemLDL-G25CDJW HealthcareTriglyceride [Mass/Vol]110 mg/dLNOFreeman Health SystemMicroalbumin/Creatinine ratio panel (U)on 19-61-5967Yqibobe DL <= 20 mg/L (U) [Mass/Vol]NOM HealthcareAlbumin/Creatinine DL <= 1.0 mg/L (U) [Ratio] N/ANOMS HealthcareCreatinine (U) [Mass/Vol]34 mg/dLNOUT HealthcareInterpretation and review of laboratory resultsNormalJORD[facility] HealthcareFrom [facility] HealthcareNo Panel Informationon 72-66-8945WURD HealthcareOffice Visiton 95-79-0014Ovhxyq-up [id number] Moises Berry 1950 M Date Provider Department Center 07/19/2024 RosaELYSEASHLEYKIESHA OGLESBY CARD [facility] Family History Problem Relation Age of Onset No Known Problems Mother No Known Problems Father Family Status - Relation Status Age at Mother Father Level of Service:41269 [place] OFFICE/OUTPATIENT ESTABLISHED MOD MDM 30 [facility], IncXR Knee - left 1 or 2 Viewson 04-26-2024 Imaging Result: Weight Bearing AP and Lateral: No acute fracture or dislocation Medial joint line narrowing Moderate patellofemoral degenerative changes. Mild effusion Impression: Mild tricompartmental arthritis left knee.[facility] HealthcareRadiology Study observation (narrative)[facility] HealthcareLaboratory - Hematology and Cell countson 31-08-3077WiT4s (Bld) [Mass fraction]8.3 %[facility] HealthcareNo Panel Informationon 71-18-0100VZAH HealthcareConsent for Treatment on 50-67-8273Xtmcrgy for Treatment [id number]#1.00[facility] CenterHeart and Vascular Office/Clinic Noteon 66-50-3276Imyvb and Vascular Office/Clinic NoteChief Complaint 6 month f/u HTN History of [...] exercise. Patient denies chest pain, heart palpitations, dizziness/lightheadedness, swelling in lower extremities, shortness of breath. [...] with voice recognition artificial intelligence software, specifically [employer], MeinProspe[employer] and or Dragon Ambient Experience. Substitutions may have occurred due to the [...] 80 mg= 1 tab(s), Oral, Daily Handicap Placard, 5 years., See Instructions losartan 100 mg [...] ago Tobacco Use:. Cigarettes, Household tobacco concerns: No.(more content not included)...[facility] - ColumbusComment on above:Result Comment: Electronically Signed By: Alejo JULIAN, Gaetano Sommers\juana\Date and Time Signed: 07/10/23 15:02 EDTPhysician Orderon 24-40-3957Jrcoevcyu [id number]#1.00TIFF [facility] ColumbusLab Reportson 46-47-4526Ivf Reports [id number]#1.00[facility] CenterRetail - Clinical Noteon 92-76-5694Ymqdek - Clinical Note [id number]#1.00[facility] CenterRetail - Clinical Noteon 60-96-3011Yhgwts - Clinical Note [id number]#1.00[facility] for Release of Medical Recordson 44-01-9061Scum for Release of Medical [id number]#1.00[facility] CenterLaboratory - Molecular pathologyon 88-76-4024Uixwfndmfbt colorectal cancer DNA and occult blood screening Ql (Stl)[facility] Noninvasive colorectal cancer DNA and occult blood screening Ql (Stl)on 94-06-5006Wlonnpwclouxol and review of laboratory resultsHarbor Beach Community Hospital Noninvasive colorectal cancer DNA and occult blood screening [place] (Stl) [Interp] FirstHealthFormson 37-30-9789Facst [id number]#1.00[facility] CenterConsultation Noteon 98-11-0278Fzwxsddneisb Note [id number]#1.00[facility] CenterInsurance Correspondence Officeon 47-76-2192Uaeatydub Correspondence [id number]#1.00[facility] CenterConsultation Noteon 59-40-1091Frxreuigxsct Note [id number]#1.00[facility] CenterPatient Correspondenceon 16-53-4293Fnlzbub Correspondence [id number]#1.00TIFHealth systemrmalCape Fear Valley Medical Centerer Grace Medical CenterCHEMISTRYOrdered By: Lab ROPUser on 01-78-5374Qqizvao [Mass/Vol]145 mg/dL High55 - 99 mg/dLFTMC POC SubsectionComment on above:Result Comment: Notified RN/MDPOC Device [id number] Interpretation CodeFTMC POC SubsectionPOC User [id number] Interpretation CodeFTMC POC SubsectionPOC Username MALINDA HOUInvalid Interpretation CodeFTMC POC SubsectionGlucose [Mass/Vol] 221 mg/sYBxkc08 - 99 mg/dLFTMC POC SubsectionComment on above:Result Comment: Notified RN/MDPOC Device [id number] Interpretation CodeFTMC POC SubsectionPOC User [id number] Interpretation CodeFTMC POC SubsectionPOC UsernameVBRADLEY HERNANDEZInvalid Interpretation CodeFTMC POC SubsectionCHEMISTRY Ordered By: Lab ROPUser on 19-90-3948Imckajt [Mass/Vol]284 mg/lBGqcm70 - 99 mg/dLFTMC POC SubsectionComment on above:Result Comment: Notified RN/MDPOC Device [id number] Interpretation CodeFTMC POC SubsectionPOC User ID [id number] Interpretation CodeFTMC POC SubsectionPOC UsernamCELINE HicksInvalid Interpretation CodeFTMC POC SubsectionCHEMISTRYOrdered By: SYSTEM SYSTEM on 42-72-9810Ruwge gap [Moles/Vol]11 mmol/LNormal6 - 16 mEq/LFTMC Remisol Calcium [Mass/Vol]8.9 mg/dLNormal8.9 - 11.1 mg/dLFTMC RemisolChloride [Moles/Vol]101 mmol/QSsqxbw282 - 111 mmol/LFTMC RemisolCO2 [Moles/Vol]29 mmol/L Phlsyz10 - 31 mmol/LFTMC RemisolCreatinine [Mass/Vol]1.0 mg/dLNormal0.5 - 1.3 mg/dLFTMC RemisolGFR/1.73 sq M.predicted among blacks MDRD (S/P/Bld) [Vol rate/Area]mL/min/1.73 p6Cipxlc>=59mL/min/1.73 m2[facility] Chem SGFR/1.73 sq M.predicted among non-blacks MDRD (S/P/Bld) [Vol rate/Area]mL/min/1.73 n2Csohfp >=59mL/min/1.73 m2[facility] Chem SGlucose [Mass/Vol]195 mg/iAOjabka13 - 199 mg/dLFTMC RemisolMagnesium [Mass/Vol]2.2 mg/dLNormal1.3 - 2.4 mg/dLFTMC RemisolPotassium [Moles/Vol]3.8 mmol/LNormal3.5 - 5.3 mmol/LFTMC RemisolSodium [Moles/Vol]137 mmol/PYjmmjx812 - 145 mmol/LFTMC RemisolUrea nitrogen [Mass/Vol]17 mg/dLNormal5 - 21 mg/dLFTMC RemisolUrea nitrogen/Creatinine [Mass ratio]17 mg/xrPxdwxe48 - 20 [facility] RemisolCOAGULATIONOrdered By: Marisel Montenegro on 38-57-3168zLQO Coag (PPP) [Time] 76.8 sHigh25.1 - 36.5 second(s)[facility] Auto CoagCOAGULATIONOrdered By: Titus Lockett on 36-82-7203lGHT Coag (PPP) [Time]90.0 sInvalid Interpretation Code 25.1 - 36.5 second(s)[facility] Auto CoagComment on above:Result Comment: Results Called To Georgia Pinon By bab And Read Back For Confirmation On 02/02/2022 02 :01:34 EST Results Verified By Repeat AnalysisHEMATOLOGYOrdered By: SYSTEM SYSTEM on 16-88-2525Zroowgozc/100 WBC (Bld)0.5 %Normal0.0 - 2.0 %[facility] HemeAutoSS Basophils/Leukocytes Auto (Bld) [Pure # fraction]0.1 E9/LNormal0.0 - 0.2 E9/L [facility] HemeAutoSSEosinophils/100 WBC (Bld)0.8 %Normal0.0 - 8.0 %[facility] HemeAutoSS Eosinophils/Leukocytes Auto (Bld) [Pure # fraction]0.1 E9/LNormal0.0 - 0.5 E9/L [facility] HemeAutoSSLymphocytes/100 WBC (Bld)26.4 %Ovimsd79.0 - 50.0 %[facility] HemeAutoSS Lymphocytes/Leukocytes Auto (Bld) [Pure # fraction]3.1 E9/LNormal1.0 - 4.0 E9/L [facility] HemeAutoSSMonocytes/100 WBC (Bld)9.1 %Normal4.0 - 14.0 %[facility] HemeAutoSS Monocytes/Leukocytes Auto (Bld) [Pure # fraction]1.1 E9/LHigh0.2 - 1.0 E9/LFTMC HemeAutoSSNeutrophils/100 WBC (Bld)63.2 %Cbjnrq34.0 - 75.0 %[facility] HemeAutoSS Neutrophils/Leukocytes Auto (Bld) [Pure # fraction]7.4 E9/LNormal2.0 - 7.5 E9/L [facility] HemeAutoSSHEMATOLOGYOrdered By: Sarai Min on 64-02-3759Ywthabacdun distribution width (RBC) [Ratio]14.3 %High10.9 - 14.2 %[facility] HemeAutoSSHematocrit (Bld) [Volume fraction]35.9 %Low37.7 - 49.0 %[facility] HemeAutoSSHemoglobin (Bld) [Mass/Vol]12.1 g/dLLow13.5 - 17.5 gm/dLFTMC HemeAutoSSMCH (RBC) [Entitic mass] 30.1 blGbtrlb02.0 - 34.0 pgFTMC HemeAutoSSMCHC (RBC) [Mass/Vol]33.6 g/dLNormal 31.4 - 36.0 gm/dLFTMC HemeAutoSSMCV (RBC) [Entitic vol]89.6 lFYokgpo80.0 - 100.0 fLFTMC HemeAutoSSPlatelet mean volume (Bld) [Entitic vol]8.4 fLNormal6.4 - 10.8 fLFTMC HemeAutoSSPlatelets (Bld) [#/Vol]212.0 E9/AGgxgcd939.0 - 500.0 E9/LFTMC HemeAutoSSRBC (Bld) [#/Vol]4.0 E12/LLow4.3 - 5.9 E12/LFTMC HemeAutoSSWBC corrected for nucl RBC Auto (Bld) [#/Vol]11.7 E9/LHigh4.0 - 11.0 E9/LFTMC HemeAutoSSCOAGULATIONOrdered By: Zara Kay on 16-37-9706aEBI Coag (PPP) [Time]63.0 sHigh25.1 - 36.5 second(s)[facility] Auto CoagINR Coag (PPP) [Relative time]1.0 {INR}Invalid Interpretation CodeFTMC Auto CoagPT Coag (PPP) [Time]11.4 sNormal9.4 - 12.5 second(s)[facility] Auto CoagCOAGULATIONOrdered By: Sarai Min on 34-11-1053BPW Coag (PPP) [Relative time]1.1 {INR}Invalid Interpretation Code [facility] Auto CoagPT Coag (PPP) [Time]12.2 sNormal9.4 - 12.5 second(s)[facility] Auto Coag HEMATOLOGYOrdered By: Eleni Villegas on 01-67-6097Qiajxfrcez (Bld) [Mass/Vol] 11.4 g/dLLow13.5 - 17.5 gm/dLFTMC HemeAutoSSPlatelets (Bld) [#/Vol]197.0 E9/L Fyrclo867.0 - 500.0 E9/LFTMC HemeAutoSSCHEMISTRYOrdered By: SYSTEM SYSTEM on 36-49-5367Yzuvroxv I.cardiac [Mass/Vol]3.90 pg/mLLow15.90 - 38.40 pg/mLFTMC RemisolAnion gap [Moles/Vol]19 mmol/LHigh6 - 16 mEq/LFTMC RemisolCalcium [Mass/Vol]9.4 mg/dLNormal8.9 - 11.1 mg/dLFTMC RemisolChloride [Moles/Vol]97 mmol/ILrt440 - 111 mmol/LFTMC RemisolCO2 [Moles/Vol]27 mmol/PNpvvpx66 - 31 mmol/LFTMC RemisolCreatinine [Mass/Vol]1.0 mg/dLNormal0.5 - 1.3 mg/dLFT[facility] RemisolGFR/1.73 sq M.predicted among blacks MDRD (S/P/Bld) [Vol rate/Area] mL/min/1.73 l3Zvsvag>=59mL/min/1.73 m2[facility] Chem SGFR/1.73 sq M.predicted among non-blacks MDRD (S/P/Bld) [Vol rate/Area]mL/min/1.73 y6Hbkekf>=59mL/min/1.73 m2 [facility] Chem SGlucose [Mass/Vol]222 mg/pKBvbb24 - 199 mg/dLFTMC RemisolMagnesium [Mass/Vol]1.9 mg/dLNormal1.3 - 2.4 mg/dLFT[facility] RemisolPotassium [Moles/Vol]4.6 mmol/LNormal3.5 - 5.3 mmol/LFTMC RemisolSodium [Moles/Vol]138 mmol/YIpxfwr261 - 145 mmol/LFTMC RemisolTroponin I.cardiac [Mass/Vol]3.90 pg/mLLow15.90 - 38.40 pg/mLFTMC RemisolTSH Qn1.17 m[IU]/LNormal0.34 - 5.60 mcIU/mLFTMC RemisolUrea nitrogen [Mass/Vol]16 mg/dLNormal5 - 21 mg/dLFTMC RemisolUrea nitrogen/Creatinine [Mass ratio]16 mg/kfQmclzc24 - 20[facility] RemisolTroponin I.cardiac [Mass/Vol]3.70 pg/mLLow15.90 - 38.40 pg/mLFTMC RemisolCOAGULATION Ordered By: Tavon Bauman on 17-47-2259Pwrkvf D-dimer FEU (PPP) [Mass/Vol]3749 ng/mL FEUInvalid Interpretation Xoat985 - 500 ng/mL FEUFTMC Auto CoagComment on above:Result Comment: Results Called To JOSE ANTONIO OLIVA By TAVON BAUMAN And Read Back For Confirmation On01/31/2022 18:05:53 EST Results Verified By Repeat AnalysisINR Coag (PPP) [Relative time]1.0 {INR} Invalid Interpretation CodeFTMC Auto CoagPT Coag (PPP) [Time]10.6 sNormal9.4 - 12.5 second(s)FT Auto CoagHEMATOLOGYOrdered By: SYSTEM SYSTEM on 01-31-2022 Basophils/100 WBC (Bld)0.7 %Normal0.0 - 2.0 %[facility] HemeAutoSSBasophils/Leukocytes Auto (Bld) [Pure # fraction]0.1 E9/LNormal0.0 - 0.2 E9/LFTMC HemeAutoSS Eosinophils/100 WBC (Bld)0.0 %Normal0.0 - 8.0 %[facility] HemeAutoSS Eosinophils/Leukocytes Auto (Bld) [Pure # fraction]0.0 E9/LNormal0.0 - 0.5 E9/L [facility] HemeAutoSSLymphocytes/100 WBC (Bld)3.5 %Low14.0 - 50.0 %[facility] HemeAutoSS Lymphocytes/Leukocytes Auto (Bld) [Pure # fraction]0.4 E9/LLow1.0 - 4.0 E9/LFTMC HemeAutoSSMonocytes/100 WBC (Bld)1.1 %Low4.0 - 14.0 %[facility] HemeAutoSS Monocytes/Leukocytes Auto (Bld) [Pure # fraction]0.1 E9/LLow0.2 - 1.0 E9/LFTMC HemeAutoSSNeutrophils/100 WBC (Bld)94.7 %High36.0 - 75.0 %[facility] HemeAutoSS Neutrophils/Leukocytes Auto (Bld) [Pure # fraction]9.7 E9/LHigh2.0 - 7.5 E9/L [facility] HemeAutoSSHEMATOLOGYOrdered By: Zara Kay on 29-41-2174Ghkxdkooyil distribution width (RBC) [Ratio]14.3 %High10.9 - 14.2 %[facility] HemeAutoSSHematocrit (Bld) [Volume fraction]38.5 %Cnwagc57.7 - 49.0 %[facility] HemeAutoSSHemoglobin (Bld) [Mass/Vol]13.2 g/dLLow13.5 - 17.5 gm/dLFTMC HemeAutoSSMCH (RBC) [Entitic mass] 30.6 riOyvsqe07.0 - 34.0 pgFTMC HemeAutoSSMCHC (RBC) [Mass/Vol]34.4 g/dLNormal 31.4 - 36.0 gm/dLFTMC HemeAutoSSMCV (RBC) [Entitic vol]88.9 oOMytwke65.0 - 100.0 fLINTEGR[facility] [place] HemeAutoSSPlatelet mean volume (Bld) [Entitic vol]8.0 fLNormal6.4 - 10.8 fLINTEGRIS [facility] [place] HemeAutoSSPlatelets (Bld) [#/Vol]186.0 E9/DLnvvkk063.0 - 500.0 E9/[facility] HemeAutoSSRBC (Bld) [#/Vol]4.3 E12/LNormal4.3 - 5.9 E12/[facility] HemeAutoSSWBC corrected for nucl RBC Auto (Bld) [#/Vol]10.2 E9/LNormal4.0 - 11.0 /[facility] HemeAutoSSLIPID PROFILEon 07-98-1830NEHV-HDL RATIO NORMSEE The Jewish HospitalComment on above:Result Comment: 3.3 - 4.4 LOW RISK 4.4 - 7.1 AVERAGE RISK 7.1 - 11.0 MODERATE RISK >11.0 HIGH RISKPerformed By: #### POCGLUC #### [facility] [address] [address] [address] Brittany Yatesesterol [Mass/Vol]131 mg/dLNormal<=200[facility] Comment on above:Performed By: #### POCGLUC #### [facility] [address] [address] [address] Brittany BellCholesterol in HDL [Mass/Vol]80 mg/dLCritically rmzp35-89CyhGood Samaritan HospitalComment on above:Performed By: #### POCGLUC #### [facility] [address] [address] [address] Brittany BellCholesterol in LDL [Mass/Vol]38.0 mg/dLWilson HealthComment on above:Performed By: #### POCGLUC #### [facility] [address] [address] [address] Brittany Yatesesterlucie.total/Cholesterol in HDL [Mass ratio]1.6 {ratio} NormalGood Samaritan HospitalComment on above:Performed By: #### POCGLUC #### [facility] [address] [address] [address] Brittany Ricketts NORMAL> or = 60 mg/dl - LOW CARDIOVASCULAR RISK <40 mg/dl - HIGH CARDIOVASCULAR RISKWilson HealthComment on above:Performed By: #### POCGLUC #### [facility] [address] [address] [address] Brittany Clement CALC NORMALSEE BELOWWilson HealthComment on above:Result Comment: <100 mg/dl OPTIMAL 100 - 129 mg/dl NEAR OR ABOVE OPTIMAL 130 - 159 mg/dl BORDERLINE HIGH 160 - 189 mg/dl HIGH >190 mg/dl VERY HIGH Performed By: #### POCGLUC #### [facility] [address] [address] [address] Brittany Petersenlyceride [Mass/Vol]65 mg/dLNormal<=150[facility] Comment on above:Performed By: #### POCGLUC #### [facility] [address] [address] [address] Brittany Fung CALC13.0 mg/dLNoCrystal Clinic Orthopedic CenterComment on above: Performed By: #### POCGLUC #### [facility] [address] [address] [address] Brittany Dunaway W MANUAL DIFFon 11-02-9425DMNQFNKL LYMPH #NormalGood Samaritan HospitalComment on above:Performed By: #### CBCMAN ####[facility] [address] [address]Dr. Brittany BellATYPICAL LYMPH %NormalGood Samaritan HospitalComment on above:Performed By: #### CBCMAN ####[facility] [address] [address]DrJulian BellBAND #0.0 103/ulNormal0.0-0.3TProMedica Memorial HospitalComment on above: Performed By: #### CBCMAN ####[facility] [address] [address]DrJulian BellBAND %0 %Normal0-5ThParkwood Hospital Comment on above:Performed By: #### CBCMAN ####[facility] [address] [address]Dr. Yilan ChangBASOM #0.00 103/ulNormal 0.00-0.10The [facility] HospitalComment on above:Performed By: #### CBCMAN ####[facility] [address] [address]Dr. Yilan ChangBASOM %0.0 %Critically low0.2-2.0The Addison HospitalComment on above:Performed By: #### CBCMAN ####[facility] [address] [place], [place] [address]Dr. Yilan ChangBLAST #NormalThe [facility] Comment on above:Performed By: #### CBCMAN ####[facility] Pvp[address] [place], [place] [address]Dr. Yilan ChangBLAST %NormalThe [facility] HospitalComment on above:Performed By: #### CBCMAN ####[facility] [address] [place], [place] [address]Dr. Yilan ChangCORRECTED WBC Normal4.0-11.0The [facility] HospitalComment on above:Performed By: #### CBCMAN ####[facility] Frneqjtent[address] [place], [place] [address]Dr. Yilan ChangEOS #0.00 103/ulNormal0.00-0.70The [facility] HospitalComment on above: Performed By: #### CBCMAN ####[facility] Hrszlup[address] [place], [place] [address]Dr. Yilan ChangEOS%0.0 %Critically low0.9-7.0The [facility] HospitalComment on above:Performed By: #### CBCMAN ####[facility] [address] [place], [place] [address]Dr. Yilan ChangHCT 34.6 %Critically low42.0-54.0The [facility] HospitalComment on above:Performed By: #### CBCMAN ####[facility] [address] [place], [place] [address]Dr. Yilan NgzenDDR08.5 g/dlCritically low14.0-18.0The [facility] Comment on above:Performed By: #### CBCJUAN PABLO ####[facility] [address] [place] [address]Dr. Brittany CalixtoRANDOLPH HEALTH #0.17 103/ulCritically low1.20-3.80The [facility] HospitalComment on above:Performed By: #### CBCJUAN PABLO ####[facility] Alreymqurm[address] [place] [address]Dr. Brittany BellMETROPOLITAN HOSPITAL CENTERHM%1.0 %Critically low20.5-60.0The [facility] HospitalComment on above:Performed By: #### CBCJUAN PABLO ####[facility] Njkcyclchv[address] [place], [place] [address]Dr. Brittany BellMCH30.3 kaTdssjl37.9-34.0The [facility] HospitalComment on above:Performed By: #### CBCJUAN PABLO ####[facility] Gxgzjrbwmm[address] [place], [place] [address]Dr. Brittany BellMCHC33.2 g/dl Dmslcg47.9-35.2The [facility] HospitalComment on above:Performed By: #### CBCJUAN PABLO ####[facility] Pmxniheq[address] [place], [place] [address]Dr. Brittany BellMCV91.3 fFZnukcg81.0-94.0The [facility] HospitalComment on above: Performed By: #### CBCJUAN PABLO ####[facility] Laxudeckux[address] [place], [place] [address]Dr. Brittany ChangMETAMYELOCYTE #NormalThe [facility] HospitalComment on above:Performed By: #### CBCJUAN PABLO ####[facility] Yxbweyugrl[address] [place], [place] [address]Dr. Dorotalan ChangMETAMYELOCYTE %NormalThe [facility] HospitalComment on above:Performed By: #### CBCMAN ####[facility] Uqivusxbpb[address] [place], [place] [address]Dr. Brittany BellMONOM#0.50 103/ulNormal0.30-0.80The [facility] HospitalComment on above:Performed By: #### CBCMAN ####[facility] Qzgkzwzexe5[address] [place], [place] [address]Ha. Yilan ChangMONOM%3.0 %Normal1.7-12.0The [facility] HospitalComment on above:Performed By: #### CBCMAN ####[facility] [address]opwiqyy[address] [place] [id number]. Yilan ChangMPV9.8 fL Normal9.5-13.5The [facility] HospitalComment on above:Performed By: #### CBCMAN ####[facility] Dinzbxarcf[address] [place] [id number]. Yilan ChangMYELOCYTE #NormalThe [facility] HospitalComcorewell health bl[facility] on above:Performed By: #### CBCJUAN PABLO ####[facility] [address]yvasv[address] [place] [address]Dr. Yilan ChangMYELOCYTE %NormalThe [facility] HospitalComment on above: Performed By: #### CBCJUAN PABLO ####[facility] Gkvmocaxuk[address] [place], [place] [address]Dr. Yilan ChangNRBCNormalThe [facility] HospitalComment on above:Performed By: #### CBCJUAN PABLO ####[facility] Ruubrttdew[address] [place], [place] [address]Dr. Yilan YtzepVFV679 103/iwUztswk536-418Bcj [facility] HospitalComcorewell health blodgett hospital on above:Performed By: #### CBCJUAN PABLO ####[facility] [address]ruqyzel[address] [place] [address]Dr. Yilan ChangRBC 3.79 106/ulCritically low4.70-6.10The [facility] HospitalComment on above: Performed By: #### CBCMAN ####[facility] Znbpdoaaol[address] [place], [place] [address]Dr. Yilan IppkhKIV74.2 %Kfivlr40.0-15.0The [facility] HospitalComment on above:Performed By: #### CBCMAN ####[facility] Sylpqtidsu[address] [place], [place] [address]Dr. Yilan ChangSEG #16.03 103/ulCritically high1.40-6.50The [facility] HospitalComment on above:Performed By: #### CBCMAN ####[facility] [address]ypnosa[address] [place] [address]Dr. Brittany HsesG %96.0 %Critically high43.0-75.0The [facility] on above:Performed By: #### CBCMAN ####[facility] [address]fsms[address] [place] [address]DrJulian BellWBC16.7 103/ul Critically high4.0-11.0The [facility] HospitalComcorewell health blodgett hospital on above:Performed By: #### CBCMAN ####[facility] [address]prlqvtb[address] [place] [address]Dr. Brittany Mauro BLD IMMUNO SCREENon 10-22-5064ENLXVL BLOODNegativeNormal NEGATIVEThe [facility] on above:Performed By: #### OBSCRN ####[facility] Wyhjivnskc[address] [place], [place] [address]DrJulian BellPROF 14(COMP METB)on 72-21-0634Whwngkg [Mass/Vol]3.5 g/dLNormal 3.4-5.0The [facility] Healthment on above:Performed By: #### POCGLUC #### [facility] [address] [place] [address] Dr. Brittany BellAlbumin/Globulin [Mass ratio]1.5 {ratio}NormalThe [facility] on above:Performed By: #### POCGLUC #### [facility] [address] [address] [address] Brittany Neff [Catalytic activity/Vol]72 U/XTptwix52-934Hue [facility] HospitalComment on above:Performed By: #### POCGLUC #### [facility] [address] [place] [address] Dr. Brittany Hoskins [Catalytic activity/Vol]28 U/ZEcoxry20-77Mbw [facility] HospitalComcorewell health blod[facility] hospital on above:Performed By: #### POCGLUC #### [facility] [address] [place] [address] Dr. Yilan ChangAnion gap [Moles/Vol]12.7 mmol/LNormalGood [facility] Comment on above:Performed By: #### POCGLUC #### [facility] [address] [place] [address] Dr. Brittany BellAST [Catalytic activity/Vol]18 U/DImrpzt95-79Jsy [facility] HospitalComment on above:Performed By: #### POCGLUC #### [facility] [address] [address] [address] Brittany BellBilirubin [Mass/Vol]0.3 mg/dLNormal0.2-1.0The [facility] Comment on above:Performed By: #### POCGLUC #### [facility] [address] [place] [address] Dr. Brittany BellCalcium [Mass/Vol]9.0 mg/dLNormal8.5-10.1[facility] Comment on above:Performed By: #### POCGLUC #### [facility] [address] [place] [address] Dr. Brittany BellChloride [Moles/Vol]101 mmol/FLzxdci23-302Ooo [facility] Comment on above:Performed By: #### POCGLUC #### [facility] [address] [place] [address] Dr. Brittany BellCO2 [Moles/Vol]23.2 mmol/DErvjab45.0-32.0[facility] Comment on above:Performed By: #### POCGLUC #### [facility] [address] [place] [address] Dr. Brittany BellCreatinine [Mass/Vol]1.24 mg/dLNormal0.70-1.30The [facility] HospitalComment on above:Performed By: #### POCGLUC #### [facility] [address] [place] [address] Dr. Brittany NicoleGFR-AF MALTESE>60Normal>=60The [facility] HospitalComment on above:Performed By: #### POCGLUC #### [facility] [address] [place] [address] Dr. Brittany NicoleGFR-NON AF PYTXSRQV72 mL/min/1.35s6Tfylzwjwkx low>=60The [facility] HospitalComment on above:Performed By: #### POCGLUC #### [facility] [address] [address] [address] Brittany BellGlobulin (S) [Mass/Vol]2.4 g/dLNormalThParkwood HospitalComment on above:Performed By: #### POCGLUC #### [facility] [address] [address] [address] Brittany BellGlucose [Mass/Vol]228 mg/dLCritically pjwq80-668Ujm [facility] HospitalComment on above:Performed By: #### POCGLUC #### [facility] [address] [place] [address] Dr. Brittany BellPotassium [Moles/Vol]3.9 mmol/LNormal3.5-5.1The [facility] Comment on above:Performed By: #### POCGLUC #### [facility] [address] [place] [address] Dr. Brittany BellProtein [Mass/Vol]5.9 g/dLCritically low6.4-8.2The [facility] HospitalComment on above:Performed By: #### POCGLUC #### [facility] [address] [place] [address] Dr. Brittany BellSodium [Moles/Vol]133 mmol/LCritically bwf095-241Phk [facility] HospitalComment on above:Performed By: #### POCGLUC #### [facility] [address] [place] [address] Dr. Brittany BellUrea nitrogen [Mass/Vol]23.0 mg/dLCritically high7.0-18.0The [facility] HospitalComment on above:Performed By: #### POCGLUC #### [facility] [address] [place] [address] Dr. Brittany Steele nitrogen/Creatinine [Mass ratio]18.5 mg/mgNoalThe [facility] HospitalComment on above:Performed By: #### POCGLUC #### [facility] [address] [place] [address] Dr. Brittany MaderaC AUTO DIFFon 30-40-1254HCBP #0.0 103/ulNormal0.0-0.1The [facility] Healthment on above:Performed By: #### CBC #### [facility] [address] [place] [address] Dr. Brittany BellBasophils/100 WBC (Bld)0.1 %Critically low0.2-2.0The [facility] HospitalComment on above:Performed By: #### CBC #### [facility] [address] [place] [address] Dr. Brittany Reed #0.0 103/ulNormal0.0-0.7The [facility] HospitalComment on above: Performed By: #### CBC #### [facility] [address] [place] [address] Dr. Brittany Nicoleosinophils/100 WBC (Bld)0.0 %Critically low0.9-7.0The [facility] HospitalComment on above:Performed By: #### CBC #### [facility] [address] [place] [address] Dr. Brittany Nicolerythrocyte distribution width (RBC) [Ratio]12.7 %Vshpfs64.0-15.0 [facility] Systemment on above:Performed By: #### CBC #### [facility] [address] [place] [address] Dr. Brittany BellHematocrit (Bld) [Volume fraction]36.8 %Critically low42.0-54.0 [facility] Systemment on above:Performed By: #### CBC #### [facility] [address] [place] [address] Dr. Brittany BellHemoglobin (Bld) [Mass/Vol]12.4 g/dLCritically low14.0-18.0The [facility] on above:Performed By: #### CBC #### [facility] [address] [place] [address] Dr. Brittany Costa #0.11 10e3/ulCritically high0.00-0.03The [facility] Comment on above:Performed By: #### CBC #### [facility] [address] [address] [address] Brittany Costa %0.7 %Critically high0.0-0.5The [facility] HospitalComment on above:Performed By: #### CBC #### [facility] [address] [address] [address] Brittany TreadwellH #0.8 103/ulCritically low1.2-3.8The [facility] Comment on above:Performed By: #### CBC #### [facility] [address] [address] [address] Brittany Treadwellhocytes/100 WBC (Bld)4.7 %Critically low20.5-60.0The [facility] HospitalComment on above:Performed By: #### CBC #### [facility] [address] [place] [address] Dr. Brittany ZimmerUAL DIFF REQNONormalThe [facility] HospitalComment on above: Performed By: #### CBC #### [facility] [address] [place] [address] Dr. Brittany Anaya (RBC) [Entitic mass]30.6 qbOuiyeb44.9-34.0The [facility] Healthment on above:Performed By: #### CBC #### [facility] [address] [place] [address] Dr. Brittany Anaya (RBC) [Mass/Vol]33.7 g/qLXxqizr51.9-35.2The [facility] HospitalComment on above:Performed By: #### CBC #### [facility] [address] [place] [address] Dr. Brittany Anaya (RBC) [Entitic vol]90.9 yAUcfqpn40.0-94.0The [facility] HospitalComment on above:Performed By: #### CBC #### [facility] [address] [place] [address] Dr. Brittany Robert #0.5 103/ulNormal0.3-0.8The [facility] HospitalComment on above:Performed By: #### CBC #### [facility] [address] [address] [address] Brittany Varelaocytes/100 WBC (Bld)3.3 %Normal1.7-12.0The [facility] Comment on above:Performed By: #### CBC #### [facility] [address] [address] [address] Brittany PlattUT #15.2 103/ulCritically high1.4-6.5The [facility] Comment on above:Performed By: #### CBC #### [facility] [address] [place] [address] Dr. Brittany Plattutrophils/100 WBC (Bld)91.2 %Critically high43.0-75.0The [facility] HospitalComment on above:Performed By: #### CBC #### [facility] [address] [place] [address] Dr. Brittany BellPlatelet mean volume (Bld) [Entitic vol]10.1 fLNormal9.5-13.5The [facility] HospitalComment on above:Performed By: #### CBC #### [facility] [address] [place] [address] Dr. Brittany BellPLT251 103/bgWxosrm211-874Grq [facility] HospitalComment on above: Performed By: #### CBC #### [facility] [address] [place] [address] Dr. Brittany BellRBC4.05 106/ulCritically low4.70-6.10The [facility] HospitalComment on above:Performed By: #### CBC #### [facility] [address] [place] [address] Dr. Brittany BellWBC16.6 103/ulCritically high4.0-11.0The [facility] HospitalComment on above:Performed By: #### CBC #### [facility] [address] [place] [address] Dr. Brittany Silva AND TIBCon 01-13-2022% VPXHPOBUXM65.0 %NormalThe [facility] HospitalComment on above:Performed By: #### FETIBC, B12FOL ####[facility] [address] [place] [address]Dr. Brittany BellIron [Mass/Vol]36.0 ug/dLCritically low65.0-175.0The [facility] HospitalComment on above:Performed By: #### FETIBC, B12FOL ####[facility] [address] [address]Dr. Brittany BellTIBC IVTRMB600.0 ug/dLNormal 250.0-450.0The [facility] HospitalComment on above:Performed By: #### FETIBC, B12FOL ####[facility] [address]ex[address] [place], [place] [address]DrJulian BellJEFF DAVIS H[facility]PITAL GLUCOSEon 40-26-0953Agibjgq [Mass/Vol]256 mg/dLCritically sair90-349Hsk [facility] HospitalComment on above:Performed By: #### POCGLUC ####[facility] [address]hesxqf[address] [place], [place] [address]DrJulian BellGlucose [Mass/Vol]167 mg/dLCritically ocqd09-067Wfg [facility] HospitalComment on above:Performed By: #### POCGLUC #### [facility] [address] [address] [address] Brittany BellGlucose [Mass/Vol]343 mg/dLCritically ookk38-325Xri [facility] HospitalComment on above:Performed By: #### POCGLUC #### [facility] [address] [address] [address] Brittany BellGlucose [Mass/Vol]274 mg/dLCritically swmv78-953Dty [facility] HospitalComment on above:Performed By: #### POCGLUC #### [facility] [address] [address] [address] Brittany BellGlucose [Mass/Vol]280 mg/dLCritically uoax45-612Dvh [facility] HospitalComment on above:Performed By: #### POCGLUC ####[facility] Txletfcowo[address] [place], [place] [address]Dr. Yilan ChangPROF 14(COMP METB)on 29-47-2497Txvtpzk [Mass/Vol]3.8 g/dLNormal3.4-5.0The [facility] Comment on above:Performed By: #### CMP ####[facility] Whjhjqsszl[address] [place], [place] [address]Dr.Yilan ChangAlbumin/Globulin [Mass ratio] 1.4 {ratio}NormalThe [facility] HospitalComment on above:Performed By: #### CMP ####[facility] Yrncvqhgsp[address] [place], [place] [address]Dr. Yilan ChangALP [Catalytic activity/Vol]88 U/GWwnpbe34-723Ocz [facility] Comment on above:Performed By: #### CMP ####[facility] Huwlbrhdwq[address] [place], [place] [address]Dr.Yilan ChangALT [Catalytic activity/Vol]25 U/QChfgaw67-50Zjb [facility] HospitalComment on above:Performed By: #### CMP ####[facility] Rqlyodomhl[address] [place], [place] [address]Dr. Yilan ChangAnion gap [Moles/Vol]15.5 mmol/LNormalThe [facility] HospitalComment on above:Performed By: #### CMP ####[facility] Ubozqrwuar22[address] [place], [place] [address]Dr.Yilan ChangAST [Catalytic activity/Vol]13 U/L Critically wos66-69Hrl [facility] HospitalComment on above:Performed By: #### CMP ####[facility] Jqoerfpqyo[address] [place], [place] [address]Dr. Yilan ChangBilirubin [Mass/Vol]0.4 mg/dLNormal0.2-1.0The [facility] Comment on above:Performed By: #### CMP ####[facility] Wqgylqzqdx[address] [place], [place] [address]Dr.Yilan ChangCalcium [Mass/Vol]9.1 mg/dL Normal8.5-10.1The [facility] HospitalComment on above:Performed By: #### CMP ####[facility] Nrgqzphtpa[address] [place], [place] [address]Dr. Yilan ChangChloride [Moles/Vol]98 mmol/GLgsdeb45-395Ccg [facility] HospitalComment on above:Performed By: #### CMP ####[facility] Koorxerqhr[address] [place], [place] [address]Dr.Yilan ChangCO2 [Moles/Vol]22.8 mmol/LNormal 21.0-32.0The [facility] HospitalComment on above:Performed By: #### CMP ####[facility] [address]mbfhpkt[address] [place], [place] [address]Dr. Yilan ChangCreatinine [Mass/Vol]1.43 mg/dLCritically high0.70-1.30The [facility] HospitalComment on above:Performed By: #### CMP ####[facility] Afdbhtffrf[address] [place], [place] [address]Dr.Yilan ChangEGFR-AF JHPVDOEI74 mL/min/1.50q1Myzsmytqem low>=60The [facility] HospitalComment on above: Performed By: #### CMP ####[facility] Nwznsmncxa[address] [place], [place] [address]Dr.Yilan ChangEGFR-NON AF WKZGXRSC22 mL/min/1.73m2 Critically low>=60The [facility] HospitalComment on above:Performed By: #### CMP ####[facility] Lkalneaqxv[address] [place], [place] [address]Dr. Yilan ChangGlobulin (S) [Mass/Vol]2.7 g/dLNormalThe [facility] HospitalComment on above:Performed By: #### CMP ####[facility] Zsjgsvyqqe[address] [place], [place] [address]Dr.Yilan ChangGlucose [Mass/Vol]270 mg/dLCritically qeih59-043Lie [facility] HospitalComment on above:Performed By: #### CMP ####[facility] Thnnqtkxea64[address] [place], [place] [address]Dr. Yilan ChangPotassium [Moles/Vol]3.3 mmol/LCritically low3.5-5.1The [facility] HospitalComment on above:Performed By: #### CMP ####[facility] [address] [place] [id number].Brittany ChangProtein [Mass/Vol]6.5 g/dLNormal6.4-8.2The [facility] HospitalComment on above:Performed By: #### CMP ####[facility] [address] [place] [address]Dr.Brittany ChangSodium [Moles/Vol]133 mmol/LCritically gsh290-422Smd [facility] HospitalComment on above:Performed By: #### CMP ####[facility] [address]ju[address] [place] [address]Dr.Brittany ChangUrea nitrogen [Mass/Vol]19.0 mg/dLCritically high7.0-18.0The [facility] HospitalComment on above:Performed By: #### CMP ####[facility] [address]sp[address] [place] [address]Dr.Brittany ChangUrea nitrogen/Creatinine [Mass ratio] 13.3 mg/mgNoCrystal Clinic Orthopedic CenterComment on above:Performed By: #### CMP ####[facility] [address] [address]Dr. Brittany BellVIT B12 AND FOLATEon 00-57-5219Awfzoetua (Vitamin B12) [Mass/Vol] 1831.0 pg/mLCritically vuya209.0-986.0The [facility] HospitalComment on above: Performed By: #### FETIBC, B12FOL ####[facility] [address]gpmtu[address] [place] [address]Dr. Brittany BellFxedyHQAWDZ03.60 ng/mLNormal8.60-58.90The [facility] HospitalComment on above:Performed By: #### FETIBC, B12FOL ####[facility] [address] [place] [address]Dr. Brittany Bell BLOOD GASES BTYon MODENASAL CANNULANoCrystal Clinic Orthopedic Center Comment on above:Performed By: #### POCGLUC #### [facility] [address] [address] [address] Brittany Soriano TESTPositiveSheltering Arms Hospital on above: Performed By: #### POCGLUC #### [facility] [address] [address] [address] Brittany Quinn excess Calc (Bld) [Moles/Vol]1.1 mmol/LNormal-2.0-2.0The [facility] on above:Performed By: #### POCGLUC #### [facility] [address] [place] [address] Dr. Brittany SolerP [facility] Medical CenterComcorewell health bl[facility] hospital on above: Performed By: #### POCGLUC #### [facility] [address] [place] [address] Dr. Brittany BellUniversity Hospitals Geneva [facility] Center on above:Performed By: #### POCGLUC #### [facility] [address] [place] [address] Dr. Britt[address] BellEfbhbZ[address]Bxn[address] on above:Performed By: #### POCGLUC #### [facility] [address] [place] [address] Dr. Brittany BellHCO3 (Bld) [Moles/Vol]25.4 mmol/ITkyits26.0-26.0The [facility] on above:Performed By: #### POCGLUC #### [facility] [address] [place] [address] Dr. Britt[address] BellO[address]fapHOC[address] on above:Performed By: #### POCGLUC #### [facility] [address] [place] [address] Dr. Brittany TorreUTE Pike Community HospitalComcorewell health blod[facility] hospital on above: Performed By: #### POCGLUC #### [facility] [address] [place] [address] Dr. Brittany BellOxygen (Bld) [Partial pressure]72.9 mm[Hg]Critically low 80.0-100.0The [facility] on above:Performed By: #### POCGLUC #### [facility] [address] [place] [address] Dr. Brittany Parkinson saturation in Blood95.5 %Vahhyb22.0-100.0[facility] on above:Performed By: #### POCGLUC #### [facility] [address] [address] [address] Brittany BellPCO238.4 caRlPycohb87.0-45.0The [facility] HospitalComcorewell health blodgett hospital on above:Performed By: #### POCGLUC #### [facility] [address] [place] [address] Dr. Brittany BellOhio State Health SystemComcorewell health blodgett hospital on above:Performed By: #### POCGLUC #### [facility] [address] [place] [address] Dr. Brittany Crisostomo (Bld)7.429 [pH]Normal7.350-7.450[facility] on above:Performed By: #### POCGLUC #### [facility] [address] [place] [address] Dr. Brittany MilliganTriHealth Bethesda Butler HospitalComcorewell health blodgett hospital on above:Performed By: #### POCGLUC #### [facility] [address] [place] [address] Dr. Soto [facility] on above:Performed By: #### POCGLUC #### [facility] [address] [place] [address] Dr. Brittany WenPremier Health Miami Valley Hospital SouthComcorewell health blodgett hospital on above: Performed By: #### POCGLUC #### [facility] [address] [place] [address] Dr. Brittany MckeonTriHealth Bethesda Butler HospitalComcorewell health blodgett hospital on above:Performed By: #### POCGLUC #### [facility] [address] [place] [address] Dr. Brittany BellMedina HospitalComcorewell health blodgett hospital on above:Performed By: #### POCGLUC #### [facility] [address] [place] [address] Dr. Brittany BellCleveland Clinic Marymount HospitalComcorewell health blodgett hospital on above:Performed By: #### POCGLUC #### [facility] [address] [place] [address] Dr. Brittany Love 71-48-4421Elcswbaqhqa peptide B (Bld) [Mass/Vol]170.0 pg/mL Normal<=900.0[facility] HospitalComment on above:Performed By: #### POCGLUC #### [facility] [address] [place] [address] Dr. Brittany MENDOZA 3-6on 98-70-0942SL [Catalytic activity/Vol]76 U/L Nopwmu08-619Kpi [facility] HospitalComment on above:Performed By: #### POCGLUC #### [facility] [address] [place] [address] Dr. Brittany Benedict.MB [Mass/Vol]2.29 ng/mLNormal<=3.60[facility] Comment on above:Performed By: #### POCGLUC #### [facility] [address] [place] [address] Dr. Brittany Herrera14.3 pg/mLNormal4.0-76.1The [facility] on above:Result Comment: CUT-OFF POINTS HAVE BEEN ESTABLISHED BASED ON THE FOURTH UNIVERSAL DEFINITIONS OF MYOCARDIAL INFARCTION. THE UPPER REFERENCE LIMIT (URL) OF TROPONIN, DEFINED THE 99TH PERCENTILE OF cTnI DISTRIBUTION IN A REFERENCE POPULATION, HAS BEEN CONFIRMED THE DECISION THRESHOLD FOR SD DIAGNOSIS.Performed By: #### POCGLUC #### [facility] [address] [place] [address] Dr. Brittany Benedict [Catalytic activity/Vol]83 U/FEwhowy10-253Lzj [facility] HospitalComment on above:Performed By: #### POCGLUC #### [facility] [address] [place] [address] Dr. Brittany Benedict.MB [Mass/Vol]2.34 ng/mLNormal<=3.60[facility] Comment on above:Performed By: #### POCGLUC #### [facility] [address] [place] [address] Dr. Brittany Herrera16.8 pg/mLNormal4.0-76.1The [facility] on above:Result Comment: CUT-OFF POINTS HAVE BEEN ESTABLISHED BASED ON THE FOURTH UNIVERSAL DEFINITIONS OF MYOCARDIAL INFARCTION. THE UPPER REFERENCE LIMIT (URL) OF TROPONIN, DEFINED THE 99TH PERCENTILE OF cTnI DISTRIBUTION IN A REFERENCE POPULATION, HAS BEEN CONFIRMED THE DECISION THRESHOLD FOR SD DIAGNOSIS.Performed By: #### POCGLUC #### [facility] [address] [address] [address] Brittany MENDOZA ADMITon 87-92-7047DY [Catalytic activity/Vol]101 U/L Uxvzoa72-480Uim [facility] on above:Performed By: #### CMADM, BMP, BNP ####[facility] [address] [address]Dr. Brittany Benedict.MB [Mass/Vol]2.89 ng/mLNormal<=3.60The [facility] on above:Performed By: #### CMADM, BMP, BNP ####[facility] [address] [address]DrJulian BellHSTROP8.1 pg/mLNormal4.0-76.1 The [facility] on above:Result Comment: CUT-OFF POINTS HAVE BEEN ESTABLISHED BASED ON THE FOURTH UNIVERSAL DEFINITIONS OF MYOCARDIAL INFARCTION. THE UPPER REFERENCE LIMIT (URL) OF TROPONIN, DEFINED THE 99TH PERCENTILE OF cTnI DISTRIBUTION IN A REFERENCE POPULATION, HAS BEEN CONFIRMED THE DECISION THRESHOLD FOR SD DIAGNOSIS.Performed By: #### CMADM, BMP, BNP ####[facility] [address] [address]DrJulian BellMYO53 ng/mL Hgvgab29-08Wzg [facility] on above:Performed By: #### CMADM, BMP, BNP ####[facility] [address] [address]Dr. Brittany BellCBC AUTO DIFFon 59-80-8148SSYL #0.1 103/ulNormal0.0-0.1[facility] on above:Performed By: #### CBC #### [facility] [address] [address] [address] Brittany BellBasophils/100 WBC (Bld)1.5 %Normal0.2-2.0The [facility] Comment on above:Performed By: #### CBC #### [facility] [address] [place] [address] Dr. Brittany Reed #1.2 103/ulCritically high0.0-0.7The [facility] HospitalComment on above:Performed By: #### CBC #### [facility] [address] [place] [address] Dr. Brittany Nicoleosinophils/100 WBC (Bld)14.5 %Critically high0.9-7.0The [facility] HospitalComment on above:Performed By: #### CBC #### [facility] [address] [place] [address] Dr. Brittany Nicolerythrocyte distribution width (RBC) [Ratio]12.6 %Lyjlbs60.0-15.0 The [facility] HospitalComment on above:Performed By: #### CBC #### [facility] [address] [place] [address] Dr. Brittany BellHematocrit (Bld) [Volume fraction]40.8 %Critically low42.0-54.0 The [facility] HospitalComment on above:Performed By: #### CBC #### [facility] [address] [place] [address] Dr. Brittany BellHemoglobin (Bld) [Mass/Vol]13.8 g/dLCritically low14.0-18.0The [facility] HospitalComment on above:Performed By: #### CBC #### [facility] [address] [place] [address] Dr. Brittany Costa #0.02 10e3/ulNormal0.00-0.03The [facility] HospitalComment on above:Performed By: #### CBC #### [facility] [address] [place] [address] Dr. Brittany Costa %0.2 %Normal0.0-0.5The [facility] HospitalComment on above: Performed By: #### CBC #### [facility] [address] [place] [address] Dr. Brittany Ramirez #2.8 103/ulNormal1.2-3.8The [facility] HospitalComment on above:Performed By: #### CBC #### [facility] [address] [place] [address] Dr. Brittany Treadwellhocytes/100 WBC (Bld)32.4 %Igsiez03.5-60.0The [facility] HospitalComment on above:Performed By: #### CBC #### [facility] [address] [place] [address] Dr. Brittany Cardenas DIFF REQNONormalThe [facility] HospitalComment on above: Performed By: #### CBC #### [facility] [address] [place] [address] Dr. Brittany Anaya (RBC) [Entitic mass]30.7 fyWdwftj71.9-34.0The [facility] HospitalComment on above:Performed By: #### CBC #### [facility] [address] [place] [address] Dr. Brittany Anaya (RBC) [Mass/Vol]33.8 g/dQNcuwiv03.9-35.2The [facility] HospitalComment on above:Performed By: #### CBC #### [facility] [address] [place] [address] Dr. Brittany Anaya (RBC) [Entitic vol]90.7 hTHusmmc17.0-94.0[facility] HospitalComment on above:Performed By: #### CBC #### [facility] [address] [place] [address] Dr. Brittany Robert #0.9 103/ulCritically high0.3-0.8ThParkwood [facility] Comment on above:Performed By: #### CBC #### [facility] [address] [place] [address] Dr. Brittany Varelaocytes/100 WBC (Bld)10.9 %Normal1.7-12.0[facility] Comment on above:Performed By: #### CBC #### [facility] [address] [place] [address] Dr. Brittany PlattUT #3.5 103/ulNormal1.4-6.5The [facility] HospitalComment on above:Performed By: #### CBC #### [facility] [address] [place] [address] Dr. Brittany Plattutrophils/100 WBC (Bld)40.5 %Critically low43.0-75.0The [facility] HospitalComment on above:Performed By: #### CBC #### [facility] [address] [place] [address] Dr. Brittany BellPlatelet mean volume (Bld) [Entitic vol]9.5 fLNormal9.5-13.5The [facility] HospitalComcorewell health [facility] on above:Performed By: #### CBC #### [facility] [address] [place] [address] Dr. Brittany BellPLT261 103/hcEykoqt603-317Jim [facility] HospitalComment on above: Performed By: #### CBC #### [facility] [address] [place] [address] Dr. Brittany BellRBC4.50 106/ulCritically low4.70-6.10The [facility] HospitalComcorewell health blodgett hospital on above:Performed By: #### CBC #### [facility] [address] [place] [address] Dr. Brittany BellWBC8.6 103/ulNormal4.0-11.0The [facility] HospitalComment on above: Performed By: #### CBC #### [facility] [address] [place] [address] Dr. Brittany Felix CHEST WO W CONon 17-68-4196NDB CHEST WO W CONEXAMINATION: CTA CHEST WO W CON HISTORY: SHORTNESS [...] 3. Faint bibasilar groundglass densities may reflect atelectasis/underaeration versus pneumonia depending on clinical scenario. Electronically authenticated by: BESSY MORRISON Date: 2022-01-12 05:52NormGerman Hospital HospitalCULTURE SPUTUMon 60-58-1709KIUXSUQ SPUTUMCulture Observations: NORMAL RESPIRATORY HOWARD.NormalGood Samaritan HospitalComment on above:Performed By: #### SPUTCX ####[facility] [address] [address]Dr. Brittany Orlando-19 PCR (CVDTB)on 73-54-7031RVHK-CoV-2 (COVID-19) RNA TITO+probe Ql (Unsp spec)Not detectedNormalNOT DETECTEDThe [facility] Comment on above:Result Comment: When diagnostic testing is negative, the [...] for this test is supported by the [employer] of Health and Human Service's declaration that circumstances exist to justify the emergency use of in vitro diagnostics for the detection and/or diagnosis of the virus that causes COVID-19. This EUA will remain in effect for the duration of the COVID-19 declaration justifying emergency of IVDs, unless it is terminated or revoked by the FDA (after which the test may no longer be used).Performed By: #### CVDTBH ####[facility] [address] [id number]. Brittany CollinsDIMERon 14-77-0610B-DIMER1.25 mg/L FEUCritically high <=0.59The [facility] HospitalComment on above:Performed By: #### POCGLUC #### [facility] [address] [place] [address] Dr. Brittany CollinsDIMER COMMENTSSEE The Jewish HospitalComment on above:Result Comment: Increases in D-Dimer concentration observed with thromboembolic events [...] stress, and generalized hospitalization. Performed By: #### POCGLUC #### [facility] [address] [place] [address] Dr. Brittany Sommers AND Kayode AGon 80-91-1073GDEPWIQAN A AGNegativeNormal NEGATIVE SEE COMMENTThe [facility] HospitalComcorewell health blodgett hospital on above:Performed By: #### POCGLUC #### [facility] [address] [place] [address] Dr. Brittany Headley AGNegativeNormalNEGATIVE SEE COMMENTThe [facility] HospitalComcorewell health blod[facility] hospital on above:Performed By: #### POCGLUC #### [facility] [address] [place] [address] Dr. Brittany BellINTERNAL CONTROLSWithin Normal LimitsNormalWithin Normal Limits The [facility] HospitalComment on above:Performed By: #### POCGLUC #### [facility] [address] [place] [address] Dr. Brittany BellLACTATE/LACTIC ACIDon 41-99-4150Uzkvgsk [Moles/Vol]4.0 mmol/L Critically high0.4-1.9The [facility] HospitalComment on above:Performed By: #### LACT ####[facility] [address] [place], [place] [address]Dr. Yilan ChangLactate [Moles/Vol]2.7 mmol/LCritically high0.4-1.9The [facility] HospitalComment on above:Performed By: #### LACT ####[facility] [address] [id number]. Brittany BellPOINT OF CARE GLUCOSEon 64-12-0138Uabflij [Mass/Vol]326 mg/dLCritically bvfi63-747Rxp [facility] HospitalComment on above:Performed By: #### POCGLUC #### [facility] [address] [address] [address] Brittany BellGlucose [Mass/Vol]154 mg/dLCritically ibkn10-934Hvy [facility] HospitalComment on above:Performed By: #### POCGLUC #### [facility] [address] [address] [address] Brittany BellGlucose [Mass/Vol]122 mg/dLCritically ynbi34-129Kiu [facility] HospitalComment on above:Performed By: #### POCGLUC ####[facility] [address] [address]Dr. Brittany BellGlucose [Mass/Vol]384 mg/dLCritically mwqn47-242BvyGood Samaritan HospitalComment on above: Performed By: #### POCGLUC #### [facility] [address] [address] [address] Brittany BellGlucose [Mass/Vol]318 mg/dLCritically ygks73-480Khe [facility] HospitalComment on above:Performed By: #### POCGLUC #### [facility] [address] [address] [address] Brittany BellPROF CHEM 8 (BAS METB)on 63-77-4079Sjhfv gap [Moles/Vol]8.6 mmol/LNormalGood Samaritan HospitalComment on above:Performed By: #### POCGLUC #### [facility] [address] [address] [address] Brittany BellCalcium [Mass/Vol]9.0 mg/dLNormal8.5-10.1The [facility] Comment on above:Performed By: #### POCGLUC #### [facility] [address] [address] [address] Brittany BellChloride [Moles/Vol]100 mmol/JUuhpfv77-879Rto [facility] Comment on above:Performed By: #### POCGLUC #### [facility] [address] [address] [address] Brittany BellCO2 [Moles/Vol]29.2 mmol/AEbxvbl74.0-32.0The [facility] Comment on above:Performed By: #### POCGLUC #### [facility] [address] [address] [address] Brittany BellCreatinine [Mass/Vol]1.17 mg/dLNormal0.70-1.30The [facility] HospitalComment on above:Performed By: #### POCGLUC #### [facility] [address] [address] [address] Soto ChangEGFR-AF MALTESE>60Normal>=60The [facility] HospitalComment on above:Performed By: #### POCGLUC #### [facility] [address] [address] [address] Brittany NicoleGFR-NON AF MALTESE>60Normal>=60The [facility] HospitalComment on above:Performed By: #### POCGLUC #### [facility] [address] [address] [address] Brittany BellGlucose [Mass/Vol]176 mg/dLCritically awrk23-487Ntb [facility] HospitalComment on above:Performed By: #### POCGLUC #### [facility] [address] [address] [address] Brittany BellPotassium [Moles/Vol]3.8 mmol/LNormal3.5-5.1The [facility] Comment on above:Performed By: #### POCGLUC #### [facility] [address] [address] [address] Brittany BellSodium [Moles/Vol]134 mmol/LCritically gzl026-954Pmu [facility] HospitalComment on above:Performed By: #### POCGLUC #### [facility] [address] [address] [address] Brittany Steele nitrogen [Mass/Vol]13.0 mg/dLNormal7.0-18.0The [facility] HospitalComcorewell health blodgett hospital on above:Performed By: #### POCGLUC #### [facility] [address] [address] [address] Brittany BellUrea nitrogen/Creatinine [Mass ratio]11.1 mg/mgWilson HealthComment on above:Performed By: #### POCGLUC #### [facility] [address] [address] [address] Brittany Blackman GRAM STAINon 05-34-1683MXQWDQJDCuedbxNbiDelaware County Hospital Comment on above:Performed By: #### SPUTGS ####[facility] [address] [address]Dr. Yilan ChangDIPHTHEROIDSWilson HealthComment on above:Performed By: #### SPUTGS ####[facility] [address] [address]Dr. Yilan Bell EPITHELIALS<25Wilson HealthComment on above:Performed By: #### SPUTGS ####[facility] [address] [address]Dr. Yilan ChangFUNGAL ELEMENTSWilson HealthComment on above: Performed By: #### SPUTGS ####[facility] [address] [address]Dr. Yilan ChangGRAM NEG BACILLIWilson HealthComment on above:Performed By: #### SPUTGS ####[facility] [address] [address]Dr. Yilan ChangGRAM NEG DIPPLOCOCCIWilson HealthComcorewell health blodgett hospital on above:Performed By: #### SPUTGS ####[facility] [address] [address]Dr. Yilan ChangGRAM POS BACILLIMODERATEWilson HealthComment on above: Performed By: #### SPUTGS ####[facility] [address] [id number]. Brittany ChangGRAM POSITIVE COCCIMODERATEWilson HealthComment on above:Performed By: #### SPUTGS ####[facility] [address] [address]Dr. Brittany ChangWBC (Bld) [#/Vol]10*3/uLWilson HealthComment on above:Performed By: #### SPUTGS ####[facility] [address] [address]Dr. Brittany ChangXR CHEST 1 Von 23-73-2647YH CHEST 1 VEXAM: XR CHEST 1 V HISTORY: SHORTNESS OF BREATH COMPARISON: Chest x-ray 12/28/2021 TECHNIQUE: Single frontal view chest x-ray FINDINGS: No lobar consolidation, large pleural effusions, pneumothorax, or acute bony abnormality. Cardiac size is unremarkable. Calcified plaque thoracic aortic knob. IMPRESSION: No radiographic evidence for acute chest abnormality. Electronically authenticated by: RASTA KIM Date: 2022-01-12 04:42[facility] AUTO DIFFon 72-71-2089OXFG #0.1 103/ulNormal0.0-0.1The [facility] HospitalComment on above:Performed By: #### POCGLUC #### [facility] [address] [address] [address] Brittany BellBasophils/100 WBC (Bld)1.5 %Normal0.2-2.0The [facility] Comment on above:Performed By: #### POCGLUC #### [facility] [address] [address] [address] Brittany Reed #0.9 103/ulCritically high0.0-0.7The [facility] HospitalComment on above:Performed By: #### POCGLUC #### [facility] [address] [address] [address] Brittany Nicoleosinophils/100 WBC (Bld)11.1 %Critically high0.9-7.0The [facility] HospitalComment on above:Performed By: #### POCGLUC #### [facility] [address] [place] [address] Dr. Brittany Nicolerythrocyte distribution width (RBC) [Ratio]12.8 %Uqyylu69.0-15.0 [facility] HospitalComcorewell health bl[facility] on above:Performed By: #### POCGLUC #### [facility] [address] [place] [address] Dr. Brittany BellHematocrit (Bld) [Volume fraction]36.6 %Critically low42.0-54.0 The [facility] HospitalComment on above:Performed By: #### POCGLUC #### [facility] [address] [place] [address] Dr. Brittany BellHemoglobin (Bld) [Mass/Vol]12.6 g/dLCritically low14.0-18.0[facility] HospitalComment on above:Performed By: #### POCGLUC #### [facility] [address] [place] [address] Dr. Brittany Costa #0.03 10e3/ulNormal0.00-0.03The [facility] HospitalComment on above:Performed By: #### POCGLUC #### [facility] [address] [place] [address] Dr. Brittany Costa %0.4 %Normal0.0-0.5The [facility] HospitalComment on above: Performed By: #### POCGLUC #### [facility] [address] [place] [address] Dr. Brittany TreadwellH #1.8 103/ulNormal1.2-3.8The [facility] HospitalComment on above:Performed By: #### POCGLUC #### [facility] [address] [place] [address] Dr. Brittany Calixtomphocytes/100 WBC (Bld)22.7 %Dhbezv44.5-60.0The [facility] HospitalComment on above:Performed By: #### POCGLUC #### [facility] [address] [place] [address] Dr. Brittany ZimmerUAL DIFF REQNONormalThe [facility] HospitalComment on above: Performed By: #### POCGLUC #### [facility] [address] [place] [address] Dr. Brittany Anaya (RBC) [Entitic mass]31.0 ekMoikjt97.9-34.0The [facility] HospitalComment on above:Performed By: #### POCGLUC #### [facility] [address] [place] [address] Dr. Brittany Anaya (RBC) [Mass/Vol]34.4 g/cFHatduy95.9-35.2The [facility] HospitalComment on above:Performed By: #### POCGLUC #### [facility] [address] [place] [address] Dr. Brittany Anaya (RBC) [Entitic vol]89.9 xLSmffyf04.0-94.0The [facility] HospitalComment on above:Performed By: #### POCGLUC #### [facility] [address] [place] [address] Dr. Brittany Robert #0.8 103/ulNormal0.3-0.8The [facility] HospitalComment on above:Performed By: #### POCGLUC #### [facility] [address] [place] [address] Dr. Brittany Varelaocytes/100 WBC (Bld)9.7 %Normal1.7-12.0The [facility] Comment on above:Performed By: #### POCGLUC #### [facility] [address] [place] [address] Dr. Brittany Decker #4.4 103/ulNormal1.4-6.5The [facility] HospitalComment on above:Performed By: #### POCGLUC #### [facility] [address] [place] [address] Dr. Brittany Plattutrophils/100 WBC (Bld)54.6 %Otfzeo30.0-75.0The [facility] HospitalComment on above:Performed By: #### POCGLUC #### [facility] [address] [place] [address] Dr. Yilan ChangPlatelet mean volume (Bld) [Entitic vol]9.8 fLNormal9.5-13.5The [facility] HospitalComment on above:Performed By: #### POCGLUC #### [facility] [address] [address] [address] Brittany BellPLT228 103/wtCscjpc989-157Qqo [facility] HospitalComment on above: Performed By: #### POCGLUC #### [facility] [address] [address] [address] Brittany BellRBC4.07 106/ulCritically low4.70-6.10The [facility] HospitalComment on above:Performed By: #### POCGLUC #### [facility] [address] [place] [address] Dr. Brittany BellWBC8.0 103/ulNormal4.0-11.0The [facility] HospitalComment on above: Performed By: #### POCGLUC #### [facility] [address] [place] [address] Dr. Brittany BellPROF CHEM 8 (BAS METB)on 61-89-4050Rksek gap [Moles/Vol]9.2 mmol/LNormalThe [facility] HospitalComment on above:Performed By: #### BMP ####[facility] [address] [place], [place] [address]DrJulian Soto ChangCalcium [Mass/Vol]8.9 mg/dLNormal8.5-10.1The [facility] HospitalComment on above:Performed By: #### BMP ####[facility] [address] [place], [place] [address]DrJake ChangChloride [Moles/Vol]102 mmol/LNormal 98-107The [facility] HospitalComment on above:Performed By: #### BMP ####[facility] [address] [place], [place] [address]DrJake ChangCO2 [Moles/Vol]28.8 mmol/ZYsnjdi58.0-32.0The [facility] HospitalComment on above: Performed By: #### BMP ####[facility] [address] [address]Dr.Yilan ChangCreatinine [Mass/Vol]1.07 mg/dLNormal 0.70-1.30The [facility] HospitalComment on above:Performed By: #### BMP ####[facility] [address] [place], [place] [address]Dr. Yilan ChangEGFR-AF MALTESE>60Normal>=60The [facility] HospitalComment on above: Performed By: #### BMP ####[facility] [address] [place], [place] [address]Dr.Yilan ChangEGFR-NON AF MALTESE>60Normal>=60The [facility] HospitalComment on above:Performed By: #### BMP ####[facility] [address] [place], [place] [address]Dr.Yilan ChangGlucose [Mass/Vol]146 mg/dLCritically osdh22-055Dvs [facility] HospitalComment on above: Performed By: #### BMP ####[facility] [address] [place], [place] [address]Dr.Yilan ChangPotassium [Moles/Vol]4.0 mmol/LNormal 3.5-5.1The [facility] HospitalComment on above:Performed By: #### BMP ####[facility] [address] [place], [place] [address]Dr.Yilan Bell Sodium [Moles/Vol]136 mmol/DDuuiya802-415Jwe [facility] HospitalComment on above: Performed By: #### BMP ####[facility] [address] [place], [place] [address]Dr.Yilan ChangUrea nitrogen [Mass/Vol]19.0 mg/dL Critically high7.0-18.0The [facility] HospitalComment on above:Performed By: #### BMP ####[facility] [address] [place], [place] [address]Dr. Yilan ChangUrea nitrogen/Creatinine [Mass ratio]17.8 mg/mgNormalThe [facility] HospitalComment on above:Performed By: #### BMP ####[facility] [address] [place], [place] [address]Dr.Yilan Pope 85-91-8133ZBS Coag (PPP) [Relative time]0.95 {INR}NormalGood Samaritan Hospital Comment on above:Performed By: #### POCGLUC #### [facility] [address] [address] [address] Brittany Cronin [facility]ILADELPHIASEE BELOWWilson HealthComment on above:Result Comment: DESIRED INR: 2.0 - 3.0 CONDITIONS NOT LISTED BELOW 2.5 - 3.5 FOR PROSTHETIC HEART VALVE REPLACEMENT 2.5 - 3.5 RECURRENT THROMBOSIS Performed By: #### POCGLUC #### [facility] [address] [address] [address] Brittany Rollins Coag (PPP) [Time]10.3 sNormal9.0-11.6ThParkwood Hospital Comment on above:Performed By: #### POCGLUC #### [facility] [address] [address] [address] Brittany Link 42-44-3819mHPV Coag (Bld) [Time]25.6 fPtodeb05.3-36.2Good Samaritan HospitalComment on above:Performed By: #### POCGLUC #### [facility] [address] [place] [address] Dr. Brittany Patterson SINUSES WO CONon 54-30-7007TT SINUSES WO CONEXAMINATION: CT SINUSES WO CON HISTORY: Chronic maxillary [...] Electronically authenticated by: KOJO GARRIDO Date: 2021-11-28 09:28Wilson HealthCT SINUSES WO CONon 32-11-4109QI SINUSES WO CONEXAMINATION: CT SINUSES WO CON HISTORY: Chronic maxillary [...] Electronically authenticated by: KOJO GARRIDO Date: 2021-10-25 14:29[facility] HealthXR SINUSES 3 VIEWS OR GREATERon 12-73-1476XX SINUSES 3 VIEWS OR GREATEREXAMINATION: XR SINUSES 3 VIEWS OR GREATER HISTORY: [...] Electronically authenticated by: KOJO GARRIDO Date: 2021-10-18 15:24NormalThParkwood HospitalPROTEIN ELECTROPHERESISon 03-22-5542Yqlhqbv [Mass/Vol]3.9 g/dL Normal2.9-4.4The [facility] HospitalComment on above:Performed By: #### POCGLUC #### [facility] [address] [place] [address] Dr. Brittany BellAlbumin/Globulin [Mass ratio]1.5 {ratio}Normal0.7-1.7The [facility] HospitalComment on above:Performed By: #### POCGLUC #### [facility] [address] [place] [address] Dr. Brittany BellUfwoxDytnj-0-Syksesdb2.3 g/dLNormal0.0-0.4The [facility] HospitalComment on above:Performed By: #### POCGLUC #### [facility] [address] [place] [address] Dr. Brittany BellPhfqvToekf-5-Heicpxic4.6 g/dLNormal0.4-1.0The [facility] HospitalComment on above:Performed By: #### POCGLUC #### [facility] [address] [place] [address] Dr. Brittany BellBeta Globulin1.0 g/dLNormal0.7-1.3The [facility] HospitalComment on above:Performed By: #### POCGLUC #### [facility] [address] [place] [address] Dr. Brittany BellGamma Globulin0.7 g/dLNormal0.4-1.8The [facility] HospitalComment on above:Performed By: #### POCGLUC #### [facility] [address] [place] [address] Dr. Brittany BellGlobulin (S) [Mass/Vol]2.6 g/dLNormal2.2-3.9[facility] Comment on above:Performed By: #### POCGLUC #### [facility] [address] [place] [address] Dr. Yilan ChangM-SpikeNot ObservedNormalNot ObservedThe [facility] Memorial HospitalComment on above:Performed By: #### POCGLUC #### [facility] [address] [place] [address] Dr. Brittany Ervin.NormalThe [facility] HospitalComment on above:Performed By: #### POCGLUC #### [facility] [address] [place] [address] Dr. Brittany cOampo note:CommentNormalThe [facility] Memorial HospitalComment on above: Result Comment: Protein electrophoresis scan will follow via computer, mail, or staff registered nurse delivery.Performed By: #### POCGLUC #### [facility] [address] [place] [address] Dr. Brittany BellProtein [Mass/Vol]6.5 g/dLNormal6.0-8.5[facility] Comment on above:Performed By: #### POCGLUC #### [facility] [address] [place] [address] Dr. Brittany BellFERRITINon 91-45-2669Zxikjvlm [Mass/Vol]160.0 ng/mLNormal 26.0-388.0The [facility] Healthment on above:Performed By: #### FERR, B12FOL #### [facility] [address] [place] [address] Dr. Brittany BellMAGNESIUMon 87-39-3124Xugmyqjuq [Mass/Vol]2.2 mg/dLNormal1.8-2.4 The [facility] HospitalComment on above:Performed By: #### PHOS, MG, TSH ####[facility] [address] [place], [place] [address]DrJulian BellPHOSPHORUSon 05-59-0955Gdjdjpryg [Mass/Vol]3.7 mg/dLNormal2.6-4.7The Parkview Healthment on above:Performed By: #### PHOS, MG, TSH ####[facility] [address] [place], [place] [address]Dr. Brittany BellTSHon 57-08-6660KYX6.519 uIU/mLNormal0.358-3.740The [facility] HospitalComment on above:Performed By: #### PHOS, MG, TSH ####[facility] [address] [place], [place] [address]KeDr. Brittany Casey B12 AND FOLATEon 10-04-2021 Cobalamin (Vitamin B12) [Mass/Vol]2604.0 pg/mLCritically fumf994.0-986.0The [facility] HospitalComment on above:Performed By: #### FERR, B12FOL #### [facility] [address] [place], [place] [address] Dr. Brittany BellFOLATE20.50 ng/mLNormal8.60-58.90The [facility] HospitalComment on above:Performed By: #### FERR, B12FOL #### [facility] [address] [place], [place] [address] Dr. Brittany Bell Vital Signs Date TimeVital SignValuePerforming JgwxzrruyGihpailj41-11-9723 11:51-0400Body aydben894.7 cmMel Cabello PA Work Phone: [phone] CenterMdbnzfyvdi86-13-8553 11:51-0400Body mass index (BMI) [Ratio]30.71 kg/e8LsjfuMel Bahenamer PA Work Phone: [phone] SystemYxyatfcuuo89-30-6176 11:51-0400Body temperature 98.1 [degF]Mel Cabello PA Work Phone: [phone] CenterWzkjjdcmkq39-58-8561 11:51-0400Body gerzkv77.63 kgMel Hemmer PA Work Phone: [phone] CenterUobvgfhsfk25-13-3593 11:51-0400Diastolic blood ttomjdru08 mm[Hg]Mel Hemdrake PA Work Phone: [phone] Health SystemAsiemreljk36-81-1340 11:51-0400Heart rate67 /min Mel Cabello PA Work Phone: [phone] Health SystemSrxizgiris35-40-8141 11:51-6286MgB3% (BldA) [Mass fraction]97 %Mel Hemdrake PA Work Phone: [facility] CenterHfgqhqmfvt99-94-1951 11:51-0400Systolic blood zozssjwh128 mm[Hg]Mel Cabello PA Work Phone: [facility] CenterMvyzchxjaz71-28-1900 14:03-0500Body mass index (BMI) [Ratio]31.44 kg/q9RyomcuMatti Gomez MD Work Phone: [facility] CenterXvptictsqo57-69-7212 14:03-0500Body mnxnir06.8 kg Matti Gomez MD Work Phone: [facility] CenterFpfyvuvkko38-28-9733 14:03-0500Diastolic blood cszhybjs65 mm[Hg]Matti Gomez MD Work Phone: [phone] CenterPpigwpiwsx19-00-3852 14:03-0500Heart rate64 /min Matti Gomez MD Work Phone: [facility] CenterOdbeotrfmc55-33-5522 14:03-0500Respiratory rate17 /minDlauren Gomez MD Work Phone: [phone]-7451[facility] CenterKghjutmfng30-63-5625 14:03-1131JvP7% (BldA) [Mass fraction]98 %Matti Gomez MD Work Phone: [facility] CenterElornelpgy72-24-0288 14:03-0500Systolic blood dtosrdhi853 mm[Hg]Matti Gomez MD Work Phone: [facility] CenterYuqvnqdanv68-27-4660 10:36-0400Body xzpkjy157.7 cmMel Hemmer PA Work Phone: [facility] CenterBpijxgtggu53-70-6453 10:36-0400Body mass index (BMI) [Ratio]30.93 kg/w4Hcqyq Hemmer PA Work Phone: [facility] CenterAotkdoywle63-62-1908 10:36-0400Body axkeuf56.26 kgMel Hemmer PA Work Phone: [phone] CenterRtnhnanxcn67-36-9346 10:36-0400Diastolic blood izptllfg33 mm[Hg]Mel Cabello PA Work Phone: NOFreeman Health SystemNniipcovjw01-36-7181 10:36-0400Heart rate54 /min Mel Hemmer PA Work Phone: [facility] CenterQxsohqqcts33-87-6419 10:36-0400Respiratory rate16 /minKaren Hemmer PA Work Phone: [facility] CenterUezcrevqlr22-56-2800 10:36-4995SsK4% (BldA) [Mass fraction]96 %Mel Hemmer PA Work Phone: [facility] CenterYmejfjatan69-56-4962 10:36-0400Systolic blood kqtdnahm776 mm[Hg]Mel Hemmer PA Work Phone: [facility] CenterDqyknrnvry45-48-0037 09:34-0400Body idudiz022.7 cmKaren Hemmer PA Work Phone: [facility] CenterLwwpazhdtq19-18-5363 09:34-0400Body mass index (BMI) [Ratio]30.96 kg/q1Zqotn Hemmer PA Work Phone: [facility] CenterTngatandzs86-33-1984 09:34-0400Body temperature 97.11 [degF]Mel Hemmer PA Work Phone: [facility] CenterLtnzjcgyxg96-10-3836 09:34-0400Body .35 kgKaren Hemmer PA Work Phone: [facility] CenterUvijgvgsfl89-13-3291 09:34-0400Diastolic blood umfdqxva65 mm[Hg]Mel Hemmer PA Work Phone: [facility] CenterLnrfcfscae15-50-8964 09:34-0400Heart rate58 /min Mel Hemmer PA Work Phone: [facility] CenterBpnwbcylyp11-37-1659 09:34-0400Respiratory rate16 /minKaren Hemmer PA Work Phone: [facility] CenterHtrcbqolto37-38-2120 09:34-6610UrN6% (BldA) [Mass fraction]97 %Mel Hemmer PA Work Phone: KAFreeman Health SystemRkygbavqyl33-41-4719 09:34-0400Systolic blood xyfutfhw481 mm[Hg]Mel Hemmer PA Work Phone: [facility] CenterCmtcltmnot25-41-7234 08:46-0400Body mafopj239.7 cmMatti Gomez MD Work Phone: [facility] CenterHxgzaejfin93-23-1761 08:46-0400Body mass index (BMI) [Ratio]30.87 kg/i3UpikfyMatti Gomez MD Work Phone: [facility] CenterGaopfgodre69-88-4219 08:46-0400Body .08 Sena Gomez MD Work Phone: [phone] CenterXbkgnviqtr66-95-9819 08:46-0400Diastolic blood mm[Hg]Matti Gomez MD Work Phone: [phone] CenterLqejnznzyu42-46-0923 08:46-0400Heart rate68 /min Matti Gomez MD Work Phone: [facility] CenterQtmvqfgrsz05-95-7217 08:46-2845HeI4% (BldA) [Mass fraction]95 %Matti Gomez MD Work Phone: [phone] CenterNfarmgpifz72-89-8664 08:46-0400Systolic blood kwuvqmnu735 mm[Hg]Matti Gomez MD Work Phone: [facility] CenterBzqyokostk49-90-0921 14:56-0400Body owjmqk297.26 cmUniversity [facility]09-03-2024 14:56-0400Body mass index (BMI) [Ratio]31.3 kg/s7LzqfjjfppUniversity Hospitals [facility]09-03-2024 14:56-0400Body [degF][facility]09-03-2024 14:56-0400Body .16 kgUniversity [facility]als [facility]09-03-2024 14:56-0400Heart rate65 /[facility]09-03-2024 14:56-0400Respiratory rate18 /[facility]09-03-2024 14:56-0483RiE5% (BldA) [Mass fraction]97 %[facility]05-09-2024 14:04-0400Diastolic blood ejarxgwg35 mm[Hg]Gaetano Dhillon [address] [place], [place] 6225805-09-2024 14:04-0400Heart rate55 /minThlynn Dhillon [address] [place], [place] 6225805-09-2024 14:04-4772XhC6% (BldA) [Mass fraction]98 %Gaetano Dhillon [facility]05-09-2024 14:04-0400 Systolic blood pyxshlmy149 mm[Hg]Gaetano Dhillon [address]08-03-2023 13:15-0400 Diastolic blood macqztrd76 mm[Hg]Matti MOSCOSO [address]08-03-2023 13:15-0400Mean blood pvfxgnoi39 mm[Hg]Matti MOSCOSO [address]08-03-2023 13:15-0400 Systolic blood mdycrvza475 mm[Hg]Matti MOSCOSO [address]08-03-2023 13:02-0400Blood Pressure LocationDadom MOSCOSO [address] [place], [place] 6225808-03-2023 13:02-0400 Diastolic blood zcbyuqlb07 mm[Hg]Matti MOCSOSO [address] [place], [place] 6225808-03-2023 13:02-0400Heart rate51 /minDlauren MOSCOSO [address] [place], [place] 6225808-03-2023 13:02-4556DmY3% (BldA) [Mass fraction]97 %Matti MOSCOSO [address] [place], [place] 6225808-03-2023 13:02-0400 Systolic blood cuuhbtux689 mm[Hg]Matti MOSCOSO [address]01-17-2023 15:20-0500Blood Pressure LocationDadom Moscoso [address] [place], [place] 6225801-17-2023 15:20-0500 Diastolic blood oretasbi59 mm[Hg]Matti Moscoso [facility]01-17-2023 15:20-0500Heart rate67 /Jayna Moscoso [address] [place], [place] 6225801-17-2023 15:20-0500 Respiratory rate18 /Jayna Moscoso [address] [place], [place] 6225801-17-2023 15:20-6854YxQ8% (BldA) [Mass fraction]98 %Matti Moscoso [address] [place], [place] 6225801-17-2023 15:20-0500 Systolic blood gqmuusrz867 mm[Hg]Matti Moscoso [address]01-03-2023 15:07-0500Blood Pressure LocationDadom Moscoso [address]01-03-2023 15:07-0500 Diastolic blood exlsdylo77 mm[Hg]Matti Moscoso [address] [place], [place] 6225801-03-2023 15:07-0500Heart rate85 /Jayna Moscoso [address] [place], [place] 6225801-03-2023 15:07-0500 Respiratory rate18 /Jayna Moscoso [address] [place], [place] 6225801-03-2023 15:07-9108QsW0% (BldA) [Mass fraction]98 %Matti Moscoso [address] [place], [place] 6225801-03-2023 15:07-0500 Systolic blood idsinbrn600 mm[Hg]Matti Moscoso [address] [place], [place] 6225812-04-2022 17:04-0500 Hourly RoundingHilary Timmis [facility]12-04-2022 17:04-0500 Promise to ReturnHilary Timmis [facility]12-04-2022 16:00-0500 Hourly RoundingHilary Timmis [address] [place], [place] 5872512-04-2022 16:00-0500 Promise to ReturnHilary Timmis [address] [place], [place] 5872512-04-2022 15:00-0500 Hourly RoundingHilary Timmis [address] [place], [place] 5872512-04-2022 15:00-0500 Promise to ReturnHilary Timmis [address] [place], [place] 5872512-04-2022 12:33-0500Body kwxuhclgpgm32.7 [degF]Lopez Timmis [address] [place], [place] 5872512-04-2022 12:33-0500 Diastolic blood inlyzauu76 mm[Hg]Lopez Timmis [address] [place], [place] 5872512-04-2022 12:33-0500Heart rate63 /minHilary Timmis [address] [place], [place] 5872512-04-2022 12:33-0500Mean blood eayvagza666 mm[Hg]Lopez Timmis [address] [place], [place] 5872512-04-2022 12:33-0500 Respiratory rate18 /minHilary Timmis [address] [place], [place] 5872512-04-2022 12:33-9913KlY8% (BldA) [Mass fraction]98 %Lopez Timmis [address] [place], [place] 5872512-04-2022 12:33-0500 Systolic blood wrvhylde120 mm[Hg]Lopez Timmis [address] [place], [place] 5872512-04-2022 09:01-0500 Diastolic blood mm[Hg]Lopez Timmis [address] [place], [place] 5872512-04-2022 09:01-0500Heart rate78 /minHilary Timmis [address] [place], [place] 5872512-04-2022 09:01-0500 Systolic blood zdhnruaj615 mm[Hg]Lopez Timmis [address] [place], [place] 5872512-04-2022 08:49-0500Blood Pressure LocationHilary Timmis [address] [place], [place] 5872512-04-2022 08:49-0500Body slyvamxekmz10.06 [degF]Lopez Timmis [address] [place], [place] 5872512-04-2022 08:49-0500 Diastolic blood epaufvtb89 mm[Hg]Lopez Timmis [address] [place], [place] 5872512-04-2022 08:49-0500Heart rate78 /minHilary Timmis [address] [place], [place] 5872512-04-2022 08:49-0500Mean blood mm[Hg]Lopez Timmis [address] [place], [place] 5872512-04-2022 08:49-0500 Respiratory rate18 /minHilary Timmis [address] [place], [place] 5872512-04-2022 08:49-1002JpZ0% (BldA) [Mass fraction]97 %Lopez Timmis [address] [place], [place] 5872512-04-2022 08:49-0500 Systolic blood diayhtgb003 mm[Hg]Lopez Timmis [address] [place], [place] 5872512-04-2022 04:00-0500Body uaoukkvudtd30.88 [degF]Lopez Timmis [address] [place], [place] 5872512-04-2022 04:00-0500Heart rate71 /minHilary Timmis [address] [place], [place] 5872512-04-2022 04:00-4759AtQ2% (BldA) [Mass fraction]93 %Lopez Timmis [address] [place], [place] 5872512-03-2022 22:17-0500Heart rate72 /minHilary Timmis [address] [place], [place] 5872512-03-2022 22:16-0500gluc 284 mg/dLHilary Timmis [address] [place], [place] 5872512-03-2022 19:45-0500Mean blood scvpabgo31 mm[Hg]Lopez Timmis [address] [place], [place] 5872512-03-2022 17:02-0500Blood Pressure LocationHilary Timmis [address] [place], [place] 5872512-03-2022 17:02-0500gluc 162 mg/dLHilary Timmis [address] [place], [place] 5872512-03-2022 17:02-0500Heart rate60 /minHilary Timmis [address] [place], [place] 5872512-03-2022 17:02-0500Mean blood xhenhpix53 mm[Hg]Lopez Timmis [address] [place], [place] 5872512-03-2022 12:33-0500Blood Pressure LocationHilary Timmis [address] [place], [place] 5872512-03-2022 12:33-0500Heart rate80 /minHilary Timmis [address] [place], [place] 5872512-03-2022 12:33-0500Mean blood oqepwliw18 mm[Hg]Lopez Timmis [address] [place], [place] 5872512-03-2022 09:14-0500Heart rate74 /minHilary Timmis [address] [place], [place] 5872512-03-2022 08:26-0500Mean blood hiipvnqw56 mm[Hg]Lopez Timmis [address] [place], [place] 5872512-02-2022 11:37-0500 BP/Pulse Patient PositionHilary Timmis [address] [place], [place] 5872512-02-2022 08:19-0500 BP/Pulse Patient PositionHilary Timmis [address] [place], [place] 5872512-01-2022 16:55-0500Body ejzeectgfld03.62 [degF]Lopez Timmis [address] [place], [place] 5872512-01-2022 16:55-0500 BP/Pulse Patient PositionHilary Timmis [address] [place], [place] 5872512-01-2022 14:40-0500Body cnymgmhulhb79.7 [degF]Lopez Timmis [address] [place], [place] 5872512-01-2022 14:40-4079RFE7 35 %Lopez Timmis [address] [place], [place] 5872512-01-2022 14:40-0500 Respiratory rate10 /minHilary Timmis [address] [place], [place] 5872512-01-2022 14:30-1735OVH1 35 %Lopez Timmis [address] [place], [place] 5872512-01-2022 14:30-0500 Respiratory rate18 /minHilary Timmis [address] [place], [place] 5872512-01-2022 14:15-3744OMR6 35 %Lopez Timmis [address] [place], [place] 5872512-01-2022 14:15-0500 Respiratory rate10 /minHilary Timmis [address] [place], [place] 5872512-01-2022 13:02-0500Body gtmuftiytud18.34 [degF]Lopez Timmis [facility]12-01-2022 09:19-0500gluc 151 mg/dLHilary Timmis [facility] Encounters Encounter DateEncounter TypeCare ProviderFacilityStart: 11-22-2024 End: 64-36-2088Qbyvsyufg encounterDadom Gomez MD Work Phone: [facility] Family MedinceStart: 08-10-2024 End: 73-36-3593Hpkydceuq Result EncounterGeneric External Data ProviderNOMS External Department UnsolicitedStart: 08-10-2024 End: 06-84-0682Blqhuddje Result EncounterGeneric External Data ProviderNOMS External Department UnsolicitedStart: 07-30-2024 End: 68-47-5610Rwjfax outpatient visit 15 minutesMel DANIELS Work Phone: noms CI FMComment on above:Acute bronchitis, unspecified organism (Primary Dx); Seasonal allergic rhinitis due to pollenStart: 07-30-2024 End: 31-65-2130rxqabtxjguHICMC M HEMMERNot AvailableStart: 07-19-2024 End: 04-59-5836lkaedouamnFOUIMX [facility] Start: 04-26-2024 End: 96-57-4511Zrchtx Bobby DANIELS Work Phone: noms SWS ORTHOStart: 04-26-2024 End: 71-01-0096Iowhfl flowsJam DANIELS Work Phone: noms FAN ORTHOStart: 04-26-2024 End: 69-38-3290Uofaej outpatient visit 15 minutesMastan DANIELS Work Phone: noms SWS ORTHOComment on above:Acute pain of left knee; Effusion of left kneeStart: 04-26-2024 End: 16-34-0845egsslspbqdCXDGWJA J MEYERNot AvailableStart: 04-19-2024 End: 38-90-7845Turesz outpatient visit 25 minutesMatti Gomez MD Work Phone: NOMS CI FMComment on above:Type 2 diabetes mellitus with other specified complication, without long-term current use of insulin (CMS/HCC) (Primary Dx); Acute non-recurrent sinusitis, unspecified location; Effusion of left knee; Chronic obstructive pulmonary disease, unspecified (CMS/HCC); Unspecified atrial fibrillation (CMS/HCC)Start: 04-19-2024 End: 83-83-8039Snntsl Kendra Gomez MD Work Phone: NOM[facility] CI FMStart: 04-19-2024 End: 89-21-2123Acepbb Kendra Gomez MD Work Phone: NOM[facility] CI FMStart: 04-19-2024 End: 40-30-7592zhloqpdgygPBBVNZ B BERRYNot AvailableStart: 12-22-2023 End: 95-89-2766Xgaade Garrison DANIELS Work Phone: NOM[facility] CI FMStart: 12-22-2023 End: 53-08-5584Wavoqc Garrison DANIELS Work Phone: NOM[facility] CI FMStart: 12-22-2023 End: 09-99-6953Ueystnq encounter Holden DANIELS Work Phone: NOM[facility] CI FMComment on above:Medicare annual wellness visit, subsequent (Primary Dx); ACP (advance care planning); Type 2 diabetes mellitus with other specified complication, without long-term current use of insulin (CMS/HCC); Mixed hyperlipidemia (CMS/HCC); Screening for malignant neoplasm of prostate; Other problems related to lifestyle; Benign neoplasm of brain, unspecified brain region (CMS/HCC); Hypersomnia; Inadequate sleep hygiene; PRAVIN (obstructive sleep apnea); Paresthesia; PLMD (periodic limb movement disorder); Polyneuropathy; RLS (restless legs syndrome); Chronic obstructive pulmonary disease, unspecified COPD type (CMS/HCC); Dyspnea on exertion; Hard to intubate, sequela; Snoring; Atrial fibrillation, unspecified type (CMS/HCC); Coronary artery disease involving umkumiut heart without angina pectoris, unspecified vessel or lesion type ([facility]); Primary hypertension ([facility] 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 ([facility]); Degeneration of intervertebral disc of lumbar region [...] of tobacco use; Hypertrophy of nasal turbinates; residential current use of anticoagulant therapy; Type 2 diabetes mellitus with hyperglycemia ([facility])Start: 12-22-2023 End: 59-88-1186jakxctezrjBNXPKAngelo Garcia AvailableStart: 12-10-2023 End: 45-78-7282Kmpgax Garrison DANIELS Work Phone: N[facility] CI FMStart: 12-10-2023 End: 99-50-4484Lhmtussakshi DANIELS Work Phone: [facility] CI FMStart: 12-10-2023 End: 10-98-1314Sgmvxa outpatient visit 15 minutesMel DANIELS Work Phone: NOM[facility] CI FMComment on above:Right acute otitis media (Primary Dx); Type 2 diabetes mellitus with other specified complication, without long-term current use of insulin ([facility]); Chronic obstructive pulmonary disease, unspecified ([facility])Start: 12-10-2023 End: 41-37-9177orpvptltgkSTSDEAngelo Garcia AvailableStart: 11-25-2023 End: 55-65-6818izvbabolahTQFXVUEMCVC HALASYFacility:FT FM BellevueStart: 11-21-2023 End: 34-52-7216Oxwlgv Kendra Gomez MD Work Phone: NOM[facility] CI FMStart: 11-21-2023 End: 39-22-3326Wogbyf Kendra Gomez MD Work Phone: noms CI FMStart: 11-21-2023 End: 24-56-5454Wrikgu outpatient visit 25 minutesDadom Gomez MD Work Phone: noms CI FMComment on above:Acute maxillary sinusitis, recurrence not specified (Primary Dx); Type 2 diabetes mellitus with other specified complication, without long-term current use of insulin ([facility]/HCC); Mixed hyperlipidemia ([facility]/HCC)Start: 11-21-2023 End: 92-07-8530pybulethbjLMPARR B BERRYNot AvailableStart: 11-10-2023 End: 29-90-5587Wldxswaet encounterMatti Gomez MD Work Phone: noms CI FMStart: 11-04-2023 End: 68-16-4948qjywysecorJruzzukstMadison Health Work Phone: Start: 11-04-2023 End: 00-71-7418Wjoksge encounter procedureFirsthealth [facility] Phys[facility] GroupO[facility] Work Phone: Start: 07-10-2023 End: 21-09-7037flzhzxugbzRPYLUWBITJJ HALASYFacility:FTMCStart: 07-10-2023 End: 74-41-4793Wbxtnmj encounter procedureGaetano Dhillon [facility] Start: 10-03-2022 End: 23-71-5484Gbxaezt encounter procedureMatti MOSCOSO [facility] Start: 03-19-2022 End: 49-89-8329Exdtrqh encounter procedureMtati Moscoso [facility] Start: 03-15-2022 End: 13-56-7439Ryvyhmt encounter procedureMatti Moscoso [facility] Start: 03-05-2022 End: 23-97-5655Cbbvvcg encounter procedureMatti Melly Moscoso [facility] Start: 99-29-4810lpjbjuqpdkKyjewoha:30209Vegvd: 01-31-2022 End: 60-04-5241Fokrbzcqig and management of inpatientHilary Tara Weber [facility] Start: 51-12-0303jyxmzhollhTO KIM E KNIGHTFacility:H1 Start: 49-95-4570aomkisoxtoJM KIM E KNIGHTFacility:U0Tyymr: 01-18-2022 End: 96-85-9209vkvvmjlypzJX KIM E KNIGHTFacility:Z7Wouil: 01-12-2022 End: 95-14-9273Pqcowbldet and management of inpatientDR DEBORA CASPERFacility:H1 Start: 54-32-5042Gmrpoovvm for preprocedural cardiovascular examinationDR [facility]Z [facility] HospitalStart: 74-82-7917Xhtjsujsq for preprocedural laboratory examinationDR LOPEZ [facility] HospitalStart: 12-30-2021 Encounter for preprocedural respiratory examinationDR [facility] HospitalStart: 12-28-2021 End: 68-85-0441qisahwbhnoPQ LOPEZ TIMMISFacility:X5Txbkv: 12-28-2021 End: 45-23-4593Djcrrabbn for preprocedural laboratory examinationDR LOPEZ TIMMISFacility:K1Cjzac: 11-28-2021 End: 50-88-6273enabfcckkfJW LOPEZ TIMMISFacility:I5Eqduz: 10-25-2021 End: 15-32-8546xyawkhslbqJV KIM E KNIGHTFacility:C4Fsbby: 10-17-2021 End: 04-20-9632xaliwmgngiJD KIM E KNIGHTFacility:P0Ezrbi: 10-04-2021 End: 50-40-0384xdtvmemuovEI KIM E KNIGHTFacility:H1 Procedures DateProcedureProcedure DetailPerforming ClinicianStart: 29-48-9010TO ECHO DOPPLER COMPLETEGeneric External Data ProviderStart: 01-84-6403Wnlrg metabolic panel calcium totalMel Kline Jay PA Work Phone: Start: 34-64-7495Yaeqt panelMel Kline Jay PA Work Phone: Start: 73-47-1978Fkrsk albumin quantitativeMel Kline Jay PA Work Phone: Start: 00-77-8602Kzltobeafh examination knee 1/2 views Galen Condon PA Work Phone: Start: 75-36-0488Jkqcaxlctt glycosylated l2uAdsamldom Gomez MD Work Phone: Start: 93-52-8693Qhtjgwmfzek colorectal cancer DNA and occult blood screening [Presence] in StoolDadom Gomez MD Work Phone: Start: 35-27-0880Ccburujbzd ethmoidectomy with turbinectomyMatti Moscoso back structure, excluding neck (body structure)Lopez Timmis comment on above:back surgery x 2Cardiac catheterizationHilary Timmis comment on above:2009ColonoscopyThomas Alejo Comment on above:2014Discectomy of spineThomas Alejo Comment on above:lumbar 2002,, L4L5 Nov 2010Extraction of cataractHilary Timmis H/O: vasectomyThomas Alejo Comment on above:1979Repair of musculotendinous cuff of shoulderHilary Timmis Sinus (morphologic abnormality)Matti MOSCOSO Varicose vein strippingHilary Timmis comment on above:1989 Plan of Treatment DateCare ActivityDetailAuthorStart: 65-04-4609Ooxjgext screeningDiabetes: Retinopathy ScreeningNOMS HealthcareStart: 90-74-8400Nzeawtzjt for malignant neoplasm of colonNOMS HealthcareStart: 02-80-5131Obzqnwqu screeningDiabetes: Retinopathy ScreeningNOMS HealthcareStart: 65-44-3680Cyzqo screening for protein Diabetes: Urine Protein ScreeningNOUT HealthcareStart: 12-30-2024 End: 07-83-0951Idxepjg encounter arnjaeeht54/30/2025 10:00 AM EDT Office Visit [facility] 112 [facility] [address] [place] [address] Matti Gomez MD 112 [facility] [address] [place] [address] NOM[facility] CI FMStart: 12-24-2024 End: 13-11-5271Voeifse encounter procedureNOMS CI FMStart: 10-21-2025Medicare Annual Wellness (AWV)Medicare Annual Wellness (AWV)NOMS HealthcareStart: 09-04-2926Ekgoa screening for proteinDiabetes: Urine Protein ScreeningNOUT HealthcareStart: 17-31-1610Ruadffuyt vaccinationInfluenza Vaccine (#1)NOMS HealthcareStart: 99-84-2517Fkgxzjnsav A1c measurementDiabetes: Hemoglobin A1C NOMS HealthcareStart: 04-01-2025Medicare Annual Wellness (AWV)Medicare Annual Wellness (AWV)NOMS HealthcareStart: 04-26-2024 End: 01-09-7008Evlenkb encounter whtyqtuxd13/24/2025 11:00 AM EST Office Visit [facility] [address] [place] [phone] Galen Condon PA 112 [facility] [address] [place] [address] Acute pain of left knee; Effusion of left kneeNOMS SWS ORTHOComment on above:Acute pain of left knee; Effusion of left kneeStart: 04-19-2024 End: 99-15-4562Khzjlwy encounter yqgctckhb47/17/2025 2:15 PM EST Office Visit [facility] 112 [facility] [address] [place] [address] Matti Gmoez MD 112 [facility] [address] [place], [place] [id number] ArrivedNOMS CI FMComment on above:ArrivedStart: 02-20-2024 Hemoglobin A1c measurementDiabetes: Hemoglobin U5NEHOK HealthcareStart: 12-22-2023 End: 98-80-1623FBUEHAMSV C AB W/RFL RNS, PCR W/RFL GENOTYPE,LIPAHEPATITIS C AB W/RFL RNS, PCR W/RFL GENOTYPE,LIPA Lab Routine Medicare annual wellness visit, subsequent Other problems related to lifestyle Expected: 12/22/2023 (Approximate), Expires: 12/21/2024NOUT HealthcareComment on above:Expected: 12/22/2023 (Approximate), Expires: 12/21/2024Start: 12-22-2023 End: 58-39-7099Usaiu 1996 panel - Serum or PlasmaLipid panel Lab Routine Medicare annual wellness visit, subsequent Type 2 diabetes mellitus with other specified complication, without long-term current use of insulin (CMS/HCC) Mixed hyperlipidemia (CMS/HCC) Expected: 12/22/2023 (Approximate), Expires: 12/21/2024[facility] Healthcare Work Phone: Comment on above:Expected: 12/22/2023 (Approximate), Expires: 12/21/2024Start: 12-22-2023 End: 95-57-0348Bfgcovsz specific Ag [Mass/volume] in Serum or PlasmaPSA Lab Routine Medicare annual wellness visit, subsequent Screening for malignant neoplasm of prostate Expected: 12/22/2023 (Approximate), Expires: 12/21/2024[facility] HealthcareComment on above:Expected: 12/22/2023 (Approximate), Expires: 12/21/2024Start: 12-22-2023 End: 69-13-3617Xwkrimx encounter procedureNOMS CI FMComment on above:Arrived Start: 12-10-2023 End: 63-49-4871Itrdryydgifi/Creatinine panel in random UrineMicroalbumin / creatinine, urine ratio Lab Routine Type 2 diabetes mellitus with other specified complication, without long-term current use of insulin ([facility]) Expected: 12/10/2023 (Approximate), Expires: 12/09/2024[facility] Healthcare Work Phone: Comment on above:Expected: 12/10/2023 (Approximate), Expires: 12/09/2024Start: 12-10-2023 End: 12-47-5438Jeamvwy encounter rorxcxjgt02/09/2024 9:30 AM EDT Office Visit [facility] [address] [place] [address] Mel Cabello PA [address] [place] [address] ArrivedNOMS CI FMComment on above:ArrivedStart: 11-21-2023 End: 36-87-6023Blwdgpc encounter rimwyxect25/20/2024 9:30 AM EDT Office Visit [facility] [address] [place] [address] Matti Gomez MD [address] [place] [address] ArrivedNOMS CI FMComment on above:ArrivedStart: 11-20-2023 End: 48-82-3651Xailvxl encounter jhmvnnufq54/19/2024 2:15 PM EDT Office Visit [facility] [address] [place] [address] Matti Gomez MD [address] [place] [address] NOMS CI FMStart: 14-43-2496Ouurqzjuz vaccinationInfluenza Vaccine (#1)NOMS HealthcareStart: 78-44-8284Hcuiw screening for proteinDiabetes: Urine Protein ScreeningNOUT HealthcareStart: 47-38-6963Teeiqqwc screening Diabetes: Retinopathy ScreeningNOUT HealthcareStart: 61-91-5479Kddasqxrr for malignant neoplasm of colonNOUT Healthcare Immunizations Immunization DateImmunizationNotesCare PdvphynhEdxldtry62-18-8324TDRA-ZZQ-9 (COVID-19) vaccine, mRNA, spike protein, LNP, PF, mayda-sucrose, 30 mcg/0.3 mL Mel DANIELS Work Phone: NOFreeman Health SystemAcrgeadcpm75-26-7616RDCVVOY - Respiratory syncytial virus (RSV), vaccine, bivalent, protein subunit RSV prefusion F, dil uent reconstituted, 0.5 mL, PFMel Cabello PA Work Phone: NOFreeman Health SystemTvvnliinme10-62-5300nrwyspbpd virus vaccine, unspecified formulationMel DANIELS Work Phone: NOFreeman Health SystemKexjoluibm26-91-6483IZFL-LBL-3 (COVID-19) vaccine, mRNA, spike protein, LNP, PF, mayda-sucrose, 30 mcg/0.3 mLMel DANIELS Work Phone: NOFreeman Health SystemRkxuwnvlxh69-23-1158bfdfbpdbz virus vaccine, unspecified formulationMatti Gomez MD Work Phone: NOFreeman Health SystemLadllremou09-88-8760afrxytwwg virus vaccine, unspecified formulationlynn Dhillon [phone]-BfchxSelect [facility] 87-76-1670XLKU-CoV-2 (COVID-19) mRNAMUL.ORD!p80571Fsjmoq Dhillon [phone]-WnbvySelect Medical [facility] Comment on above:Result Comment: 2022-10-10: WDQ2962-64-0267Qrmsqq Purple Cap SARS-CoV-2 VaccinationMatti Gomez MD Work Phone: [facility] CenterHyuwvfqgqv37-53-9691AOCV-CkW-9 mRNA (znlmfuqwpof-vvuz-oovrxib) vaccineGaetano Dhillon [phone]-ZxpwtSelect [facility] 60-70-7738bhpjofjsd virus vaccine, unspecified formulationlynn Dhillon [phone]-DculgSelect [facility] 39-71-3985BDMO-CoV-2 (COVID-19) mRNA BNT-162b2 Alex Dhillon [phone]-NsqbtSelect [facility] Comment on above:Result Comment: 2022-10-10: GPJ4600-45-5630EYQL-EqV-3 (COVID- 19) mRNA BNT-162b2 Alex Dhillon [phone]-UjtklSelect [facility] Comment on above:Result Comment: 2022-10-10: XAJ5558-88-9176UMIW-XeU-5 (COVID- 19) mRNA BNT-162b2 Alex Dhillon [phone]-YeaozSelect [facility] Comment on above:Result Comment: 2022-10-10: BIS3473-85-0111lmbdcr vaccine Jaspreet Gomez MD Work Phone: noFreeman Health SystemYrvmehqugw38-33-2822yymgzcqyk virus vaccine, unspecified formulationMatti Gomez MD Work Phone: GlobalCryptoFreeman Health SystemWroncnqanq08-02-1607tarhchckq virus vaccine, unspecified formulationGaetano Dhillon [phone]-YfkwxSelect [facility] 60-41-6381nhppge vaccine Jaspreet Gomez MD Work Phone: noFreeman Health SystemEwaokjponk25-69-8519fgbclt vaccine recombinant Gaetano Dhillon [phone]-WeemwSelect [facility] 85-45-3600obkneag toxoid, reduced diphtheria toxoid, and acellular pertussis vaccine, adsorbedMatti Gomez MD Work Phone: noFreeman Health SystemBvyzfvkmhy91-49-6769otjnzmrit virus vaccine, unspecified formulationGaetano Dhillon [phone]-CutarSelect Medical [facility] 85-79-3060moqgpphxj, injectable, quadrivalent, preservative Ramiro Gomez MD Work Phone: GlobalCryptoFreeman Health SystemSdwbqarunv99-03-9633mtlmla vaccine recombinant Gaetano Dhillon [phone]-Vnedc[address] [place] [address] 12-77-2107hvoycahks virus vaccine, unspecified formulationlynn Dhillon [phone]-Ncfoo[address] [place] [address] 89-69-7291wjowzuwpedjm conjugate vaccine, 13 valentlynn Dhillon [phone]-Zgrjp[address] [place] [address] 24-41-9637xwxrnueos virus vaccine, unspecified formulationlynn Dhillon [phone]-Zcoai[address] [place] [address] 66-45-7539ddlhfsauc virus vaccine, unspecified formulationMatti Gomez MD Work Phone: [facility] CenterAujtmjsomx15-20-4132jmtbeakdr virus vaccine, unspecified formulationMatti Gomez MD Work Phone: [facility] CenterEoyobdjpwl16-87-9535oospycdfa virus vaccine, unspecified formulationlynn Dhillon [phone]-Niucw[address] [place] [address] 60-53-6066xwyenrizi virus vaccine, unspecified formulationlynn Dhillon [phone]-Hyruf[address] [place] [address] 50-60-2012vwlmkeyzbbaz polysaccharide vaccine, 23 valentlynn Dhillon [phone]-Dpjgv[address] [place] [address] 04-64-2904wxoiawnk influenza, intradermal, preservative Ramiro Gomez MD Work Phone: [facility] CenterWfyvtknewn03-11-0045xwixysdpr virus vaccine, unspecified formulationMatti Gomez MD Work Phone: [facility] CenterXigbfuataa99-64-6621etwkjoszr virus vaccine, unspecified formulationlynn Dhillon [phone]-Vicev[address] [place] [address] 71-84-5200ilbuwcroqprn conjugate vaccine, 13 valentMatti Gomez MD Work Phone: [phone] CenterUkgieycnrh67-96-6669dcremkuaa virus vaccine, unspecified formulationlynn Dhillon [phone]-KvitfSelect Medical [facility] 55-84-8909yeqllgbds virus vaccine, unspecified formulationMatti oGmez MD Work Phone: [facility] CenterPcqqnipiwv56-78-8883miigxrfylwxf polysaccharide vaccine, 23 valentMatti Gomez MD Work Phone: NOFreeman Health SystemMasarkxkqt29-11-8878rspkbeymlukz vaccine, unspecified formulationMatti Gomez MD Work Phone: noFreeman Health SystemZuhsdkzgth17-45-7093jezsstvcj virus vaccine, unspecified formulationGaetano Alejo [phone]-TqtkqSelect [facility] Payers DatePayer CategoryPayerPolicy [id number] HEALTHCARE MEDICARE UHC MEDICARE ADVANTAGE [id number] 2022-Present [address] [address] [place] [id number] 2023Medicare (Managed Care)[id number] Health [id number] [id number] [id number] 2.0.1.442131.3.57[id number] 2.840.1.649046.3.57[id number] 2.840.1.306491.3.57[id number] 2.840.1.634240.3.57[id number] 2..840.1.716535.3.57[id number] 2.840.1.896247.3.57[id number] 2.16.840.1.866420.3.57[id number] 2.16.840.1.315866.3.579.[id number] 2.16.840.1.552775.3.57[id number] 2.16.840.1.763276.3.579.[id number] 2.16.840.1.090572.3.579.[id number] 2.16.840.1.362069.3.579.[id number] 2.16840.1.928421.3.579.[id number] 2.16.840.1.288040.3.57[id number] 2.16840.1.093353.3.57[id number] 2.16840.1.482596.3.57[id number] 2.16840.1.562785.3.57[id number] 2.16840.1.147815.3.57[id number] 2.16840.1.825900.3.579.2.1259Private Health InsuranceSandstone Critical Access Hospital [id number] [id number] Health InsuranceMercy Health Urb[facility] Hospital [id number] Pay [id number] Social History DateTypeDetailFacilityStart: 01-28-2022 End: 37-72-9731Hfepzhm smoking statusEx-smoker (finding)[facility]ighComment on above:Quit in the sStart: 07-09-2023 End: 26-36-0854Nli Assigned At [facility] Centertart: 01-48-5938Yjb Assigned At [facility] HospitalHistory of tobacco useCurrent smokerNOMS HealthcareHistory of tobacco useCigarette Smoker NOM HealthcareStart: 24-53-8889Cyyabgj use and exposureSmokeless tobacco non-userNOMS HealthcareStart: 11-21-2023 End: 06-10-4161Zazcjdnmy beverage intakeCurrent drinker of alcohol (finding)NOM HealthcareStart: 07-09-2023 End: 11-43-9415Rezzxas of Social functionNOMS HealthcareHow often to you have a drink containing alcohol?Monthly or lessNOMS HealthcareHow many standard drinks containing alcohol do you have on a typical day?1 or 2NOMS HealthcareHow often do you have 6 or more drinks on 1 occasion?NeverNOMS HealthcareStart: 07-09-2023 Alcohol Commentcaffeine: 1-2 cups per dayNOUT HealthcareStart: 11-32-1347Poe assigned at birthNot on [facility] Functional Status IgdwPfolwngltdSludzmNfacayun60-13-4587Pcyyhnkwgw StatusN/[facility]08-03-2023Functional StatusReg[facility] Medical Center01-17-2023 Functional StatusN/[facility]01-03-2023Functional StatusN/A [facility]12-01-2022Functional StatusRegional Medical Center11-28-2022Functional StatusHx of Positive TB Skin Test [facility]11-17-2022Functional StatusN/[facility] Clinical Notes 12-28-2021 to 11-22-2024 Note Date & XrozIidmYqmgiaob02-08-0469 Telephone encounter Note* Telephone Encounter - Matti Gomez MD - 11/22/2024 5:33 PM EDT Rx wwas sent [facility] CenterRmhxfbpvrx00-91-7768 Miscellaneous Notes* Telephone Encounter - Matti Gomez MD - 11/22/2024 5:33 PM EDT Rx wwas sent * Telephone Encounter - LISET STANFORD - 11/22/2024 12:45 PM EDT Patient called asking for an antibiotic to be called in. He is having sinus headache with congestion and a cough with yellow/ green phlegm for the last 4 days. He did have a low grade fever over the weekend. Please advise documented in this encounterKansas City VA Medical CenterFfjlwzczpw99-06-1666 Telephone encounter Note* Telephone Encounter - LISET STANFORD - 11/22/2024 12:45 PM EDT Patient called asking for an antibiotic to be called in. He is having sinus headache with congestion and a cough with yellow/ green phlegm for the last 4 days. He did have a low grade fever over the weekend. Please advise [facility] CenterVtbjsxjtol99-15-7228 History of Present illness Narrative* JEREMIAH Barnes - 07/30/2024 12:00 PM EDT Images from the original note were not included. Subjective Patient ID: Moises Berry is a 74 y.o. male who presents for URI. Last week this started when he first cut his grass Congestion, drainage, runny nose clear, coughing with occasional clear phlegm, starts in morning with a sore throat. Been using flonase, cough drops. Flonase is helping somewhat. Follows with Dr. Perales, Dr. Espinal, and the [facility]. URI This is a new problem. The [...] week or two. Continue medications prescribed by [facility] and Dr. Espinal. Follow up in about 5 months (around 12/22/2024) for Medicare Wellness Visit. documented in this encounterKansas City VA Medical CenterHkjkwpscff49-29-3909 NoteUT Cardiology - [facility] Subjective Moises Berry is a 74 y.o. 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 He is a [...] Labs None available. Imaging (more content not included)...[facility] 04-26-2024 History of Present illness Narrative* JEREMIAH Patel - 04/26/2024 11:00 AM EST Images from the original note were not included. HISTORY OF PRESENT ILLNESS: EST PT Moises Berry is an 74 y.o. @ male. [...] for requiring urgent evaluation. documented in this encounterKansas City VA Medical CenterZjwmumqvaw05-31-5123 History of Present illness Narrative* Matti Gomez MD - 04/19/2024 2:15 PM EST Images from the original note were not included. Subjective Patient ID: Moises Berry is a 74 y.o. male who presents for left knee pain Moises is in today for left knee pain, states its been going on for a month, states he was liftingup his toilet and the following day he [...] History: Diagnosis Date ASHD (arteriosclerotic heart disease) ([facility]) Asthma, moderate persistent ([facility]/HCC) Atrial fibrillation ([facility]/HCC) Chronic sinusitis COPD (chronic obstructive pulmonary disease) ([facility]/HCC) Diabetes ([facility]) Disorder of prostate DNS (deviated nasal septum) Hyperlipidemia ([facility]/HCC) Hypertension ([facility]) PE (pulmonary thromboembolism) ([facility]) 01/2022 Sleep apnea Past Surgical History: Procedure Laterality Date BACK SURGERY CARDIAC CATHETERIZATION 2010 LUMBAR DISCECTOMY 2021 LUMBAR DISCECTOMY 2011 L4-5 SHOULDER ARTHROSCOPY Right 05/04/2015 DR LUTZ [...] complication, without long-term current use of insulin ([facility]) Acute non-recurrent sinusitis, unspecified location - cefdinir [...] (around 05/17/2024) for Wellness. documented in this encounterKansas City VA Medical CenterZdiluibdte37-39-5162 History of Present illness Narrative* JEREMIAH Barnes - 12/22/2023 11:00 AM EDT Images from the original note were not included. Subjective : Chief Complaint: Moises Berry is an 73 y.o. male here [...] (one) time eachday at the same time [DISCONTINUED] cefdinir (Omnicef) [...] Do you have a medical power of divorce attorney?: Yes Objective : BP 128/70 Pulse [...] All needed testing was ordered. Will continue withyearly Medicare Wellness exams. - Lipid panel - [...] sleep apnea) The patient is seeing a certified medical technician assistant for this condition, treatment is deferred [...] type (CMS/HCC) The patient is seeing a certified medical technician assistant for this condition, treatment is deferred to that specialist. Correspondence from that specialist and any available testing were reviewed during today's visit. 16. Dyspnea on exertion The patient is seeing a certified medical technician assistant for this condition, treatment is deferred to that specialist. Correspondence from that specialist and any available testing were reviewed during today's visit. 17. Hard to intubate, sequela The patient is seeing a certified medical technician assistant for this condition, treatment is deferred to that specialist. Correspondence from that specialist and any available testing were reviewed during today's visit. 18. Snoring The patient is seeing a certified medical technician assistant for this condition, treatment is deferred to that specialist. Correspondence from that specialist and any available testing were reviewed during today's visit. 19. Atrial fibrillation, unspecified type (CMS/HCC) This is a chronic medical condition that is stable since last assessment. No changes in treatment are suggested at this time. 20. Coronary artery disease involving umkumiut heart without angina pectoris, unspecified vessel or lesion type (CMS/HCC) This is a chronic medical condition that is stable since last assessment. No changes in treatment are suggested at this time. 21. Primary hypertension (CMS/HCC) Patient's blood pressure is currently well controlled. Continue with current medications and I willcontinue to monitor. Goal BP remains less than 130/80. 22. 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 No changes in treatment are suggested at this time. 40. Type 2 diabetes mellitus with hyperglycemia (CMS/HCC) Last HgbA1c was elevated at 8.1. Discussed diet modification today. [facility] Follow up in about 6 months (around 06/21/2024) for Diabetes, Hypertension. Electronically signed by Mel Cabello PA-C on December 22, 2023 documented in this encounterKansas City VA Medical CenterDsaykltbyu18-15-1588 History of Present illness Narrative* JEREMIAH Barnes - 12/10/2023 9:30 AM EDT Images from the original note were not included. Subjective Patient ID: Moises Berry is a 73 y.o. male who presents for sinusitis. Moises is present today for follow up sinusitis. [...] phlegm, SOB, wheezing (improved some). Went to [place] in July and the pollen count was high. Came back and mowed the lawn and symptoms have lingered since then. Current Outpatient Medications on File Prior to Visit Medication Sig Dispense Refill tiotropium-olodaterol (Stiolto Respimat) 2.5-2.5 MCG/ACT aerosol solution inhaler 1 (one) time eachday at the same time albuterol HFA 90 [...] complication, without long-term current use of insulin ([facility]) - Microalbumin / creatinine, urine ratio; Future Urine sample obtained today for Microalbumin. COPD Continue Stiolto as prescribed by Pulmonology. Is perceiving benefit. Follow up for Appointment As Scheduled. documented in this encounterKansas City VA Medical CenterWopduyccmq26-90-4279 History of Present illness Narrative* Matti Gomez MD - 11/21/2023 9:30 AM EDT Images from the original note were not included. HPI Establish Care Additional comments: Sees dr cali-cardiology Goes to [facility]--gets meds through [facility] Dr brush Last edited by Herminia Hammond LPN on 11/21/2023 9:04 AM. Subjective Patient ID: Moises Berry is a 73 y.o. male who presents for Establish Care (Sees dr cali-cardiology/Goes to [facility]--gets meds through [facility]/Dr nicolasa parks/), Diabetes, Hypertension, and Cough. Diabetes Mellitus Patient [...] without long-term current use of insulin (CMS/HCC) - POCT Glycated hemoglobin, total Mixed hyperlipidemia (CMS/HCC) Follow up in about 4 weeks (around 12/19/2023) for Wellness. documented in this encounterKansas City VA Medical CenterZqosdcjltp46-72-3053 Telephone encounter Note* Telephone Encounter - Sally Brann - 11/10/2023 9:43 AM EDT Would like to become a new patient. Doctor Grayson was the previous doctor in the [facility] system [facility] CenterKkrbgsrrgi96-66-0830 Miscellaneous Notes* Telephone Encounter - Sally Brann - 11/10/2023 9:43 AM EDT Would like to become a new patient. Doctor Grayson was the previous doctor in the [facility] system documented in this encounterKansas City VA Medical CenterBdrnwhrbdj07-29-9539 Evaluation + Plan note Future Scheduled Tests Laboratory* Lipid Panel 03/05/22 Radiology* NM Myocardial Spect Rest/Stress 1 Day 03/05/22 [facility]01-03-2023 Evaluation + Plan note Future Scheduled Tests Laboratory* Lipid Panel 03/05/22 [facility]12-04-2022 Evaluation + Plan noteExtracted from: Title:Clinical DocumentAuthor:Lopez Weber MD HDate:02/03/22 ENT POD 3 Pt comfortable. Tolerating lovenox. No nasal or PAGINATOR bleeding on exam. OKK for d/c from my standpoint. Pt to hold his Hilda PM and Fri AM shots in anticipation of splint removal and sinus debridement Friday Extracted from:Title:Discharge NoteAuthor:Ramo Shetty MD SDate:02/03/22 Discharge To, Anticipated II - Home independently [...] q6hr, PRN With When Contact Information Lopez Weber In 8 days 02/08/2022 EST [address], [address] [place] [address]- Business (1) Additional Instructions: Matti Moscoso MD Within 2 weeks [address] [place] [phone]- [phone] Additional Instructions: Post Op Patient Instructions - FT (CUSTOM) Septoplasty, Care After Extracted from:Title:Progress/SOAP NoteAuthor:Matti Moscoso MDDate:02/03/22 1. Bilateral pulmonary embol ism (I26.99: Other [...] hypertension) 10. Hyperlipidemia (E78.5: Hyperlipidemia, unspecified) Extracted from:Title:Clinical DocumentAuthor:Vaughn SALEEM, Lopez HDate:02/02/22 ENT POD [address] Moscoso note noted PTT therapeutic No sig ant nasal bleeding and no active bleeding or clot in the post OP So far pt tolerating heparin very well without any sig bleeding. Appreciate efforts on Mr Berry's behalf. I will continue to follow and be available. Extracted from:Title:Progress/SOAP NoteAuthor:Mikey SALEEM, Matti JDate:02/02/22 1. Bilateral pulmonary embol ism (I26.99: Other pulmonary embolism without acute cor pulmonale) Patient initially presented with chest pain and atrial fibrillation and was found to have bilateralpulmonary embolism as well as lower extremity DVTs. [...] filter, we can consider transitioning him to [facility] for discharge home followed by danny Zamora [...] hypertension) 10. Hyperlipidemia (E78.5: Hyperlipidemia, unspecified) Extracted from:Title:Clinical DocumentAuthor:Lopez Weber MD:02/01/22 ENT POD 1 Pt resting comfortably in bed. Discussed with both Drs. Moscoso and Sena. Greatly appreciate their care of Mr. Berry. Findings of PE and DVT noted. Pt now almost 5 hours into heparin drip without bolus. So far no significant increase in expected post op bleeding noted.Addendum by Lopez Weber MD on February 01, 2022 16:58 ESTPt notified the LE doppler showed some blood clots, primarily of the left LE. He reports that he had left LE swelling prior to his recent discharge from [facility]. Extracted from:Title:Clinical DocumentAuthor:Lopez Weber MD:02/01/22 ENT POD 1 Pt resting comfortably. No SOB or pain. LE doppler and CTA completed, but results not on chart. Tentative dx of a PE noted. Mr Berry has a moderate, but expected amount of bleeding post op, and thiswould not be of concern if not for the possible need for anticoagulation. This amount of drainage would normally be expected to last 3-4 days, and anticoagulant meds would be held until pt's post op debridement and splint removal one week from today. I will coordinate management with cardiology andIM once testing completed. Extracted from:Title:Progress/SOAP NoteAuthor:Mikey SALEEM, Matti Mckeon:02/01/22 1. Atrial fibrillation (I48. 91: Unspecified atrial [...] require a DVT filter in lieu of anticoagulation.We will need to discuss this with the [...] questions. Patient may follow-up with his primary chief hospital administrator in [place] or with Dr. Moscoso if he so [...] PRN Chest pain, NOW, Start date 01/31/22 13:54:00EST, 01/31/22 13:54:00 EST metoprolol, Injection, Misc, Once, Stop date 01/31/22 13:53:58 EST, Physician Stop, 01/31/22 13:53:58 EST Echo Transthoracic Complete Extracted from:Title:Admission H & PAuthor:Sena SALEEM, Ramo SDate:01/31/22 71-year-old male with past m edical history [...] made to ensure accuracy, however, inadvertently computerized steam bone press tender mistakes may be present. Dr. Ramo Cruz [facility] Hospitalist Extracted from:Title:Consult NoteAuthor:Matti Moscoso MDDate:01/31/22 1. Atrial fibrillation: The patient presents with [...] with Doppler to document his LV function, pulmonarypressures. The patient has elevated pulmonary pressures would consider possibility of perioperativepulmonary embolism. I have given the patient the option of following up with me in the office going forward. If the patient's atrial fibrillation persists he require anticoagulation for least 3 weeks time followed by DCcardioversion if he does not convert on his [...] PRN Chest pain, NOW, Start date 01/31/22 13:54:00EST, 01/31/22 13:54:00 EST metoprolol, Injection, Misc, Once, Stop date 01/31/22 13:53:58 EST, Physician Stop, 01/31/22 13:53:58 EST Echo Transthoracic Complete Extracted from:Title:DEEPA POSTOPAuthor:Giovanna Gaetano ADate:01/31/22 Plan Transfer/ Discharge: To nursing unit, Patient can be discharged from PACU when criteria met, Patient can be discharged from anesthesia care. Condition stable, and transfer to hospitalist/cardiology service.. Extracted from:Title:DEEPA PREOPAuthor:Gaetano Heredia DO:01/31/22 Plan [employer] [employer] (ASA) physical status classification: [...] complications discussed. Pt aware and desires to proceed.[facility]12-01-2022 Hospital Discharge instructions Patient Education 01/31/2022 13:06:40 [...] Follow these instructions at home: Medicines Take ktkj-ebu-uictbhh and prescription medicines only as told by [...] as fried or sweet foods. ?Take an yaib-zgx-ayeamow or prescription medicine for constipation. What to [...] asked to clean your nostrils with an ucdj-adi-yxrfscd saline nasal spray. This will helpto clear [...] 02/17/2006 Document Revised: 12/04/2018 Document Reviewed: 03/27/2018 Cloudy Days Patient Education 2020 [employer]. Follow Up Care 01/16/2022 12:57:23 With:Matti Moscoso MD Address: [address] [place] [phone] [phone] When:2 weeks With:Lopez Weber Address: [address] [place] [address], [address] [place] [address] Business (1) When:02/08/2022 [facility]10-28-2022 NoteEXAMINATION: XR CHEST 2 V HISTORY: Pre-surgery [...] Electronically authenticated by: ZANE HARP Date: 2021-12-28 17:57[facility]ments Appointment Date:03/19/2022 03:30:00 PM Scheduled Provider:Matti Moscoso MD Location:.[facility]iology [facility] Appointment Type:Cardiology Follow Up (FT) Future Scheduled Tests Laboratory* Lipid Panel [facility]/05/22 [facility] Future Appointments Appointment Date:10/17/2022 09:40:00 AM Scheduled Provider:Stefan Saldana MD Location:[facility] Appointment Type:FM New Patient - Adult Future Scheduled Tests Laboratory* Lipid Panel [facility]/05/22 [facility] Future Appointments Appointment Date:11/25/2023 08:00:00 AM Scheduled Provider: Location:[facility] [place] Appointment Type: Medicare Wellness Subsequent Appointment Date:01/09/2024 01:45:00 PM Scheduled Provider:Martin Renteria MD [facility] Follow Up (FT) [facility] noteNo assessment information available [facility] Work Phone: Evaluation note* Diagnosis Right acute otitis media- Primary Unspecified otitis media Type 2 diabetes mellitus with other specified complication, without long-term current use of insulin (CMS/HCC) Chronic obstructive pulmonary disease, unspecified (CMS/HCC) documented in this encounter [facility] HealthcareEvaluation note* Diagnosis Medicare annual wellness visit, [...] unspecified type (CMS/HCC) Coronary artery disease involving [place]kumiut heart without angina pectoris, unspecified vessel or [...] hazards to health Hypertrophy of nasal turbinates residential current use of anticoagulant therapy Type 2 diabetes mellitus with hyperglycemia ([facility]) documented in this encounter [facility] HealthcareEvaluation note* Diagnosis Acute maxillary sinusitis, recurrence not specified- Primary Type 2 diabetes mellitus with other specified complication, without long-term current use of insulin ([facility]) Mixed hyperlipidemia ([facility]) Mixed hyperlipidemia documented in this encounter [facility] HealthcareEvaluation note* Diagnosis Type 2 diabetes mellitus with other specified complication, without long-term current use of insulin ([facility])- Primary Acute non-recurrent sinusitis, unspecified location Effusion of left knee Chronic obstructive pulmonary disease, unspecified ([facility]) Unspecified atrial fibrillation ([facility]) documented in this encounter [facility] HealthcareEvaluation note* Diagnosis Acute pain of left knee Effusion of left knee documented in this encounter [facility] HealthcareEvaluation note* Diagnosis Acute bronchitis, unspecified organism- Primary Seasonal allergic rhinitis due to pollen documented in this encounter [facility] HealthcareEvaluation note* Diagnosis Acute sinusitis, recurrence not specified, unspecified location- Primary [facility] N[facility]ative No data available for this section [facility] No data available for this section [facility] No data available for this section [facility] Summary Purpose Family History Relationship Condition Age at Onset Recorded Date/T edy Not Specified No pertinent family history Unknown Advance Directives Advance Directive Response Recorded Date/ Time Advance Directives No September 17 10:37am Chief Complaint and Reason for Visit Chief Complaint Congestion, drainage Additional Source Comments Patient Care team informatio n (unrecognized section and content) Team MemberRelationshipSpecialtyStart DateEnd Date Stefan Saldana MD PCP - GeneralFamily Medicine08/22/22Team MemberRelationshipSpecialtyStart DateEnd Date Matti Gomez MD [address] [facility] [address] [place] [address] PCP - GeneralInternal Medicine11/21/23 Team Status: Active Member Role Status Dates Debora Casper MD Primary Care Provider Active Team Status: Inactive Member Role Status Dates Debora Casper MD Primary Care Provider Active S tart: November 04, 2023 End: November 03Honorio Serrano ProviderActiveStart: November 04, 2023 End: November 04, 2023 Personnel Name: SHIRA WATSON MD Address: Address: [address] [place] [address] Name: Domonique Caceres LPN Personnel Name: Stefan Saldana MD Address: Address: [address] Name: Domonique Caceres LPN Personnel Name: DEBORA CASPER MD Address: Address: [address] [place] [address] Name: Domonique Caceres LPN (unrecognized sect ion and content) No Status Records FoundNo Status Records FoundNo Status Records FoundNo Status Records FoundNo Status Records Found INFORMATION SOURCE (unrecogn ized section and content) DATE CREATED AUTHOR 03/27/2022 [facility] DATE CREATED AUTHOR AUTHOR'S ORGANIZ ATION 07/07/2022 [facility] DATE CREATED AUTHOR AUTHOR'S ORGANIZ ATION 11/26/2023 [facility] DATE CREATED AUTHOR AUTHOR'S ORGANIZ ATION 08/01/2024 [facility] DATE CREATED AUTHOR AUTHOR'S ORGANIZ ATION 08/26/2024 [facility] Goals (unrecognized section and content) Goals may be documented in a n alternate section Reason for Visit (unrecogniz ed section and content) ReasonCommentsLAB RESULTSWould like results of microalbumin urine.ReasonComments Establish CareSees dr cali-cardiologyGoes to [place]--gets [facility]s through [facility] s[facility]-pulmonolgyDiabetesHypertensionCoughReasonCommentsPainSpecialtyDiagnoses / ProceduresReferred By ContactReferred To ContactOrthopaedic Surgery Diagnoses Effusion of left knee Matti Gomez MD [address] [facility] [address] [place] [address] Phone: tel: fax: Jr. Kiesha Lutz, [address] [facility] [address] [place] [address] Phone: tel: fax: Referral IDStatusReasonStart DateExpiration DateVisits RequestedVisits [id number] Required /[id number] FOR RECORDS PERTAINING TO PATIENTS WHO ARE [...] BE BASED ON THE PRIMARY CLINICAL RECORDS. [facility]. provides no warranty or guarantee of the accuracy or completeness of information in this document.
== END 2024-12-24 09:18 | disposition home or self-care (01) ==
LOC: LAB 09:19
PROVIDERS: PCP Internal Medicine; Visit Provider Physician Assistant
DX: Z00.00 Encounter for general adult medical examination without abnormal findings (principal); Z12.5 Encounter for screening for malignant neoplasm of prostate
CPT/HCPCS: 36415; G0103